=== PATIENT | female | born 1945 | race African-American/Black ===

== ENCOUNTER → 2016-03-11 | Outpatient (CLI) | payer OTHER ==
[~2016-03-11] MED LIST: ACETAMINOPHEN650 M5 PO; ADVANCED ANTAC355 ML PO; AMLODIPINE BESY10 MG PO; ASPIR 8181 MG PO; ASPIRIN EC81 M1 PO; BENAZEPRIL HCL20 MG PO; CARVEDILOL12.5 MG PO; CARVEDILOL6.25 MG PO; CELEBREX 200 M200 M1 PO; CELEXA10 MG PO; CLARITIN10 MG PO; COLACE100 MG PO; FERREX 150150 MG PO; FLAGYL500 MG PO; FLEXERIL PO; FUROSEMIDE 80 M80 M1 PO; GABAPENTIN 100100 MG PO; GLUCOPHAGE XR500 MG PO; HUMALOG100 UNIT/2; HYDROCODON-ACE1 EAC7 PO; IBUPROFEN 600600 M1 PO; JANUVIA 50 MG T50 MG PO; KEFLEX500 MG PO; LANOXIN 0.250.25 M1 PO; LASIX 40 MG TAB40 M2 PO; LIPITOR10 MG PO; MEDI-MECLIZINE25 MG PO; MOM PO; NAPROSYN500 MG PO; NEURONTIN 300300 M1 PO; POTASSIUM; POTASSIUM PO; POTASSIUM20 PO; POTASSIUM99 M1 PO; PROTONIX40 M1 PO; SANTYL OINTMENT30 G1 TOP; SENOKOT-S1 TA1 PO; TERBINAFINE15 GM TOP; TRAMADOL 50 MG50 MG PO; TRIAMTERENE-HC1 EAC1 PO; VITAMIN D3400 UNIT PO; ZANAFLEX4 MG PO; ZINC CHELATE50 MG PO
== END ==
LOC: HYPER 06:57
DX: I87.332 Chronic venous hypertension (idiopathic) with ulcer and inflammation of left lower extremity (principal); L97.821 Non-pressure chronic ulcer of other part of left lower leg limited to breakdown of skin; I87.321 Chronic venous hypertension (idiopathic) with inflammation of right lower extremity; R60.0 Localized edema; E66.01 Morbid (severe) obesity due to excess calories; Z79.84 Long term (current) use of oral hypoglycemic drugs; Z87.891 Personal history of nicotine dependence

== ENCOUNTER → 2016-05-21 | Outpatient (CLI) | payer OTHER | LOC: HYPER 07:04 | DX: I87.332 Chronic venous hypertension (idiopathic) with ulcer and inflammation of left lower extremity (principal); L97.321 Non-pressure chronic ulcer of left ankle limited to breakdown of skin; I87.321 Chronic venous hypertension (idiopathic) with inflammation of right lower extremity; L97.111 Non-pressure chronic ulcer of right thigh limited to breakdown of skin; E11.622 Type 2 diabetes mellitus with other skin ulcer; E66.01 Morbid (severe) obesity due to excess calories; E11.65 Type 2 diabetes mellitus with hyperglycemia; Z79.84 Long term (current) use of oral hypoglycemic drugs; Z87.891 Personal history of nicotine dependence; Z72.89 Other problems related to lifestyle ==

== ENCOUNTER → 2016-06-19 | Outpatient (CLI) | payer OTHER | LOC: HYPER 07:06 | DX: I87.332 Chronic venous hypertension (idiopathic) with ulcer and inflammation of left lower extremity (principal); L97.422 Non-pressure chronic ulcer of left heel and midfoot with fat layer exposed; R60.0 Localized edema; E66.01 Morbid (severe) obesity due to excess calories; E11.622 Type 2 diabetes mellitus with other skin ulcer; E11.65 Type 2 diabetes mellitus with hyperglycemia; Z79.84 Long term (current) use of oral hypoglycemic drugs; Z90.13 Acquired absence of bilateral breasts and nipples; Z87.891 Personal history of nicotine dependence; Z72.89 Other problems related to lifestyle ==

== ENCOUNTER → 2016-07-31 | Outpatient (CLI) | payer OTHER | LOC: HYPER 07:09 | DX: I87.332 Chronic venous hypertension (idiopathic) with ulcer and inflammation of left lower extremity (principal); L97.322 Non-pressure chronic ulcer of left ankle with fat layer exposed; R60.0 Localized edema; E66.01 Morbid (severe) obesity due to excess calories; E11.65 Type 2 diabetes mellitus with hyperglycemia; E11.622 Type 2 diabetes mellitus with other skin ulcer; Z79.84 Long term (current) use of oral hypoglycemic drugs; Z87.891 Personal history of nicotine dependence; Z72.89 Other problems related to lifestyle; Z68.43 Body mass index [BMI] 50.0-59.9, adult ==

== ENCOUNTER → 2016-09-25 | Outpatient (CLI) | payer OTHER | LOC: HYPER 08-28 15:18 | DX: I87.332 Chronic venous hypertension (idiopathic) with ulcer and inflammation of left lower extremity (principal); L97.322 Non-pressure chronic ulcer of left ankle with fat layer exposed; E66.01 Morbid (severe) obesity due to excess calories; E11.622 Type 2 diabetes mellitus with other skin ulcer; Z79.84 Long term (current) use of oral hypoglycemic drugs; Z68.43 Body mass index [BMI] 50.0-59.9, adult; Z87.891 Personal history of nicotine dependence; Z72.89 Other problems related to lifestyle ==

== ENCOUNTER 2016-10-14 15:04 | Inpatient (IN) | payer OTHER ==
[~2016-10-14] VITALS: Ht 4 cm; Wt 144.2 kg
--- NOTE | ~2016-10-14 | 2DMMODE ---
[facility] [address] [place] [address] 2 D/M-MODE ECHOCARDIOGRAM Name: RAMIRO BROOKS Room #: 219-P ADM IN M.R.#: [id number] Admission: 10/14/16 Attend Phys: Anthony Amaya Discharge: Date of : 41 Date of Service: 10/15/16 0903 Report #: [id number] THIS REPORT FOR: //name// APPROVED REPORT Study performed: 10/15/2016 06:04:09 EXAM: Comprehensive 2D, Doppler, and color-flow Echocardiogram Patient Location: Bedside Room #: 219 Status: routine BSA: 2.38 HR: 89 bpm BP: 142/60 mmHg Other Information Study Quality: Good Indications Chest pain. Hx: HTN, DM, morbid obesity. 2D Dimensions RVDd: 37.21 mm LVEF(%): 65.67 (>50%) IVSd: 12.90 (7-11mm) LVOT Diam: 21.21 (18-24mm) LVDd: 54.93 mm PWd: 13.21 (7-11mm) Ascending Ao: 35.41 (22-36mm) LVDs: 34.88 (25-40mm) Aortic Root: 34.94 mm Stokes's LVEF: 65.67 % Volumes Left Atrial Volume (Systole) Single Plane 4CH: 88.47 mL Single Plane 2CH: 81.78 mL LA ESV Index: 38.00 mL/m2 Aortic Valve AoV Peak Russ.: 2.06 m/s AO Peak Gr.: 16.93 mmHg LVOT Max P.84 mmHg AO Mean Gr.: 9.82 mmHg AO V2 Mean: 1.52 m/s LVOT Max V: 1.21 m/s AO V2 VTI: 39.87 cm VESTA Vmax: 2.07 cm2 Mitral Valve E/A Ratio: 0.6 [facility] [place] [address] 2 D/M-MODE ECHOCARDIOGRAM Name: RAMIRO BROOKS Room #: 219-P [facility] IN .R.#: [id number] Admission: 10/14/16 Attend Phys: Anthony Amaya Discharge: Date of : 41 Date of Service: 10/15/16 0903 Report #: [id number] MV Decel. Time: 163.06 ms MV E Max Russ.: 0.90 m/s MV A Russ.: 1.54 m/s MV PHT: 47.29 ms IVRT: 65.74 ms Pulmonary Valve PV Peak Russ.: 1.30 m/s PV Peak Gr.: 6.80 mmHg Pulmonary Vein P Vein S: 0.72 m/s P Vein A: 0.38 m/s P Vein D: 0.32 m/s P Vein A Dur.: 69.2 msec P Vein S/D Ratio: 2.25 Tricuspid Valve TR Peak Russ.: 3.35 m/s RAP Estimate: 5.00 mmHg TR Peak Gr.: 44.95 mmHg PA Pressure: 50.00 mmHg Left Ventricle The left ventricle is normal size. There is normal LV segmental wall motion. Mild concentric left ventricular hypertrophy. Left ventricular systolic function is normal. LVEF is 55-60%. Mild diastolic dysfunction is present (impaired relaxation pattern). Right Ventricle The right ventricle is normal size. The right ventricular systolic function is normal. Atria Left atrium is moderately dilated. Right atrium is mildly dilated. Aortic Valve Aortic valve is calcified, trileaflet No aortic regurgitation is present. There is no aortic valvular stenosis. Mitral Valve Mitral valve leaflets are thickened. Mild mitral annular calcification. No mitral regurgitation. Tricuspid Valve The tricuspid valve is normal in structure. There is mild to moderate tricuspid regurgitation. The right atrial pressure is estimated at 5 mmHg. There is moderate pulmonary hypertension with an estimated PAP [facility] [address] [place] [address] 2 D/M-MODE ECHOCARDIOGRAM Name: RAMIRO BROOKS Room #: 219-P [facility] IN ..#: [id number] Admission: 10/14/16 Attend Phys: Anthony Amaya Discharge: Date of : 41 Date of Service: 10/15/16 0903 Report #: [id number] of 50mmHg. Pulmonic Valve Pulmonic valve is not well visualized. Trace pulmonic regurgitation. Great Vessels The aortic root is normal in size. The ascending aorta is normal in size. IVC is normal in size and collapses >50% with inspiration. Pericardium There is no pericardial effusion. <Conclusion> Left ventricular systolic function is normal. There is normal LV segmental wall motion. LVEF is 55-60%. Mild diastolic dysfunction is present (impaired relaxation pattern). Aortic valve is calcified, trileaflet. Noo aortic valvular stenosis or insufficiency. Mitral valve leaflets are thickened. Mild mitral annular calcification. No mitral regurgitation. There is moderate pulmonary hypertension with an estimated pulmonary artery pressure of 50mmHg. There is no pericardial effusion. <ELECTRONICALLY SIGNED> By: Tariq Dickinson MD, FACC 10/15/16902 2 2 Tariq Dickinson MD, FACC /INF
--- NOTE | ~2016-10-14 | EKG ---
[place] [address] [address] [place] [address] ELECTROCARDIOGRAM REPORT Name: RAMIRO BROOKS Room #: 219-P ADM IN M.R.#: [id number] Admission: 10/14/16 Attend Phys: Anthony Herr Discharge: Date of : 41 Report #: [id number] THIS REPORT FOR: //name// [facility] Test Date: 2016-10-15 Test Time: 06:14:48 Pat Name: RAMIRO BROOKS Department: Room: 219 P Gender: F Bellman Captain: DAT : 1945 Requested By: Epifanio Lira Order Number: [id number] MD: Tariq Dickinson Measurements Intervals [place] Rate: 90 P: 93 NE: 207 QRS: -41 QRSD: 114 T: 103 QT: 376 QTc: 460 Interpretive Statements Sinus rhythm Abnormal R-wave progression, late transition LVH with IVCD, LAD and secondary repol abnrm Compared to ECG 03/29/2015 06:11:00 No significant change was found Electronically Signed On 10-15-2016 10:54:52 CDT by Tariq Dickinson [email or web address] <ELECTRONICALLY SIGNED> By: Tariq Dickinson MD, [facility] 10/15/16 1054 0614 0614 Tariq Dickinson MD, [facility] /EPI
--- NOTE | ~2016-10-14 | P ---
[facility] [place] [address] PROCEDURE REPORT Name: RAMIRO BROOKS Room #: 219-P [facility] IN M.R.#: [id number] Admission: 10/14/16 Attend Phys: Anthony Herr Discharge: Date of : 41 Report #: [id number] THIS REPORT FOR: //name// CC: EPIFANIO Jarrett DATE OF SERVICE: 10/15/2016 BRIEF HISTORY: The patient is a 71-year-old woman, who presented with GI bleeding. In March 2013, Dr. Mcarthur cauterized 6 AVMs in the stomach for GI bleeding. She developed black tarry stools yesterday. In home health center to the ER, she had a hemoglobin of 6.3. She also had chest pain and has had a rise in troponin to 15. Case was discussed with Dr. Epifanio Lira. He urges to proceed with emergent upper endoscopy to control bleeding as he cannot take her to the catheter lab with active bleeding. This was discussed with patient. PREOPERATIVE DIAGNOSIS: Upper gastrointestinal bleeding. 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 MEDICATIONS: Sedation with propofol per anesthesia. SPECIMEN: None. ESTIMATED BLOOD LOSS: None related to procedure but the patient had an active bleeding AVM. PROCEDURE: EGD with hemostasis. FINDINGS: Prior to propofol sedation, procedure of upper endoscopy discussed with patient. Her high risk in view of her elevated troponins was discussed with the patient. Limitations for cardiovascular management were discussed as well. She indicates she understands and desires to proceed. The patient is in supine position. Her head and chest were raised about 20-30 degrees. Subsequently, Etherpadi video endoscope was inserted in the cervical esophagus under direct vision without difficulty. ____ through its entire length revealed normal esophageal mucosa. No blood was seen in the esophagus. A hiatus hernia was not seen. The scope was advanced into the stomach, was examined on end view as well as retroflexed views. Examination of the stomach revealed that the entire stomach was coated with dark red to bright red blood. No well-formed clots were seen. All the mucosa was coated with a thin layer. A [facility] [address] [place] [address] PROCEDURE REPORT Name: RAMIRO BROOKS Room #: 219-P ADM IN M.R.#: [id number] Admission: 10/14/16 Attend Phys: Anthony Herr Discharge: Date of : 41 Report #: [id number] spurting vessel was not seen. An ulcer crater was not seen. Pylorus was normal. Duodenal bulb also was covered with blood and postbulbar duodenum was also covered with blood. We then irrigated the duodenum and no lesions, ulcers or bleeding lesions were seen. We then withdrew the scope back into the stomach and very meticulously started distally in the antrum, washing away much blood as possible and suctioning the lavaged fluid and blood away. After examining the entire stomach, we isolated the area of oozing on the lesser curvature of the stomach and the body. Irrigating this area transiently we could see vascular malformations with oozing of bright red blood. We then treated this area with a 7-Urdu BICAP probe with good hemostasis. We then went back and reexamined the entire stomach as well as the duodenum and no further bright red blood was seen or active oozing was seen. We went back and looked at the site once again. There was still some oozing recurred and then we treated this area once again with the BICAP probe and obtained a fairly deep footprint from the BICAP at that point. Good hemostasis was achieved. No further bleeding was seen. Scope withdrawn. The patient tolerated the procedure well. DISPOSITION: The patient with active upper GI bleeding with chest pain and elevated troponins potentially exacerbated by her GI bleed. Active bleeding site was identified and controlled. We will place her on proton pump inhibitor. Continue to monitor hemoglobin. She did have 6 AVMs on her last endoscopy. Only one bleeding was seen today. Inspection was limited due to the coating of blood. We will monitor her clinical course. At some point, consider a repeat endoscopy to evaluate for additional vascular ectasias although that will likely depend on her clinical course. <ELECTRONICALLY SIGNED> By: Desean Rodriguez MD 10/18/16 1523 1240 1356 Desean Rodriguez MD /nt
--- NOTE | ~2016-10-14 | EKG ---
[place] [address] [address] [place] [address] ELECTROCARDIOGRAM REPORT Name: RAMIRO BROOKS Room #: 219-P ADM IN M.R.#: [id number] Admission: 10/14/16 Attend Phys: Anthony Herr Discharge: Date of : 41 Report #: [id number] THIS REPORT FOR: //name// [facility] Test Date: 2016-10-16 Test Time: 06:25:12 Pat Name: RAMIRO BROOKS Department: Room: 219 P Gender: F Chief Talent Officer: Vanesa : 1945 Requested By: Daria Lr Order Number: [id number] MD: Tariq Dickinson Measurements Intervals [place] Rate: 83 P: 55 TX: 163 QRS: -40 QRSD: 114 T: 156 QT: 393 QTc: 462 Interpretive Statements Sinus rhythm Abnormal R-wave progression, late transition LVH with IVCD, LAD and secondary repol abnrm Compared to ECG 10/15/2016 06:14:48 No significant changes Electronically Signed On 10-16-2016 8:00:26 CDT by Tariq Dickinson [email or web address] <ELECTRONICALLY SIGNED> By: Tariq Dickinson MD, [facility] 10/16/16 08 4 4 Tariq Dickinson MD, [facility] /EPI
--- NOTE | ~2016-10-14 | CATHLAB ---
[facility] [address] [place] [address] INVASIVE PROCEDURE REPORT Name: RAMIRO BROOKS Room #: 219-P ADM IN M.R.#: [id number] Admission: 10/14/16 Attend Phys: Anthony Amaya Discharge: Date of : 41 Date of Service: 10/22/16 1301 Report #: [id number] THIS REPORT FOR: //name// APPROVED REPORT Patient Details Patient Status: In-Patient Room #: The patient is a 71 year-old female Event Personnel Pablo Arroyo Entry Level Lab Technician, Saúl Marie RN, Shayla Espinosa RN RN, Melany Wilson, Sherry Worthy RTR Scrub Procedures Performed Art Access - R femoral artery* Left Heart Cath w/or w/o Coronaries [id number] [facility] Hemostasis w/ Mynx Indication Non-STEMI , Dyspnea, Unstable angina Risk Factors Obesity, HypertensionRenal Failure, Diabetes Procedure Narrative The right femoral was infiltrated with 1% Lidocaine subcutaneous anesthesia. A PINNACLE 6FR Sheath #[id number] sheath was inserted into the RFA^. Coronary angiography was performed using coronary diagnostic catheters. The right coronary system was accessed and visualized with a 5fr JR 4 catheter. The left coronary system was accessed and visualized with a 6fr JL5 catheter. The left ventricle was accessed and visualized with a 5fr JR 4 catheter. Left ventricular/Aortic Valve gradient assessed via catheter pullback. Pre-demployment femoral angiogram was performed . The patient tolerated the procedure well and there were no complications associated with the procedure. There was no hematoma. Intraoperative Conscious Sedation Sedation start time: 11:01 Case end Time: 11:44 Fentanyl 75.0 mcg Versed 1.0 mg Fluoro Time: 6.00 minutes Dose: DAP 35183.40 cGycm2 2057 mGy Contrast Type and Amount: Visipaque 125 ml [facility] [place] [address] INVASIVE PROCEDURE REPORT Name: TODDRAMIRO Room #: 219-P [facility] IN M.R.#: [id number] Admission: 10/14/16 Attend Phys: Anthony Amaya Discharge: Date of : 41 Date of Service: 10/22/16 1301 Report #: [id number] Coronary Angiography The patient's coronary anatomy is co- dominant. Diagnostic Cath Left Main Large-caliber vessel, heavily calcified with mild diffuse disease. LAD Moderately calcified throughout its course. There is a severe stenosis in the proximal/mid segment, 80%. Diagonal 1 Moderate size caliber vessel, has severe diffuse disease in the proximal segment. Circumflex Mild disease proximally. OM1 Severe proximal stenosis, 80% Right Coronary Supplies a PDA vessel. Has mild diffuse disease in the proximal segment. R PDA Small-caliber vessel, no flow limiting lesions. Ramus Has a severe stenosis in the proximal segment, 70%. Left Ventriculography Left Ventriculography was not performed. An LVEDP was measured, and there was no gradient across the outflow tract. Hemodynamics The aortic pressure is 149/67 mmHg with a mean of 99 mmHg. The left ventricular pressure is 160/17 mmHg with a mean of mmHg. The left ventricular end diastolic pressure is 30 mmHg. Conclusion 1. Severe multivessel disease. 2. Recommend CV consultation. Recommendations Aggressive Medical Therapy <ELECTRONICALLY SIGNED> By: Pablo Arroyo MD 10/22/16 1301 1301 1301 Pablo Arroyo MD /INF
--- NOTE | ~2016-10-14 | EKG ---
[address] [employer] [address] ELECTROCARDIOGRAM REPORT Name: RAMIRO BROOKS Room #: 219-P ADM IN M.R.#: [id number] Admission: 10/14/16 Attend Phys: Anthony Herr Discharge: Date of : 41 Report #: [id number] THIS REPORT FOR: //name// [facility] Test Date: 2016-10-14 Test Time: 21:43:14 Pat Name: RAMIRO BROOKS Department: Room: 219 P Gender: F Manual Qa Tester: Wesly VALLEJO : 1945 Requested By: Anthony Herr Order Number: [id number] MD: Tariq Dickinson Measurements Intervals [place] Rate: 104 P: 59 VT: 168 QRS: -45 QRSD: 114 T: 107 QT: 346 QTc: 455 Interpretive Statements Sinus tachycardia LVH with IVCD, LAD and secondary repol abnrm Compared to ECG 03/29/2015 06:11:00 No significant change was found Electronically Signed On 10-15-2016 10:51:07 CDT by Tariq Dickinson [email or web address] <ELECTRONICALLY SIGNED> By: Tariq Dickinson MD, [facility] 10/15/16 1051 2143 42 Tariq Dickinson MD, [facility] /EPI
--- NOTE | ~2016-10-14 | S ---
[facility] [place] [address] [place] [address] SURGICAL PATH RPT PROCEDURE Name: TODDGERI Room #: 219-P ADM IN M.R.#: [id number] Admission: 10/14/16 Date of : 41 Discharge: Report #: [id number] Path Case #: [id number] PATHOLOGY REPORT COLLECTION DATE: 10/18/2016 RECEIVED DATE: 10/18/2016 SUBMITTING PHYS: Dr. Desean Rodriguez OTHER PHYS: Dr. Anthony Herr SPECIMEN(S) RECEIVED: MariselaBx gastritis * * * * * * * * * * * * FINAL DIAGNOSIS: Gastric mucosa, gastritis, endoscopic biopsy: - Mild reactive gastropathy. - Negative for intestinal metaplasia or atrophy. - Negative for Helicobacter pylori. COMMENT: Helicobacter pylori immunohistochemical stain performed on block A1-negative (IUV:mgr; 10/21/2016) PATHOLOGIST: Homa Wong M.D. REPORT ELECTRONICALLY SIGNED BY: Homa Wong M.D. DATE/TIME: 10/21/2016 18:57 * * * * * * * * * * * * GROSS PATHOLOGY: Received in formalin labeled "Geri BrownEDGAR gastritis," are six segments of reza soft tissue measuring 1.0 x 0.6 x 0.2 cm in aggregate dimensions and ranging from 0.1 to 0.3 cm in maximum dimension. The specimen is submitted entirely in cassette A1. (TSD; 10/18/2016) CLINICAL HISTORY: Pre-OP DX: Anemia, previous AUM Post-OP DX: Gastric AUM's and gastritis INITIAL CPT CODE(S): A; 47101, 00085 Professional services performed by [facility] at [facility] [address] [place] [address] [facility] [address] [place] [address] SURGICAL PATH RPT PROCEDURE Name: GERI BROWN Room #: 219-P ADM IN M.R.#: [id number] Admission: 10/14/16 Date of : 41 Discharge: Report #: [id number] Path Case #: [id number] Technical services performed by [facility] at [address] [place] [address], [facility] [address] [place] [address]. Rai Jarrett [facility] [address] [place] [address] PHONE: [phone] DIRECTOR: Emanuel Wilson M.D. * * * END OF REPORT * * *
--- NOTE | ~2016-10-14 | HC ---
[facility] [place] [address] CONSULTATION Name: RAMIRO BROOKS Room #: 219-P [facility] IN M.R.#: [id number] Admission: 10/14/16 Attend Phys: Anthony Herr Discharge: Date of : 41 Report #: [id number] THIS REPORT FOR: //name// CC: Anthony Jarrett MD REASON FOR CONSULTATION: The patient is a 71-year-old woman with gastrointestinal bleeding. HISTORY OF PRESENT ILLNESS: The patient developed several black stools yesterday. Her visiting home nurse came to see her and she reported the black stool and the visiting nurse recommended she go to the Emergency Room. She was seen and admitted through [facility]. Hemoglobin was 6.8. She did receive 2 units of blood. Her MCV is 91.4, white count of 9.4. It is noted that she has chronic anemia and she typically runs in the upper 8 to low 9 region. She has not had any upper abdominal pain, nausea or vomiting. History is noteworthy for previous GI bleeding, upper endoscopy by Dr. Delarosa in 04/2015. At which times, 6 gastric AVMs were seen and treated with a BICAP probe. In addition, when she presented, she developed some chest pain. EKG was obtained, which did not reveal any acute changes. Troponins have been obtained and she has had a rise in her troponin to 15. This was discussed with Dr. Lira who stated that as long as she was stable that he prefer we proceed with upper endoscopy because he is limited on intervention in particular the cardiac catheterization if she is actively bleeding. PAST MEDICAL HISTORY: Diabetes, high blood pressure, elevated cholesterol. PAST SURGICAL HISTORY: Bilateral mastectomy, hernia repair, tonsillectomy and rotator cuff surgery. ALLERGIES: IBUPROFEN. USUAL HOME MEDICINES: Hydrocodone, amlodipine, Lipitor, Coreg, vitamin D3, furosemide, gabapentin, Januvia, terbinafine, Zanaflex and zinc. FAMILY HISTORY: No family history of colon cancers. SOCIAL HISTORY: She is nonsmoker. She will drink an occasional shot of whisky. Lives with her spouse. REVIEW OF SYSTEMS: GENERAL: No change in weight, fever or chills. HEENT: No weakness, numbness, loss of consciousness, seizures or strokes. [address] [address] CONSULTATION Name: RAMIRO BROOKS Room #: 219-P [facility] IN M.R.#: [id number] Admission: 10/14/16 Attend Phys: Anthony Herr Discharge: Date of : 41 Report #: [id number] PULMONARY: No shortness of breath or cough. CARDIOVASCULAR: She had chest pain last evening, resolved with morphine. She denies any chest pain since that time. PHYSICAL EXAMINATION: GENERAL: Well-developed, well-nourished, morbidly obese woman in no acute distress. She appears to be quite comfortable. VITAL SIGNS: Blood pressure 142/60, pulse of 94. HEENT: Anicteric. Pupils equal and round. Oropharynx clear. NECK: Supple. CHEST: Clear. HEART: Regular rate and rhythm, S1, S2. ABDOMEN: Morbidly obese, normal bowel sounds, soft, nontender without hepatosplenomegaly or masses. ASSESSMENT: 1. Upper gastrointestinal bleeding, history of gastric arteriovenous malformations. 2. Chest pain with elevation of troponin. 3. Diabetes. 4. Chronic kidney disease with elevation in creatinine. COMMENT: Case was discussed with Dr. Lira and also Anesthesia. It was felt that the patient's best interest to proceed with GI intervention to control bleeding prior to any further cardiovascular workup or intervention. This was discussed with the patient and the fact that she is at a high risk due to a potential cardiac injury was discussed with the patient. She indicates she understands and desire that we proceed. PLAN: Upper endoscopy for evaluation of her upper gastrointestinal bleeding. <ELECTRONICALLY SIGNED> By: Desean Rodriguez MD 10/15/16 1547 1346 1420 Desean Rodriguez MD /nt
--- NOTE | ~2016-10-14 | P ---
[facility] [place] [address] PROCEDURE REPORT Name: RAMIRO BROOKS Room #: 219-P [facility] IN M.R.#: [id number] Admission: 10/14/16 Attend Phys: Anthony Herr Discharge: Date of : 41 Report #: [id number] THIS REPORT FOR: //name// CC: Epifanio Lira MD [facility] Anthony Herr [facility] Rai Jarrett MD BRIEF HISTORY: The patient is a 71-year-old woman known to me who had presented with an upper GI bleed. We scoped her earlier this week and found an active bleeding AVM which was cauterized. At that time, her stomach was coated with blood, which limited views with regards to inspection for additional lesions. She has done well, but has had a drop in hemoglobin and required another unit of blood. PREOPERATIVE DIAGNOSIS: Upper gastrointestinal bleed with gastric arteriovenous malformations. POSTOPERATIVE DIAGNOSES: 1. Gastric arteriovenous malformations x 2. 2. Diffuse nodular gastritis. MEDICATIONS: Deep sedation with propofol per anesthesia. SPECIMEN: Biopsies of gastritis. ESTIMATED BLOOD LOSS: 3 mL. PROCEDURE: EGD with biopsy and hemostasis. FINDINGS: Prior to propofol sedation, procedure of upper endoscopy and intervention was discussed with the patient as well as potential risks and its complications. She indicates she understands and desires to proceed. DESCRIPTION OF PROCEDURE: With the patient in left lateral decubitus position, the [employer] video endoscope was inserted in the cervical esophagus under direct vision without difficulty. Examination of this organ to its entire length revealed normal esophageal mucosa. The squamocolumnar junction was inspected and noted to be unremarkable. There is no evidence of esophagitis, ulcer or other lesions. No bleeding sources were seen in the esophagus. The scope was advanced into the stomach, which was examined on end view as well as retroflexed views. Examination of the stomach revealed it to be free of blood. Active bleeding was not seen today. No bleeding whatsoever was noted. Upon extensive examination of the stomach on multiple passes of scope on end view as well as retroflexed views, 2 punctate nonbleeding AVMs were seen, one within the body of the stomach and the other . Both were obliterated with BICAP probe. In [address] [address] PROCEDURE REPORT Name: RAMIRO BROOKS Room #: 219-P [facility] IN M.R.#: [id number] Admission: 10/14/16 Attend Phys: Anthony Herr Discharge: Date of : 41 Report #: [id number] addition, she had gastritis with some erythema in the antrum, but nodular changes throughout the body of the stomach. Multiple biopsies were obtained. The pylorus was normal. Duodenal bulb was normal. Postbulbar duodenal sweep down to the fourth portion was normal. No blood was seen. The duodenum, duodenal AVMs were not seen. At that point, the scope was slowly withdrawn and careful circumferential views confirmed the above findings. The patient tolerated the procedure well. DISPOSITION: The patient with bleeding from gastric AVM. Second look revealed 2 nonbleeding AVMs. If she continues to drop hemoglobin, an M2 capsule study may be indicated. In addition, a colonoscopy may be indicated if she has further bleeding as well. Continue PPI at this point in time. Continue to monitor hemoglobin and follow up on biopsies. <ELECTRONICALLY SIGNED> By: Desean Rodriguez MD 10/18/16 1523 1019 1110 Desean Rodriguez MD /nt
[2016-10-14 15:12] VITALS: BP 176/60
[2016-10-14 18:50] LABS: CALCIUM 9.1 mg/dL (8.5-10.1); POTASSIUM 5.1 mmol/L (3.5-5.1)
[2016-10-14 18:57] LABS: ALBUMIN 3.1 g/dL (3.4-5.0); TOTAL BILIRUBIN 0.2 mg/dL (<0.1-1.0); TOTAL PROTEIN 6.9 g/dL (6.4-8.2)
[2016-10-14 19:13] LABS: HEMOGLOBIN 6.8 gm/dL (12.0-15.0); RDW 17.3 % (10.5-14.5)
[2016-10-14 19:15] LABS: BASOPHILS 0.5 % (0.0-2.0); EOSINOPHILS 0.6 % (0.0-3.0); HEMATOCRIT 20.4 % (37.0-47.0); LYMPHOCYTES 21.6 % (24.0-44.0); MCH 30.3 pg (26.0-34.0); MCHC 33.3 g/dL (28.0-37.0); MCV 91.1 fL (80.0-100.0); MONOCYTES 11.2 % (1.0-8.0); PLATELET COUNT 179 thou/uL (150-400); POLYS 66.1 % (36.0-66.0); RBC 2.24 mil/uL (4.20-5.00); WBC 9.1 thou/uL (4.0-11.0)
[2016-10-14 19:22] LABS: MANUAL DIFF NO
[2016-10-14 20:50] VITALS: BP 126/52
[2016-10-14 21:56] VITALS: BP 157/73
[2016-10-14 22:53] VITALS: BP 168/93
[2016-10-14 23:37] VITALS: BP 152/71
[2016-10-15 04:02] VITALS: BP 142/60
[2016-10-15 04:04] LABS: HEMOGLOBIN 6.8 gm/dL (12.0-15.0); RDW 17.9 % (10.5-14.5); WBC 9.4 thou/uL (4.0-11.0)
[2016-10-15 04:07] LABS: HEMATOCRIT 21.1 % (37.0-47.0); MCH 29.4 pg (26.0-34.0); MCHC 32.2 g/dL (28.0-37.0); MCV 91.4 fL (80.0-100.0); RBC 2.31 mil/uL (4.20-5.00)
[2016-10-15 04:12] LABS: CALCIUM 8.3 mg/dL (8.5-10.1); CREATININE 2.5 mg/dL (0.6-1.0); POTASSIUM 4.6 mmol/L (3.5-5.1)
[2016-10-15 04:23] LABS: TROPONIN-I 4.62 ng/mL (<0.04-0.07)
[2016-10-15 05:10] VITALS: BP 147/65; BP 149/65; BP 159/76
[2016-10-15 10:17] LABS: APTT 24.4 Seconds (24.5-32.8); INR 1.1
[2016-10-15 12:07] LABS: HEMATOCRIT 22.7 % (37.0-47.0); HEMOGLOBIN 7.7 gm/dL (12.0-15.0); MCH 30.3 pg (26.0-34.0); MCHC 33.8 g/dL (28.0-37.0); MCV 89.4 fL (80.0-100.0); RBC 2.54 mil/uL (4.20-5.00); RDW 18.2 % (10.5-14.5); WBC 9.5 thou/uL (4.0-11.0)
[2016-10-15 16:10] VITALS: BP 149/74
[2016-10-15 16:11] LABS: HEMATOCRIT 25.2 % (37.0-47.0); HEMOGLOBIN 8.2 gm/dL (12.0-15.0)
[2016-10-15 19:19] VITALS: BP 119/56
[2016-10-15 23:31] VITALS: BP 140/68
[2016-10-16 03:19] LABS: ABSOLUTE NEUTROPHILS 6.8 thou/uL (1.4-8.2); BASOPHILS 0.7 % (0.0-2.0); HEMATOCRIT 23.8 % (37.0-47.0); HEMOGLOBIN 7.7 gm/dL (12.0-15.0); LYMPHOCYTES 20.4 % (24.0-44.0); MCH 29.5 pg (26.0-34.0); MCHC 32.4 g/dL (28.0-37.0); MONOCYTES 9.5 % (1.0-8.0); PLATELET COUNT 157 thou/uL (150-400); POLYS 67.4 % (36.0-66.0); RBC 2.62 mil/uL (4.20-5.00); RDW 18.1 % (10.5-14.5); WBC 10.1 thou/uL (4.0-11.0)
[2016-10-16 03:20] LABS: MANUAL DIFF NO
[2016-10-16 03:26] VITALS: BP 144/60
[2016-10-16 07:18] VITALS: BP 143/54
[2016-10-16 10:33] LABS: CALCIUM 8.8 mg/dL (8.5-10.1); CREATININE 2.1 mg/dL (0.6-1.0); POTASSIUM 4.8 mmol/L (3.5-5.1)
[2016-10-16 11:13] VITALS: BP 128/44
[2016-10-16 15:01] VITALS: BP 130/44
[2016-10-16 20:30] VITALS: BP 136/52
[2016-10-17] VITALS (7 sets, daily range): BP systolic 116–146; BP diastolic 47–75
[2016-10-17 03:34] LABS: ABSOLUTE NEUTROPHILS 6.9 thou/uL (1.4-8.2); BASOPHILS 0.5 % (0.0-2.0); HEMATOCRIT 21.2 % (37.0-47.0); HEMOGLOBIN 7.1 gm/dL (12.0-15.0); LYMPHOCYTES 16.4 % (24.0-44.0); MCH 30.2 pg (26.0-34.0); MCHC 33.2 g/dL (28.0-37.0); MONOCYTES 8.5 % (1.0-8.0); PLATELET COUNT 144 thou/uL (150-400); POLYS 72.6 % (36.0-66.0); RBC 2.33 mil/uL (4.20-5.00); RDW 17.5 % (10.5-14.5); WBC 9.5 thou/uL (4.0-11.0)
[2016-10-17 03:39] LABS: MANUAL DIFF NO
[2016-10-17 03:56] LABS: ALBUMIN 2.6 g/dL (3.4-5.0); CALCIUM 8.3 mg/dL (8.5-10.1); POTASSIUM 4.5 mmol/L (3.5-5.1)
[2016-10-17 03:58] LABS: TROPONIN-I 5.96 ng/mL (<0.04-0.07)
[2016-10-18 04:43] VITALS: BP 154/66
[2016-10-18 05:11] LABS: HEMOGLOBIN 7.8 gm/dL (12.0-15.0); MCH 31.1 pg (26.0-34.0); MCHC 33.9 g/dL (28.0-37.0); MCV 91.7 fL (80.0-100.0); RBC 2.51 mil/uL (4.20-5.00); WBC 8.3 thou/uL (4.0-11.0)
[2016-10-18 05:25] LABS: ALBUMIN 2.5 g/dL (3.4-5.0); CALCIUM 8.1 mg/dL (8.5-10.1); CREATININE 1.6 mg/dL (0.6-1.0); PHOSPHORUS 4.3 mg/dL (2.5-4.9); POTASSIUM 4.5 mmol/L (3.5-5.1)
[2016-10-18 08:00] VITALS: BP 167/69
[2016-10-18 12:00] VITALS: BP 153/6
[2016-10-18 15:55] VITALS: BP 185/70
[2016-10-18 19:45] VITALS: BP 157/56
[2016-10-19] VITALS (7 sets, daily range): BP systolic 136–161; BP diastolic 46–69
[2016-10-19 03:23] LABS: HEMATOCRIT 23.4 % (37.0-47.0); HEMOGLOBIN 7.5 gm/dL (12.0-15.0); MCH 29.7 pg (26.0-34.0); MCHC 32.1 g/dL (28.0-37.0); MCV 92.4 fL (80.0-100.0); RBC 2.54 mil/uL (4.20-5.00); RDW 17.7 % (10.5-14.5); WBC 7.9 thou/uL (4.0-11.0)
[2016-10-19 03:30] LABS: ALBUMIN 2.4 g/dL (3.4-5.0); CALCIUM 8.4 mg/dL (8.5-10.1); CREATININE 1.5 mg/dL (0.6-1.0); POTASSIUM 4.3 mmol/L (3.5-5.1)
[2016-10-20 03:46] LABS: HEMATOCRIT 26.4 % (37.0-47.0); HEMOGLOBIN 8.9 gm/dL (12.0-15.0); MCH 30.7 pg (26.0-34.0); MCHC 33.7 g/dL (28.0-37.0); MCV 91.2 fL (80.0-100.0); RBC 2.9 mil/uL (4.20-5.00); RDW 17.4 % (10.5-14.5); WBC 8.3 thou/uL (4.0-11.0)
[2016-10-20 04:01] LABS: ALBUMIN 2.6 g/dL (3.4-5.0); CALCIUM 8.4 mg/dL (8.5-10.1); CREATININE 1.6 mg/dL (0.6-1.0); PHOSPHORUS 4.2 mg/dL (2.5-4.9); POTASSIUM 4.4 mmol/L (3.5-5.1)
[2016-10-20 04:11] VITALS: BP 168/69
[2016-10-20 08:24] VITALS: BP 139/43
[2016-10-20 09:30] LABS: URINE BILIRUBIN NEGATIVE (Negative); URINE BLOOD 1+ (Negative); URINE COLOR YELLOW; URINE GLUCOSE-RANDOM* NEGATIVE (Negative); URINE KETONES NEGATIVE (Negative); URINE LEUKOCYTES-REFLEX 2+ (Negative); URINE PROTEIN (DIPSTICK) 2+ (Negative); URINE SPECIFIC GRAVITY 1.025 (1.003-1.035); URINE UROBILINOGEN 0.2 E.U./dl (0.2-1.0)
[2016-10-20 09:40] LABS: CASTS None Seen /LPF (None Seen); CRYSTALS None Seen /LPF (None Seen); SQUAMOUS 0-3 Few /LPF (0-3)
[2016-10-20 09:41] LABS: URINE RBC 0-2 Rare /HPF (0-2); URINE WBC-REFLEX >25 Many /HPF (0-5)
[2016-10-20 12:29] VITALS: BP 133/53
[2016-10-20 17:27] VITALS: BP 147/67
[2016-10-20 19:32] VITALS: BP 133/50
[2016-10-21 03:10] LABS: ABSOLUTE NEUTROPHILS 5.9 thou/uL (1.4-8.2); BASOPHILS 0.3 % (0.0-2.0); EOSINOPHILS 2.4 % (0.0-3.0); HEMATOCRIT 27.7 % (37.0-47.0); HEMOGLOBIN 9.1 gm/dL (12.0-15.0); LYMPHOCYTES 15.6 % (24.0-44.0); MCH 30.1 pg (26.0-34.0); MCHC 32.9 g/dL (28.0-37.0); MCV 91.7 fL (80.0-100.0); MONOCYTES 8.6 % (1.0-8.0); PLATELET COUNT 176 thou/uL (150-400); POLYS 73.1 % (36.0-66.0); RBC 3.03 mil/uL (4.20-5.00); RDW 17.7 % (10.5-14.5); WBC 8.1 thou/uL (4.0-11.0)
[2016-10-21 03:13] LABS: MANUAL DIFF NO
[2016-10-21 03:40] LABS: CALCIUM 8.5 mg/dL (8.5-10.1); CREATININE 1.7 mg/dL (0.6-1.0); MAGNESIUM 1.7 mg/dL (1.8-2.4); POTASSIUM 4.3 mmol/L (3.5-5.1)
[2016-10-21 04:00] VITALS: BP 151/71
[2016-10-21 07:35] VITALS: BP 157/66
[2016-10-21 12:12] VITALS: BP 144/68
[2016-10-21 16:08] VITALS: BP 136/66
[2016-10-21 20:52] VITALS: BP 156/59
[2016-10-22] VITALS (11 sets, daily range): BP systolic 126–154; BP diastolic 54–70
[2016-10-22 04:20] LABS: ABSOLUTE NEUTROPHILS 6.2 thou/uL (1.4-8.2); BASOPHILS 0.3 % (0.0-2.0); EOSINOPHILS 2.4 % (0.0-3.0); HEMATOCRIT 27.7 % (37.0-47.0); HEMOGLOBIN 9.1 gm/dL (12.0-15.0); LYMPHOCYTES 11.8 % (24.0-44.0); MCH 30.1 pg (26.0-34.0); MCHC 32.7 g/dL (28.0-37.0); MCV 91.9 fL (80.0-100.0); MONOCYTES 9.3 % (1.0-8.0); PLATELET COUNT 196 thou/uL (150-400); POLYS 76.2 % (36.0-66.0); RBC 3.01 mil/uL (4.20-5.00); RDW 17.5 % (10.5-14.5); WBC 8.1 thou/uL (4.0-11.0)
[2016-10-22 04:24] LABS: MANUAL DIFF NO
[2016-10-23 03:23] LABS: ABSOLUTE NEUTROPHILS 6.3 thou/uL (1.4-8.2); BASOPHILS 0.2 % (0.0-2.0); EOSINOPHILS 2.1 % (0.0-3.0); HEMATOCRIT 29.2 % (37.0-47.0); HEMOGLOBIN 9.7 gm/dL (12.0-15.0); LYMPHOCYTES 12.2 % (24.0-44.0); MCH 30.4 pg (26.0-34.0); MCHC 33.2 g/dL (28.0-37.0); MCV 91.5 fL (80.0-100.0); MONOCYTES 9.2 % (1.0-8.0); PLATELET COUNT 211 thou/uL (150-400); POLYS 76.3 % (36.0-66.0); RBC 3.19 mil/uL (4.20-5.00); RDW 17.5 % (10.5-14.5); WBC 8.2 thou/uL (4.0-11.0)
[2016-10-23 03:48] LABS: CALCIUM 8.8 mg/dL (8.5-10.1); CREATININE 1.6 mg/dL (0.6-1.0); MAGNESIUM 1.9 mg/dL (1.8-2.4); POTASSIUM 4.3 mmol/L (3.5-5.1)
[2016-10-23 03:52] LABS: MANUAL DIFF NO
[2016-10-23 05:19] VITALS: BP 152/57; BP 162/57
[2016-10-23 07:51] VITALS: BP 155/64
[2016-10-23 11:50] VITALS: BP 155/64
[2016-10-23 11:57] VITALS: BP 155/64
[2016-10-23] MEDS ORDERED: CIPRO250 M1 PO (13:11)
[2016-10-23] MEDS ORDERED: ASPIR 8181 MG PO (13:11)
[2016-10-23] MEDS ORDERED: PROTONIX40 M1 PO (13:11)
[2016-10-23 13:42] VITALS: BP 155/64
== END 2016-10-23 18:10 | disposition home health service (06) | DRG 377 ==
LOC: ER 15:04 → 2N 19:38 → EROBS 19:38 → 2N 21:19
PROVIDERS: Hospitalist; Internal Medicine; Internal Medicine Cardiovascular Disease; Nurse Practitioner Acute Care; Physician Assistant; Specialist
PROC: 30233N1 Transfusion of Nonautologous Red Blood Cells into Peripheral Vein, Percutaneous Approach (ICD-10-PCS; 2016-10-14)
PROC: 0DB68ZX Excision of Stomach, Via Natural or Artificial Opening Endoscopic, Diagnostic (ICD-10-PCS; principal; 2016-10-18)
PROC: 0W3P8ZZ Control Bleeding in Gastrointestinal Tract, Via Natural or Artificial Opening Endoscopic (ICD-10-PCS; 2016-10-18)
PROC: B2111ZZ Fluoroscopy of Multiple Coronary Arteries using Low Osmolar Contrast (ICD-10-PCS; 2016-10-22)
PROC: 4A023N7 Measurement of Cardiac Sampling and Pressure, Left Heart, Percutaneous Approach (ICD-10-PCS; 2016-10-22)
DX: K55.21 Angiodysplasia of colon with hemorrhage (principal); N17.0 Acute kidney failure with tubular necrosis; I21.4 Non-ST elevation (NSTEMI) myocardial infarction; D62 Acute posthemorrhagic anemia; N39.0 Urinary tract infection, site not specified; Z96.1 Presence of intraocular lens; E11.40 Type 2 diabetes mellitus with diabetic neuropathy, unspecified; I12.9 Hypertensive chronic kidney disease with stage 1 through stage 4 chronic kidney disease, or unspecified chronic kidney disease; N18.9 Chronic kidney disease, unspecified; E11.22 Type 2 diabetes mellitus with diabetic chronic kidney disease; K29.70 Gastritis, unspecified, without bleeding; E78.5 Hyperlipidemia, unspecified; E66.01 Morbid (severe) obesity due to excess calories; I25.10 Atherosclerotic heart disease of native coronary artery without angina pectoris; E83.42 Hypomagnesemia; K59.00 Constipation, unspecified; D50.9 Iron deficiency anemia, unspecified; Z98.42 Cataract extraction status, left eye; Z98.41 Cataract extraction status, right eye; Z90.13 Acquired absence of bilateral breasts and nipples; Z79.899 Other long term (current) drug therapy; Z88.6 Allergy status to analgesic agent; Z87.891 Personal history of nicotine dependence; Z90.49 Acquired absence of other specified parts of digestive tract
CPT/HCPCS: 10081; 62110; 62900; 70005

== ENCOUNTER 2017-02-11 18:52 | Inpatient (IN) | payer OTHER ==
[~2017-02-11] VITALS: Ht 162.6 cm; Wt 150.5 kg
--- NOTE | ~2017-02-11 | EKG ---
[address] [address] ELECTROCARDIOGRAM REPORT Name: RAMIRO BROOKS Room #: 170-5 ADM IN M.R.#: [id number] Admission: 02/11/17 Attend Phys: Anthony Herr Discharge: Date of : 41 Report #: [id number] THIS REPORT FOR: //name// [facility] ED Test Date: 2017-02-11 Test Time: 18:51:52 Pat Name: RAMIRO BROOKS Department: Room: 170 Gender: F Marketing Content Manager: ROSA : 1945 Requested By: Reagan Harris Order Number: [id number] MD: Jesse Lay Measurements Intervals [place] Rate: 54 P: 56 HI: 201 QRS: -41 QRSD: 119 T: 31 QT: 489 QTc: 464 Interpretive Statements Sinus rhythm Incomplete left bundle branch block Probable left ventricular hypertrophy Compared to ECG 10/16/2016 06:25:12 Left bundle-branch block now present Intraventricular conduction delay no longer present Early repolarization no longer present Electronically Signed On 02-11-2017 21:15:23 [employer] by Jesse Lay [email or web address] <ELECTRONICALLY SIGNED> By: Jesse Lay MD 02/11/175 50 50 Jesse Lay MD /EPI
--- NOTE | ~2017-02-11 | P ---
[facility] [place] [address] PROCEDURE REPORT Name: RAMIRO BROOKS Room #: 216-P [facility] IN .R.#: [id number] Admission: 02/11/17 Attend Phys: Ryan Weldon MD Discharge: 02/20/17 Date of : 41 Report #: [id number] THIS REPORT FOR: //name// CC: FAM sheila Anthony Herr DATE OF SERVICE: 02/12/2017 PROCEDURE: Right subclavian triple-lumen catheter insertion. INDICATION: Poor IV access, the patient is critically ill, need for central venous access emergently. PROCEDURE NOTATION: Right subclavian site chosen. Despite the patient's renal insufficiency, the patient has acute renal failure and does not appear to chronically need dialysis at this point and wanted to leave IJ access available for possible dialysis catheter if needed. Right subclavian site was cleansed with 2% chlorhexidine gluconate. A sterile field was created using full body eye sheet using maximal barrier method including head gown, mask and gloves and using sterile technique. The patient received 4% lidocaine local to the area, was infiltrated with lidocaine. Using the introducer needle and using an infraclavicular approach, the subclavian vein was accessed on the first attempt. J wire was easily passed, but no significant ectopy noted and using a Seldinger technique after a small dermatomy using the scalpel blade, dilator was advanced over the J wire and then a triple lumen catheter was subsequently introduced and sutured in place at 17 cm at the skin surface. A Biopatch was placed and this was sutured in place using 3-0 silk and it was dressed with a clear Op-Site. No noted complications were noted and less than 10 mL of blood loss noted. Chest x-ray is pending at the time of dictation. All lines flushed and aspirated easily. Nothing for arterial flow noted. <ELECTRONICALLY SIGNED> By: Joss Mantilla MD 02/20/17 2316 0241 0457 Joss Mantilla MD /nt
--- NOTE | ~2017-02-11 | P ---
[facility] [place] [address] PROCEDURE REPORT Name: RAMIRO BROOKS Room #: 216-[facility] IN M.R.#: [id number] Admission: 02/11/17 Attend Phys: Ryan Weldon MD Discharge: 02/20/17 Date of : 41 Report #: [id number] THIS REPORT FOR: //name// CC: Ryan Weldon [facility] unknown DATE OF SERVICE: 02/12/2017 PROCEDURE: Emergent intubation. INDICATION: Hypercapnic respiratory failure, altered mental status, failing noninvasive positive pressure ventilation. PROCEDURE NOTATION: After assessing patient, the patient was not ventilating on multiple attempts with the BiPAP and the BiPAP was only intermittently ventilating patient despite multiple adjustments. The patient subsequently sedated with 20 mg of etomidate. Grade 1 view with a Isauro 4 blade was obtained and the patient with an edentulous upper palate. A 7.5 endotracheal tube was easily inserted to 21 cm at the gums. Positive Easycap color change noted on the ventilator and bilateral breath sounds noted. The patient tolerated the procedure. No noted complications connected to ventilator and the endotracheal tube was secured in place. Chest x-ray pending at the time of this dictation. <ELECTRONICALLY SIGNED> By: Joss Mantilla MD 02/20/17 2316 0238 1112 Joss Mantilla MD /nt
--- NOTE | ~2017-02-11 | D ---
[facility] [place] [address] DISCHARGE SUMMARY Name: RAMIRO BROOKS Room #: 216-P [facility] IN .R.#: [id number] Admission: 02/11/17 Attend Phys: Ryan Weldon MD Discharge: 02/20/17 Date of : 41 Report #: [id number] THIS REPORT FOR: //name// CC: Ryan ALVARADO unknown DATE OF SERVICE: 02/20/2017 HISTORY OF PRESENT ILLNESS: The patient is a 71-year-old female with multiple medical problems, including chronic kidney disease, morbid obesity and coronary artery disease, who came to the hospital with altered mental status. The patient was found to be in acute renal failure, as well as acute hypoxic and hypercapnic respiratory failure. Please refer to the admission H and P for details. HOSPITALIZATION COURSE: The patient was hospitalized for metabolic encephalopathy due to [id number] renal failure, as well as hypoxemic and hypercapnic respiratory failure. Etiology for above problems was multifactorial, including she was treated with BiPAP. Labor Mediator was consulted. The patient was also started on diuretics, because she was suspected to have CHF with diastolic dysfunction. With adequate diuresis and adequate oxygenation, the patient's condition slowly improved. Currently, the patient is alert, awake, and she is at baseline. Given morbid obesity, and multiple medical problems, the patient was recommended to go to the half-way facility for the rehab, but she refused. The patient will be discharged home on home health. DISCHARGE DIAGNOSES: 1. Acute hypoxemic and hypercapnic respiratory failure, multifactorial. Currently, the patient has adequate oxygenation. The patient needs outpatient sleep study, and possible CPAP. 2. Acute renal failure on chronic kidney disease stage 3, creatinine now close to baseline at 2.2. 3. Pulmonary hypertension. 4. Congestive heart failure with diastolic dysfunction, normal ejection fraction. 5. Morbid obesity. 6. Coronary artery disease, status post cardiac catheterization in 10/2016, no chest pain during hospitalization. 7. Diabetes mellitus type 2. 8. Chronic left ankle wound, followed by wound care clinic. 9. Hypertension. [facility] [address] [place] [address] DISCHARGE SUMMARY Name: RAMIRO BROOKS Room #: 216-P [facility] IN M.R.#: [id number] Admission: 02/11/17 Attend Phys: Ryan Weldon MD Discharge: 02/20/17 Date of : 41 Report #: [id number] DISPOSITION: The patient is discharged home on home health. FOLLOWUP PLAN: 1. Follow up with the primary care physician in 1-2 weeks. 2. Continue to follow in wound care clinic. DISCHARGE MEDICATIONS: Please refer to the medication reconciliation list. I spent greater than 30 minutes to coordinate the patient's discharge from the hospital. <ELECTRONICALLY SIGNED> By: Emerita De La Fuente MD 02/20/17 1635 1032 1433 Emerita De La Fuente MD /nt
--- NOTE | ~2017-02-11 | HC ---
[facility] [place] [address] CONSULTATION Name: RAMIRO BROOKS Room #: 236-P [facility] IN .R.#: [id number] Admission: 02/11/17 Attend Phys: Ryan Weldon MD Discharge: Date of : 41 Report #: [id number] THIS REPORT FOR: //name// CC: Ryan ALVARADO unknown DATE OF SERVICE: 02/12/2017 REASON FOR CONSULTATION: Acute and chronic kidney disease. HISTORY OF PRESENT ILLNESS: This 71-year-old patient is admitted with hypoventilation, respiratory and metabolic acidosis and rising serum creatinine. She was at home in her usual state of ill health, became progressively confused with slurring of speech, nonspecific symptoms, was taken to the emergency room, found to have an elevated pCO2, combined metabolic respiratory acidosis and a creatinine, which ran from a baseline likely around 2.0 more or less up to 4.6 when she was admitted. She had potassium of 6, which was treated after discussion by telephone with the emergency room and 5.4 this morning. PAST MEDICAL HISTORY: Massive obesity, left leg wound, previous bilateral mastectomy, chronic kidney disease as mentioned, diabetes mellitus, hypertension, previous bleeding arteriovenous malformations, left rotator cuff repair, and umbilical hernia repair. ALLERGIES: Reportedly to IBUPROFEN. HOME MEDICATIONS: Include atorvastatin 10 mg daily, carvedilol 12.5 mg b.i.d., amlodipine 10 mg daily, aspirin 81 mg daily, Neurontin 300 mg b.i.d., zinc, Protonix 40 mg b.i.d., Januvia 50 mg daily, and vitamin D. SOCIAL HISTORY: Former smoker, lives at home, apparently gets around in a wheelchair, has a chair lift, says she can ambulate a little bit at home according to the emergency room notes. FAMILY HISTORY: Positive for lung cancer. REVIEW OF SYSTEMS: Cannot be taken due to the patient is intubated in ICU and sedated on propofol. Extensive history taken from the prior electronic medical records. PHYSICAL EXAMINATION: GENERAL: Sedated patient, intubated in ICU. SKIN: Otherwise, unremarkable. SKELETAL: Well developed, well nourished, and massively obese. HEENT: Extraocular movements cannot be tested, but pupils react. Endotracheal tube is in place. [address] [address] CONSULTATION Name: RAMIRO BROOKS Room #: 236-P [facility] IN .R.#: [id number] Admission: 02/11/17 Attend Phys: yRan Weldon MD Discharge: Date of : 41 Report #: [id number] NECK: Supple. CHEST: Shows air movement anterior, slightly coarse. HEART: Regular. ABDOMEN: Massively obese, soft, nontender. EXTREMITIES: Show a rather large wound on the left ankle towards the heel area. NEUROLOGIC: Again, she is sedated in ICU. LABORATORY DATA: Hemoglobin 9.2, white count 6.0, and platelets 174. Urinalysis performed, it showed 2+ proteinuria. Currently, sodium 135, potassium 5.4, chloride 105, bicarbonate 21, BUN 68, and creatinine 4.6. ASSESSMENT: 1. Acute kidney injury. She had rather severe worsening respiratory acidosis superimposed on underlying obesity hypoventilation syndrome and chronic obstructive pulmonary disease leading to hemodynamic compromise and acute kidney injury presumably, all of which should resolve with ventilation. She is getting some IV fluids with bicarbonate, but we will decrease that and try to initiate a diuresis as she is somewhat fluid overloaded. 2. Acute respiratory failure with obesity hypoventilation syndrome. 3. Diabetes mellitus with chronic kidney disease and proteinuria. I do not believe that she has been followed by a dice table person, but we will have to verify. 4. History of bilateral mastectomy. 5. Left leg wound. 6. History of hypertension. <ELECTRONICALLY SIGNED> By: Epifanio Orta MD 02/14/17 1044 0814 0915 Epifanio Orta MD /nt
--- NOTE | ~2017-02-11 | HC ---
[facility] [place] [address] CONSULTATION Name: RAMIRO BROOKS Room #: 236-P [facility] IN .R.#: [id number] Admission: 02/11/17 Attend Phys: Ryan Weldon MD Discharge: Date of : 41 Report #: [id number] THIS REPORT FOR: //name// CC: Ryan ALVARADO unknown DATE OF SERVICE: 02/12/2017 CHIEF COMPLAINT: Ankle ulceration. HISTORY OF PRESENT ILLNESS: This is a 71-year-old female patient who I have been asked to see with regarding an ulceration of her left lateral ankle. It has been present for some time. She has a history of ongoing venous insufficiency and ulceration and ulcerations do come and go. She has, however, been recently admitted with respiratory failure, is on a ventilator. She is not able to answer any questions. Family is at the bedside. PAST MEDICAL HISTORY: The patient's past medical history is for hypertension, iron deficiency anemia, diabetes mellitus, GI bleeding with AVM, rheumatic fever, chronic kidney disease, and coronary artery disease. ALLERGIES: IBUPROFEN. MEDICATIONS: Include atorvastatin, carvedilol, amlodipine, Neurontin, aspirin, zinc, Protonix, Januvia. SOCIAL HISTORY: The patient lives at home with her family. Previous history of smoking. REVIEW OF SYSTEMS: Unobtainable due to the patient's unresponsive state and being on a respirator. FAMILY HISTORY: Positive for lung cancer in her brother. PHYSICAL EXAMINATION: VITAL SIGNS: At this time include temperature 98.7, pulse 60, respiratory rate 22, blood pressure 126/91. GENERAL: This is a chronically ill-appearing patient appears to be in minimal distress. HEAD: Normocephalic. NECK: Supple. She is orotracheally intubated. LUNGS: Diminished. ABDOMEN: Obese, soft, nontender. EXTREMITIES: Examination of the lower extremities demonstrates 2+ edema. She has some hyperpigmentation in both lower extremities consistent with longstanding venous stasis dermatitis. She has a superficial ulceration [address] [address] CONSULTATION Name: RAMIRO BROOKS Room #: 236-[facility] IN ..#: [id number] Admission: 02/11/17 Attend Phys: Ryan Weldon MD Discharge: Date of : 41 Report #: [id number] involving the lateral aspect of her left ankle. There is moderate fibrin present. These are superficial. No deep structures were exposed. Distal pulses are diminished yet palpable. NEUROLOGIC: The patient is sedated. LABORATORY DATA: Includes sodium 135, potassium 5.4, chloride 105, CO2 of 21, BUN 68, creatinine 4.6, albumin is 2.6. White blood cell count 6000 with hemoglobin of 9.2, hematocrit of 28. CLINICAL IMPRESSION: 1. Venous type ulceration, left lateral ankle. 2. Respiratory failure, requiring mechanical ventilation. 3. Morbid obesity. RECOMMENDATIONS: At this point in time, we will recommend a foam based dressing. We will recommend Prevalon boots to the lower extremities for pressure prophylaxis purposes. Recommend turning and repositioning. She will need nutritional support for optimal wound healing. I appreciate being asked to see her in consultation. By: 1732 0224 Babatunde Newman MD /nt
--- NOTE | ~2017-02-11 | H ---
[facility] [place] [address] HISTORY AND PHYSICAL Name: RAMIRO BROOKS Room #: 236-P [facility] IN M.R.#: [id number] Admission: 02/11/17 Attend Phys: Ryan Weldon MD Discharge: Date of : 43 Report #: [id number] THIS REPORT FOR: //name// CC: Ryan ALVARADO unknown DATE OF SERVICE: 02/11/2017 ATTENDING PHYSICIAN: Dr. Herr. PRIMARY CARE PHYSICIAN: Dr. Rai Jarrett. CHIEF COMPLAINT: Altered mental status and trouble walking. HISTORY OF PRESENT ILLNESS: The patient is a 71-year-old morbidly obese female who states that she was not acting like herself earlier this morning. Her children thought she had slurred speech around 10 a.m. She did have some associated dizziness and weakness. She did have some trouble ambulating during that time. EMS was called and oxygen saturation was 77% on room air upon arrival. She does have a history of chronic kidney disease and last known creatinine was 1.6. She had a hospitalization here at [facility] in 10/2016 for GI bleed. At that time, she had an EGD, which showed bleeding from an AVM and she did have BICAP therapy. She had a repeat EGD, which did not show any active bleeding. She also is complaining of chest pain during that admission and had a negative V/Q scan. She ended up undergoing a heart catheterization, which showed multiple vessel disease. Cardiothoracic Surgery was consulted, but she was not felt to be a surgical candidate. She did refuse SNF at discharge. She says she has been living at home with her family and doing well up until recently. The patient is currently on BiPAP. She is able to answer questions appropriately. She says she was not feeling well at all throughout the last 24 hours and slept most of the day. She said she did not eat or drink much at all during the day. She denies any nausea or vomiting or diarrhea. She denies any fevers or chills. PAST MEDICAL HISTORY: Hypertension, iron deficiency anemia, noninsulin-dependent diabetes, left hand neuropathy, GI bleeding with AVMs, rheumatic fever, chronic kidney disease stage 3, and coronary artery disease. PAST SURGICAL HISTORY: Left rotator cuff repair, umbilical hernia repair, bilateral cataract repair, tonsillectomy, x 2, bilateral mastectomy, multiple EGDs. ALLERGIES: IBUPROFEN, unknown reaction. HOME MEDICATIONS: Atorvastatin 10 mg p.o. daily, carvedilol 12.5 mg b.i.d., amlodipine 10 mg daily, aspirin 81 mg daily, Neurontin 300 mg b.i.d., zinc [address] [address] HISTORY AND PHYSICAL Name: RAMIRO BROOKS Room #: 236-P [facility] IN ..#: [id number] Admission: 02/11/17 Attend Phys: Ryan Weldon MD Discharge: Date of : 43 Report #: [id number], Protonix 40 mg b.i.d., Januvia 50 mg daily and vitamin D daily. SOCIAL HISTORY: The patient lives at home with her family. She used to smoke about a pack of cigarettes per day for about 50 years. She had quit smoking in 2003. She uses alcohol occasionally, no history of drug use. She said she can ambulate at home, but she does use a chairlift. FAMILY HISTORY: Her brother had lung cancer. REVIEW OF SYSTEMS: The patient has ongoing chronic wound of the left lower extremity for which she has seen Wound Care. She says the wound recently reopened and she actually has an appointment to see Dr. Mace at the wound clinic today. She has not noted any active drainage. All other 12-point review of systems was reviewed with the patient, otherwise negative unless stated in the HPI. PHYSICAL EXAMINATION: GENERAL: The patient is an alert, but morbidly obese female in no acute distress. VITAL SIGNS: Temperature was not obtained. Heart rate 50, respirations 12, blood pressure 127/65, oxygen 100% per BiPAP. HEENT: PERRLA. Sclerae is nonicteric. Oral mucosa is pink and moist. She does have a few missing teeth. NECK: Supple, no JVD noted. CARDIAC: Heart tones are bradycardic, but no murmurs, rubs or gallops. They are distant. RESPIRATORY: Breath sounds are clear throughout, diminished in the bases. Breathing is nonlabored with BiPAP. ABDOMEN: Obese, soft, nontender, nondistended with positive bowel sounds. VASCULAR: She does have bilateral lower extremity lymphedema. Her pedal pulses are 1+ but feet are warm. There are some areas of scleroderma on her pannus. SKIN: She does have a golf ball-sized ulceration to her left lateral ankle. There is no surrounding erythema. No active drainage. The wound bed is pink. NEUROLOGIC: The patient is alert. She is answering questions appropriately. She was aware she is in the hospital and it is 2017. She will follow commands. No focal deficits noted. LABORATORIES AND DIAGNOSTICS: WBC is 6.0, hemoglobin 9.2 and platelets 174. Sodium 134, potassium 6.0, BUN 67, creatinine 4.8, glucose is 114. UA showed negative leukocyte esterase, no wbcs. Initial ABG showed a pH of 7.13, pCO2 59.7, PO2 113 and bicarbonate of 19.6 with a lactate of 0.8. Chest x-ray showed increased bibasilar density, suggesting atelectasis rather than pneumonitis. There is cardiomegaly without heart failure. CT of the head showed moderate cerebral atrophy, no acute changes. ASSESSMENT AND PLAN: [facility] [address] [address] HISTORY AND PHYSICAL Name: RAMIRO BROOKS Room #: 236-P [facility] IN [facility].#: [id number] Admission: 02/11/17 Attend Phys: Ryan Weldon MD Discharge: Date of : 43 Report #: [id number] 1. Acute renal rzdrzru-ug-dnwrkty kidney disease stage 3. Last known creatinine in October was 1.6. We will continue with gentle IV fluids and bicarbonate drip per Renal and repeat labs. 2. Acute hypoxic and hypercapnic respiratory failure. The patient likely has some underlying chronic obstructive pulmonary disease, although it is not clear if this has formally been diagnosed. She also likely has some component of hypoventilation due to morbid obesity. We will continue with BiPAP and repeat ABGs in the morning. She remains alert and oriented. Pulmonary is consulted. 3. Mixed metabolic and respiratory acidosis due to renal failure and respiratory failure. We will continue with BiPAP and repeat ABG in the morning and continue with bicarbonate drip. 4. Metabolic encephalopathy. This is improving as her creatinine improves. 5. Hyperkalemia. This was treated in the ER, repeat labs showed the potassium came down to 5.6. We will give a dose of Kayexalate and follow labs in the morning. She does not have any peaked T waves. 6. History of heart disease. She does have multivessel disease that is being medically managed as she was not a candidate for coronary artery bypass grafting. She is denying any chest pain. 7. Chronic anemia. She does have a history of iron deficiency as well as gastrointestinal bleeding. No active bleeding and hemoglobin is stable from previous. 8. Bradycardia. Hold carvedilol and continue to monitor on telemetry. This is likely due to hyperkalemia. 9. Diabetes type 2. Blood sugar is stable. Add sliding scale insulin and follow Accu-Cheks. 10. Left ankle wound. This is chronic, consult Wound Care. She does not have any active infection, so there is no need for antibiotics at this time. 11. Morbid obesity. 12. Deep venous thrombosis prophylaxis, place sequential compression devices. We will continue to follow the patient closely throughout the hospitalization and make changes based on clinical status. <ELECTRONICALLY SIGNED> By: LINA Jean 02/13/17 1012 [id number] LINA Jean /nt
--- NOTE | ~2017-02-11 | HC ---
[facility] [place] [address] CONSULTATION Name: RAMIRO BROOKS Room #: 216-P [facility] IN .R.#: [id number] Admission: 02/11/17 Attend Phys: Ryan Weldon MD Discharge: 02/20/17 Date of : 43 Report #: [id number] THIS REPORT FOR: //name// CC: Ryan ALVARADO unknown DATE OF SERVICE: 02/12/2017 REFERRING PROVIDER: LINA Quarles. REASON FOR CONSULTATION: Hypercapnic respiratory failure. CHIEF COMPLAINT: Altered mental status. HISTORY OF PRESENT ILLNESS: Our group was asked to evaluate this patient. I was called at 12:45 this morning reevaluate the patient as the patient came to the Emergency Department with severe mixed respiratory metabolic acidosis that was not substantially improving with noninvasive positive pressure ventilation and came and evaluated the patient. Subsequently, I have intubated the patient, placed a right subclavian triple lumen catheter due to poor IV access. The patient apparently presented to the Emergency Department earlier this evening, I guess by family, for altered mental status, was found to be bradycardic, as mentioned hypercapnic hypoxemic with only minimal basilar atelectasis noted on chest x-ray. She is noted to be hyperkalemic with significant acute renal failure, creatinine of about 4.9, it was 1.6 in 10/2016 and had a similar episode of acute renal failure in 10/2016. I found patient. The patient was on noninvasive positive pressure ventilation and had series of adjustments to her BiPAP overnight, but with no significant change. When I saw her, patient's actual respiratory rate was 10 despite a set rate of 22 on the BiPAP. The patient was not ventilating on multiple attempts by the BiPAP, subsequently was intubated due to poor ventilation without difficulty. The patient is sedate currently on the vent, unable to give any further history. ALLERGIES: No known drug allergies. PAST MEDICAL HISTORY: 1. Diabetes mellitus type 2. 2. Hypertension. 3. Hyperlipidemia. 4. Prior history of breast cancer. 5. Chronic renal insufficiency. 6. History of GI bleed, presumed secondary to ulcer. 7. Ongoing anemia. 8. History of breast cancer with resections and mastectomies. 9. Rheumatic fever. [address] [address] CONSULTATION Name: RAMIRO BROOKS Room #: 216-P [facility] IN .R.#: [id number] Admission: 02/11/17 Attend Phys: Ryan Weldon MD Discharge: 02/20/17 Date of : 43 Report #: [id number] SOCIAL HISTORY: The patient is an ex-smoker. No alcohol consumption. Currently, she is unable to give any further social history. FAMILY HISTORY: Unobtainable. REVIEW OF SYSTEMS: Otherwise, unobtainable. CURRENT INPATIENT MEDICATIONS: Include gabapentin 300 twice daily, aspirin 81 mg daily, terbinafine topical, amlodipine 10 mg daily, cholecalciferol 400 units daily, atorvastatin 10 mg daily, DuoNebs q.6 hours, Protonix 40 mg twice daily and sodium bicarbonate drip. PHYSICAL EXAMINATION: VITAL SIGNS: The patient has been afebrile. Pulse in the 50s and regular, respiratory rate of 12, blood pressure 115/49 prior to intubation. GENERAL: This is an obese, elderly woman, poorly responsive, arousable but immediately falls back to sleep. ENT: Reveals almost completely edentulous mouth, edentulous upper palate. Mallampati 3 airway. NECK: Thick, supple, no lymphadenopathy. LUNGS: Diminished, prolonged expiratory phase with diffuse wheezes noted. CARDIOVASCULAR: Heart was bradycardic, but regular. I cannot appreciate any murmurs. ABDOMEN: Obese, soft. Appeared nontender, no masses noted. EXTREMITIES: Revealed 1+ edema to 2+ edema, what appear to be chronic lymphedema. LABORATORY DATA: White blood cell count 6000, hemoglobin 9, hematocrit 28, platelet count 174. Sodium 136, potassium 5.6, chloride 104, bicarbonate 18, BUN 69, creatinine 4.9, glucose 68. BNP is 5131. Most recent arterial blood gas on BiPAP 18/4, FiO2 35%, rate of 22 revealed pH 7.18, pCO2 of 54, pO2 of 86, bicarbonate 20, lactate was 0.81. Urinalysis with no pyuria noted. IMPRESSION: 1. Severe respiratory acidosis, failing noninvasive positive pressure ventilation. 2. Mixed respiratory metabolic alkalosis, likely accounting for some of the bradycardia. 3. Acute renal failure. 4. Hyperkalemia. 5. Altered mental status, likely consequence of above. RECOMMENDATIONS: 1. Continue ICU care. 2. Fluids per Nephrology. 3. Consider checking cultures. Beginning antibiotics for possible early sepsis [facility] [address] [place] [address] CONSULTATION Name: RAMIRO BROOKS Room #: 216-P [facility] IN M.R.#: [id number] Admission: 02/11/17 Attend Phys: Ryan Weldon MD Discharge: 02/20/17 Date of : 43 Report #: [id number] to account for her decline in function. 4. Follow up chest x-ray after intubation. 5. Bronchodilators. 6. Consider adding systemic steroids for what appears to be airflow obstruction and wheezing. 7. Additional recommendations to follow. Total critical care time 60 minutes, not including any procedures. <ELECTRONICALLY SIGNED> By: Joss Mantilla MD 02/20/17 2316 0237 [id number] Joss Mantilla MD /nt
[~2017-02-11 18:52] MED LIST changes: +CIPRO250 M1 PO
[2017-02-11 18:53] VITALS: BP 116/52
[2017-02-11] MEDS ORDERED: NEURONTIN 300300 M1 PO (19:10)
[2017-02-11 19:17] LABS: ABSOLUTE NEUTROPHILS 4.8 thou/uL (1.4-8.2); BASOPHILS 0.6 % (0.0-2.0); EOSINOPHILS 0.4 % (0.0-3.0); HEMOGLOBIN 9.2 gm/dL (12.0-15.0); LYMPHOCYTES 11.2 % (24.0-44.0); MCH 31.6 pg (26.0-34.0); MCHC 32.7 g/dL (28.0-37.0); MCV 96.8 fL (80.0-100.0); MONOCYTES 7.7 % (1.0-8.0); PLATELET COUNT 174 thou/uL (150-400); POLYS 80.1 % (36.0-66.0)
[2017-02-11 19:21] LABS: MANUAL DIFF NO
[2017-02-11 19:33] LABS: ANION GAP 8 mmol/L (7-16); BUN 67 mg/dL (7-18); CALCIUM 8.2 mg/dL (8.5-10.1); CHLORIDE 103 mmol/L (98-107); CO2 23 mmol/L (21-32); CREATININE 4.8 mg/dL (0.6-1.0); GLUCOSE 114 mg/dL (74-106); SODIUM 134 mmol/L (136-145)
[2017-02-11 19:41] LABS: TROPONIN-I < 0.04 ng/mL (<0.06)
[2017-02-11 20:13] LABS: URINE BILIRUBIN NEGATIVE (Negative); URINE BLOOD TRACE (Negative); URINE GLUCOSE-RANDOM* NEGATIVE (Negative); URINE KETONES NEGATIVE (Negative); URINE NITRITE NEGATIVE (Negative); URINE PROTEIN (DIPSTICK) 2+ (Negative); URINE UROBILINOGEN 0.2 E.U./dl (0.2-1.0)
[2017-02-11 20:21] LABS: URINE COLOR YELLOW
[2017-02-11 20:38] LABS: CASTS None Seen /LPF (None Seen); CRYSTALS None Seen /LPF (None Seen); SQUAMOUS 0-3 Few /LPF (0-3); URINE RBC 0-2 Rare /HPF (0-2)
[2017-02-11 20:39] LABS: ABG SAMPLE TYPE ARTERIAL; BE(vivo) -9.5 mmol/L (-2 to +3); HCO3 19.6 mmol/L (22.0-26.0); O2(CT) 13.4 mL/dL (15.0-23.0); O2Hb 95.6 % (92.0-98.0); PCO2 59.7 mmHg (35.0-45.0); PO2 113.1 mmHg (80.0-100.0); STICK SITE R.BRACHIAL; sO2 96.6 % (92.0-98.0); tCO2 21.4 mmol/L (24.0-30.0)
[2017-02-11 20:39] LABS: BACTERIA 1-9 Few /HPF (None Seen); URINE WBC None Seen /HPF (0-5)
[2017-02-11 20:40] LABS: pH 7.134 (7.360-7.450)
[2017-02-11 21:58] LABS: ABG SAMPLE TYPE ARTERIAL; BE(vivo) -8.6 mmol/L (-2 to +3); LACTATE 1.06 mmol/L (0.5-2.0); O2(CT) 13.3 mL/dL (15.0-23.0); O2Hb 92.9 % (92.0-98.0); PCO2 57.4 mmHg (35.0-45.0); sO2 94.3 % (92.0-98.0); tCO2 21.8 mmol/L (24.0-30.0)
[2017-02-11 21:59] LABS: ABG COMMENT BIPAP 14/4 X 1 HR.; Pressure Support 10 cm H20; STICK SITE R.BRACHIAL; pH 7.161 (7.360-7.450)
[2017-02-11 22:59] VITALS: BP 115/49
[2017-02-11 23:45] VITALS: BP 125/60
[2017-02-12] VITALS (56 sets, daily range): BP systolic 61–169; BP diastolic 42–126
[2017-02-12 00:12] LABS: CALCIUM 7.7 mg/dL (8.5-10.1); CREATININE 4.9 mg/dL (0.6-1.0); POTASSIUM 5.6 mmol/L (3.5-5.1)
[2017-02-12 01:18] LABS: ABG SAMPLE TYPE ARTERIAL; BE(vivo) -8.3 mmol/L (-2 to +3); HCO3 19.9 mmol/L (22.0-26.0); LACTATE 0.81 mmol/L (0.5-2.0); O2(CT) 13.4 mL/dL (15.0-23.0); O2Hb 93.3 % (92.0-98.0); PO2 86.1 mmHg (80.0-100.0); pH 7.184 (7.360-7.450); tCO2 21.5 mmol/L (24.0-30.0)
[2017-02-12 01:19] LABS: Pressure Support 10 cm H20; STICK SITE L.RADIAL
[2017-02-12 03:32] LABS: ABG SAMPLE TYPE ARTERIAL; BE(vivo) -7.4 mmol/L (-2 to +3); HCO3 19.2 mmol/L (22.0-26.0); LACTATE 0.98 mmol/L (0.5-2.0); O2(CT) 13.1 mL/dL (15.0-23.0); O2Hb 91.4 % (92.0-98.0); PCO2 43.3 mmHg (35.0-45.0); sO2 92.3 % (92.0-98.0); tCO2 20.5 mmol/L (24.0-30.0)
[2017-02-12 03:33] LABS: STICK SITE L.RADIAL; TIDAL VOLUME 450 ml; pH 7.265 (7.360-7.450)
[2017-02-12 06:59] LABS: ANION GAP 9 mmol/L (7-16); BUN 68 mg/dL (7-18); CHLORIDE 105 mmol/L (98-107); CO2 21 mmol/L (21-32); CREATININE 4.6 mg/dL (0.6-1.0); GLUCOSE 87 mg/dL (74-106); POTASSIUM 5.4 mmol/L (3.5-5.1); SODIUM 135 mmol/L (136-145); TROPONIN-I < 0.04 ng/mL (<0.06)
[2017-02-13] VITALS (29 sets, daily range): BP systolic 88–177; BP diastolic 32–99
[2017-02-13 05:37] LABS: CALCIUM 8.7 mg/dL (8.5-10.1); PHOSPHORUS 6.3 mg/dL (2.5-4.9); POTASSIUM 5.7 mmol/L (3.5-5.1)
[2017-02-13 05:40] LABS: URINE PROTEIN-RANDOM* 85.9 mg/dL (<11.9)
[2017-02-13 09:14] LABS: HEMATOCRIT 29.7 % (37.0-47.0); HEMOGLOBIN 9.7 gm/dL (12.0-15.0); MCH 31.6 pg (26.0-34.0); MCHC 32.6 g/dL (28.0-37.0); MCV 96.9 fL (80.0-100.0); PLATELET COUNT 197 thou/uL (150-400); RBC 3.07 mil/uL (4.20-5.00); RDW 16.8 % (10.5-14.5)
[2017-02-13 09:15] LABS: MANUAL DIFF YES
[2017-02-13 09:49] LABS: ABSOLUTE NEUTROPHILS 6.4 thou/uL (1.4-8.2); NUCLEATED RBCS 1 /100WBC; PLATELET ESTIMATE NORMAL; TOTAL CELL COUNT 100
[2017-02-13 10:19] LABS: ABG SAMPLE TYPE ARTERIAL; BE(vivo) -7.7 mmol/L (-2 to +3); HCO3 20.3 mmol/L (22.0-26.0); LACTATE 0.84 mmol/L (0.5-2.0); O2(CT) 13.8 mL/dL (15.0-23.0); O2Hb 92.5 % (92.0-98.0); PCO2 53.1 mmHg (35.0-45.0); PO2 81.6 mmHg (80.0-100.0); sO2 93.4 % (92.0-98.0)
[2017-02-13 10:20] LABS: STICK SITE R.RADIAL; pH 7.201 (7.360-7.450)
[2017-02-13 13:35] LABS: ABG SAMPLE TYPE ARTERIAL; BE(vivo) -8.2 mmol/L (-2 to +3); HCO3 18.6 mmol/L (22.0-26.0); LACTATE 0.83 mmol/L (0.5-2.0); O2(CT) 14.8 mL/dL (15.0-23.0); O2Hb 97.4 % (92.0-98.0); PCO2 43.3 mmHg (35.0-45.0); PO2 130.9 mmHg (80.0-100.0); pH 7.251 (7.360-7.450); sO2 98.2 % (92.0-98.0); tCO2 19.9 mmol/L (24.0-30.0)
[2017-02-13 13:36] LABS: Pressure Support 8 cm H20; STICK SITE L.RADIAL
[2017-02-14] VITALS (22 sets, daily range): BP systolic 56–149; BP diastolic 22–71
[2017-02-14 03:31] LABS: ABSOLUTE NEUTROPHILS 5.8 thou/uL (1.4-8.2); BASOPHILS 0.7 % (0.0-2.0); HEMATOCRIT 29.7 % (37.0-47.0); HEMOGLOBIN 9.6 gm/dL (12.0-15.0); LYMPHOCYTES 6.7 % (24.0-44.0); MCH 31.4 pg (26.0-34.0); MCHC 32.2 g/dL (28.0-37.0); MCV 97.6 fL (80.0-100.0); MONOCYTES 3.4 % (1.0-8.0); PLATELET COUNT 182 thou/uL (150-400); POLYS 89.2 % (36.0-66.0); RBC 3.05 mil/uL (4.20-5.00); RDW 17.2 % (10.5-14.5); WBC 6.5 thou/uL (4.0-11.0)
[2017-02-14 03:43] LABS: MANUAL DIFF NO
[2017-02-14 03:55] LABS: ALBUMIN 2.9 g/dL (3.4-5.0); CALCIUM 8.5 mg/dL (8.5-10.1); CREATININE 3.5 mg/dL (0.6-1.0); PHOSPHORUS 6.6 mg/dL (2.5-4.9); POTASSIUM 5.6 mmol/L (3.5-5.1)
[2017-02-14 05:25] LABS: ABG SAMPLE TYPE ARTERIAL; BE(vivo) -5.4 mmol/L (-2 to +3); HCO3 23.6 mmol/L (22.0-26.0); O2(CT) 14.5 mL/dL (15.0-23.0); O2Hb 94.1 % (92.0-98.0); PCO2 64.9 mmHg (35.0-45.0); PO2 88.5 mmHg (80.0-100.0); sO2 94.2 % (92.0-98.0); tCO2 25.6 mmol/L (24.0-30.0)
[2017-02-14 05:28] LABS: STICK SITE L.RADIAL; pH 7.179 (7.360-7.450)
[2017-02-14 11:13] LABS: ABG SAMPLE TYPE ARTERIAL; BE(vivo) -4.2 mmol/L (-2 to +3); HCO3 22.1 mmol/L (22.0-26.0); LACTATE 1.08 mmol/L (0.5-2.0); O2(CT) 14.6 mL/dL (15.0-23.0); O2Hb 93.6 % (92.0-98.0); PCO2 45.9 mmHg (35.0-45.0); sO2 94.6 % (92.0-98.0); tCO2 23.5 mmol/L (24.0-30.0)
[2017-02-14 11:14] LABS: STICK SITE L.RADIAL; pH 7.301 (7.360-7.450)
[2017-02-15] VITALS (22 sets, daily range): BP systolic 70–157; BP diastolic 43–113
[2017-02-15 05:13] LABS: ABG SAMPLE TYPE ARTERIAL; BE(vivo) -0.6 mmol/L (-2 to +3); HCO3 25.6 mmol/L (22.0-26.0); LACTATE 1.65 mmol/L (0.5-2.0); O2(CT) 13.2 mL/dL (15.0-23.0); O2Hb 91.7 % (92.0-98.0); PCO2 49.2 mmHg (35.0-45.0); STICK SITE R.BRACHIAL; pH 7.334 (7.360-7.450); sO2 92.8 % (92.0-98.0); tCO2 27.1 mmol/L (24.0-30.0)
[2017-02-15 05:14] LABS: TIDAL VOLUME 500 ml
[2017-02-15 05:15] LABS: ABG COMMENT AVAPS-500
[2017-02-15 06:17] LABS: ABSOLUTE NEUTROPHILS 5.4 thou/uL (1.4-8.2); BASOPHILS 0.1 % (0.0-2.0); HEMATOCRIT 28.2 % (37.0-47.0); HEMOGLOBIN 9.2 gm/dL (12.0-15.0); LYMPHOCYTES 3.9 % (24.0-44.0); MCH 31.6 pg (26.0-34.0); MCHC 32.7 g/dL (28.0-37.0); MCV 96.5 fL (80.0-100.0); MONOCYTES 5.8 % (1.0-8.0); PLATELET COUNT 161 thou/uL (150-400); POLYS 90.2 % (36.0-66.0); RBC 2.92 mil/uL (4.20-5.00); RDW 17.4 % (10.5-14.5)
[2017-02-15 06:19] LABS: MANUAL DIFF NO
[2017-02-15 06:28] LABS: ALBUMIN 2.6 g/dL (3.4-5.0); CREATININE 3.3 mg/dL (0.6-1.0); PHOSPHORUS 5.1 mg/dL (2.5-4.9); POTASSIUM 5.4 mmol/L (3.5-5.1)
[2017-02-16 04:56] LABS: CREATININE 2.8 mg/dL (0.6-1.0)
[2017-02-16 05:20] LABS: ABG SAMPLE TYPE ARTERIAL; HCO3 27.2 mmol/L (22.0-26.0); LACTATE 1.38 mmol/L (0.5-2.0); O2(CT) 14.4 mL/dL (15.0-23.0); O2Hb 94.3 % (92.0-98.0); PCO2 50.9 mmHg (35.0-45.0); PO2 86.4 mmHg (80.0-100.0); STICK SITE R.BRACHIAL; pH 7.346 (7.360-7.450); tCO2 28.8 mmol/L (24.0-30.0)
[2017-02-16 05:21] LABS: Pressure Support 6 cm H20
[2017-02-16 17:00] VITALS: BP 123/91
[2017-02-16 20:49] VITALS: BP 178/62
[2017-02-17] VITALS (8 sets, daily range): BP systolic 115–179; BP diastolic 54–88
[2017-02-17 05:27] LABS: HEMATOCRIT 32.4 % (37.0-47.0); HEMOGLOBIN 10.4 gm/dL (12.0-15.0); MCH 31.3 pg (26.0-34.0); MCHC 32.3 g/dL (28.0-37.0); RBC 3.34 mil/uL (4.20-5.00); RDW 17.6 % (10.5-14.5); WBC 7.2 thou/uL (4.0-11.0)
[2017-02-17 05:46] LABS: ALBUMIN 2.5 g/dL (3.4-5.0); CALCIUM 8.3 mg/dL (8.5-10.1); CREATININE 2.4 mg/dL (0.6-1.0); PHOSPHORUS 4.1 mg/dL (2.5-4.9)
[2017-02-17 06:01] LABS: ABG COMMENT MIGHT BE MIXED; ABG SAMPLE TYPE ARTERIAL; BE(vivo) 3.6 mmol/L (-2 to +3); HCO3 28.7 mmol/L (22.0-26.0); O2(CT) 14.7 mL/dL (15.0-23.0); O2Hb 88.5 % (92.0-98.0); PCO2 45.8 mmHg (35.0-45.0); PO2 58.5 mmHg (80.0-100.0); STICK SITE R.RADIAL; pH 7.415 (7.360-7.450); sO2 90.6 % (92.0-98.0); tCO2 30.1 mmol/L (24.0-30.0)
[2017-02-18 04:28] VITALS: BP 174/64
[2017-02-18 04:49] LABS: HEMATOCRIT 33.6 % (37.0-47.0); MCH 31.6 pg (26.0-34.0); MCHC 32.9 g/dL (28.0-37.0); MCV 96.1 fL (80.0-100.0); PLATELET COUNT 151 thou/uL (150-400); RBC 3.49 mil/uL (4.20-5.00); RDW 17.1 % (10.5-14.5); WBC 6.7 thou/uL (4.0-11.0)
[2017-02-18 04:52] LABS: MANUAL DIFF YES
[2017-02-18 04:59] LABS: ALBUMIN 2.5 g/dL (3.4-5.0); CALCIUM 8.4 mg/dL (8.5-10.1); CREATININE 2.3 mg/dL (0.6-1.0); PHOSPHORUS 4.2 mg/dL (2.5-4.9)
[2017-02-18 06:04] LABS: ABSOLUTE NEUTROPHILS 6.1 thou/uL (1.4-8.2); LARGE PLATELETS OCCASIONAL; METAMYELOCYTES 1 %; TOTAL CELL COUNT 100
[2017-02-18 08:35] VITALS: BP 193/87
[2017-02-18 11:58] VITALS: BP 178/88
[2017-02-18 15:43] VITALS: BP 189/79
[2017-02-18 20:15] VITALS: BP 122/48; BP 170/63
[2017-02-19 03:37] LABS: ALBUMIN 2.6 g/dL (3.4-5.0); CALCIUM 8.1 mg/dL (8.5-10.1); CREATININE 2.2 mg/dL (0.6-1.0); PHOSPHORUS 4.1 mg/dL (2.5-4.9); POTASSIUM 4.4 mmol/L (3.5-5.1)
[2017-02-19 04:15] VITALS: BP 153/68
[2017-02-19 08:37] VITALS: BP 163/66
[2017-02-19 12:24] VITALS: BP 177/80
[2017-02-19 15:41] VITALS: BP 172/75
[2017-02-19 20:54] VITALS: BP 185/69
[2017-02-20 00:01] VITALS: BP 146/57
[2017-02-20 04:15] VITALS: BP 180/78
[2017-02-20 07:28] VITALS: BP 176/59
[2017-02-20 07:28] LABS: ABG SAMPLE TYPE ARTERIAL; BE(vivo) 8.3 mmol/L (-2 to +3); HCO3 33.2 mmol/L (22.0-26.0); LACTATE 1.96 mmol/L (0.5-2.0); O2(CT) 14.9 mL/dL (15.0-23.0); PCO2 47.1 mmHg (35.0-45.0); PO2 54.7 mmHg (80.0-100.0); STICK SITE R.BRACHIAL; pH 7.466 (7.360-7.450); sO2 89.9 % (92.0-98.0); tCO2 34.6 mmol/L (24.0-30.0)
[2017-02-20] MEDS ORDERED: DEMADEX20 MG PO (10:37)
[2017-02-20 11:06] VITALS: BP 162/62
[2017-02-20 11:09] VITALS: BP 162/62
[2017-02-20 11:34] VITALS: BP 162/62
== END 2017-02-20 14:10 | disposition home health service (06) | DRG 208 ==
LOC: ER 18:52 → ICU 20:30 → EROBS 20:30 → ICU 23:00 → 2N 02-17 10:59 → ENTRNSPT 02-20 13:54 → EDTRNSPT 02-20 13:55 → EDTRNSPTSTS 02-20 13:58 → 2N 02-20 14:10
PROVIDERS: Hospitalist; Internal Medicine Endocrinology, Diabetes & Metabolism; Internal Medicine Nephrology; Internal Medicine Pulmonary Disease; Nurse Practitioner; Nurse Practitioner Acute Care
DX: J96.21 Acute and chronic respiratory failure with hypoxia (principal); G93.41 Metabolic encephalopathy; K55.21 Angiodysplasia of colon with hemorrhage; E43 Unspecified severe protein-calorie malnutrition; N17.9 Acute kidney failure, unspecified; I13.0 Hypertensive heart and chronic kidney disease with heart failure and stage 1 through stage 4 chronic kidney disease, or unspecified chronic kidney disease; E66.2 Morbid (severe) obesity with alveolar hypoventilation; Z68.43 Body mass index [BMI] 50.0-59.9, adult; E87.2 Acidosis; E87.3 Alkalosis; L97.329 Non-pressure chronic ulcer of left ankle with unspecified severity; J98.11 Atelectasis; Z96.1 Presence of intraocular lens; E11.40 Type 2 diabetes mellitus with diabetic neuropathy, unspecified; E11.22 Type 2 diabetes mellitus with diabetic chronic kidney disease; E78.5 Hyperlipidemia, unspecified; I25.10 Atherosclerotic heart disease of native coronary artery without angina pectoris; E87.5 Hyperkalemia; J96.22 Acute and chronic respiratory failure with hypercapnia; N18.3 Chronic kidney disease, stage 3 (moderate); I27.20 Pulmonary hypertension, unspecified; D50.9 Iron deficiency anemia, unspecified; E87.70 Fluid overload, unspecified; I50.9 Heart failure, unspecified; I27.81 Cor pulmonale (chronic); Z90.13 Acquired absence of bilateral breasts and nipples; Z79.899 Other long term (current) drug therapy; Z98.42 Cataract extraction status, left eye; Z98.41 Cataract extraction status, right eye; Z88.8 Allergy status to other drugs, medicaments and biological substances; Z87.891 Personal history of nicotine dependence; Z80.1 Family history of malignant neoplasm of trachea, bronchus and lung; Z90.49 Acquired absence of other specified parts of digestive tract; Z85.3 Personal history of malignant neoplasm of breast
CPT/HCPCS: 10078; 10797

== ENCOUNTER → 2017-03-14 | Outpatient (CLI) | payer OTHER ==
[~2017-03-14] MED LIST changes: +DEMADEX20 MG PO
== END ==
LOC: RAD 14:13
DX: I51.7 Cardiomegaly (principal); J98.11 Atelectasis; M16.11 Unilateral primary osteoarthritis, right hip

== ENCOUNTER → 2017-03-17 | Outpatient (CLI) | payer OTHER ==
[2017-03-17 13:17] LABS: BE(vivo) 4.6 mmol/L (-2 to +3); HCO3 29.4 mmol/L (22.0-26.0); pH 7.433 (7.360-7.450); sO2 83.5 % (92.0-98.0)
[2017-03-17 13:19] LABS: PO2 46.5 mmHg (80.0-100.0)
== END ==
LOC: HYPER 03-13 06:39 → PUL 07:04 → HYPER 09:53
PROVIDERS: Internal Medicine Pulmonary Disease
DX: I87.332 Chronic venous hypertension (idiopathic) with ulcer and inflammation of left lower extremity (principal); L97.322 Non-pressure chronic ulcer of left ankle with fat layer exposed; E11.622 Type 2 diabetes mellitus with other skin ulcer; E66.01 Morbid (severe) obesity due to excess calories; I10 Essential (primary) hypertension; Z87.891 Personal history of nicotine dependence; Z72.89 Other problems related to lifestyle; Z68.43 Body mass index [BMI] 50.0-59.9, adult

== ENCOUNTER → 2017-03-31 | Outpatient (CLI) | payer OTHER | LOC: HYPER 06:46 | DX: E11.622 Type 2 diabetes mellitus with other skin ulcer (principal); I87.332 Chronic venous hypertension (idiopathic) with ulcer and inflammation of left lower extremity; L97.321 Non-pressure chronic ulcer of left ankle limited to breakdown of skin; R60.0 Localized edema; E66.01 Morbid (severe) obesity due to excess calories; Z68.43 Body mass index [BMI] 50.0-59.9, adult; Z87.891 Personal history of nicotine dependence; Z72.89 Other problems related to lifestyle ==

== ENCOUNTER → 2017-04-11 | Outpatient (CLI) | payer OTHER ==
--- NOTE | ~2017-04-11 | SLE ---
[facility] [place] [address] POLYSOMNOGRAPHY STUDY Name: RAMIRO BROOKS [id number] Admission: 04/11/17 Attend Phys: Joss Mantilla MD Discharge: Date of : 43 Report #: [id number] THIS REPORT FOR: //name// CC: Rai Mantilla DATE OF SERVICE: 04/11/2017 HISTORY: A 71-year-old, height 5 feet 4 inches, weight 285 pounds, difficulty sleeping through the night, positive history of snoring and daytime somnolence, history of CHF, kidney disease and diabetes. COMMENTS: BASELINE PORTION: Total sleep time 127 minutes, sleep efficiency 61%. 7.5 minutes of REM sleep noted. Central apnea 4, mixed apnea 0, obstructive apnea 63, hypopnea 78. Apnea-hypopnea index of 68.5 events per sleep hour. Non-REM AHI 69.8. REM AHI 48 events per sleep hour. All sleep was in the supine position. Periodic limb movement with arousal index of 0 events per sleep hour. Low oxygen saturation 53%, spending 47% of the time less than 90%. Titrated at 9, 11, 13, 15, 16, 17, 19, and 20 cm water pressure. At 20 cm water pressure, the patient was seen for 29 minutes of which 18 minutes was in REM sleep. Central apnea 1, hypopnea 2. Apnea-hypopnea index of 6.2 events per sleep hour. Low oxygen saturation 94%. PVCs noted. At 16 cm water pressure, the patient was seen for 46 minutes of which 41 minutes was in REM sleep, 3 obstructive apneas, 1 mixed apnea, 3 hypopneas, apnea-hypopnea index of 9.2 events per sleep hour, low oxygen saturation 81%. IMPRESSION: 1. Obstructive sleep, apnea/hypopnea, G47.33. 2. Premature ventricular contraction noted and arrhythmia. 3. Periodic limb movement with arousal index of 0 events per sleep hour. 4. Continuous positive airway pressure improves the patient's apnea-hypopnea index, snoring and desaturation. The patient was seen in supine REM sleep. SUGGESTIONS: 1. In addition to specific therapy, the patient will be cautioned regarding driving or operating dangerous machinery unless fully alert. 2. Weight loss and TSH is recommended. 3. Oral appliance or appropriate surgery may be considered with polysomnographic followup. 4. May consider a CPAP setting of 20 cm water pressure with a ResMed AirFit full face mask with heated humidity and C-Flex of 3. [address] [address] POLYSOMNOGRAPHY STUDY Name: RAMIRO BROOKS Room #: REG [facility].#: [id number] Admission: 04/11/17 Attend Phys: Joss Mantilla MD Discharge: Date of : 43 Report #: [id number] 5. Consider Holter monitor. 6. As the patient relates the night was worse if does not tolerate CPAP, may need a BiPAP titration night. I would suggest starting that night at an IPAP of 13, EPAP of 9. 7. If signs and symptoms not improved with therapy, further evaluation is recommended. Please do not hesitate to contact me if I may be of further assistance. <ELECTRONICALLY SIGNED> By: Marisela Batista MD 04/15/17 1836 1753 193 Marisela Batista MD /nt
== END ==
LOC: SLEEPLAB 09:23
DX: G47.33 Obstructive sleep apnea (adult) (pediatric) (principal)

== ENCOUNTER → 2017-04-30 | Outpatient (CLI) | payer OTHER | LOC: HYPER 04-22 06:51 | DX: E11.622 Type 2 diabetes mellitus with other skin ulcer (principal); L97.322 Non-pressure chronic ulcer of left ankle with fat layer exposed; L97.811 Non-pressure chronic ulcer of other part of right lower leg limited to breakdown of skin; I87.333 Chronic venous hypertension (idiopathic) with ulcer and inflammation of bilateral lower extremity; E11.65 Type 2 diabetes mellitus with hyperglycemia; E66.01 Morbid (severe) obesity due to excess calories; Z68.43 Body mass index [BMI] 50.0-59.9, adult; Z72.89 Other problems related to lifestyle; Z87.891 Personal history of nicotine dependence ==

== ENCOUNTER → 2017-05-02 | Outpatient (CLI) | payer OTHER | LOC: SLEEPLAB 10:49 | DX: G47.33 Obstructive sleep apnea (adult) (pediatric) (principal) ==

== ENCOUNTER → 2017-05-29 | Outpatient (CLI) | payer OTHER | LOC: HYPER 05-28 07:04 | DX: E11.622 Type 2 diabetes mellitus with other skin ulcer (principal); I87.332 Chronic venous hypertension (idiopathic) with ulcer and inflammation of left lower extremity; I87.321 Chronic venous hypertension (idiopathic) with inflammation of right lower extremity; L97.811 Non-pressure chronic ulcer of other part of right lower leg limited to breakdown of skin; L97.822 Non-pressure chronic ulcer of other part of left lower leg with fat layer exposed; R60.0 Localized edema; E66.01 Morbid (severe) obesity due to excess calories; Z68.43 Body mass index [BMI] 50.0-59.9, adult; Z87.891 Personal history of nicotine dependence ==

== ENCOUNTER → 2017-08-07 | Outpatient (CLI) | payer OTHER ==
--- NOTE | ~2017-08-07 | 2DMMODE ---
[facility] [address] [place] [address] 2 D/M-MODE ECHOCARDIOGRAM Name: RAMIRO BROOKS Room #: REG [facility]#: [id number] Admission: 08/07/17 Attend Phys: Pablo Arroyo MD Discharge: Date of : 41 Date of Service: 08/07/17 1404 Report #: [id number] THIS REPORT FOR: //name// APPROVED REPORT Study performed: 08/07/2017 13:13:51 EXAM: Comprehensive 2D, Doppler, and color-flow Echocardiogram Patient Location: Out-Patient Status: routine BSA: 2.23 HR: 66 bpm Rhythm: NSR Other Information Study Quality: Adequate Indications CAD 2D Dimensions RVDd: 32.49 mm LVEF(%): 55.82 (>50%) IVSd: 11.89 (7-11mm) LVOT Diam: 21.67 (18-24mm) LVDd: 50.26 mm PWd: 11.54 (7-11mm) LVDs: 35.57 (25-40mm) Aortic Root: 35.24 mm Stokes's LVEF: 55.82 % Volumes Left Atrial Volume (Systole) Single Plane 4CH: 63.10 mL Single Plane 2CH: 81.14 mL LA ESV Index: 35.00 mL/m2 Aortic Valve AoV Peak Russ.: 1.88 m/s AO Peak Gr.: 14.21 mmHg LVOT Max P.64 mmHg LVOT Max V: 0.95 m/s VESTA Vmax: 1.86 cm2 Mitral Valve E/A Ratio: 0.5 MV Decel. Time: 264.31 ms [facility] [place] [address] 2 D/M-MODE ECHOCARDIOGRAM Name: RAMIRO BROOKS Room #: REG CL [facility]#: [id number] Admission: 08/07/17 Attend Phys: Pablo Arroyo MD Discharge: Date of : 41 Date of Service: 08/07/17 1404 Report #: [id number] E Max Russ.: 0.68 m/s MV A Russ.: 1.28 m/s MV PHT: 76.65 ms IVRT: 79.58 ms Pulmonary Valve PV Peak Russ.: 1.17 m/s PV Peak Gr.: 5.43 mmHg Pulmonary Vein P Vein S: 0.56 m/s P Vein A: 0.31 m/s P Vein D: 0.28 m/s P Vein A Dur.: 124.6 msec P Vein S/D Ratio: 2.00 Tricuspid Valve TR Peak Russ.: 2.76 m/s RAP Estimate: 10.00 mmHg TR Peak Gr.: 30.47 mmHg PA Pressure: 40.00 mmHg Left Ventricle The left ventricle is normal size. There is normal LV segmental wall motion. Mild concentric left ventricular hypertrophy. Left ventricular systolic function is normal. LVEF is 55-60%. Mild diastolic dysfunction is present (impaired relaxation pattern). Right Ventricle The right ventricle is normal size. The right ventricular systolic function is normal. Atria Left atrium is mildly dilated. Right atrium is mildly dilated. Aortic Valve Aortic valve is calcified. No aortic regurgitation is present. There is no aortic valvular stenosis. Mitral Valve Mitral valve leaflets are mildly thickened. Mild mitral annular calcification. There is no mitral valve regurgitation noted. Tricuspid Valve The tricuspid valve is normal in structure. Mild to moderate tricuspid regurgitation. Estimated PAP is 40mmHg. [facility] [address] [place] [address] 2 D/M-MODE ECHOCARDIOGRAM Name: RAMIRO BROOKS Room #: REG [facility]#: [id number] Admission: 08/07/17 Attend Phys: Pablo Arroyo MD Discharge: Date of : 41 Date of Service: 08/07/17 1404 Report #: [id number] Pulmonic Valve The pulmonary valve is normal in structure. Trace pulmonic regurgitation. Great Vessels The aortic root is normal in size. IVC is normal in size and collapses <50% with inspiration. Pericardium There is no pericardial effusion. <Conclusion> The left ventricle is normal size. Mild concentric left ventricular hypertrophy. Left ventricular systolic function is normal. Mild diastolic dysfunction is present (impaired relaxation pattern). The right ventricle is normal size. Left atrium is mildly dilated. Right atrium is mildly dilated. Aortic valve is calcified. Mitral valve leaflets are mildly thickened. Mild mitral annular calcification. Mild to moderate tricuspid regurgitation. Estimated PAP is 40mmHg. <ELECTRONICALLY SIGNED> By: Pablo Arroyo MD 08/07/17 1404 1404 1404 Pablo Arroyo MD /INF
== END ==
LOC: CV 13:04
DX: I08.1 Rheumatic disorders of both mitral and tricuspid valves (principal); I25.10 Atherosclerotic heart disease of native coronary artery without angina pectoris

== ENCOUNTER → 2018-02-09 | Outpatient (CLI) | payer OTHER | LOC: HYPER 07:07 | DX: E11.622 Type 2 diabetes mellitus with other skin ulcer (principal); I87.332 Chronic venous hypertension (idiopathic) with ulcer and inflammation of left lower extremity; L97.321 Non-pressure chronic ulcer of left ankle limited to breakdown of skin; E11.65 Type 2 diabetes mellitus with hyperglycemia; E66.01 Morbid (severe) obesity due to excess calories; Z87.891 Personal history of nicotine dependence; Z68.43 Body mass index [BMI] 50.0-59.9, adult ==

== ENCOUNTER → 2018-03-05 | Outpatient (CLI) | payer OTHER | LOC: HYPER 05:29 | DX: E11.622 Type 2 diabetes mellitus with other skin ulcer (principal); I87.332 Chronic venous hypertension (idiopathic) with ulcer and inflammation of left lower extremity; L97.322 Non-pressure chronic ulcer of left ankle with fat layer exposed; I87.321 Chronic venous hypertension (idiopathic) with inflammation of right lower extremity; E11.65 Type 2 diabetes mellitus with hyperglycemia; E66.01 Morbid (severe) obesity due to excess calories; Z87.891 Personal history of nicotine dependence; Z68.43 Body mass index [BMI] 50.0-59.9, adult ==

== ENCOUNTER → 2018-03-27 | Outpatient (CLI) | payer OTHER ==
--- NOTE | 2018-03-30 07:57 | SLE ---
[facility] [place] [address] POLYSOMNOGRAPHY STUDY Name: RAMIRO BROOKS Room #: REG [facility].#: [id number] Admission: 03/27/18 Attend Phys: Anton Roca MD Discharge: Date of : 43 Report #: [id number] THIS REPORT FOR: //name// CC: Anton Malagon MD DATE OF SERVICE: 03/27/2018 ATTENDING PHYSICIAN: Dr. Juan Malagon. The patient is a 72-year-old who weighs 280 pounds with a BMI of 48.1. The patient has history of sleep apnea and has been on auto BiPAP with a maximum EPAP pressure of 16 and pressure support of 5. However, she has been clinically symptomatic with an Grady score of 9 on this auto BiPAP settings. A recent review of the download data between January and January of last year also shows that her AHI is very high and was almost 30 per hour and was predominantly obstructive apneas. As a result, she was referred for a BiPAP titration study. During the night study, the patient spent 424 minutes in bed and slept for 391 minutes with a sleep efficiency of 92%. Sleep latency was 7.5 minutes, which was short with a REM latency of 64.5 minutes. Overall sleep architecture showed increased stage 1 sleep, normal stage 2 sleep, absent N3 sleep and normal REM sleep. EKG monitoring revealed an average heart rate of 54 beats per minute with a maximum of 79 beats per minute. Occasional PVCs observed. No sustained arrhythmias observed. PLMS were not seen. The patient was started on BiPAP at a pressure of 8/[address] up to /14. At that pressure the patient slept for 92 minutes. The patient had supine sleep throughout as well as 17.6 minutes of REM sleep was observed. The patient's respiratory events were not completely eliminated. At that pressure, the patient's AHI was still 23.5 per hour. This was due to 12 obstructive apneas, 4 central apneas and 19 hypopneas. At lower pressures AHI was still high. Oxygen saturation remained 88% and above with one spot desaturation of 83%. Optimum BiPAP pressure was not achieved. IMPRESSION: 1. Sleep apnea diagnosed previously. 2. No clinically significant periodic limb movements of sleep. RECOMMENDATIONS: 1. Optimum BiPAP pressure was not achieved on this titration night. I would [facility] [address] [place] [address] POLYSOMNOGRAPHY STUDY Name: RAMIRO BROOKS Room #: REG [facility] Nayla#: [id number] Admission: 03/27/18 Attend Phys: Anton Roca MD Discharge: Date of : 43 Report #: [id number] recommend that the patient should be placed on an auto BiPAP with a maximum IPAP pressure of 26 and a minimum EPAP pressure of 16. Pressure support of 4 should be utilized. The patient should have a download information in 4-6 weeks to assess compliance with BiPAP and to document clinical improvement as well as review of the download data. 2. Weight loss is strongly advised. It would certainly help in improving the patient's high BiPAP pressure requirements. 3. Avoid HAND SPLITTER depressants. 4. Cautioned regarding driving until symptoms of sleep apnea have resolved with the use of BiPAP. <ELECTRONICALLY SIGNED> By: Anton Roca MD 03/30/18 0757 1818 [id number] Anton Roca MD /nt
== END ==
LOC: SLEEPLAB 03-11 15:39
DX: G47.30 Sleep apnea, unspecified (principal)

== ENCOUNTER → 2018-04-02 | Outpatient (CLI) | payer OTHER | LOC: HYPER 04-01 11:58 | DX: E11.622 Type 2 diabetes mellitus with other skin ulcer (principal); I87.332 Chronic venous hypertension (idiopathic) with ulcer and inflammation of left lower extremity; L97.822 Non-pressure chronic ulcer of other part of left lower leg with fat layer exposed; I87.321 Chronic venous hypertension (idiopathic) with inflammation of right lower extremity; R60.0 Localized edema; E11.65 Type 2 diabetes mellitus with hyperglycemia; E66.01 Morbid (severe) obesity due to excess calories; Z87.891 Personal history of nicotine dependence; Z68.43 Body mass index [BMI] 50.0-59.9, adult ==

== ENCOUNTER → 2018-04-30 | Outpatient (CLI) | payer OTHER | LOC: HYPER 06:53 | DX: E11.622 Type 2 diabetes mellitus with other skin ulcer (principal); I87.332 Chronic venous hypertension (idiopathic) with ulcer and inflammation of left lower extremity; L97.822 Non-pressure chronic ulcer of other part of left lower leg with fat layer exposed; I87.321 Chronic venous hypertension (idiopathic) with inflammation of right lower extremity; I89.0 Lymphedema, not elsewhere classified; E11.65 Type 2 diabetes mellitus with hyperglycemia; E66.01 Morbid (severe) obesity due to excess calories; Z87.891 Personal history of nicotine dependence; Z68.43 Body mass index [BMI] 50.0-59.9, adult ==

== ENCOUNTER → 2018-05-28 | Outpatient (CLI) | payer OTHER | LOC: HYPER 06:49 | DX: E11.622 Type 2 diabetes mellitus with other skin ulcer (principal); I87.332 Chronic venous hypertension (idiopathic) with ulcer and inflammation of left lower extremity; L97.322 Non-pressure chronic ulcer of left ankle with fat layer exposed; I87.321 Chronic venous hypertension (idiopathic) with inflammation of right lower extremity; I89.0 Lymphedema, not elsewhere classified; E11.65 Type 2 diabetes mellitus with hyperglycemia; E66.01 Morbid (severe) obesity due to excess calories; Z87.891 Personal history of nicotine dependence; Z68.43 Body mass index [BMI] 50.0-59.9, adult ==

== ENCOUNTER → 2018-06-04 | Outpatient (CLI) | payer OTHER | LOC: HYPER 07:04 | DX: I87.332 Chronic venous hypertension (idiopathic) with ulcer and inflammation of left lower extremity (principal); L97.322 Non-pressure chronic ulcer of left ankle with fat layer exposed; I87.321 Chronic venous hypertension (idiopathic) with inflammation of right lower extremity; I89.0 Lymphedema, not elsewhere classified; E66.01 Morbid (severe) obesity due to excess calories; Z68.43 Body mass index [BMI] 50.0-59.9, adult; Z87.891 Personal history of nicotine dependence ==

== ENCOUNTER → 2018-06-18 | Outpatient (CLI) | payer OTHER | LOC: HYPER 06:48 | DX: E11.622 Type 2 diabetes mellitus with other skin ulcer (principal); I87.332 Chronic venous hypertension (idiopathic) with ulcer and inflammation of left lower extremity; L97.322 Non-pressure chronic ulcer of left ankle with fat layer exposed; I87.321 Chronic venous hypertension (idiopathic) with inflammation of right lower extremity; I89.0 Lymphedema, not elsewhere classified; E11.65 Type 2 diabetes mellitus with hyperglycemia; E66.01 Morbid (severe) obesity due to excess calories; Z87.891 Personal history of nicotine dependence; Z68.43 Body mass index [BMI] 50.0-59.9, adult ==

== ENCOUNTER → 2018-06-25 | Outpatient (CLI) | payer OTHER | LOC: HYPER 07:04 | DX: I87.332 Chronic venous hypertension (idiopathic) with ulcer and inflammation of left lower extremity (principal); L97.822 Non-pressure chronic ulcer of other part of left lower leg with fat layer exposed; I89.0 Lymphedema, not elsewhere classified; I87.321 Chronic venous hypertension (idiopathic) with inflammation of right lower extremity; L97.811 Non-pressure chronic ulcer of other part of right lower leg limited to breakdown of skin; E66.01 Morbid (severe) obesity due to excess calories; R60.0 Localized edema; Z87.891 Personal history of nicotine dependence ==

== ENCOUNTER → 2018-07-09 | Outpatient (CLI) | payer OTHER | LOC: HYPER 06:44 | DX: E11.622 Type 2 diabetes mellitus with other skin ulcer (principal); L97.322 Non-pressure chronic ulcer of left ankle with fat layer exposed; I87.332 Chronic venous hypertension (idiopathic) with ulcer and inflammation of left lower extremity; I87.321 Chronic venous hypertension (idiopathic) with inflammation of right lower extremity; E66.01 Morbid (severe) obesity due to excess calories; I89.0 Lymphedema, not elsewhere classified; R60.0 Localized edema; Z87.891 Personal history of nicotine dependence ==

== ENCOUNTER → 2018-07-23 | Outpatient (CLI) | payer OTHER | LOC: HYPER 06:50 | DX: E11.622 Type 2 diabetes mellitus with other skin ulcer (principal); I87.332 Chronic venous hypertension (idiopathic) with ulcer and inflammation of left lower extremity; L97.822 Non-pressure chronic ulcer of other part of left lower leg with fat layer exposed; I87.321 Chronic venous hypertension (idiopathic) with inflammation of right lower extremity; I89.0 Lymphedema, not elsewhere classified; E11.65 Type 2 diabetes mellitus with hyperglycemia; E66.01 Morbid (severe) obesity due to excess calories; R60.0 Localized edema; Z87.891 Personal history of nicotine dependence; Z68.43 Body mass index [BMI] 50.0-59.9, adult ==

== ENCOUNTER → 2018-08-06 | Outpatient (CLI) | payer OTHER | LOC: HYPER 06:48 | DX: E11.622 Type 2 diabetes mellitus with other skin ulcer (principal); I87.332 Chronic venous hypertension (idiopathic) with ulcer and inflammation of left lower extremity; L97.822 Non-pressure chronic ulcer of other part of left lower leg with fat layer exposed; I87.321 Chronic venous hypertension (idiopathic) with inflammation of right lower extremity; I89.0 Lymphedema, not elsewhere classified; E66.01 Morbid (severe) obesity due to excess calories; R60.0 Localized edema; Z68.43 Body mass index [BMI] 50.0-59.9, adult; Z87.891 Personal history of nicotine dependence ==

== ENCOUNTER → 2018-08-20 | Outpatient (CLI) | payer OTHER | LOC: HYPER 06:42 | DX: E11.622 Type 2 diabetes mellitus with other skin ulcer (principal); I87.332 Chronic venous hypertension (idiopathic) with ulcer and inflammation of left lower extremity; L97.822 Non-pressure chronic ulcer of other part of left lower leg with fat layer exposed; I87.321 Chronic venous hypertension (idiopathic) with inflammation of right lower extremity; L97.811 Non-pressure chronic ulcer of other part of right lower leg limited to breakdown of skin; I89.0 Lymphedema, not elsewhere classified; E11.65 Type 2 diabetes mellitus with hyperglycemia; E66.01 Morbid (severe) obesity due to excess calories; R60.0 Localized edema; Z87.891 Personal history of nicotine dependence; Z68.43 Body mass index [BMI] 50.0-59.9, adult ==

== ENCOUNTER → 2018-09-02 | Outpatient (CLI) | payer OTHER | LOC: HYPER 06:28 | DX: E11.622 Type 2 diabetes mellitus with other skin ulcer (principal); I87.332 Chronic venous hypertension (idiopathic) with ulcer and inflammation of left lower extremity; L97.822 Non-pressure chronic ulcer of other part of left lower leg with fat layer exposed; I87.321 Chronic venous hypertension (idiopathic) with inflammation of right lower extremity; L97.811 Non-pressure chronic ulcer of other part of right lower leg limited to breakdown of skin; I89.0 Lymphedema, not elsewhere classified; E66.01 Morbid (severe) obesity due to excess calories; R60.0 Localized edema; Z87.891 Personal history of nicotine dependence; Z68.43 Body mass index [BMI] 50.0-59.9, adult ==

== ENCOUNTER → 2018-09-17 | Outpatient (CLI) | payer OTHER | LOC: HYPER 06:48 | DX: E11.622 Type 2 diabetes mellitus with other skin ulcer (principal); I87.332 Chronic venous hypertension (idiopathic) with ulcer and inflammation of left lower extremity; L97.822 Non-pressure chronic ulcer of other part of left lower leg with fat layer exposed; I87.321 Chronic venous hypertension (idiopathic) with inflammation of right lower extremity; I89.0 Lymphedema, not elsewhere classified; E66.01 Morbid (severe) obesity due to excess calories; R60.0 Localized edema; Z68.43 Body mass index [BMI] 50.0-59.9, adult; Z87.891 Personal history of nicotine dependence ==

== ENCOUNTER → 2018-10-01 | Outpatient (CLI) | payer OTHER | LOC: HYPER 06:52 | DX: E11.622 Type 2 diabetes mellitus with other skin ulcer (principal); I87.332 Chronic venous hypertension (idiopathic) with ulcer and inflammation of left lower extremity; L97.322 Non-pressure chronic ulcer of left ankle with fat layer exposed; I89.0 Lymphedema, not elsewhere classified; E66.01 Morbid (severe) obesity due to excess calories; R60.0 Localized edema; Z68.43 Body mass index [BMI] 50.0-59.9, adult; Z87.891 Personal history of nicotine dependence ==

== ENCOUNTER 2019-06-04 14:10 | Inpatient (IN) | payer OTHER ==
[~2019-06-04] VITALS: Ht 152.4 cm; Wt 131.9 kg
[2019-06-04 14:46] LABS: BE(vivo) 3.7 mmol/L (-2 to +3); HCO3 32.6 mmol/L (22.0-26.0); PCO2 75.6 mmHg (35.0-45.0); PO2 142.4 mmHg (80.0-100.0); pH 7.252 (7.360-7.450); sO2 98.3 % (92.0-98.0)
[2019-06-04 14:52] LABS: ABSOLUTE NEUTROPHILS 10.8 thou/uL (1.4-8.2); BASOPHILS 0.4 % (0.0-2.0); EOSINOPHILS 0.5 % (0.0-3.0); HEMATOCRIT 30.3 % (37.0-47.0); HEMOGLOBIN 9.9 gm/dL (12.0-15.0); LYMPHOCYTES 10.1 % (24.0-44.0); MCHC 32.6 g/dL (28.0-37.0); MCV 98.2 fL (80.0-100.0); MONOCYTES 5.6 % (1.0-8.0); PLATELET COUNT 235 thou/uL (150-400); POLYS 83.4 % (36.0-66.0); RBC 3.08 mil/uL (4.20-5.00); RDW 17.4 % (10.5-14.5); WBC 12.9 thou/uL (4.0-11.0)
[2019-06-04 14:58] LABS: ANION GAP 6 mmol/L (7-16); BUN 47 mg/dL (7-18); CALCIUM 8.7 mg/dL (8.5-10.1); CHLORIDE 99 mmol/L (98-107); CO2 35 mmol/L (21-32); CREATININE 3.5 mg/dL (0.6-1.0); GLUCOSE 193 mg/dL (74-106); POTASSIUM 3.9 mmol/L (3.5-5.1); SODIUM 140 mmol/L (136-145)
[2019-06-04 15:06] VITALS: BP 174/93
[2019-06-04 15:08] LABS: ALBUMIN 3.5 g/dL (3.4-5.0); SGOT 17 U/L (15-37); SGPT 20 U/L (30-65); TOTAL BILIRUBIN 0.5 mg/dL (<0.1-1.0); TOTAL PROTEIN 7.5 g/dL (6.4-8.2); TROPONIN-I <0.06 ng/mL (<0.06)
[2019-06-04 17:30] LABS: TSH 3.651 uIU/mL (0.358-3.740)
[2019-06-04 18:47] LABS: BE(vivo) 5.5 mmol/L (-2 to +3); HCO3 32.9 mmol/L (22.0-26.0); PCO2 64.2 mmHg (35.0-45.0); PO2 70.5 mmHg (80.0-100.0); sO2 92.5 % (92.0-98.0)
--- NOTE | 2019-06-04 18:47 | NUR ---
SCOTT Krueger and KAREN Ricardo notified of critical ph at 7.327
[2019-06-04 18:49] LABS: pH 7.327 (7.360-7.450)
[2019-06-04 19:59] VITALS: BP 140/70
[2019-06-04 21:27] VITALS: BP 128/68
[2019-06-04 21:33] VITALS: BP 148/60
--- NOTE | 2019-06-04 22:09 | NUR ---
REPORT FROM DIEGO JONES
[2019-06-04 23:29] VITALS: BP 134/53
[2019-06-05 03:56] VITALS: BP 153/70
[2019-06-05 04:33] LABS: BE(vivo) 4.7 mmol/L (-2 to +3); HCO3 31.1 mmol/L (22.0-26.0); PCO2 54.9 mmHg (35.0-45.0); PO2 93.6 mmHg (80.0-100.0); pH 7.371 (7.360-7.450); sO2 96.8 % (92.0-98.0)
[2019-06-05 06:15] LABS: CALCIUM 8.7 mg/dL (8.5-10.1); CREATININE 3.3 mg/dL (0.6-1.0); MAGNESIUM 1.7 mg/dL (1.8-2.4)
[2019-06-05 06:18] LABS: POTASSIUM 5.1 mmol/L (3.5-5.1)
[2019-06-05 07:38] LABS: HEMATOCRIT 30.5 % (37.0-47.0); HEMOGLOBIN 9.9 gm/dL (12.0-15.0); MCH 32.2 pg (26.0-34.0); MCHC 32.6 g/dL (28.0-37.0); MCV 98.7 fL (80.0-100.0); RBC 3.09 mil/uL (4.20-5.00); RDW 16.7 % (10.5-14.5); WBC 6.8 thou/uL (4.0-11.0)
[2019-06-05 08:29] VITALS: BP 165/90
[2019-06-05 12:00] VITALS: BP 115/51
[2019-06-05 17:07] VITALS: BP 137/61
--- NOTE | 2019-06-05 18:40 | NUR ---
ASSUMED PATIENT CARE AT 0700. OFF BIPAP AT 0830. TLERATED ON 5L/NC. GOOD APPATITE. GENERLAIED TRACE CASSIDY. DENIES CHEST PAIN. PROGRESSING TOWARDS POC GOALS.
[2019-06-05 20:15] VITALS: BP 117/59
[2019-06-05] MEDS ORDERED: TIZANIDINE HCL4 M1 PO ×2 (20:26)
--- NOTE | 2019-06-05 22:49 | NUR ---
TOOK OVER PATIENT CARE FROM KAREN NORWOOD, AT 1900. ASSESSED PT AT 2014, SANDOR FONSECA DISCUSSED WITH PT, SHE VERBALIZED UNDERSTANDING, SAID SHE DIDN'T HAVE ANY PAIN, REVIEWED HER INTAKE AND OUTPUT, PT UNDERSTOOD. MEDS GIVEN, CALL LIGHT IN LEFT HAND, PT DEMONSTRATED UNDERSTANDING OF USE. HAS PHONE ON BEDSIDE TABLE AND HAS CALLED HER AND OTHERS TO LET THEM KNOW HOW SHE IS DOING. WILL MONITOR.
[2019-06-06 04:15] VITALS: BP 121/65
--- NOTE | 2019-06-06 04:35 | NUR ---
CARE ASSUMED AT 0100. PT REST IN BED COMFORTABLE. AO X 4. POLANCO CATHETER IN PLACE. PT DENIES PAIN. ON O2 NC 5L, SATS > 95. DENIES CHEST PAIN, NAUSEA OR VOMITING. ALL OTHER ASSESSMENTS DOCUMENTED. WILL CONTINUE TO FOLLOW POC.
[2019-06-06 04:47] LABS: HEMATOCRIT 25.8 % (37.0-47.0); HEMOGLOBIN 8.5 gm/dL (12.0-15.0); MCH 32.7 pg (26.0-34.0); MCHC 32.9 g/dL (28.0-37.0); MCV 99.4 fL (80.0-100.0); RBC 2.59 mil/uL (4.20-5.00); RDW 16.9 % (10.5-14.5); WBC 9.2 thou/uL (4.0-11.0)
[2019-06-06 05:02] LABS: ALBUMIN 2.8 g/dL (3.4-5.0); CALCIUM 8.5 mg/dL (8.5-10.1); MAGNESIUM 1.9 mg/dL (1.8-2.4)
[2019-06-06 08:17] VITALS: BP 146/67
--- NOTE | 2019-06-06 19:17 | NUR ---
ASSUMED PATIENT CARE AT 0700. A/O X4. TITRATED 02 TO 3L. OUT OF BED TO CHAIR. PROGRESSING TOWARDS POC PRITI.
[2019-06-06 21:03] VITALS: BP 136/65
--- NOTE | 2019-06-07 03:59 | NUR ---
NO EVENTS OVERNIGHT. PT LAERT AND ORIENTED. VSS. DENIES PAIN/CHEST PAIN/NAUSEA AND VOMITING. PT WAS ON 3L O2 NC, BUT STARTED TO DESAT AROUND MIDNIGHT. O2 TITRATED TO 4L. SATS STABLE > 90. LFA IV WENT BAD. UNABLE TO START NEW IV. PT HAD SOLUMEDROL IV ORDERED BY DR. MARTINEZ. DR MARTINEZ NOTIFIED OF LACK IV ACCESS. SOLUMEDROL 40 IV BID CHANGED TO PREDNISONE PO 50 MG BID. IV TEAM TO TRY TO INSERT IV DURING THE DAY. COVID-19 RESULTS STILL PENDING. WILL CONTINUE TO FOLLOW POC.
[2019-06-07 04:45] VITALS: BP 129/72
[2019-06-07 06:16] LABS: HEMOGLOBIN 9.5 gm/dL (12.0-15.0); MCH 32.5 pg (26.0-34.0); MCHC 32.8 g/dL (28.0-37.0); MCV 99.3 fL (80.0-100.0); RBC 2.92 mil/uL (4.20-5.00); RDW 17.1 % (10.5-14.5); WBC 8.2 thou/uL (4.0-11.0)
[2019-06-07 06:38] LABS: ALBUMIN 2.8 g/dL (3.4-5.0); CALCIUM 8.6 mg/dL (8.5-10.1); CREATININE 3.7 mg/dL (0.6-1.0); POTASSIUM 4.6 mmol/L (3.5-5.1)
[2019-06-07 07:38] VITALS: BP 142/59
[2019-06-07 11:30] VITALS: BP 140/75
--- NOTE | 2019-06-07 12:00 | NUR ---
ASSUMED CARE OF PT AT 0700. PT ALERT AND ORIENTED IN NO ACUTE DSITRESS. WEANED TO 2L NC. VITALS STABLE. COVID19 RESULTS NEGATIVE - RELAYED TO FAMILY. TRANSFERRED TO CCU.
--- NOTE | 2019-06-07 12:33 | NUR ---
PT ARRIVED ON CCU, ASSESSED, VSS, AOX4, POLANCO INTACT, NO IV, WAITING FOR IV TEAM TO PLACE ONE, REVIEWED POC WITH PT, SHE VERBALIZED UNDERSTANDING, WAITING FOR ECHO, ON 3L NC 95%, DECREASED TO 2. PT HAS CALL LIGHT IN LAP AND PHONE ON BEDSIDE TABLE WITHIN REACH. WILL MONITOR
--- NOTE | 2019-06-07 13:14 | NUR ---
INITIAL ASSESSMENT: SW reviewed chart and spoke with nursing and attending physician. Pt was admitted from home due to CHF/COPD. Pt was in isolation for COVID-19. Results were negative. Pt was transferred to from 3W earlier today when results were available. SW spoke with pt via phone. Introduced role of SW. Pt is alert/orientated x 4. Pt reports she lives at home with her . Prior to admission, pt was independent with ADLs. Pt has a walker and wc at home. No steps to navigate at home. Pt reports she has used [facility] in the past, and would be agreeable with using them again if needed. Pt's PCP is Dr. Demetrius Jarrett at [facility]. Plan is for pt to discharge home when medically stable. Cardiology following. Discharge home is anticipated for tomorrow. SW is following to assist as needed with discharge planning.
[2019-06-07 16:30] VITALS: BP 133/69
--- NOTE | 2019-06-07 17:55 | NUR ---
PT REFUSED AN IV RESTART. RN ADVISED
[2019-06-07 19:55] VITALS: BP 152/70
[2019-06-08] VITALS (7 sets, daily range): BP systolic 136–149; BP diastolic 65–87
--- NOTE | 2019-06-08 04:57 | NUR ---
ASSUMED PT CARE AT 1900. PT IS ALERT AND ORIENTED WITH NO SIGN OF DISTRESS NOTED IN OPT. PT IS STABLE. DENIES ANY PAIN. FALL PRECAUTION IN PT. ASSESSMENT COMPLETED AND DOCUMENTED. SCHEDULED MEDS ADMINISTERED TO TO. TOLERATED PO INTAKE. CFOLEY CATH IN PLACE. CONTINUE TO MONITOR PATIENT
[2019-06-08 05:41] LABS: HEMATOCRIT 30.3 % (37.0-47.0); HEMOGLOBIN 9.6 gm/dL (12.0-15.0); MCH 32.2 pg (26.0-34.0); MCHC 31.6 g/dL (28.0-37.0); MCV 101.9 fL (80.0-100.0); RBC 2.97 mil/uL (4.20-5.00); RDW 17.4 % (10.5-14.5)
[2019-06-08 05:52] LABS: ALBUMIN 2.8 g/dL (3.4-5.0); CALCIUM 8.2 mg/dL (8.5-10.1); CREATININE 3.4 mg/dL (0.6-1.0); PHOSPHORUS 4.1 mg/dL (2.5-4.9); POTASSIUM 4.8 mmol/L (3.5-5.1)
--- NOTE | 2019-06-08 11:49 | 2DMMODE ---
[facility] [address] [place] [address] 2 D/M-MODE ECHOCARDIOGRAM Name: RAMIRO BROOKS Room #: 209-P ADM IN M.R.#: [id number] Admission: 06/04/19 Attend Phys: Dominic Olivares MD Discharge: Date of : 41 Report #: [id number] THIS REPORT FOR: cc: FAM - Family physician unknown FAM - Family physician unknown Pablo Arroyo MD ~ APPROVED REPORT Study performed: 06/08/2019 10:05:12 EXAM: Comprehensive 2D, Doppler, and color-flow Echocardiogram Patient Location: Bedside Room #: 209 Status: routine BSA: 2.18 HR: 77 bpm BP: 149/87 mmHg Rhythm: NSR Other Information Study Quality: Adequate Indications Congestive Heart Failure COPD Pulmonary Hypertension Dyspnea Hypertension/HDD 2D Dimensions RVDd: 42.17 mm IVSd: 10.24 (7-11mm) LVOT Diam: 21.99 (18-24mm) LVDd: 59.73 mm PWd: 9.76 (7-11mm) Ascending Ao: 32.97 (22-36mm) LVDs: 51.09 (25-40mm) Aortic Root: 31.69 mm IVC: 28.00 mm Volumes Left Atrial Volume (Systole) Single Plane 4CH: 105.51 mL Single Plane 2CH: 89.34 mL LA ESV Index: 50.00 mL/m2 Aortic Valve AoV Peak Russ.: 1.50 m/s [facility] [address] [place] [address] 2 D/M-MODE ECHOCARDIOGRAM Name: RAMIRO BROOKS Room #: 209-[facility] IN M.R.#: [id number] Admission: 06/04/19 Attend Phys: Dominic Olivares, Discharge: Date of : 41 Report #: [id number] AO Peak Gr.: 8.98 mmHg LVOT Max P.16 mmHg LVOT Max V: 1.02 m/s VESTA Vmax: 2.58 cm2 Mitral Valve E/A Ratio: 0.8 MV Decel. Time: 185.53 ms MV E Max Russ.: 1.20 m/s MV A Russ.: 1.58 m/s MV PHT: 53.80 ms IVRT: 138.41 ms Pulmonary Valve PV Peak Russ.: 1.11 m/s PV Peak Gr.: 4.96 mmHg Pulmonary Vein P Vein S: 0.37 m/s P Vein A: 0.18 m/s P Vein D: 0.21 m/s P Vein A Dur.: 87.7 msec P Vein S/D Ratio: 1.76 Tricuspid Valve TR Peak Russ.: 4.00 m/s TR Peak Gr.: 64.08 mmHg PA Pressure: 74.00 mmHg Left Ventricle Left ventricle is dilated. There is hypokinesis of the inferior and distal anteroapical izaguirre. There is normal left ventricular wall thickness. Left ventricular systolic function is moderately decreased. LVEF is 35-40%. Grade I - abnormal relaxation pattern. Right Ventricle Right ventricle is at the upper limits of normal. Right ventricular systolic function is grossly normal. Atria Left atrium is dilated. Right atrium is dilated. Aortic Valve The aortic valve is normal in structure. The Aortic valve is sclerotic. No aortic regurgitation is present. There is no aortic valvular stenosis. Mitral Valve The mitral valve is normal in structure. Mild mitral regurgitation. [facility] [address] [place] [address] 2 D/M-MODE ECHOCARDIOGRAM Name: RAMIRO BROOKS Room #: 209-P [facility] IN .R.#: [id number] Admission: 06/04/19 Attend Phys: Dominic Olivares, Discharge: Date of : 41 Report #: [id number] No evidence of mitral valve stenosis. Tricuspid Valve The tricuspid valve is normal in structure. There is moderate tricuspid regurgitation. Estimated PAP 74 mmHg. There is severe pulmonary hypertension. Pulmonic Valve The pulmonary valve is normal in structure. Trace pulmonic regurgitation. Great Vessels The aortic root is normal in size. The inferior vena cava is dilated with no inspiratory collapse. Pericardium There is no pericardial effusion. <Conclusion> Left ventricle is dilated. There is normal left ventricular wall thickness. Left ventricular systolic function is moderately decreased. LVEF is 35-40%. Grade I - abnormal relaxation pattern. Left atrium is dilated. Right atrium is dilated. The Aortic valve is sclerotic. Mild mitral regurgitation. There is moderate tricuspid regurgitation. Estimated PAP 74 mmHg. There is severe pulmonary hypertension. <ELECTRONICALLY SIGNED> By: Pablo Arroyo MD 06/08/19 1147 1147 1147 Pablo Arroyo MD /INF
--- NOTE | 2019-06-08 16:01 | NUR ---
GABBIE reviewed chart and spoke with attending physician. Pt had echo completed this morning Pt may d/c home later today. Recommendation made for pt to have HH services. GABBIE spoke with pt via phone to discuss discharge plan. Discussed home health providers. [facility] used [facility] in the past. Pt states she would prefer to use [facility]. Pt has home O2 in place at home through [facility]. GABBIE faxed HH referral to [facility] for review and notified HH liaison. [facility] is able to accept pt on service when discharged. Contact number for [facility] placed in pt's discharge summary. Pt's family is able to provide transportation home when medically stable. GABBIE is following to assist as needed with discharge planning.
--- NOTE | 2019-06-08 16:39 | NUR ---
ASSUMED CARE PT SHIFT CHANGE. ASSESSMENTS CHARTED. MEDS GIVEN PER MAR. PT ALERT AND ORIENTED. VSS. DENIES PAIN. O2 SATS WNL ON 2L O2. DENIES CP/SOB. POLANCO IN PLACE MONITORING I&O ACCURATELY. PT UP WITH PHYS THERAPY TOLEATING WELL. BLOOD SUGARS MANAGED PER SSI. PT CURRENTLY RESING IN BED DENYING OF NEEDS/CONCERNS. WILL CONTINUE TO MONITOR AND FOLLOW POC.
--- NOTE | 2019-06-09 04:38 | NUR ---
ASSUMED PT CARE AT 1900. PT IS ALERT AND ORIENTED. NO SIGN OF DISTRESS IN PT. PT IS LAYING IN BED RESTING. ASSESSMENT COMPLETED AND DOCUMENTED. VITAL SIGNS STABLE. POLANCO IN PLACE. SCHEDULED MEDS ADMINISTERED TO PT. CONTINUE TO MONITOR PT. DENIES ANY FURTHER NEEDS AT THIS TIME.
[2019-06-09 04:40] VITALS: BP 150/64
[2019-06-09 07:44] LABS: CALCIUM 8.7 mg/dL (8.5-10.1); POTASSIUM 4.6 mmol/L (3.5-5.1)
[2019-06-09 07:50] LABS: ALBUMIN 2.7 g/dL (3.4-5.0); PHOSPHORUS 3.9 mg/dL (2.5-4.9)
[2019-06-09 08:33] VITALS: BP 173/92
[2019-06-09 09:50] VITALS: BP 156/67
[2019-06-09 10:54] VITALS: BP 141/63
[2019-06-09] MEDS ORDERED: MUCINEX600 MG PO ×2 (12:11)
[2019-06-09] MEDS ORDERED: DEMADEX20 MG PO ×2 (12:11)
[2019-06-09] MEDS ORDERED: PREDNISONE 20 M20 MG PO ×2 (12:18)
--- NOTE | 2019-06-09 14:13 | NUR ---
ASSUMMED PT CARE AT APPROXIAMTELY 0700. PT A&O X4. ASSESSMENT CHARTED. FALL PRECAUTIONS IN PLACE. PT DENIES HAVING CHEST PAIN. PT DENIES HAVING ACUTE PAIN. PT DENIES HAVING SOB. PT DISCHARGING HOME C HOME HEALTH. DISCHARGE EDUCATION PROVIDED. PT STATED UNDERSTANDING AND DENIED HAVING FURTHER QUESTIONS. TELE DC. ASKED DR. BARNETT IF HE WOULD LIKE THE PT TO HAVE AN IV PLACED. PT HAS NOT HAD IV. DR. BARNETT STATED IV COULD STAY OUT SINCE PT WAS DISHCARGING. ORDER IMPLEMENTED. SHERRI VORA. PT HAD POST CATH REMOVAL VOID. PT RECEIVING HOSPITAL TRANSPORT OFF UNIT. PT AMBULATES C WALKER. PT COMFORTABLE. PT DENIES HAVING FURTHER CONCERNS.
--- NOTE | 2019-06-09 14:29 | NUR ---
Rec dc orders Faxed to [facility] care and sp with patient. [facility] rec orders.
--- NOTE | 2019-06-11 12:22 | EKG ---
[facility] [place] [address] ELECTROCARDIOGRAM REPORT Name: RAMIRO BROOKS Room #: 209-P [facility] IN M.R.#: [id number] Admission: 06/04/19 Attend Phys: Dominic Olivares MD Discharge: 06/09/19 Date of : 41 Report #: [id number] THIS REPORT FOR: cc: JENNY - Family physician unknown FAM - Family physician unknown Tariq Dickinson MD [facility] ~ THIS REPORT FOR: //name// [facility] ED Test Date: 2019-06-04 Test Time: 14:25:47 Pat Name: RAMIRO BROOKS Department: Room: [facility] Gender: F Spring Tier: vonnie : 1945 Requested By: Le Guillen Order Number: [id number] MD: Tariq Dickinson Measurements Intervals Perry Rate: 96 P: 60 SD: 156 QRS: -39 QRSD: 121 T: 123 QT: 387 QTc: 490 Interpretive Statements Sinus rhythm Left bundle branch block Compared to ECG 02/11/2017 18:51:52 No significant changes Electronically Signed On 06-07-2019 9:09:23 CDT by Tariq Dickinson [email or web address] <ELECTRONICALLY SIGNED> By: Tariq Dickinson MD, [facility] 06/07/19 0909 1425 1425 Tariq Dickinson MD, [facility] /EPI
[2019-06-11 17:07] LABS: ADENOVIRUS Negative (Negative); INFLUENZA A Negative (Negative); INFLUENZA B Negative (Negative); METAPNEUMOVIRUS Negative (Negative); PARAINFLUENZA 1 Negative (Negative); PARAINFLUENZA 2 Negative (Negative); PARAINFLUENZA 3 Negative (Negative); RHINOVIRUS Negative (Negative); RSV A Negative (Negative); RSV B Negative (Negative)
--- NOTE | 2019-06-16 07:10 | HC ---
[facility] [place] [address] CONSULTATION Name: RAMIRO BROOKS Room #: 209-P [facility] IN M.R.#: [id number] Admission: 06/04/19 Attend Phys: Dominic Olivares MD Discharge: 06/09/19 Date of : 41 Report #: [id number] THIS REPORT FOR: cc: JENNY - Family physician unknown JENNY - Family physician unknown Rosalinda Salazar MD ~ CC: JENNY unknown Dominic Olivares DATE OF SERVICE: 06/05/2019 REASON FOR CONSULTATION: Chronic kidney disease. REASON FOR THE PRESENTATION: Shortness of breath. HISTORY OF PRESENT ILLNESS: This is a 74-year-old with extensive past medical history including pulmonary hypertension, chronic kidney disease due to diabetes mellitus and hypertension. She sees me in the kidney clinic. She is maintained on home oxygen. She presented yesterday with progressive shortness of breath. She has chronic lower extremity edema, lymphedema, venous stasis changes. She has obstructive sleep apnea. From the kidney perspective, the patient's creatinine had been in the 2.5-3 range. She follows me in the clinic and she opted to continue with the medical management for her chronic kidney disease. She had been stable for the last few months with no requirement for any hospitalizations. She was admitted to further evaluate her shortness of breath. PAST MEDICAL HISTORY: 1. CKD. 2. Diabetes mellitus. 3. Hypertension. 4. Neuropathy. 5. Double mastectomy. 6. Anemia. 7. Gastrointestinal bleeding. 8. Obstructive sleep apnea. 9. Pulmonary hypertension. ALLERGIES: IBUPROFEN. MEDICATIONS: 1. Atorvastatin. 2. Carvedilol. 3. Amlodipine. 4. Aspirin. 5. Gabapentin. 6. Torsemide. [facility] [address] [place] [address] CONSULTATION Name: RAMIRO BROOKS Room #: 209-P [facility] IN ..#: [id number] Admission: 06/04/19 Attend Phys: Dominic Olivares MD Discharge: 06/09/19 Date of : 41 Report #: [id number] 7. Bretuvia. FAMILY HISTORY: Significant for hypertension. SOCIAL HISTORY: No drug or alcohol abuse. REVIEW OF SYSTEMS: GENERAL: No fever or chills. CARDIOVASCULAR: As per the history of present illness. PULMONARY: As per the history of present illness. GASTROINTESTINAL: No nausea or vomiting. GENITOURINARY: No frequency, no urgency. PHYSICAL EXAMINATION: GENERAL: Alert, oriented, in no apparent distress. VITAL SIGNS: Blood pressure is 153/70. HEAD AND NECK: No jugular venous distention. CHEST: Limited air entry bilaterally with basilar crackles. CARDIOVASCULAR: No rub. ABDOMEN: Soft, nontender. LOWER EXTREMITIES: Chronic venous stasis changes. LABORATORY DATA: Reviewed. Sodium is 137, potassium is 5.1, BUN is 48, and creatinine is 3.3. Blood gas from yesterday revealed a pH of 7.25 with a pCO2 of 75, which is down to a pCO2 of 54 today. ASSESSMENT, IMPRESSION AND PLAN: 1. Chronic kidney disease. 2. Pulmonary edema. 3. Obstructive sleep apnea. 4. Acute respiratory failure with hypercapnia. 5. Being ruled out for COVID-19 virus. 6. She seems to be stable from the renal side. This is her baseline creatinine. We will continue with the Lasix twice a day for now. We will switch to p.o. Demadex in the morning. 7. Currently is being ruled out for COVID by the primary team. 8. Routine management of her hypertension with resumption of her home blood pressure medication. 9. Routine management of her COPD as per the primary team. <ELECTRONICALLY SIGNED> By: Rosalinda Salazar MD 06/16/19 0710 9 0725 Rosalinda Salazar MD /nt
== END 2019-06-09 14:58 | disposition home health service (06) | DRG 291 ==
LOC: ER 14:10 → 3W 16:26 → 2N 16:26 → EROBS 16:26 → 3W 21:12 → 2N 06-07 11:28 → ENTRNSPT 06-09 14:11 → 2N 06-09 14:58
PROVIDERS: Hospitalist; Nurse Practitioner; Physician Assistant; ADMIT Internal Medicine
PROC: 5A09357 Assistance with Respiratory Ventilation, Less than 24 Consecutive Hours, Continuous Positive Airway Pressure (ICD-10-PCS; principal; 2019-06-04)
PROC: 5A09357 Assistance with Respiratory Ventilation, Less than 24 Consecutive Hours, Continuous Positive Airway Pressure (ICD-10-PCS; 2019-06-05)
DX: I13.0 Hypertensive heart and chronic kidney disease with heart failure and stage 1 through stage 4 chronic kidney disease, or unspecified chronic kidney disease (principal); J18.9 Pneumonia, unspecified organism; J96.21 Acute and chronic respiratory failure with hypoxia; I50.33 Acute on chronic diastolic (congestive) heart failure; J96.22 Acute and chronic respiratory failure with hypercapnia; N17.0 Acute kidney failure with tubular necrosis; J81.1 Chronic pulmonary edema; J44.0 Chronic obstructive pulmonary disease with (acute) lower respiratory infection; N18.4 Chronic kidney disease, stage 4 (severe); Z68.43 Body mass index [BMI] 50.0-59.9, adult; J44.1 Chronic obstructive pulmonary disease with (acute) exacerbation; E11.40 Type 2 diabetes mellitus with diabetic neuropathy, unspecified; D64.9 Anemia, unspecified; G47.33 Obstructive sleep apnea (adult) (pediatric); E66.01 Morbid (severe) obesity due to excess calories; I27.20 Pulmonary hypertension, unspecified; E11.22 Type 2 diabetes mellitus with diabetic chronic kidney disease; I48.91 Unspecified atrial fibrillation; G47.00 Insomnia, unspecified; E55.9 Vitamin D deficiency, unspecified; E78.5 Hyperlipidemia, unspecified; I25.10 Atherosclerotic heart disease of native coronary artery without angina pectoris; Z87.891 Personal history of nicotine dependence; Z79.82 Long term (current) use of aspirin; Z98.42 Cataract extraction status, left eye; Z98.41 Cataract extraction status, right eye; Z90.13 Acquired absence of bilateral breasts and nipples; Z88.6 Allergy status to analgesic agent; Z82.49 Family history of ischemic heart disease and other diseases of the circulatory system; Z85.3 Personal history of malignant neoplasm of breast; Z79.899 Other long term (current) drug therapy; Z83.3 Family history of diabetes mellitus; Z03.818 Encounter for observation for suspected exposure to other biological agents ruled out
CPT/HCPCS: 10081; 10779; 10879

== ENCOUNTER → 2019-06-16 | Outpatient (CLI) | payer OTHER ==
[~2019-06-16] MED LIST changes: +MUCINEX600 MG PO; +PREDNISONE 20 M20 MG PO; +TIZANIDINE HCL4 M1 PO
== END ==
LOC: SJCVC 14:33
DX: R94.31 Abnormal electrocardiogram [ECG] [EKG] (principal); I44.4 Left anterior fascicular block; I25.10 Atherosclerotic heart disease of native coronary artery without angina pectoris; E78.00 Pure hypercholesterolemia, unspecified; R60.9 Edema, unspecified; I11.0 Hypertensive heart disease with heart failure; I50.42 Chronic combined systolic (congestive) and diastolic (congestive) heart failure; Z79.01 Long term (current) use of anticoagulants

== ENCOUNTER → 2019-07-06 | Outpatient (CLI) | payer OTHER ==
[~2019-07-06] MED LIST changes: +HYDRALAZINE 2525 MG PO; +ISOSORBIDE MONO10 MG PO
[2019-07-06 12:15] VITALS: BP 119/53
[2019-07-06 13:20] VITALS: BP 107/46
--- NOTE | 2019-07-06 13:51 | NUR ---
IN FOR 1ST INJECTAFER DOSE. PATIENT STATED FEELING VERY TIRED AND UNABLE TO DO HER NORMAL ACTIVITIES DUE TO SHORTNESS OF BREATH. WEARS 02 2L/NC. O2 SAT 98%. IV STARTED IN RIGHT HAND AND INFUSED INJECTAFER OVER 30 MINUTES WITHOUT INCIDENT. OBSERVED FOR 30 MINUTES. POST BP GOOD. REMOVED IV AND DISMISSED IN STABLE CONDITION. TO RETURN NEXT FRIDAY FOR 2ND INFUSION.
== END ==
LOC: OPONC 11:29
DX: N18.4 Chronic kidney disease, stage 4 (severe) (principal); D63.1 Anemia in chronic kidney disease; R06.02 Shortness of breath; I25.10 Atherosclerotic heart disease of native coronary artery without angina pectoris
CPT/HCPCS: 95000

== ENCOUNTER 2019-07-13 14:20 | Inpatient (IN) | payer OTHER ==
[~2019-07-13] VITALS: Ht 162.6 cm; Wt 133.2 kg
--- NOTE | ~2019-07-13 | HC ---
[facility] [place] [address] CONSULTATION Name: RAMIRO BROOKS Room #: 448-P [facility] IN M.R.#: [id number] Admission: 07/13/19 Attend Phys: Ryan Weldon MD Discharge: 07/19/19 Date of : 43 Report #: [id number] THIS REPORT FOR: cc: JENNY - Family physician unknown JENNY - Family physician unknown Davion Choi MD ~ CC: Ryan ALVARADO unknown DATE OF SERVICE: 07/19/2019 HISTORY OF PRESENT ILLNESS: The patient is a 74-year-old -Martiniquais female admitted with increased shortness of breath, acute on chronic respiratory failure, acute on chronic renal failure, CHF, hypertension, severe pulmonary hypertension. She is placed on torsemide. Her creatinine is 4.8 and has been up to 5 and she does have significant renal insufficiency. She has not wanted any dialysis and Nephrology is involved in basically monitoring. We are seeing her in rehabilitation medicine consultation. PAST MEDICAL HISTORY: Includes pulmonary hypertension, diabetes mellitus, CHF, coronary artery disease, COPD, on chronic home O2, 2 liters, chronic kidney disease, morbid obesity, non-insulin dependent diabetes mellitus, obstructive sleep apnea, left hand neuropathy. MEDICATIONS: Please see the full medication listing. SOCIAL HISTORY: Lives in a house with her , ranch style, premorbid front-wheeled walker ambulator short distances, was on oxygen at home, BiPAP at night. REVIEW OF SYSTEMS: No current complaints of chest pain, shortness of breath or abdominal discomfort. ALLERGIES: MOTRIN. MEDICATIONS: Please see the full medication listing. PHYSICAL EXAMINATION: GENERAL: A 74-year-old -Martiniquais female, obese, no obvious distress. She is 5 feet 4 inches, weight 293 pounds. VITAL SIGNS: Vitals are stable. She is alert, appropriate -Martiniquais female. HEENT: Facies are symmetric. EXTREMITIES: She has functional range of motion of the upper extremity, strength is grade 4-/5. DTRs are trace to 1. Lower extremities, no focal calf swelling, functional range of motion, strength is grade 4- to 3+/5. She is mod [facility] [address] [place] [address] CONSULTATION Name: RAMIRO BROOKS Room #: 448-P [facility] IN ..#: [id number] Admission: 07/13/19 Attend Phys: Ryan Weldon MD Discharge: 07/19/19 Date of : 43 Report #: [id number] assist, sit to stand. She did ambulate 8 feet min assist with a front-wheeled walker. ASSESSMENT: A 74-year-old white female with the following problem list: 1. Medical complexity with generalized debilitation. 2. Acute on chronic hypoxemic and hypercarbic respiratory failure. 3. Acute on chronic systolic congestive heart failure for which she has been on torsemide. 4. Acute on chronic renal insufficiency, creatinine 4.8 today. 5. Severe pulmonary hypertension. 6. Obstructive sleep apnea. 7. Hypertension. 8. Diabetes mellitus. 9. Chronic obstructive pulmonary disease. 10. History of gastrointestinal bleed. 11. Anemia of chronic disease. PLAN: Insurance will be checked regarding a short acute in-hospital inpatient rehabilitation stay. She has the indwelling Rosado catheter with the diuretic that she is on. She is at a lower functional level currently than she was able to be at premorbidly. We will have physical therapy, continue to work with her in the meantime, but we will check with insurance regarding a short acute in-hospital inpatient rehabilitation stay where she can continue to improve on strengthening and endurance and ADL independence while having the multiple physician consultants continue to follow while she is on the acute rehab [place]. We will be glad to follow along with you. By: [id number] Davion Choi MD /ELIANA
[2019-07-13 14:50] VITALS: BP 159/74
--- NOTE | 2019-07-13 15:11 | NUR ---
ATTEMPTED IV X 2 WITH NO SUCCESS. CHARGE NURSE NOTIFIED AND IV TEAM PAGED PT STATES IV TEAM NORMALLY HAS TO OBTAIN IV.
[2019-07-13 15:51] LABS: ABSOLUTE NEUTROPHILS 5.3 thou/uL (1.4-8.2); BASOPHILS 0.5 % (0.0-2.0); EOSINOPHILS 0.9 % (0.0-3.0); HEMATOCRIT 28.4 % (37.0-47.0); HEMOGLOBIN 9.3 gm/dL (12.0-15.0); LYMPHOCYTES 10.4 % (24.0-44.0); MCH 32.4 pg (26.0-34.0); MCHC 32.9 g/dL (28.0-37.0); MCV 98.5 fL (80.0-100.0); MONOCYTES 8.7 % (1.0-8.0); PLATELET COUNT 179 thou/uL (150-400); POLYS 79.5 % (36.0-66.0); RBC 2.88 mil/uL (4.20-5.00); RDW 18.4 % (10.5-14.5); WBC 6.7 thou/uL (4.0-11.0)
[2019-07-13 16:00] LABS: ANION GAP 7 mmol/L (7-16); BUN 54 mg/dL (7-18); CALCIUM 8.8 mg/dL (8.5-10.1); CHLORIDE 100 mmol/L (98-107); CO2 35 mmol/L (21-32); CREATININE 4.8 mg/dL (0.6-1.0); GLUCOSE 144 mg/dL (74-106); POTASSIUM 4.4 mmol/L (3.5-5.1); SODIUM 142 mmol/L (136-145)
[2019-07-13 16:09] LABS: MAGNESIUM 1.8 mg/dL (1.8-2.4); TROPONIN-I <0.06 ng/mL (<0.06)
[2019-07-13 17:11] VITALS: BP 177/73
[2019-07-13 17:24] VITALS: BP 177/73
--- NOTE | 2019-07-13 18:32 | NUR ---
PATIENT ADMITTED TO ROOM AT THIS TIME. SHE IS ALER ORIENTED X4. SHE STATES SHE CANNOT BREATH. PREFERS TO SIT UP RIGHT IN BED TO IMPROVE BREATHING. WILL CONT WITH TIRSO LOZA.
[2019-07-13 19:21] LABS: BE(vivo) 6.7 mmol/L (-2 to +3); HCO3 35.7 mmol/L (22.0-26.0); PO2 68.9 mmHg (80.0-100.0); sO2 91.1 % (92.0-98.0)
[2019-07-13 19:24] LABS: PCO2 75.2 mmHg (35.0-45.0); pH 7.294 (7.360-7.450)
[2019-07-13 19:49] VITALS: BP 156/91
--- NOTE | 2019-07-13 20:06 | NUR ---
ASSESSED PT AT THE BEGINNING OF THE SHIFT, CURRENTLY ON 5L OF OXYGEN MANIFESTED BY SHALLOW PAROXYMAL BREATHING, RATE OF 22-24. LORAZEPAM GIVEN PER ORDER. PT IS ON CONTINOUS OXYGEN MONITORING. PT INSTRUCTED TO BREATHE THROUGH NOSE AND DEEPLY. ASSESSMENT PRESENTED CRACKLES AND COARSENESS AT THE LUNGS. DIFFICULT TO ASSESS LEVEL OF EDEMA. BP IS ELEVATED, NOC MED GIVEN. DAUGHTER CALLED, GAVE UPDATE AND SPOKE WITH PATIENT WELL. HOB ELEVATED, SCDs ON. VERY DIFFICULT/NEAR IMPOSSIBLE TO FULLY ASSESS PT'S POSTERIOR SKIN CONDITION DUE TO NEED FOR OXYGEN, AND EXERTION IMPACT ON PATIENT WITH THE HOB DOWN AND MOVING AROUND. MORE THOROUGH COMPREHENSIVE SKIN ASSESSMENT WILL HAVE TO FOLLOW AFTER PT IS STABILIZED PER NURSING JUDGMENT. PT IS NOW CLOSING EYES ATTEMPTING TO REST, PARXOYMAL BREATHING STILL VERY EVIDENT. CURRENT O2 LEVEL IS 94 ON 97HR W/ 5L OF HUMIDIFIED OXYGEN VIA NC. WILL CONTINUE TO MONITOR CLOSELY.
[2019-07-13 23:57] VITALS: BP 149/79
[2019-07-14 04:41] VITALS: BP 143/74
[2019-07-14 05:45] LABS: ALBUMIN 3.3 g/dL (3.4-5.0); CREATININE 4.9 mg/dL (0.6-1.0); POTASSIUM 5.2 mmol/L (3.5-5.1)
--- NOTE | 2019-07-14 08:06 | EKG ---
[facility] [place] [address] ELECTROCARDIOGRAM REPORT Name: RAMIRO BROOKS Room #: 353-P ADM IN M.R.#: [id number] Admission: 07/13/19 Attend Phys: Ryan Weldon MD Discharge: Date of : 41 Report #: [id number] THIS REPORT FOR: cc: JENNY - Family physician unknown FAM - Family physician unknown Jesse Lay MD ~ THIS REPORT FOR: //name// [facility] Test Date: 2019-07-13 Test Time: 14:44:56 Pat Name: RAMIRO BROOKS Department: Room: [facility] Gender: F System Administration Advisor: : 1945 Requested By: Radha Lanier Order Number: [id number] MD: Jesse Lay Measurements Intervals Shelby Rate: 91 P: 53 OR: 178 QRS: -33 QRSD: 117 T: 135 QT: 409 QTc: 504 Interpretive Statements Sinus rhythm Probable left atrial enlargement Left ventricular hypertrophy Anterior Q waves, possibly due to LVH Abnormal T, consider ischemia, lateral leads Prolonged QT interval Compared to ECG 06/04/2019 14:25:47 Electronically Signed On 07-14-2019 8:04:53 CDT by Jesse Lay [email or web address] <ELECTRONICALLY SIGNED> By: Jesse Lay MD 07/14/19 0804 1444 1444 Jesse Lay MD /EPI
[2019-07-14 09:14] VITALS: BP 109/52
--- NOTE | 2019-07-14 11:11 | NUR ---
PATIENT WAS UNABLE TO HAVE ABG PROFORMED. PATIENT COMPLAINED OF PAIN IN THE LEFT ARM. SPOKE WITH KAREN HARVEY WHO ORDERED ULTRA SOUND OF THE LEFT ARM.
--- NOTE | 2019-07-14 11:18 | NUR ---
COVID19 RESULTS NEGATIVE. NOTIFIED ID NURSE. OK TO COME OFF ISOLATION. AFEBRILE. REMAINS ON 5L NC. OCCASIONAL COUGH. INCREASED LASIX PER CARDIO. PULM CONSULTED. ANTICIPATING BIPAP USE.
--- NOTE | 2019-07-14 15:04 | NUR ---
INITIAL ASSESSMENT: GABBIE reviewed chart and spoke with nursing and attending physician. Pt was admitted from home due to pulmonary edema. Pt with hx of CHF. Pt admitted to Enhanced Isolation to r/o COVID-19. Pt's test is negative. Pt requiring bipap support at this time. GABBIE spoke with pt's dtr, Silvia, via phone. Introduced role of SW. Pt is normally alert/orientated x 4 and lives at home with her spouse. Pt's spouse is starting to show signs of early dementia. Prior to admission, pt uses a walker. No steps to enter the home, or inside the home. Pt has been doing outpatient iron infusion. Pt is currently on service with [facility]. Pt has been to [facility] in the past (2013 and 2017). Pt's PCP is DR. Demetrius Lopez at [facility]. Pt will need therapy evals when able to participate to assist with recommendations for discharge. GABBIE spoke with intake at [facility] to notify of pt's hospitalization. GABBIE is following to assist as needed with discharge planning.
--- NOTE | 2019-07-14 15:13 | NUR ---
Assess due to RD consult received. Pt admit with acute respiratory failure, pulmonary edema, acute on chronic kidney injury. Other hx obesity, htn, DM. Pt fluid overloaded with 8 lb gain from usual per chart review-renal managing fluid status. On heart healthy diet order. BMI 53=extreme class III obesity. Off isolation for COVID negative. Unable to speak with pt but will follow up in 1-2 days as needed if pt with questions regarding heart healthy diet order. Low nutrition risk
[2019-07-14 16:10] VITALS: BP 134/67
--- NOTE | 2019-07-14 18:21 | NUR ---
ASSUMED CARE OF PT AT 0700. PT AOX4 DROWSY IN AM. LOW URINE OUTPUT OVERNIGHT - CARDIOLOGY AWARE. INCREASED LASIX TO 80MG BID. PLACED ON BIPAP DUE TO HYPERCAPNEA. TOLERATING WELL. COMPLAINING OF PAIN TO LEFT UPPER EXT - PHYSICIAN NOTIFIED - US UNREMARKABLE. IV TEAM EVALUATED PERIPH IV IN LEFT ARM - OK TO USE. TYLENOL PROVIDED FOR PAIN. TURNED Q2H AND PRN. CALLS OUT APPROPRIATELY. GOOD APPETITE. PULM CONSULTED - REC BIPAP OVERNIGHT. VITALS STABLE. WILL CONT TO MONITOR.
[2019-07-14 19:29] VITALS: BP 95/45
--- NOTE | 2019-07-14 20:04 | NUR ---
STARTING OFF THE SHIFT THE INITIAL VS PRESENTED LOWER BP, CARVEDIOLO WAS GIVEN DURING THE FINAL HOURS OF THE AM SHIFT, WILL HOLD HYDRALAZINE. HR AROUND 70s. PT IS ASYMPOMATIC, ALERT AND ORIENTED X4, 97O2 ON 5L NO CHANGES FROM YESTERDAY WITH THE EXCEPTION OF BP. THREADY PULSES +1 ON ALL EXTREMETIES. LUNG SOUNDS ARE BETTER, MINIMAL WHEEZES PRESENT ON R SIDE. ONLY CONCERN THIS TIME IS THE BLOOD PRESSURE AND PT ONLY HAS ONE SITE TO ASSESS SINCE L ARM AND L LEG IS HAVING PX RELATED TO SENSITIVITY, MOVEMENT. EXCESSIVE ADIPOSE ISSUE IMPEDES THE ABILITY TO REASSESS BP. WILL REASSESS PRIOR TO NOC MED ADMINISTRATION. RT CURRENTLY IN ROOM RECEIVING BREATHING TX
[2019-07-14 21:05] VITALS: BP 106/51
[2019-07-15 04:13] VITALS: BP 118/70
[2019-07-15 06:24] LABS: HEMATOCRIT 23.2 % (37.0-47.0); HEMOGLOBIN 7.5 gm/dL (12.0-15.0); MCHC 32.2 g/dL (28.0-37.0); MCV 99.4 fL (80.0-100.0); RBC 2.34 mil/uL (4.20-5.00); RDW 18.3 % (10.5-14.5); WBC 6.1 thou/uL (4.0-11.0)
[2019-07-15 06:34] LABS: ALBUMIN 2.8 g/dL (3.4-5.0); CALCIUM 8.1 mg/dL (8.5-10.1); PHOSPHORUS 4.2 mg/dL (2.5-4.9); POTASSIUM 4.8 mmol/L (3.5-5.1)
[2019-07-15 07:11] VITALS: BP 102/48
[2019-07-15 11:00] LABS: % SATURATION 33 % (20-39); IRON 64 ug/dL (50-170); TIBC 193 ug/dL (250-450)
[2019-07-15 11:09] VITALS: BP 114/51
--- NOTE | 2019-07-15 13:44 | NUR ---
SW reviewed chart an dspoke with nursing and attending physician. Pt remains in Enhanced Isolation. Pt is off bipap and on O2 via NC. Pt may need to start dialysis per renal. GI consulted today due to anemia. SW is following to assist as needed with discharge planning.
--- NOTE | 2019-07-15 15:41 | NUR ---
PT IS A&OX4, PT IS OFF BIPAT AND PT IS ON O2 4-5L/MIN/NC TO KEEP O2SAT 95-97%, PT 'S VS ARE STABLE, PT IS TOLERATVE O2 4L/MIN/NC NOW, PT DOES NOT HASVE SOB AND PAIN AT THIS TIME, PT 'S COVID TEST IS NEGATIVE, SO PT IS GOING TO 2N SOON.
[2019-07-15 15:49] VITALS: BP 120/50
--- NOTE | 2019-07-15 19:32 | NUR ---
ASSUMED CARE 1630. A/OX4, FROM HOME, REPORTED 750ML FLUID INTAKE. 300CC IN POLANCO.NO BM NOTED AT THIS TIME. STOOL SOFTENER GIVEN PRIOR TO TRANSFRE. DENIES SOB, DENIES CHEST PAIN. PRIMARY NURSE SPOKE WITH DAUGHTER TO UPDATE PT PROGRESS. PERSONAL ITEMS AND CALL LIGHT IN REACH.
[2019-07-15 21:07] VITALS: BP 127/53
--- NOTE | 2019-07-16 04:40 | NUR ---
ASSUMED CARE OF PATIENT AT 1900. PATIENT SLOWLY PROGRESSING TOWARDS GOALS. PATIENT CONTINUES ON 2L OXYGEN VIA NC DURING DAY WHICH IS BASELINE FOR PT AT HOME. PATIENT PLACED ON BIPAP AT [facility]. PATIENT SLEPT WELL AND REMAINED IN BED THROUGHOUT [facility] WITH BED ALARM IN PLACE. ENCOURAGED REPOSITIONING AND FLOATING HEELS PATIENT STATES SHE HAS HAD A PRESSURE ULCER ON RIGHT ANKLE THAT HAS RECENTLY HEALED.
[2019-07-16 05:21] LABS: ALBUMIN 2.8 g/dL (3.4-5.0); CALCIUM 8.2 mg/dL (8.5-10.1); PHOSPHORUS 3.7 mg/dL (2.5-4.9); POTASSIUM 4.8 mmol/L (3.5-5.1)
[2019-07-16 08:55] VITALS: BP 113/52
--- NOTE | 2019-07-16 09:13 | NUR ---
ASSUMED CARE OF PT AT SHIFT CHANGE. SHE IS A&0X4, SLIGHTLY FORGETFUL. VERY EDEMATOUS. ENCOURAGED TO DO DEEP SLOW EFFECTIVE BREATHING, V3ACDPS BEING PERFORMED, DIURESING (LASIX WASN'T AVAILABLE FIRST THING THIS A.M. DID HOLD-ACK) HSERRI. GOOD APPETITE, SORE IN LEFT ARM, CHRONIC. NOTED EX TSUBC EDEMA ON RECENT DIAGNOSTIC FEW DAYS PRIOR. ENCOURAGED HER ALSO TO USE CALL LIGHT FOR ANY NEEDS. ASKING FOR BATH, INFORMED WE SHALL SOMETIME THIS A.M. WHEN ABLE. SEE SEPARATE INTEREVENTIONS FOR ASSESSMENTS
[2019-07-16 10:25] LABS: HEMATOCRIT 23.6 % (37.0-47.0); HEMOGLOBIN 7.6 gm/dL (12.0-15.0); MCHC 32.4 g/dL (28.0-37.0); MCV 98.8 fL (80.0-100.0); RBC 2.38 mil/uL (4.20-5.00); RDW 18.3 % (10.5-14.5); WBC 5.8 thou/uL (4.0-11.0)
--- NOTE | 2019-07-16 10:28 | NUR ---
Followup for diet education needs. Pt on heart healthy diet for acute resp failure and acute/chronic kidney disease. Pt reports good appetite, felt foods served were "too salty", although on Na restricted diet. voiced no questions regarding diet. Renal progress notes indicate no dialysis at this point, but has discussed with pt as potential need. Low nutrition risk
[2019-07-16 12:34] VITALS: BP 107/50
[2019-07-16 13:37] VITALS: BP 107/50
--- NOTE | 2019-07-16 13:41 | NUR ---
GABBIE reviewed chart and spoke with attending physician. Pt was transferred to from 3W yesterday. Pt is progressing towards goals for discharge. Possible weekend discharge. Awaiting GI input re: possible EGD. Dialysis is on hold at this time. GABBIE spoke with pt's dtrs, Tiki and Maureen, via phone to discuss discharge plan. Both arew aware and agreeable with plan. Pt will resume HH services through [facility]. Pt's family is able to prvide transportation home when discharged. GABBIE notified HH liaison of possible weekend discharge. Finalized discharge orders will need to be faxed to HH when available. Contact info for HH placed in pt's discharge summary. GABBIE is following to assist as needed. [employer] [facility]--
[2019-07-16 17:05] VITALS: BP 109/60
[2019-07-16 19:38] VITALS: BP 112/49
[2019-07-17 03:55] VITALS: BP 119/59
--- NOTE | 2019-07-17 05:37 | NUR ---
ASSUMED CARE OF PATIENT AT 1900. PATIENT C/O SKIN IRRITATION AND SORENESS IN SKIN FOLDS ON RIGHT SIDE OF ABDOMEN. CLEANSED, DRIED, AND PLACED INTERDRY IN RIGHT ABDOMINAL/GROIN FOLD. PATIENT PLACED ON BIPAP AT HS AND SLEPT WELL THROUGHOUT NIGHT. PATIENT IS PROGRESSING SLOWLY TOWARDS GOALS.
[2019-07-17 05:44] LABS: HEMATOCRIT 22.6 % (37.0-47.0); HEMOGLOBIN 7.5 gm/dL (12.0-15.0); MCHC 33.2 g/dL (28.0-37.0); MCV 99.3 fL (80.0-100.0); RBC 2.28 mil/uL (4.20-5.00); RDW 18.3 % (10.5-14.5); WBC 5.8 thou/uL (4.0-11.0)
[2019-07-17 06:00] LABS: ALBUMIN 2.9 g/dL (3.4-5.0); CALCIUM 8.4 mg/dL (8.5-10.1); CREATININE 5.1 mg/dL (0.6-1.0); PHOSPHORUS 3.7 mg/dL (2.5-4.9); POTASSIUM 4.9 mmol/L (3.5-5.1)
[2019-07-17 08:00] VITALS: BP 128/59
--- NOTE | 2019-07-17 09:25 | NUR ---
ASSUMED CARE OF PT AT SHIFT CHANGE, A&0X4 AND DRY HUMOR, VERY CLOSE ASSIST OF 2-3 PT'S TO MOVE TO BARIATRIC BSC. PAIN IN LUE AND BLE (PHYSICIANS AWARE) CALLED YESTERDAY TO VIEW PT'S VERY LARGE LIPOMA LOOKING GROWTH ON UPPER R THIGH. BREATHING BETTER. SHE'S WORRIED SHE HASN'T HAD ANYONE WALK HER. LET HER KNOW WE'D TRY MUCH LATER IN SHIFT ABLE. WHEN ASKED IF SHE AMB AT HOME SHE STATES ONLY SOMETIMES. HAS HH AND STATES SHE MAKES ALL HER OWN MEALS. SEE SEPARATE INTERVENTIONS FOR ASSESSMENTS. FOOD SET UP, ABLE TO FEED SELF.
[2019-07-17 12:00] VITALS: BP 105/55
[2019-07-17 17:30] VITALS: BP 101/47
[2019-07-17 19:55] VITALS: BP 119/52
--- NOTE | 2019-07-18 04:23 | NUR ---
ASSUMED CARE OF PATIENT AT 1900. PATIENT IS PROGRESSING TOWARDS GOALS. PATIENT SITTING UP IN CHAIR UNTIL APPROXIMATELY 2230. PATIENT REQUIRED 2 ASSIST TO GET UP FROM CHAIR BUT WAS ABLE TO AMBULATE WITH SBA TO TO BED. PATIENT REPORTED PAIN IN LEFT ANKLE DESCRIBING IT "JUMPING". PATIENT ALSO STATES THAT SHE TYPICALLY TAKES 8MG OF TIZANIDINE IN MORNING AND AT NOC AT HOME. PATIENT CURRENTLY HAS 4MG OF TIZANIDINE AVAILABLE PRN TID.
[2019-07-18 04:57] LABS: ALBUMIN 2.9 g/dL (3.4-5.0); CALCIUM 8.4 mg/dL (8.5-10.1); CREATININE 4.9 mg/dL (0.6-1.0); PHOSPHORUS 3.5 mg/dL (2.5-4.9); POTASSIUM 4.4 mmol/L (3.5-5.1)
[2019-07-18 05:47] VITALS: BP 113/51
[2019-07-18 08:00] VITALS: BP 130/60
--- NOTE | 2019-07-18 09:09 | NUR ---
PATIENT RESTING IN BED, TOOK AM MEDS AND WAS GIVEN IV LASIX AND LOVENOX. DR CAGE HERE TO SEE PATIENT AND EXPLAIN HER PLAN OF CARE. PT EATING BREAKFAST. CONT ON FLUID REST.
[2019-07-18 12:00] VITALS: BP 122/59
--- NOTE | 2019-07-18 14:44 | NUR ---
PATIENT RESTING IN BED GIVEN FLEXIRIL AND TYLENOL PER REQUEST. PT STATES DID NOT SLEEP WELL LAST NIGHT AND IS GOING TO TAKE NAP.
[2019-07-18 17:00] VITALS: BP 108/48
--- NOTE | 2019-07-18 19:07 | NUR ---
PATIENT TRANSFERRED AT THIS TIME. ALL BELONGINGS PACKED AND SENT WITH PATIENT. REPORT HAD BEEN GIVEN TO PATIENT'S
[2019-07-18 19:20] VITALS: BP 131/51
--- NOTE | 2019-07-19 03:10 | NUR ---
PT LYING IN BED. DENIES PAIN. RESTING COMFORTABLY. NO NEEDS VOICED. CALL LIGHT WITHIN REACH. FREQUENT ONSERVATION.
[2019-07-19 03:24] VITALS: BP 125/48
[2019-07-19 03:32] VITALS: BP 111/63
[2019-07-19 04:39] LABS: ALBUMIN 2.8 g/dL (3.4-5.0); CALCIUM 8.4 mg/dL (8.5-10.1); CREATININE 4.8 mg/dL (0.6-1.0); PHOSPHORUS 3.5 mg/dL (2.5-4.9); POTASSIUM 4.3 mmol/L (3.5-5.1)
[2019-07-19 04:47] LABS: HEMATOCRIT 22.2 % (37.0-47.0); HEMOGLOBIN 7.3 gm/dL (12.0-15.0); MCH 33.3 pg (26.0-34.0); MCHC 33.1 g/dL (28.0-37.0); MCV 100.8 fL (80.0-100.0); RBC 2.2 mil/uL (4.20-5.00); RDW 18.5 % (10.5-14.5); WBC 5.3 thou/uL (4.0-11.0)
--- NOTE | 2019-07-19 05:55 | HC ---
[facility] [place] [address] CONSULTATION Name: RAMIRO BROOKS Room #: 218-P ADM IN M.R.#: [id number] Admission: 07/13/19 Attend Phys: Ryan Weldon MD Discharge: Date of : 41 Report #: [id number] THIS REPORT FOR: cc: JENNY - Family physician unknown JENNY - Family physician unknown Rosalinda Salazar MD ~ CC: Ryan ALVARADO unknown REASON FOR THE CONSULTATION: Chronic kidney disease. REASON FOR THE PRESENTATION: Shortness of breath. HISTORY OF PRESENT ILLNESS: A 74-year-old with past medical history of chronic kidney disease, baseline creatinine anywhere from 2.5-3. She is also known to have significant pulmonary issues, morbid obesity, recent cardiac echo suggestive of cardiomyopathy with an ejection fraction of around 35%. She has severe pulmonary hypertension with a PA pressure of around 74. She sees me in the clinic. Her scale was broken and she was unable to get her weight and she presented reporting that she has been having significant lower extremity swelling, shortness of breath with weight gain of about 8 pounds. The patient was supposed to take torsemide at home. She was admitted for further evaluation and management after she was found to have pulmonary edema, mild hyperkalemia with a creatinine of around 4.9. Nephrology service was consulted to assist with her diuresis. PAST MEDICAL HISTORY: 1. Hypertension. 2. Diabetes mellitus. 3. Recurrent GI bleeding. 4. Status post mastectomy. 5. . 6. Tonsillectomy. MEDICATIONS: 1. Sitagliptin. 2. Carvedilol. 3. Hydralazine. 4. Torsemide. 5. Aspirin. ALLERGIES: NONSTEROIDAL ANTI-INFLAMMATORY MEDICATIONS. REVIEW OF SYSTEMS: GENERAL: Significant for weakness. CARDIOVASCULAR: Significant for dyspnea on exertion and shortness of breath. PULMONARY: Significant for cough and shortness of breath. [facility] [address] [place] [address] CONSULTATION Name: RAMIRO BROOKS Room #: 218-P [facility] IN [facility].#: [id number] Admission: 07/13/19 Attend Phys: Ryan Weldon MD Discharge: Date of : 41 Report #: [id number] GASTROINTESTINAL: No nausea or vomiting. GENITOURINARY: No frequency, no urgency. NEUROLOGICAL: No headache, no dizziness. PHYSICAL EXAMINATION: GENERAL: She is alert, oriented. Blood pressure is 143/74, temperature is 36.7. HEAD AND NECK: No jugular venous distention. CHEST: Decreased air entry bilaterally with minimal crackles. CARDIOVASCULAR: No rub detected. ABDOMEN: Soft, nontender. EXTREMITIES: Lower extremities, +1 edema. LABORATORY VALUES: Hemoglobin 9.3, pH of 7.2, pCO2 of 75, sodium 143, potassium 5.2, BUN of 57, creatinine of 4.5. Chest x-ray consistent with pulmonary edema. ASSESSMENT, IMPRESSION, PLAN: 1. Acute kidney injury. 2. Chronic kidney disease. 3. Severe pulmonary hypertension. 4. Cardiomyopathy. 5. Diabetes mellitus. 6. Hypertension. 7. Anemia. This is a very unfortunate situation in this patient with severe pulmonary hypertension and recurrent pulmonary edema. Unfortunately, those patients do not do well with diuresis and with dialysis. If we start them on diuretics, they will go into acute kidney injury, if we back the diuretics, they go into fluid overload. As for now, we will continue with gentle diuresis, 40 b.i.d. 8. Salt restrictions. 9. Resume her blood pressure medication. 10. Work on improving her pulmonary status. 11. No angiotensin receptor liz or angiotensin converting enzyme inhibitor at this point. 12. Blood pressure control. 13. We will continue to follow. <ELECTRONICALLY SIGNED> By: Rosalinda Slaazar MD 07/19/19 [id number] Rosalinda Salazar MD /nt
[2019-07-19 08:10] VITALS: BP 127/74
[2019-07-19 12:00] VITALS: BP 119/67
--- NOTE | 2019-07-19 15:01 | NUR ---
5N CONSULT RECEIVED FOR THIS Pt. PER REHAB PHYSICIAN CHERELLE MICHAEL TO SUBMIT FOR INSURANCE AUTHORIZATION FOR ACUTE REHAB ON THIS Pt. SPOKE WITH DELFINA AT [facility] REGARDING AUTHORIZATION. REF #[id number], AUTHORIZATION PENDING AT THIS TIME. AWAITING CALL BACK. WILL CONTINUE TO FOLLOW THIS Pt. THANK YOU FOR THIS REFERRAL.
[2019-07-19] MEDS ORDERED: VOLTAREN100 GM TOP (16:06)
[2019-07-19] MEDS ORDERED: PLAVIX 75 MG TA75 M1 PO (16:06)
[2019-07-19] MEDS ORDERED: IPRAT-ALBUT 0.5-3 ML INH (16:06)
[2019-07-19] MEDS ORDERED: DEMADEX20 MG PO (16:06)
[2019-07-19] MEDS ORDERED: PULMICORT0.5 MG/22 INH (16:06)
--- NOTE | 2019-07-19 16:15 | NUR ---
AUTHORIZATION RECEIVED FOR ACUTE REHAB THIS AFTERNOON. AUTH #[id number]. ADMISSION WINDOW IS 72 HOURS FROM THIS AFTERNOON. CLINICAL UPDATE DUE ON TO [employer] PHONE #[phone], FAX [phone]. [address] LEAL, Pt IS MEDICALLY STABLE FOR D/C TO 5N REHAB TODAY. Pt TO ADMIT TO ROOM 509. THANK YOU FOR THIS REFERRAL.
--- NOTE | 2019-07-19 16:16 | NUR ---
GABBIE reviewed chart and spoke with nursing and attending physician. Pt is progressing towards goals for discharge. Pt very weak and recommendation made for pt to go to post-acute care upon discharge. SW spoke with pt via phone. Pt states she will not consider SNF placement at this time. SW discussed possible 5N placement if pt qualifies and insurance provides authorization. Pt agreeable with 5N placement or home and resume HH through [facility] . GABBIE spoke with pt's dtr, Denise, via phone to provide update and discuss recommendation for post-acute care. SW provided clinical update and discussed possible 5N admission. Pt's dtr states they would be agreeable with pt staying at [facility], but they would need to think about SNF placement. GABBIE sent in-network SNF list to Denise via email for review. GABBIE updated [facility] liaison. Awaiting input from Eric at this time. Pt may transfer off 2N later today. GABBIE is following to assist as needed with discharge planning.
[2019-07-19 16:52] VITALS: BP 133/61
[2019-07-19 17:02] VITALS: BP 133/61
--- NOTE | 2019-07-19 18:25 | NUR ---
PT IS A&OX3, PT IS CONTINUING O2 2L/MIN/NC, PT'S VS AND O2SAT ARE STABLE, PT GETS UP TO CHAIR WITH ASSIST, PT WAS GOING TO M/S FLOOR ABOUT 1400PM.
== END 2019-07-19 19:08 | DRG 291 ==
LOC: ER 14:20 → 3W 16:40 → 2N 16:40 → EROBS 16:40 → 3W 17:24 → 2N 07-15 16:06 → 4S 07-19 14:13
PROVIDERS: Emergency Medicine Emergency Medical Services; Hospitalist; Nurse Practitioner; Specialist; ADMIT Hospitalist
PROC: 5A09357 Assistance with Respiratory Ventilation, Less than 24 Consecutive Hours, Continuous Positive Airway Pressure (ICD-10-PCS; principal; 2019-07-14)
PROC: 5A09357 Assistance with Respiratory Ventilation, Less than 24 Consecutive Hours, Continuous Positive Airway Pressure (ICD-10-PCS; 2019-07-15)
PROC: 5A09357 Assistance with Respiratory Ventilation, Less than 24 Consecutive Hours, Continuous Positive Airway Pressure (ICD-10-PCS; 2019-07-16)
PROC: 5A09357 Assistance with Respiratory Ventilation, Less than 24 Consecutive Hours, Continuous Positive Airway Pressure (ICD-10-PCS; 2019-07-17)
DX: I13.0 Hypertensive heart and chronic kidney disease with heart failure and stage 1 through stage 4 chronic kidney disease, or unspecified chronic kidney disease (principal); I50.43 Acute on chronic combined systolic (congestive) and diastolic (congestive) heart failure; J96.21 Acute and chronic respiratory failure with hypoxia; J96.22 Acute and chronic respiratory failure with hypercapnia; J18.9 Pneumonia, unspecified organism; N17.9 Acute kidney failure, unspecified; Z68.43 Body mass index [BMI] 50.0-59.9, adult; J44.0 Chronic obstructive pulmonary disease with (acute) lower respiratory infection; N18.4 Chronic kidney disease, stage 4 (severe); E11.40 Type 2 diabetes mellitus with diabetic neuropathy, unspecified; D53.9 Nutritional anemia, unspecified; E11.22 Type 2 diabetes mellitus with diabetic chronic kidney disease; E78.5 Hyperlipidemia, unspecified; I25.5 Ischemic cardiomyopathy; I25.10 Atherosclerotic heart disease of native coronary artery without angina pectoris; G47.33 Obstructive sleep apnea (adult) (pediatric); I48.91 Unspecified atrial fibrillation; E66.01 Morbid (severe) obesity due to excess calories; D63.8 Anemia in other chronic diseases classified elsewhere; Z20.828 Contact with and (suspected) exposure to other viral communicable diseases; Z90.89 Acquired absence of other organs; Z79.01 Long term (current) use of anticoagulants; Z95.820 Peripheral vascular angioplasty status with implants and grafts; Z99.81 Dependence on supplemental oxygen; Z90.13 Acquired absence of bilateral breasts and nipples; Z79.82 Long term (current) use of aspirin; Z79.899 Other long term (current) drug therapy; Z87.891 Personal history of nicotine dependence; Z88.8 Allergy status to other drugs, medicaments and biological substances; I27.23 Pulmonary hypertension due to lung diseases and hypoxia; I27.22 Pulmonary hypertension due to left heart disease
CPT/HCPCS: 10081; 10879

== ENCOUNTER → 2019-07-13 | Outpatient (CLI) | payer OTHER ==
[2019-07-13 12:07] VITALS: BP 139/54
[2019-07-13 13:15] VITALS: BP 152/64
--- NOTE | 2019-07-13 13:40 | NUR ---
IN FOR 2ND INJECTAFER INFUSION. STATED HAD NO SIDE EFFECTS FROM 1ST INFUSION 1 WEEK AGO AND FELT A LITTLE STRONGER FOR A FEW DAYS. MAIN COMPLAINT IS A 8 LB WEIGHT GAIN IN THE LAST WEEK. STATED TOOK SOME LASIX THIS MORNING WITH NO RESULTS. ENCOURAGED PATIENT TO CALL TO REPORT HER SHORTNESS OF BREATH AND WEIGHT GAIN. O2 SAT 92-96% ON 2L/NC. ANTERIOR LUNGS CLEAR. TOLERATED INFUSION WITHOUT INCIDENT. OBSERVED FOR 30 MINUTES. POST BLOOD PRESSURE GOOD. REMOVED IV AND DISMISSED IN FAIR CONDITION.
== END ==
LOC: OPONC 08:41
DX: N18.4 Chronic kidney disease, stage 4 (severe) (principal); D63.1 Anemia in chronic kidney disease
CPT/HCPCS: 95000

== ENCOUNTER 2019-07-19 16:50 | Inpatient (IN) | payer OTHER ==
[~2019-07-19] VITALS: Ht 162.6 cm; Wt 128.9 kg
--- NOTE | ~2019-07-19 | H ---
[facility] [place] [address] HISTORY AND PHYSICAL Name: RAMIRO BROOKS Room #: 509-P ADM IN M.R.#: [id number] Admission: 07/19/19 Attend Phys: Davion Choi MD Discharge: Date of : 41 Report #: [id number] THIS REPORT FOR: cc: [facility] - Family physician unknown JENNY - Family physician unknown Davion Choi MD ~ CC: Davion ALVARADO unknown DATE OF SERVICE: 07/19/2019 HISTORY AND PHYSICAL AND POST-ADMISSION PHYSICIAN EVALUATION HISTORY OF PRESENT ILLNESS: Please see the history and physical documentation as well as my prior consult note from yesterday. The patient has now been admitted for acute in-hospital inpatient rehabilitation. She had problems with an acute exacerbation of congestive heart failure with acute on chronic respiratory failure, was noted to have acute renal insufficiency. She is having a creatinine up to 5 and it is being monitored by Nephrology. She has been diuresed. She has been admitted for acute in-hospital inpatient rehabilitation. As far as her prior medical history, habits, and social history, please see the H and P documentation. MEDICATIONS: Please see the MAR. ALLERGIES: IBUPROFEN. REVIEW OF SYSTEMS: No complaints of chest pain, shortness of breath or abdominal discomfort. PHYSICAL EXAMINATION: GENERAL: In no distress. The patient was seen earlier, on nasal cannula 2 liters. CHEST: Sounded clear to auscultation. CARDIOVASCULAR: Regular rate and rhythm. ABDOMEN: Bowel sounds positive, nontender. EXTREMITIES: Upper and lower extremity strength, has some decreased range of motion, limited by discomfort, mild swelling. Strength is probably a grade 3+ to 4-/5. She has been max assist, trying to come to stand and has been dependent with basic dressing activities. ASSESSMENT: 1. Medical complex with generalized debilitation. 2. Acute on chronic hypoxic and hypercarbic respiratory failure. 3. Acute exacerbation of congestive heart failure. [facility] [address] [place] [address] HISTORY AND PHYSICAL Name: RAMIRO BROOKS Room #: 509-P [facility] IN [facility].#: [id number] Admission: 07/19/19 Attend Phys: Davion Choi MD Discharge: Date of : 41 Report #: [id number] 4. Acute on chronic kidney disease. 5. Severe pulmonary hypertension. 6. Obstructive sleep apnea. 7. Hypertension. 8. Diabetes mellitus type 2. 9. Chronic obstructive pulmonary disease. 10. Anemia of chronic disease. PLAN: The patient has been admitted for acute in-hospital inpatient rehabilitation. From a post-admission physician evaluation perspective, there are no relevant changes since the preadmission screening. Please see the above review of prior and current medical and functional conditions and comorbidities. Please see the patient's previous and current functional status. As far as risk of complication, she has multiple medical comorbidities as noted above. Initial plan of care involves the interdisciplinary acute inpatient rehabilitation program. Measurable functional goals would be for the patient to become modified independent with transfers, mobility, ADLs, so she can hopefully return back to her prior living situation. Prognosis is reasonably good with estimated length of stay probably at least 10 days and will need to see how she does. Potential barriers would include her multiple medical comorbidities and decreased functional status. By: [id number] Davion Choi MD /nt
--- NOTE | ~2019-07-19 | PLAN ---
[facility] [place] [address] [place] [address] REHAB UNIT PLAN OF CARE Name: RAMIRO BROOKS Room #: 509-P ADM IN M.R.#: [id number] Admission: 07/19/19 Attend Phys: Davion Choi MD Discharge: Date of : 41 Report #: [id number] THIS REPORT FOR: //name// CC: Davion Choi [facility] unknown DATE OF SERVICE: 07/21/2019 PROGRESS NOTE/OVERALL PLAN OF CARE SUBJECTIVE: The patient was seen back today in followup. She is in no distress. Temperature 98.2, pulse 74, respirations 18, blood pressure 115/50. Her Rosado catheter was removed. There was an external catheter utilized last night. Nursing is working with her on this. Transfers are mod assist. Gait was standby assist 120 feet, 4-wheeled walker. Trying to work on sit to stand transfers, especially. She has been mod assist up to standby assistance with bed mobility. In occupational therapy, lower body dressing is dependent. ASSESSMENT: 1. Medical complex with generalized debilitation. 2. Acute on chronic hypoxemic and hypercarbic respiratory failure. 3. Acute exacerbation of congestive heart failure. 4. Acute on chronic kidney disease. 5. Severe pulmonary hypertension. 6. Obstructive sleep apnea. 7. Hypertension. 8. Diabetes mellitus type 2. 9. Chronic obstructive pulmonary disease. 10. Anemia of chronic disease. PLAN: The overall plan of care is based on the preadmission screening, post-admission physician evaluation and information garnered from therapy assessments. 1. Estimated length of stay is probably 7-10 days and likely longer if warranted. 2. Medical prognosis is reasonably good. 3. Anticipated interventions includes the interdisciplinary acute inpatient rehabilitation program. 4. Anticipated functional outcomes would be for the patient to become modified independent with transfers, mobility, ADLs, so that she can return back to the home setting. 5. Discharge destination would be back to the home setting where she lives with her . [facility] [address] [place] [address] REHAB UNIT PLAN OF CARE Name: RAMIRO BROOKS Room #: 509-P [facility] IN [facility].#: [id number] Admission: 07/19/19 Attend Phys: Davion Choi MD Discharge: Date of : 41 Report #: [id number] 6. Expected therapy by discipline includes PT/OT 1-1/2 hours per day each five days a week throughout the duration of the acute inpatient rehabilitation stay. By: [id number] Davion Choi MD /nt
[~2019-07-19 16:50] MED LIST changes: +IPRAT-ALBUT 0.5-3 ML INH; +PLAVIX 75 MG TA75 M1 PO; +PULMICORT0.5 MG/22 INH; +VOLTAREN100 GM TOP
[2019-07-19 19:44] VITALS: BP 103/46
--- NOTE | 2019-07-20 03:08 | NUR ---
PATIENT ARRIVED ON UNIT AROUND 1855, PT A&O X 4, ABLE TO MAKE NEEDS KNOWN. NO ACUTE CHANGES OVERNIGHT. VSS, 02 ON 2L VIA NC, AKIL RESP TX WITH CPAP AT NIGHT. PT DENIED ANY PAIN OR DISCOMFORT, ON [facility] VOLTERAN GEL FOR SORENESS TO L ANKLE. PERIPHERAL PULSES NORMAL +2, LUNGS SOUNDS DIMINISHED BILATERAL, ABD OBESE, ROUND AND SOFT, ACTIVE SOUNDS. REG HR, REG RESP. WOUND TO L ANKLE FOUND ON ASSESSMENT, PICTURE TAKEN AND WOUND CARE CONSULTED. ADMISSION COMPLETED. PT DAILY WEIGHT AND ON 1.5L FLUID RESTRICTION. MEDS GIVEN PER ORDERS, TOLERATED WELL. PT HAS POLANCO DRAINING LIGHT YELLOW URINE. CONTINENT OF B&B, BM DURING DAY SHIFT. BG ACHS NO SS. PT ASLEEP, CALL LIGHT WITHIN REACH, WILL CONTINUE TO MONITOR PER POC.
[2019-07-20 06:17] LABS: HEMATOCRIT 23.2 % (37.0-47.0); HEMOGLOBIN 7.6 gm/dL (12.0-15.0); MCH 32.7 pg (26.0-34.0); MCHC 32.6 g/dL (28.0-37.0); MCV 100.3 fL (80.0-100.0); RBC 2.32 mil/uL (4.20-5.00); RDW 18.5 % (10.5-14.5); WBC 5.5 thou/uL (4.0-11.0)
[2019-07-20 06:31] LABS: ALBUMIN 2.8 g/dL (3.4-5.0); CALCIUM 8.4 mg/dL (8.5-10.1); CREATININE 4.4 mg/dL (0.6-1.0); PHOSPHORUS 3.5 mg/dL (2.5-4.9); POTASSIUM 4.3 mmol/L (3.5-5.1)
[2019-07-20 07:40] VITALS: BP 113/54
--- NOTE | 2019-07-20 09:16 | NUR ---
WOUND CONSULT; ASSESSMENT OF THIS PLEASANT,OBESE WOMAN REVEALS A LEFT LAT ANKLE WOUND. i DISCOVERED THAT THIS IS A PATIENT OF DR AGUILA ZAMORA. THE PATIENT REPORTS THE WOUND HAS BEEN HEALED BUT INJURY OCCURRD DUE TO EDEMA. THE WOUND BED IS PALE RED WITH NO CLEAR S/S OF INFECTION. THE PATIENT DENIES PAIN. RECOMMENDATION; 1-CONSULT DR AGUILA ZAMORA 2-PURACOL AG TO WOUND BED, COVER WITH A BORDER FOAM, CHANGE M/W/F PRN DISCUSSED WITH KAREN
--- NOTE | 2019-07-20 10:32 | NUR ---
chart review. cm visited with wesley via phone call. she a & o x 3, and able to make her needs know. intro to cm, and team meeting. she reported " live home with spouse, no stairs. have walker. been to rehab at [facility] in past and had [facility] in past. independent when feeling ok, if need to talk with family can talk with daughter don, ok thank you"/pt. will cont following as needed for dc needs. hh list choice and vendor form giving to bedside nurse to give to pt and put on pt chart.
--- NOTE | 2019-07-20 13:18 | NUR ---
Nutrition: pt admitted with respiratory failure, medical complexity, general debility to rehab unit. Wound risk indicated which is left ankle vascular wound. BMI 49.8, extreme class 3 obesity. Weights trending downward w/ diuresis. Renal follows for acute on CKD. No need for dialysis at present. Hx DM but BG controlled and currently only on Heart healthy diet with 1500 mL fluid restriction. Good appetite with 50-100% intake at meals. Pt voices no diet related questions at present. Protein needs reviewed. Low nutrition risk.
[2019-07-20 19:33] VITALS: BP 115/50
--- NOTE | 2019-07-20 20:56 | NUR ---
ASSUMED CARE OF PT AT 0700. PT IS A&OX4 AND VITAL SIGNS ARE STABLE. PT DENIES PAIN AND PARTICIPATED IN THERAPIES. DESCRIBES SOME "SORENESS" IN ANKLES AND KNEES VOLTAREN GEL APPLIED TO AREAS AND PT DESCRIBES RELIEF. DRESSING TO LEFT ANKLE APPLIED BY WOUND NURSE. 1.5L FLUID RESTRICTION IN PLACE. POLANCO CATHETER REMOVED AT 1700 PER ORDERS, NIGHT NURSE AWARE OF REMOVAL AND WILL MONITOR URINE OUTPUT. FALL PRECAUTIONS IN PLACE AND NURSING WILL CONTINUE TO MONITOR.
--- NOTE | 2019-07-21 02:06 | NUR ---
PT ALERT AND ORIENTED X 4. BIPAP ON DURING THE NIGHT. PT C/O PAIN IN HER LEFT ARM. TYLENOL GIVEN AT HS. ARM ELEVATED ON PILLOWS. PT INCONT OF URINE IN LARGE AMT. FEMALE EXTERNAL CATHETER PLACED AND IS DRAINING SMALL AMTS CLEAR YELLOW URINE. BED ALARM ON FOR SAFETY. PT APPEARS TO BE SLEEPING ON HOURLY ROUNDS.
[2019-07-21 07:09] LABS: ALBUMIN 2.9 g/dL (3.4-5.0); CALCIUM 8.5 mg/dL (8.5-10.1); CREATININE 4.3 mg/dL (0.6-1.0); POTASSIUM 4.3 mmol/L (3.5-5.1)
[2019-07-21 07:45] VITALS: BP 121/59
--- NOTE | 2019-07-21 18:15 | NUR ---
ASSUMED CARE OF PT AT 0700. PT IS A&OX4 AND VITAL SIGNS ARE STABLE. PT REPORTED PAIN TO LEFT KNEE, MANAGED WITH VOLTEREN GEL AND PO MEDICAITONS. PT HAVING ADEQUATE URINE OUTPUT FOLLOWING D/C OF POLANCO. 1.5 L FLUID RESTRICTION. WOUND TO LEFT ANKLE, PHOTO TAKEN AND DRESSING CHANGED. FALL PRECAUTIONS IN PLACE AND NURSING WILL CONTINUE TO MONITOR.
[2019-07-21 19:44] VITALS: BP 109/51
--- NOTE | 2019-07-22 00:28 | NUR ---
PT ALERT AND ORIENTED X 4. UP IN RECLINER ALL EVENING. TRANSFERRED TO BED AT HS WITH ASSIST X 1. PT C/O PAIN IN RIGHT HAND. TYLENOL GIVEN AT HS. PT STATED HER DAUGHTER THOUGHT SHE SOUNDED LOOPY OVER THE PHONE AND REQUESTED BLOOD SUGAR BE CHECKED. AT 2014 ACCUCHECK WAS 91. FEMALE EXTERNAL CATHETER APPLIED AT HS. DRAINING CLEAR YELLOW URINE. BED ALARM ON FOR SAFETY. PT APPEARS TO BE SLEEPING ON HOURLY ROUNDS.
[2019-07-22 06:10] LABS: CALCIUM 8.8 mg/dL (8.5-10.1); CREATININE 4.3 mg/dL (0.6-1.0); PHOSPHORUS 4.2 mg/dL (2.5-4.9); POTASSIUM 4.5 mmol/L (3.5-5.1)
[2019-07-22 07:23] VITALS: BP 112/46
--- NOTE | 2019-07-22 08:22 | NUR ---
ASSUMED CARE AT 0700. PATIENT IS ALERT AND ORIENTED X4. PATIENT DIMAS'S, TELECOMMUNICATOR SUPERVISOR are equal. LUNGS ARE DEMINISHED. ABD IS SOFT WITH BSX4. LEFT ARM HAS +1 EDEMA. PATIENT HAS SORE ON HER LEFT ANKLE COVERED BY OPTIFOAM. PATIENT IS UP WITH ASSIST OF 1 STAFF AND GAIT BELT TO BATHROOM. FALL AND SAFETY PROTOCOLS IN PLACE. NO C/O PAIN AT THIS TIME. WILL CONTINUE TO MONITER.
[2019-07-22 20:24] VITALS: BP 123/57
--- NOTE | 2019-07-23 03:51 | NUR ---
assumed care at approx 1900 evening 07/21. pt sitting up in recliner at change of shift alert and oriented x4. pt appropriate and cooperative. pt assisted into bed and took hs meds with water tolerating well. 02 at 2l per n/c. pt wore cpap until approx few minutes ago and dcd as pts 02 sats dropping and alarm keeping pt awake. put back on n/c at 02 and pts sats staying 92% and above. external catheter in place functioning well. bed alarm on and call light in reach. will continue to monitor.
--- NOTE | 2019-07-23 07:46 | HC ---
[facility] [place] [address] CONSULTATION Name: RAMIRO BROOKS Room #: 509-P ADM IN M.R.#: [id number] Admission: 07/19/19 Attend Phys: Davion Choi MD Discharge: Date of : 41 Report #: [id number] THIS REPORT FOR: cc: JENNY - Family physician unknown JENNY - Family physician unknown Arya Mace MD ~ CC: Davion Choi [facility] unknown DATE OF SERVICE: 07/20/2019 WOUND CARE CONSULTATION REQUESTING PHYSICIAN: Dr. Choi. CHIEF COMPLAINT: Left lateral ankle ulcer. 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 The patient states that her left ankle ulcer, which had been closed, reopened this past hospitalization when she felt that her legs have gotten significantly swollen and she developed a small blister, which then opened up. The patient states she noticed it when she was in the hospital and they had placed the SCD device on her left leg and it caused some irritation to the open wound. The patient states her right lower extremity ulcers have all healed and remained closed. The patient denies any other associated wounds at this time. The patient states she does have slight pain in the left lateral ankle ulcer, which is more of a burning type pain without radiation. The patient has currently been admitted to the rehab unit after she was acutely hospitalized for fluid overload. We have been asked to follow the wound while she is here. PAST MEDICAL HISTORY: Significant for congestive heart failure, chronic anemia, type 2 diabetes, hypertension, chronic venous insufficiency with edema. CURRENT MEDICATIONS: Multiple, I reviewed the patient's medication list. DRUG ALLERGIES: MOTRIN. SOCIAL HISTORY: The patient smoked remotely, does not smoke currently, drinks alcohol socially. Lives at home with her family. FAMILY HISTORY: Not pertinent to current medical condition. REVIEW OF SYSTEMS: CONSTITUTIONAL: The patient denies fevers or chills. [facility] [address] [place] [address] CONSULTATION Name: RAMIRO BROOKS Room #: 509-P [facility] IN M.R.#: [id number] Admission: 07/19/19 Attend Phys: Davion Choi MD Discharge: Date of : 41 Report #: [id number] NEUROLOGIC: The patient has numbness, tingling or weakness in arms or legs. EYES: No complaints. ENT: No complaints. CARDIAC: The patient has chronic lower extremity edema without chest pain or palpitation. RESPIRATORY: The patient denies shortness of breath, cough or wheezes. GASTROINTESTINAL: The patient denies nausea, vomiting, abdominal pain. GENITOURINARY: The patient denies urgency or frequency. MUSCULOSKELETAL: No complaints. SKIN: There is an open ulceration on the left lateral ankle. PHYSICAL EXAMINATION: VITAL SIGNS: Stable. The patient is afebrile. GENERAL: This is an alert and oriented x 3, pleasant black female who is in no obvious distress. HEENT: Normocephalic, atraumatic. Mucous membranes are moist. Pupils are round. Sclerae white. NECK: Shows no JVD. LUNGS: Slightly diminished breath sounds heard throughout, but no rhonchi. HEART: Regular. ABDOMEN: Soft, nontender and obese. EXTREMITIES: The patient moves all extremities without difficulty. The patient has 2+ edema bilateral lower extremities. Distal pulses are intact. Right lower extremity is without any associated open ulcerations. Left lower extremity shows an open ulcer on the left lateral ankle approximately 1 x 1 cm. It is 100% slough filled. Periwounds are mildly macerated. There is no tunneling or undermining. There are no exposed deeper structures. NEUROLOGIC: Cranial nerves 2-12 grossly intact. Motor and sensory grossly intact. LABORATORY DATA: White count 5.5, hemoglobin 7.6, albumin 2.8. IMPRESSION: 1. Recurrent ulceration, left lateral ankle secondary to #2. 2. Chronic venous insufficiency with edema. 3. Congestive heart failure with fluid overload. 4. Type 2 diabetes. 5. Protein-calorie malnutrition -- moderate albumin 2.8. PLAN: We will place a collagen over the area of the ulceration with foam, dressing change 3 times weekly. We will have the patient to elevate her legs as much as possible. We will use Tubigrip socks to control the edema. We will maximize the patient's oral protein supplementation [place] [address] CONSULTATION Name: RAMIRO BROOKS Room #: 509-P [facility] IN M.R.#: [id number] Admission: 07/19/19 Attend Phys: Davion Choi MD Discharge: Date of : 41 Report #: [id number] utilize physical and occupational therapy for strengthening. We will continue all other current medications and continue to follow the patient. <ELECTRONICALLY SIGNED> By: Arya Mace MD 07/23/19 0746 [id number] [id number] Arya Mace MD /nt
[2019-07-23 08:00] VITALS: BP 126/63
[2019-07-23 09:13] LABS: ALBUMIN 2.9 g/dL (3.4-5.0); CALCIUM 8.5 mg/dL (8.5-10.1); CREATININE 4.1 mg/dL (0.6-1.0); PHOSPHORUS 3.8 mg/dL (2.5-4.9); POTASSIUM 4.5 mmol/L (3.5-5.1)
--- NOTE | 2019-07-23 12:48 | NUR ---
ASSUMED CARE OF THE PT AT 0700. PT IS UP WITH ASSIST W/ WALKER/ WHEELCHAIR AND GAIT BELT. PT IS A&O X 4. ON 2.0 O2 AT NIGHT, BUT HAS BEEN WEARING O2 WHILE UP IN THE WHEELCHAIR. PT HAS 1500ML FLUID RESTRICTION, DAILY. L LAT ANKLE, CLEANED AND DRESSING CHANED BY WOUND CARE NURSE. PT WEARS CPAP AT NIGHT. APPLIED CREAM TO PTS KNEES FOR PAIN. LUNGS ARE CLEAR, SOME EDEMA IN L ARM, PULSES ARE STRONG. FALL PRECAUTIONS IN PLACE, BED IN THE LOWEST POSITION/ ALARM ON, CALL LIGHT IS WITHIN REACH. WILL CONTINUE TO MONITOR THE PT.
[2019-07-23 14:12] LABS: HEMATOCRIT 24.1 % (37.0-47.0); HEMOGLOBIN 7.7 gm/dL (12.0-15.0)
[2019-07-23 20:27] VITALS: BP 104/52
--- NOTE | 2019-07-24 01:39 | NUR ---
ASSUMED CARE AROUND 1900, PT A&O X 4 NO ACUTE DISTRESS NOTED. VSS, O2 ON 2L VIA NC, WEARS CPAP AT HS. PT DENIED ANY PAIN OR DISCOMFORT DURING SHIFT. MEDS GIVEN PER ORDERS. PT A DAILY WEIGHT WITH A 1.5L FLUID RESTRICTION. CONTINENT OF B&B EXTERNAL CATHETER WORN AT NIGHT IN PLACE, YELLOW URINE DRAINING. PT ASLEEP, CALL LIGHT WITHIN REACH, WILL CONTINUE TO MONITOR PER POC.
[2019-07-24 05:43] LABS: HEMATOCRIT 23.3 % (37.0-47.0); HEMOGLOBIN 7.5 gm/dL (12.0-15.0); MCH 32.9 pg (26.0-34.0); MCHC 32.4 g/dL (28.0-37.0); MCV 101.4 fL (80.0-100.0); RBC 2.3 mil/uL (4.20-5.00); RDW 19.4 % (10.5-14.5); WBC 5.1 thou/uL (4.0-11.0)
[2019-07-24 08:00] VITALS: BP 123/51
--- NOTE | 2019-07-24 10:21 | HC ---
[facility] [place] [address] CONSULTATION Name: RAMIRO BROOKS Room #: 516-1 ADM IN M.R.#: [id number] Admission: 07/19/19 Attend Phys: Davion Choi MD Discharge: Date of : 43 Report #: [id number] THIS REPORT FOR: cc: JENNY - Family physician unknown FAM - Family physician unknown Tito Gonzales PhD ~ CC: Davion ALVARADO unknown DATE OF SERVICE: 07/23/2019 BEHAVIORAL STATUS EXAMINATION ATTENDING PHYSICIAN: Davion Choi MD LACQUER COATER: Tito Gonzales, PhD CLINICAL PRESENTATION: The patient is a 74-year-old female admitted to the rehabilitation unit for comprehensive inpatient rehabilitation program. She was initially admitted to the hospital with an acute exacerbation of congestive heart failure with tawff-eg-mnfftqe respiratory failure. She was also diagnosed with acute renal insufficiency. Her assessment on the rehab unit is medical complexity with generalized debilitation, acute on chronic hypoxic and hypercarbic respiratory failure, acute exacerbation of congestive heart failure, acute on chronic kidney disease, severe pulmonary hypertension, obstructive sleep apnea, hypertension, diabetes mellitus type 2, COPD and anemia of chronic disease. A complete description of her medical condition and history can be found in her medical record. Neuropsychological consultation was requested to provide assistance in the assessment of cognitive and emotional status and to provide recommendations and services. Prior to this admission, she was living independently in her own home. The patient has 2 children. 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 The patient is a high school graduate. TECHNIQUES UTILIZED: Clinical interview, review of medical records, staff consultation and behavioral observation and mini mental status exam 2 standard version and clock drawing. EXAMINATION FINDINGS: The patient was alert and cooperative with the assessment. She accurately described the reason for her hospitalization. There is no evidence of aphasia. Her thoughts are logical and goal oriented. There is no evidence of thought disorder. She does not report auditory or visual [facility] [address] [place] [address] CONSULTATION Name: RAMIRO BROOKS Room #: 516-1 [facility] IN ..#: [id number] Admission: 07/19/19 Attend Phys: Davion Choi MD Discharge: Date of : 41 Report #: [id number] hallucinations. She describes her symptoms do include tiredness and fatigue as her primary concern. Sleep is described as poor. She does not report difficulty with appetite, energy level, memory or word finding. The patient denies difficulty with depression. Anxiety is somewhat elevated as associated with difficulty breathing. Her performance on the MMSE 2 brief version is within normal limits with a raw score of 15/16. She was alert and oriented. The patient was 2/3 for immediate recall of 3 items after a brief time delay and distraction. Performance on the MMSE 2 standard version is within normal limits with a raw score of 27/30. Slight degree of difficulty with concentration is noted with Serial Sevens at 3/5. Naming, repetition, comprehension, reading, writing and visual spatial constructions within normal limits. Clock drawing was within normal limits for structure and placement. Cognition can be affected from hypoxia associated with respiratory failure. However, her cognitive functioning appears satisfactory. Mild degree of anxiety is likely as an adjustment to her condition. DIAGNOSTIC IMPRESSION: Adjustment disorder with anxious mood. RECOMMENDATIONS: The patient may benefit from the use of relaxation techniques and strategies to assist in the management of anxiety. She has a supportive family which can be a very good resource as she returns home. Anxiety will likely diminish as her respiration and breathing strategies are better managed and she returns to a more familiar routine. Thank you very much for allowing me to provide the consultation on this patient. <ELECTRONICALLY SIGNED> By: Tito Gonzales, PhD 07/24/19 1021 0926 [id number] Tito Gonzales, PhD /nt
--- NOTE | 2019-07-24 10:57 | NUR ---
ASSUMED CARE AT 0700. PATIENT IS ALERT AND ORIENTED X4. PATIENT DIMAS'S, ORTHOTIST ARE EQUAL. PATIENT HAS +1 EDEMA IN HER L.E. LUNGS ARE CLEAR AND DEMINISHED. PATIENT HAS 02 AT 3L PER N/C. PATIENT IS UP IN THE CHAIR FOR BREAKFAST. ABD IS SOFT WITH BSX4. PATIENT IS INCONTINENT OF URINE AT TIMES. PATIENT IS UP WITH ASSIST OF 1 WITH GAIT BELT AND WALKER. FALL AND SAFETY PROTOCOLS IN PLACE. PATIENT IS ON 1.5 L FLUID RESTRICTION. PATIENT GIVEN TYLENOL PRN FOR PAIN. PATIENT CONTNUES TO PROGRESS TOWARDS D/C GOALS. WILL CONTINUE TO MONITER.
[2019-07-24 19:45] VITALS: BP 125/59
--- NOTE | 2019-07-24 23:40 | NUR ---
PT ALERT AND ORIENTED X 4. CPAP ON DURING THE NIGHT. EXTERNAL FEMALE CATHETER IN PLACE. PT DENIES PAIN OR DISCOMFORT. BED ALARM ON FOR SAFETY. PT APPEARS TO BE SLEEPING ON HOURLY ROUNDS.
--- NOTE | 2019-07-25 04:33 | NUR ---
LEFT ANKLE DRESSING SOILED WITH MOD AMT GREEN DRAINAGE. DRESSING CHANGED. PT C/O PAIN IN LEFT ANKLE. TYLENOL GIVEN ORDERED. PT STATED PAIN IMPROVED AFTER DRESSING CHANGE.
[2019-07-25 07:53] VITALS: BP 117/68
--- NOTE | 2019-07-25 13:19 | NUR ---
ASSUMED CARE AROUND 0700, PT A&O X 4, NO ACUTE DISTRESS DURING SHIFT. VSS, O2 ON 2L VIA NC, CPAP AT HS. PT DENIED ANY PAIN JUST SOME SORENESS TO L ANKLE. MEDS GIVEN PAR ORDERS, PT DAILY WEIGHT AND ON 1.5L FLUID RESTRICTION. DRESSING TO L ANKLE C/D/I. CONTINENT OF B&B, MODERATE SOFT BM THIS MORNING, USED BSC. SITTING IN RECLINER, CALL LIGHT WITHIN REACH, WILL CONTINUE TO MONITOR PER POC.
[2019-07-25 20:00] VITALS: BP 122/71
--- NOTE | 2019-07-25 23:26 | NUR ---
PT ALERT AND ORIENTED X 4. TRANSFERRED TO BED FROM W/C AT HS WITH ASSIST X 1. INCONT OF URINE IN LARGE AMTS. 02 ON AT 2L PER NC CONT. PT SOB WITH EXERTION. PT DENIES PAIN OR DISCOMFORT. BED ALARM ON FOR SAFETY. PT APPEARS TO BE SLEEPING ON HOURLY ROUNDS. CPAP PUT ON PT AT 2300 PER RT.
[2019-07-26 05:03] LABS: ALBUMIN 3.2 g/dL (3.4-5.0); CALCIUM 8.7 mg/dL (8.5-10.1); CREATININE 3.6 mg/dL (0.6-1.0); PHOSPHORUS 3.6 mg/dL (2.5-4.9); POTASSIUM 4.5 mmol/L (3.5-5.1)
[2019-07-26 07:20] VITALS: BP 129/74
[2019-07-26 10:00] LABS: PROTIME 10.4 Seconds (9.3-11.4)
[2019-07-26 10:03] LABS: HEMOGLOBIN 8.1 gm/dL (12.0-15.0); WBC 5.3 thou/uL (4.0-11.0)
[2019-07-26 10:04] LABS: HEMATOCRIT 24.9 % (37.0-47.0); MCH 33.1 pg (26.0-34.0); MCHC 32.4 g/dL (28.0-37.0); MCV 102.2 fL (80.0-100.0); RBC 2.44 mil/uL (4.20-5.00)
[2019-07-26 10:07] LABS: ALBUMIN 3.3 g/dL (3.4-5.0); SGOT 17 U/L (15-37); SGPT 15 U/L (30-65); TOTAL BILIRUBIN 0.5 mg/dL (<0.1-1.0); TOTAL PROTEIN 7.2 g/dL (6.4-8.2)
[2019-07-26 10:08] LABS: DIRECT BILIRUBIN < 0.1 mg/dL (<0.1-0.2)
[2019-07-26 12:09] LABS: ABSOLUTE NEUTROPHILS 3.4 thou/uL (1.4-8.2); ANISOCYTOSIS 2+
[2019-07-26 12:10] LABS: PLATELET COUNT 198 thou/uL (150-400)
--- NOTE | 2019-07-26 13:19 | NUR ---
ASSUMED CARES AT 0700. PT AWAKE, ALERT AND ORIENTED *4. AROUND 0800 PT STARTED C/O SOB AND STATED THAT THE CHEMICAL USED TO CLEAN HER SIDE TABLE HAD TRIGGERED THE SOB. 02 SATS 91/92 ON 2L VIA NC. DOOR OPENED AND FAN TURNED ON HIGH, O2 INCREASED TO 3L PER PT'S REQUEST. O2 SATS 94% ON 3L. PT TRANSFERED FROM BED TO [facility], HAD A LG BM THEN WAS TRANFERED BACK TO THE CHAIR. AT THIS TIME PT C/O INCREASED SOB AND NAUSEA AND WAS COUGHING SOME PINK COLORED SECRETIONS. LS COURSE AND WHEEZY, ORDER RECEIVED FOR ALBUTEROL INH AND WAS ADMINISTERED BY RT WITH NO EFFECT. IV STARTED ON RIGHT AC AND LASIX 60ML ADMINISTERED. SOLUMEDROL ADMINISTERED IM PRIOR TO THE IV START. PT WAS TRANFERED TO BED TO DO US DOPPLER BLE, HOB ELEVATED 45 DEGREES, OXYGEN 6L VIA REBREATHER MASK PT WAS NOW DESATING TO LOW 80'S. SATS 95%-97% ON 6L. HOSPITALIST AND DR LATHAM WERE AT THE TIME ARRANGING TO TRANSFER PT TO CCU AND REPORT HAD ALREADY BEEN CALLED TO RECEIVING RN IN CCU. AFTER THE DOPPLER (APPROXIMATELY 2MINS LATER) WAS DONE THIS RN WENT TO TRANSFER PT TO CCU BUT THE PT WAS NOT BREATHING. THE REBREATHER MASK WAS PUSHED TO THE SIDE, HER TOUNGUE WAS STICKING OUT OF HER MOUTH COMPLETELY SEALING HER MOUTH AND WAS BLUE. NO BREATH SOUNDS. NO PULSE. CODE WAS CALLED. SEE CODE NOTES. PT THEN TRANSFERED TO ICU. PT'S DAUGHTER MARY CALLED AND UPDATED AFTER THE CODE.
== END 2019-07-26 12:10 | disposition short-term general hospital (02) | DRG 947 ==
PROVIDERS: Hospitalist; Internal Medicine; Nurse Practitioner; ADMIT Physical Medicine & Rehabilitation
PROC: 5A09357 Assistance with Respiratory Ventilation, Less than 24 Consecutive Hours, Continuous Positive Airway Pressure (ICD-10-PCS; principal; 2019-07-21)
PROC: 5A09357 Assistance with Respiratory Ventilation, Less than 24 Consecutive Hours, Continuous Positive Airway Pressure (ICD-10-PCS; 2019-07-22)
PROC: 5A09357 Assistance with Respiratory Ventilation, Less than 24 Consecutive Hours, Continuous Positive Airway Pressure (ICD-10-PCS; 2019-07-23)
PROC: 5A09357 Assistance with Respiratory Ventilation, Less than 24 Consecutive Hours, Continuous Positive Airway Pressure (ICD-10-PCS; 2019-07-24)
PROC: 5A09357 Assistance with Respiratory Ventilation, Less than 24 Consecutive Hours, Continuous Positive Airway Pressure (ICD-10-PCS; 2019-07-25)
PROC: 5A12012 Performance of Cardiac Output, Single, Manual (ICD-10-PCS; 2019-07-26)
PROC: 5A09357 Assistance with Respiratory Ventilation, Less than 24 Consecutive Hours, Continuous Positive Airway Pressure (ICD-10-PCS; 2019-07-26)
PROC: 0BH18EZ Insertion of Endotracheal Airway into Trachea, Via Natural or Artificial Opening Endoscopic (ICD-10-PCS; 2019-07-26)
DX: R53.81 Other malaise (principal); J96.21 Acute and chronic respiratory failure with hypoxia; J96.22 Acute and chronic respiratory failure with hypercapnia; I50.43 Acute on chronic combined systolic (congestive) and diastolic (congestive) heart failure; E44.0 Moderate protein-calorie malnutrition; Z68.42 Body mass index [BMI] 45.0-49.9, adult; N17.9 Acute kidney failure, unspecified; I13.0 Hypertensive heart and chronic kidney disease with heart failure and stage 1 through stage 4 chronic kidney disease, or unspecified chronic kidney disease; K92.1 Melena; N18.4 Chronic kidney disease, stage 4 (severe); I87.2 Venous insufficiency (chronic) (peripheral); G47.33 Obstructive sleep apnea (adult) (pediatric); D63.8 Anemia in other chronic diseases classified elsewhere; J44.9 Chronic obstructive pulmonary disease, unspecified; E11.22 Type 2 diabetes mellitus with diabetic chronic kidney disease; I27.20 Pulmonary hypertension, unspecified; E66.01 Morbid (severe) obesity due to excess calories; M19.90 Unspecified osteoarthritis, unspecified site; I25.10 Atherosclerotic heart disease of native coronary artery without angina pectoris; I25.5 Ischemic cardiomyopathy; E11.51 Type 2 diabetes mellitus with diabetic peripheral angiopathy without gangrene; E78.5 Hyperlipidemia, unspecified; E11.40 Type 2 diabetes mellitus with diabetic neuropathy, unspecified; Z98.41 Cataract extraction status, right eye; Z98.42 Cataract extraction status, left eye; Z90.13 Acquired absence of bilateral breasts and nipples; Z95.820 Peripheral vascular angioplasty status with implants and grafts; Z99.81 Dependence on supplemental oxygen
CPT/HCPCS: 10112

== ENCOUNTER 2019-07-26 11:35 | Inpatient (IN) | payer OTHER ==
[~2019-07-26] VITALS: Ht 162.6 cm; Wt 122.5 kg
[2019-07-26] VITALS (29 sets, daily range): BP systolic 94–146; BP diastolic 25–122
[2019-07-26 12:52] LABS: BE(vivo) -2.9 mmol/L (-2 to +3); HCO3 25.3 mmol/L (22.0-26.0); PCO2 63.4 mmHg (35.0-45.0); PO2 135.3 mmHg (80.0-100.0); pH 7.219 (7.360-7.450); sO2 98.1 % (92.0-98.0)
[2019-07-26 13:00] LABS: ANION GAP 14 mmol/L (7-16); BUN 80 mg/dL (7-18); CALCIUM 9.1 mg/dL (8.5-10.1); CHLORIDE 100 mmol/L (98-107); CO2 24 mmol/L (21-32); GLUCOSE 227 mg/dL (74-106); POTASSIUM 5.3 mmol/L (3.5-5.1); SODIUM 138 mmol/L (136-145)
[2019-07-26 13:06] LABS: ALBUMIN 3.4 g/dL (3.4-5.0); DIRECT BILIRUBIN < 0.1 mg/dL (<0.1-0.2); MAGNESIUM 2.6 mg/dL (1.8-2.4); SGOT 95 U/L (15-37); SGPT 81 U/L (30-65); TOTAL BILIRUBIN 0.7 mg/dL (<0.1-1.0); TOTAL PROTEIN 7.7 g/dL (6.4-8.2)
--- NOTE | 2019-07-26 14:07 | NUR ---
VAT CONSULTED FOR A CL FOR THIS PT WHO IS A SP CODE FROM REHAB TODAY. LINE IS MEDICALLY NECESSARY PT IS INTUBATED--PER DR FERREIRA. RTTLIJ PLACED WITH TIP IN [facility]. RETRACTED 3CM AFTER CXR TO PLACE THE TIP AT THE CAJ. LINE RELEASED TO RN FOR USE. PLEASE SEE INSERTION NI FOR DETAILS
[2019-07-26 14:11] LABS: HEMATOCRIT 29.3 % (37.0-47.0); HEMOGLOBIN 9.2 gm/dL (12.0-15.0); MCHC 31.4 g/dL (28.0-37.0); PLATELET COUNT 268 thou/uL (150-400); RBC 2.79 mil/uL (4.20-5.00); RDW 20.1 % (10.5-14.5)
[2019-07-26 14:45] LABS: ABSOLUTE NEUTROPHILS 5.8 thou/uL (1.4-8.2); MYELOCYTES 2 %; NUCLEATED RBCS 1 /100WBC
[2019-07-26 14:48] LABS: ANISOCYTOSIS 2+; MACROCYTES 1+
[2019-07-26 17:01] LABS: BE(vivo) -1.3 mmol/L (-2 to +3); PCO2 36.2 mmHg (35.0-45.0); PO2 67.1 mmHg (80.0-100.0); sO2 93.8 % (92.0-98.0)
--- NOTE | 2019-07-26 19:34 | NUR ---
PT WAS ADMITTED TO ROOM 240 AROUND 1215 FROM REHAB POST CODE. PER HARDWARE DESIGN ENGINEER HOUSEKEEPING WAS IN PT ROOM CLEANING AND SOMETHING SET THE PTS ASTHMA OFF. PT HAD AN INCREASINGLY HARD TIME BREATHING TO THE POINT OF HYPOXIA AND THEN RESPIRATORY ARREST. A CODE BLUE WAS CALLED AND ONE DOSE OF EPI AND COMPRESSIONS WERE GIVEN BEFORE ROSC. PT CAME TO ICU INTUBATED, 7.0 ETT 24 AT THE LIP. RIGHT AC 22 G WITH PROPOFOL INFUSING AT 40 MCG/KG/MIN. PT RESTRAINED BUT TRYING TO PULL AT THINGS. PT WAS ABLE TO OPEN EYES ON COMMAND AND SQUEEZE HAND ON COMMAND. PT VENT SETTINGS WERE AC RATE 16, TV 500, PEEP 5 AND 100% FIO2 UPON ARRIVAL. PT WAS PLACED ON MONITOR, VSS. OG WAS PLACED WITHOUT DIFFICULTY AND VERIFIED BY KUB. 16 FR POLANCO WAS PLACED WITHOUT DIFFICULTY DRAINING SMALL AMOUNT OF CLEAR YELLOW URINE. CONSULTS WERE CALLED TO DR FERREIRA AND AARON ST. DR NAJERA REQUESTING CALL BACK WITH CXR AND POST CODE LAB RESULTS.CALL PLACED AFTER THOSE RESULTS RECEIVED AND ORDERS RECEIVED FROM DR NAJERA. [facility] LINE WAS PLACED BY IV TEAM WITH CXR CONFIRMATION. CALL PLACED TO DAUGHTER AND UPDATED ON MOTHER'S CONDITION. DR GEORGE AROUND TO SEE PT AND STATES SHE WILL ALSO CALL PT DAUGHTER TO GIVE UPDATE. PT HAS PINK FROTHY SPUTUM COMING FROM ETT WHEN SUCTIONED OR COUGHING. LE US DONE AND NEGATIVE FOR DVT SO SCDS APPLIED. LEFT ANKLE WOUND WAS PICTURED AND DRESSED WITH OPTIFOAM DRESSING. PT VSS THROUGHOUT DAY. RESPIRATORY RATE WAS INCREASED TO 20 AND FIO2 WAS DECREASED TO 70%.
[2019-07-27] VITALS (25 sets, daily range): BP systolic 102–143; BP diastolic 42–80
--- NOTE | 2019-07-27 04:16 | NUR ---
PT ON PROPOFOL GTT AT 50MCG. PT FOLLOWS COMMANDS AND IS ABLE TO SOMETIMES COMMUNICATE NEEDS WITH OR WITHOUT SEDATION. SHE IS ABLE TO NOD YES/NO TO QUESTIONS WELL. PT REFUSED SCD ON HER LEFT LEG DUE TO HER PRESENT WOUND. PT GOT A BATH THIS SHIFT. RESTED WELL. WILL CONTINUE TO CLOSELY MONITOR
[2019-07-27 05:26] LABS: BE(vivo) 2.7 mmol/L (-2 to +3); HCO3 28.4 mmol/L (22.0-26.0); PCO2 49.4 mmHg (35.0-45.0); PO2 88.9 mmHg (80.0-100.0); pH 7.377 (7.360-7.450); sO2 96.5 % (92.0-98.0)
[2019-07-27 06:23] LABS: HEMATOCRIT 24.6 % (37.0-47.0); HEMOGLOBIN 8.1 gm/dL (12.0-15.0); MCH 33.1 pg (26.0-34.0); MCV 100.4 fL (80.0-100.0); RBC 2.45 mil/uL (4.20-5.00); RDW 19.3 % (10.5-14.5); WBC 7.9 thou/uL (4.0-11.0)
[2019-07-27 06:38] LABS: CALCIUM 8.9 mg/dL (8.5-10.1); POTASSIUM 4.6 mmol/L (3.5-5.1)
--- NOTE | 2019-07-27 08:01 | EKG ---
[facility] [place] [address] ELECTROCARDIOGRAM REPORT Name: RAMIRO BROOKS Room #: 240-P ADM IN M.R.#: [id number] Admission: 07/26/19 Attend Phys: Annette Hogan MD Discharge: Date of : 41 Report #: [id number] THIS REPORT FOR: cc: JENNY - Family physician unknown FAM - Family physician unknown Tariq Dickinson MD [facility] THIS REPORT FOR: //name// [facility] Test Date: 2019-07-26 Test Time: 12:18:07 Pat Name: RAMIRO BROOKS Department: Room: 240 P Gender: F [employer] Wireless Manager: : 1945 Requested By: Annette Hogan Order Number: [id number] MD: Tariq Dickinson Measurements Intervals [place] Rate: 101 P: 21 [place]: 98 QRS: 75 QRSD: 181 T: 256 QT: 432 QTc: 561 Interpretive Statements Sinus tachycardia Left bundle branch block Compared to ECG 07/13/2019 14:44:56 Left bundle branch block is now present Electronically Signed On 07-27-2019 7:59:25 CDT by Tariq Dickinson [email or web address] <ELECTRONICALLY SIGNED> By: Tariq Dickinson MD, FACC 07/27/19 0759 1218 1218 Tariq Dickinson MD, [facility] /EPI
--- NOTE | 2019-07-27 16:23 | NUR ---
INITIAL ASSESSMENT: Received consult. GABBIE reviewed chart and spoke with nursing and attending physician. Pt was admitted to ICU from [facility] s/p code blue yesterday Pt is currently intubated. Pt with hx of CHF. Pt has had negative COVID-19 test. GABBIE spoke with pt's dtr, Silvia, via phone. Introduced role of SW. Pt is normally alert/orientated x 4 and lives at home with her spouse. Pt's spouse is starting to show signs of early dementia. Prior to admission, pt uses a walker. No steps to enter the home, or inside the home. Pt has been doing outpatient iron infusion. Pt was recently on service with [facility] . Pt has been to [facility] in the past (2013 and 2017). Pt's PCP is Dr. Demetrius Lopez at [facility]. Pt will need therapy evals when able to participate to assist with recommendations for discharge. Pt's dtr requests to speak with certified pharmacist assistant regarding need for dialysis in the future. SW provided certified pharmacist assistant with pt's dtr's contact info. GABBIE is following to assist as needed with discharge planning.
--- NOTE | 2019-07-27 19:39 | NUR ---
1300-ASSUMED CARE OF PT p PT TRANSFERRED TO 242.BELONGINGS PLACED IN CLOSET.--VW 1800-SATS 100% CONSISTENTLY THRUOUT THE p NOON.PT AROUSES FAIRLY EASILY & RESTING COMF ON VENT.SLOWLY PROGRESSING TOWARD EXTUBATION GOALS.--VW 1900-CARE TURNED OVER TO ONCOMING RN.--VW
[2019-07-28] VITALS (24 sets, daily range): BP systolic 103–133; BP diastolic 45–68
[2019-07-28 05:23] LABS: BE(vivo) 0 mmol/L (-2 to +3); HCO3 24.4 mmol/L (22.0-26.0); PCO2 38.5 mmHg (35.0-45.0); PO2 101.3 mmHg (80.0-100.0); sO2 97.7 % (92.0-98.0)
--- NOTE | 2019-07-28 06:00 | NUR ---
Received report from offgoing RN and assumed patient care. Patient is on the ventilator and has Propofol infusing. Patient follows all commands and nods appropriately when asked yes/no questions. Patient noted to have blood from the in-line suctioning this am during bath and O2 sats dropped to the 70s but quickly returned to WNL after suctioning. No other acute events occurred during this shift.
[2019-07-28 06:05] LABS: CALCIUM 8.3 mg/dL (8.5-10.1); PHOSPHORUS 4.2 mg/dL (2.5-4.9); POTASSIUM 4.1 mmol/L (3.5-5.1)
[2019-07-28 07:28] LABS: HEMOGLOBIN 7.5 gm/dL (12.0-15.0); MCH 32.6 pg (26.0-34.0); MCHC 32.4 g/dL (28.0-37.0); MCV 100.5 fL (80.0-100.0); RBC 2.29 mil/uL (4.20-5.00); RDW 19.1 % (10.5-14.5); WBC 6.6 thou/uL (4.0-11.0)
--- NOTE | 2019-07-28 09:22 | NUR ---
ASSUMED CARE FROM PREVIOUS NURSE. O2 WEANED TO 40%. VACATION SEDATION FROM PROPOFOL FROM 0800 TO 0830. PATIENT ABLE TO FOLLOW COMMANDS, NOD HEAD TO SIMPLE YES AND NO QUESTIONS. CALM, MONITOR SHOWING NSR WITH PVC'S. BP STABLE AND RESP RATE IN THE LOWER 20'S. 70 ML OF TUBE FEEDING RESIDUAL NOTED. LASIX INCREASED PER ORDER
--- NOTE | 2019-07-28 10:30 | NUR ---
CALL PLACED TO DAUGHTER RINA TO UPDATE HER, MESSAGE LEFT TO CALL BACK.
--- NOTE | 2019-07-28 13:46 | NUR ---
PEEP DECREASED TO 5 CM AND PROPOFOL HELD FOR CPAP TRIAL AT 1210. PLACED ON CPAP WITH 5 CM PEEP AND 5CM OF PRESSURE SUPPORT. HEART RATE UP TO THE 120'S TO 150'S ST WITH BBB, C/O CHEST DISCOMFORT. PLACE BACK ON VENT AND PROPOFOL RESTARTED. MORPHINE GIVEN FOR DISCOMFORT AND EKG DONE, RT AWARE. PATIENT RESTING QUIETLY AT PRESENT. MONITOR REMAINS ST IN THE 100'S WITH BBB.
--- NOTE | 2019-07-28 16:58 | NUR ---
GABBIE reviewed chart and spoke with attending physician. Pt remains intubated. CPAP trials earlier today. Pt is on Lasix gtt. GABBIE discussed case with rehab office coordinator, who states they will follow pt for possible admission to when medically stable. Therapy evals to be ordered when pt is able to participate. GABBIE is following to assist as needed with discharge planning.
--- NOTE | 2019-07-28 17:15 | NUR ---
SPOKE WITH DAUGHTER, RINA AND UPDATED HER TO HER PROGRESSION AND POC. PATIENT NOW SPEAKING TO HER MOTHER VIA PHONE. PATIENT SLOWLY PROGRESSING TOWARDS OUTCOME GOAL OF WEANING OFF VENT AND TOLERATING TUBE FEEDING.
[2019-07-29] VITALS (40 sets, daily range): BP systolic 98–124; BP diastolic 45–66
[2019-07-29 05:52] LABS: HEMATOCRIT 21.2 % (37.0-47.0); HEMOGLOBIN 7.1 gm/dL (12.0-15.0); MCH 33.1 pg (26.0-34.0); MCHC 33.4 g/dL (28.0-37.0); MCV 99.2 fL (80.0-100.0); RBC 2.13 mil/uL (4.20-5.00); RDW 19.2 % (10.5-14.5); WBC 7.2 thou/uL (4.0-11.0)
[2019-07-29 05:58] LABS: ALBUMIN 2.7 g/dL (3.4-5.0); CALCIUM 8.1 mg/dL (8.5-10.1); PHOSPHORUS 4.3 mg/dL (2.5-4.9); POTASSIUM 3.5 mmol/L (3.5-5.1)
--- NOTE | 2019-07-29 07:41 | NUR ---
PT FOLLOWING COMMANDS. TOLERATING TUBE FEED. URINE OUTPUT ADEQUATE AROUND 1500 WITH LASIX DRIP AT 15ML/HR. PLAN FOR CPAP TODAY. CONTINUE TO MONITOR. CHART CHECK.
--- NOTE | 2019-07-29 08:49 | EKG ---
[facility] [place] [address] ELECTROCARDIOGRAM REPORT Name: RAMIRO BROOKS Room #: 242-P ADM IN M.R.#: [id number] Admission: 07/26/19 Attend Phys: Annette Hogan MD Discharge: Date of : 41 Report #: [id number] THIS REPORT FOR: cc: FAM - Family physician unknown FAM - Family physician unknown Tariq Dickinson MD [facility] ~ THIS REPORT FOR: //name// [facility] Test Date: 2019-07-28 Test Time: 13:38:25 Pat Name: RAMIRO BROOKS Department: Room: 242 Gender: F Program Director/Air Personality: Tiffanie MURILLO : 1945 Requested By: Ryan Weldon Order Number: [id number] MD: Tariq Dickinson Measurements Intervals [place] Rate: 112 P: 10 [place]: 101 QRS: 0 QRSD: 165 T: 226 QT: 416 QTc: 568 Interpretive Statements Sinus tachycardia Left bundle branch block Compared to ECG 07/26/2019 12:18:07 No significant changes Electronically Signed On 07-29-2019 8:47:31 CDT by Tariq Dickinson [email or web address] <ELECTRONICALLY SIGNED> By: Tariq Dickinson MD, FACC 07/29/19 0847 1338 1338 Tariq Dickinson MD, [facility] /EPI
--- NOTE | 2019-07-29 14:40 | NUR ---
SW reviewed chart and spoke with attending physician. Pt remains on lasix gtt and intubated. Pt to have blood transfusion today and continue vent weaning trials. GABBIE discussed case with [facility] rehab manager who will continue to follow pt for possible admission to inpt acute rehab when medically stable and able to participate with therapy. GABBIE is following to assist as needed with discharge planning.
--- NOTE | 2019-07-29 15:45 | NUR ---
PT OFF UNIT TO IR FOR LP.
--- NOTE | 2019-07-29 16:50 | NUR ---
PT RETURN FROM IR AND WILL LAY FLAT FOR SEVERAL HOURS.
[2019-07-29 18:06] LABS: HEMOGLOBIN 8.1 gm/dL (12.0-15.0)
--- NOTE | 2019-07-29 18:14 | NUR ---
PT REMIANS ON VENT AND HAD 1 UNIT PRBCS. ON LASIX GTT WITH ACCURATE I/OS. WILL CONTINUE TO ASSESS.
[2019-07-30] VITALS (41 sets, daily range): BP systolic 100–123; BP diastolic 43–61
--- NOTE | 2019-07-30 04:19 | NUR ---
PT ON PROPOFOL GTT AT 30MCG. AND LASIX GTT AT 15ML/HR. SHE FOLLOWS COMMANDS; WILL WIGGLE TOES, SQUEEZE FINGERS AND NOD YES/NO TO QUESTIONS WITH OR WITHOUT SEDATION VACATION. PT HAD A 5 BEAT RUN OF VTACH AT 0036 THIS SHIFT; WAS ASYMPTOMATIC AT THE TIME OF THE CARDIAC EVENT. AROUND 3AM, PT'S MAP WAS 57 WIHT NO INTERVENTIONS MAP CAME UP TO 63 AT 4AM. PT IS CURRENTLY STABLE. BATH THIS SHIFT, U/0 AVERAGE OF 100ML/HR. WILL CONTINUE TO CLOSELY MONITOR.
[2019-07-30 05:46] LABS: HEMATOCRIT 23.9 % (37.0-47.0); HEMOGLOBIN 7.9 gm/dL (12.0-15.0); MCH 32.5 pg (26.0-34.0); MCHC 33.2 g/dL (28.0-37.0); MCV 97.9 fL (80.0-100.0); RBC 2.44 mil/uL (4.20-5.00); WBC 7.1 thou/uL (4.0-11.0)
[2019-07-30 06:06] LABS: ALBUMIN 2.6 g/dL (3.4-5.0); CALCIUM 8.2 mg/dL (8.5-10.1); CREATININE 3.8 mg/dL (0.6-1.0); PHOSPHORUS 5.4 mg/dL (2.5-4.9); POTASSIUM 3.5 mmol/L (3.5-5.1)
--- NOTE | 2019-07-30 16:47 | NUR ---
SW reviewed chart and spoke with attending physician. Pt remains intubated. CPAP trials continue. Pt is on lasix gtt. Attending physician to discuss code status and possible palliative care with pt's family. SW left voice message for pt's dtr, Tiki. [facility] continues to follow pt for possible inpt acute rehab placement if needed. No weekend discharge planned. GABBIE is following to assist as needed with discharge planning.
--- NOTE | 2019-07-30 19:13 | NUR ---
REMAINS INTUBATED AND SEDATED. OPENS EYES AND FOLLOWS SIMPLE COMMANDS. TMAX 99.1. ZOSYN STARTED. LASIX DRIP CONTINUES WITH GOOD URINE OUTPUT.
[2019-07-31] VITALS (33 sets, daily range): BP systolic 95–122; BP diastolic 37–61
[2019-07-31 03:10] LABS: HEMATOCRIT 25.4 % (37.0-47.0); HEMOGLOBIN 8.4 gm/dL (12.0-15.0); MCH 32.5 pg (26.0-34.0); MCHC 33.1 g/dL (28.0-37.0); MCV 98.3 fL (80.0-100.0); RBC 2.59 mil/uL (4.20-5.00); RDW 18.6 % (10.5-14.5); WBC 6.9 thou/uL (4.0-11.0)
[2019-07-31 03:20] LABS: ALBUMIN 2.6 g/dL (3.4-5.0); CALCIUM 8.2 mg/dL (8.5-10.1); PHOSPHORUS 5.9 mg/dL (2.5-4.9); POTASSIUM 3.3 mmol/L (3.5-5.1)
[2019-07-31 05:37] LABS: BE(vivo) 7.1 mmol/L (-2 to +3); HCO3 30.1 mmol/L (22.0-26.0); PCO2 35.9 mmHg (35.0-45.0); PO2 73.4 mmHg (80.0-100.0); pH 7.541 (7.360-7.450); sO2 96.3 % (92.0-98.0)
--- NOTE | 2019-07-31 06:32 | NUR ---
PATIENT ON LIGHT SEDATION, ABLE TO FOLLOW COMMANDS, NODS HEAD TO YES/NO QUESTIONS. SINUS RHYTHM ON CASSEROLE PREPARER. ON VENTILATOR 40% FIO2, O2 SAT REMAINS ABOVE 90%. LASIX GTT INFUSING, ADEQUATE URINE OUTPUT. THERE IS WEIGHT LOSS REPORTED FROM PREVIOUS DAY. PATIENT TOLERATING TUBE FEEDING AT GOAL RATE. DRESSING TO LEFT OUTER LEG CHANGED THIS MORNING. NO SIGN OF ACUTE DISTRESS NOTED AT THIS TIME. PATIENT PROGRESSING TOWARDS GOALS. WILL CONTINUE TO MONITOR.
--- NOTE | 2019-07-31 12:46 | NUR ---
PROPOFOL ADJUSTED TO 30 WHERE PATIENT IS ABLE TO MAKE EYE CONTACT AND RESPOND TO SIMPLE COMMANDS. SHE IS SLEEPING AT THIS TIME. SHE IS PLEASANT WITH CARE. CONT TO DEPEND OF VENT SHE DID PASS CPAP TRIAL. SHE CONT ON OG TUBE FEEDING AND MINIMAL RESIDUAL NOTED.. WILL CONT WITH PLAN OF CARE.
[2019-08-01] VITALS (34 sets, daily range): BP systolic 100–133; BP diastolic 40–64
--- NOTE | 2019-08-01 05:18 | NUR ---
Received report from offgoing RN and assumed patient care. Patient is still on the ventilator with Propofol infusing for sedation. Patient follows all commands and is noted to be SR with BBB on the monitor. Patient has Nepro infusing at the goal rate of 35 mL/hr. VS remained stable and no acute events occurred during this shift.
[2019-08-01 05:53] LABS: HEMATOCRIT 25.5 % (37.0-47.0); HEMOGLOBIN 8.5 gm/dL (12.0-15.0); MCH 33.1 pg (26.0-34.0); MCHC 33.3 g/dL (28.0-37.0); MCV 99.5 fL (80.0-100.0); RBC 2.56 mil/uL (4.20-5.00); RDW 18.6 % (10.5-14.5); WBC 6.4 thou/uL (4.0-11.0)
[2019-08-01 06:33] LABS: ALBUMIN 2.6 g/dL (3.4-5.0); CALCIUM 8.6 mg/dL (8.5-10.1); CREATININE 3.9 mg/dL (0.6-1.0); MAGNESIUM 2.6 mg/dL (1.8-2.4); PHOSPHORUS 7.4 mg/dL (2.5-4.9); POTASSIUM 3.3 mmol/L (3.5-5.1)
--- NOTE | 2019-08-01 19:01 | NUR ---
pt failed cpap this am, not leaning towards goals. Neuro intact.
[2019-08-02] VITALS (23 sets, daily range): BP systolic 98–127; BP diastolic 32–59
[2019-08-02 04:58] LABS: BE(vivo) 6.8 mmol/L (-2 to +3); HCO3 31.2 mmol/L (22.0-26.0); PCO2 43.9 mmHg (35.0-45.0); PO2 94.9 mmHg (80.0-100.0); pH 7.469 (7.360-7.450); sO2 97.6 % (92.0-98.0)
[2019-08-02 06:27] LABS: CALCIUM 8.7 mg/dL (8.5-10.1); CREATININE 3.7 mg/dL (0.6-1.0); POTASSIUM 3.4 mmol/L (3.5-5.1)
--- NOTE | 2019-08-02 07:55 | NUR ---
SEE [facility] FOR ASSESSMENT. PT PROGRESSING TOWARD GOALS. PT AWAKENS WITH LIGHT SEDATION OF PROPOFOL. VSS. AFEBRILE. DIURESISING WELL WITH LASIX GTT. MINIMAL ETT SECRETIONS. CONT PLAN OF CARE
--- NOTE | 2019-08-02 10:34 | NUR ---
SPOKE WITH PT DAUGHTERS THIS MORNING, UPDATE GIVEN. SPOKE WITH DR MARTINEZ AND ASKED THAT HE CALL PT DAUGHTERS.
--- NOTE | 2019-08-02 10:35 | NUR ---
PT HAD LARGE BOWEL MOVEMENT THIS MORNING, PT CLEANED UP, GOWN, LINENS AND TELE PATCHES CHANGED.
--- NOTE | 2019-08-02 16:25 | NUR ---
GABBIE reviewed chart and spoke with nursing and attending physician. Pt remains intubated and in ICU. Pt is on lasix gtt and has failed CPAP trials. Attending physician contacted family to discuss plan of care. Family to discuss. Awaiting input from family at this time. GABBIE is following to assist as needed with discharge planning.
--- NOTE | 2019-08-02 16:50 | NUR ---
5N CONSULT RECEIVED FOR THIS Pt. Pt WAS TRANSFERRED FROM ACUTE REHAB TO ICU ON 07/26/19 AFTER WORSENING RESPIRATORY DISTRESS RESULTING IN INTUBATION. Pt REMAINS INTUBATED THIS DATE AND HAS FAILED CPAP TRIALS. PHYSICIAN TO DISCUSS WITH FAMILY REGARDING GOALS FOR POC. WILL CONTINUE TO FOLLOW THIS Pt WITH REGARDS TO NEEDS FOR ACUTE REHAB, IF IT BECOMES APPROPRIATE. THANK YOU FOR THIS CONSULT.
[2019-08-03] VITALS (26 sets, daily range): BP systolic 11–119; BP diastolic 38–59
[2019-08-03 05:01] LABS: HEMATOCRIT 27.3 % (37.0-47.0); HEMOGLOBIN 8.9 gm/dL (12.0-15.0); MCH 32.2 pg (26.0-34.0); MCHC 32.6 g/dL (28.0-37.0); MCV 99.1 fL (80.0-100.0); RBC 2.75 mil/uL (4.20-5.00); RDW 18.1 % (10.5-14.5); WBC 6.2 thou/uL (4.0-11.0)
[2019-08-03 05:08] LABS: ALBUMIN 2.6 g/dL (3.4-5.0); CALCIUM 8.9 mg/dL (8.5-10.1); CREATININE 3.6 mg/dL (0.6-1.0); PHOSPHORUS 7.1 mg/dL (2.5-4.9)
[2019-08-03 05:09] LABS: POTASSIUM 2.8 mmol/L (3.5-5.1)
--- NOTE | 2019-08-03 11:08 | NUR ---
Nutrition: REC increase Tube feeding rate to 40 mL/hr to better meet needs with decline in propofol demand.
--- NOTE | 2019-08-03 20:25 | NUR ---
0800-ASSUMED CARE OF PT.--VW 4790-DISCUSSED SEV TIMES TODAY HEMOPTYSIS W .CLOTS LESS BUT STILL SOME KASSY BLEEDING THRU ETT. NOT PROGRESSING TOWARDS EXTUBATION GOALS.--VW
[2019-08-04] VITALS (25 sets, daily range): BP systolic 96–118; BP diastolic 34–54
[2019-08-04 05:37] LABS: HEMATOCRIT 27.6 % (37.0-47.0); MCH 32.1 pg (26.0-34.0); MCHC 32.6 g/dL (28.0-37.0); MCV 98.4 fL (80.0-100.0); RBC 2.81 mil/uL (4.20-5.00); RDW 18.1 % (10.5-14.5); WBC 5.9 thou/uL (4.0-11.0)
[2019-08-04 05:50] LABS: ALBUMIN 2.6 g/dL (3.4-5.0); CREATININE 3.4 mg/dL (0.6-1.0); PHOSPHORUS 6.7 mg/dL (2.5-4.9); POTASSIUM 3.3 mmol/L (3.5-5.1)
--- NOTE | 2019-08-04 08:15 | NUR ---
PT AWAKENS EASILY ON PROPOFOL. NO KASSY HEMOPYTOSIS WITH ETT. SCANT OLD BLOOD. LASIX GTT CONT AT 15MG/HR. DIURISISED 850. JIM TF. FECAL TUBE IN PLACE, SM AMT OF BROWN LIQU STOOL. VS WNL. PT NOT PROGRESSING TOWARD EXTUBATION PRITI
--- NOTE | 2019-08-04 09:17 | NUR ---
ATTEMPTED TO DO A RESIDUAL CHECK ON PT TF. OG CLOTTED, ATTEMPTS TO UNCLOG UNSUCCESSFUL. WILL BE ATTEMPTING TO DO A CPAP TRIAL LATER THIS MORNING, IF PT FAILS WILL REINSERT A NEW OG, IF PT PASSES WILL REMOVE OG WHEN EXTUBATING. UNABLE TO GIVE PO MEDS AT THIS TIME. WILL REASSESS. PT WAS SWITCHED FROM PROPOFOL TO PRECEDEX THIS MORNING, TOLERATING WELL.
--- NOTE | 2019-08-04 13:06 | NUR ---
GOT PT OG TO WORK, WITHDREW A LOT OF CLUMPS OF TUBE FEED FROM IN OGT. TF RESTARTED.
--- NOTE | 2019-08-04 14:29 | NUR ---
PATIENT WAS ON 5N/ACUTE REHAB WHEN ACUTE MEDICAL NEEDS REQUIRED DISCHARGE FROM REHAB TO ACUTE HOSPITAL ON 07/26/19. CONSULT FOR REHAB PLACED ON 07/27/19. AT THIS TIME, REHAB IS FOLLOWING PATIENT. ONCE PATIENT IS OFF VENT AND IF THEY ARE TOLERATING/PARTICIPATING IN REHAB, FURTHER ASSESSMENT CAN BE MADE TO SEE IF PATIENT MIGHT BE APPROPRIATE TO READMIT TO 5N/ACUTE REHAB. THANK YOU FOR THIS REFERRAL.
--- NOTE | 2019-08-04 16:07 | NUR ---
SW reviewed chart and spoke with nursing and attending physician. Pt remains in ICU and intubated. Pt is on lasix gtt. Pt failed cpap trial earlier today. Pt is able to follow simple commands. 5N is following for possible readmission to inpt acute rehab when medically stable. SW is following to assist as needed with discharge planning.
--- NOTE | 2019-08-04 19:07 | NUR ---
PT PLACED ON CPAP TRIAL THIS MORNING, PT WAS ONLY PULLING VOLUMES OF 75 TO 100. VSS. RT PLACED BACK ON A/C MODE.
[2019-08-05] VITALS (42 sets, daily range): BP systolic 81–150; BP diastolic 28–76
--- NOTE | 2019-08-05 00:32 | NUR ---
RESIDUAL CHECKED FROM OG TUBE IS 400, TUBE FEEDING HELD, WILL REASSESS.
[2019-08-05 04:46] LABS: BE(vivo) 4.1 mmol/L (-2 to +3); HCO3 28.5 mmol/L (22.0-26.0); PCO2 42.4 mmHg (35.0-45.0); PO2 71.5 mmHg (80.0-100.0); pH 7.446 (7.360-7.450)
--- NOTE | 2019-08-05 05:27 | NUR ---
PATIENT NOT TOLERATING TUBE FEEDING. RESIDUAL CHECK AT 0000 WAS 400 ML, RESIDUAL CHECK AT 0400 WAS 200 ML, RECTAL TUBE IN PLACE 700 ML OUTPUT. SPOKE WITH NURSE PRACTITIONER, WILL REASSESS.
[2019-08-05 06:02] LABS: ABSOLUTE NEUTROPHILS 5.2 thou/uL (1.4-8.2); BASOPHILS 0.2 % (0.0-2.0); EOSINOPHILS 4.1 % (0.0-3.0); HEMATOCRIT 28.3 % (37.0-47.0); HEMOGLOBIN 9.3 gm/dL (12.0-15.0); LYMPHOCYTES 9.3 % (24.0-44.0); MCH 32.3 pg (26.0-34.0); MCHC 32.8 g/dL (28.0-37.0); MCV 98.3 fL (80.0-100.0); MONOCYTES 7.9 % (1.0-8.0); PLATELET COUNT 290 thou/uL (150-400); POLYS 78.5 % (36.0-66.0); RBC 2.88 mil/uL (4.20-5.00); RDW 17.7 % (10.5-14.5); WBC 6.6 thou/uL (4.0-11.0)
[2019-08-05 06:28] LABS: ALBUMIN 2.8 g/dL (3.4-5.0); CALCIUM 8.8 mg/dL (8.5-10.1); CREATININE 3.6 mg/dL (0.6-1.0); POTASSIUM 3.4 mmol/L (3.5-5.1); TOTAL BILIRUBIN 0.4 mg/dL (0.2-1.0); TOTAL PROTEIN 6.7 g/dL (6.4-8.2)
--- NOTE | 2019-08-05 06:28 | NUR ---
PATIENT ON LIGHT SEDATION, ALERT AND FOLLOWS COMMANDS. UPPER AND LOWER EXTREMITIES WEAK, ABLE TO ETCHER APPRENTICE PHOTOENGRAVING HAND. PATIENT RESPONDS TO YES/NO QUESTIONS BY NODDING HEAD, NO COMPLAINTS OF PAIN. ON VENTILATOR 40% FIO2, O2 SAT REMAINED ABOVE 98%, AM ABG COMPLETED. TUBE FEEDING HELD SINCE 0000, RESIDUAL CHECK AT THE END OF SHIFT IS 150 ML. RECTAL TUBE IN PLACE 700 ML THROUGHT THE NIGHT OUTPUT. PLAN DISCUSSED WITH PATIENT, PATIENT PROGRESSING TOWARDS GOALS. NO SIGN OF ACUTE DISTRESS NOTED AT THIS TIME. WILL CONTINUE TO MONITOR.
[2019-08-05 09:05] LABS: BE(vivo) 5.3 mmol/L (-2 to +3); HCO3 31.4 mmol/L (22.0-26.0); PCO2 53.5 mmHg (35.0-45.0); PO2 85.7 mmHg (80.0-100.0); pH 7.386 (7.360-7.450); sO2 96.2 % (92.0-98.0)
--- NOTE | 2019-08-05 09:41 | NUR ---
Assumed care at 0700. PT is drowsy but opens eyes to voice and follows commands. PT currently on precedex gtt 0.4 mc/kg. Dr. Flood on unit this AM and began CPAP trial at 0800. PT tolerated CPAP trial well, ABG WNL, and provider ordered for extubation. PT was extubated at 0920 with RN and RT at bedside. She tolerated well. PT is currently on 15L of O2 via mask and is 97% oxygen saturation. Restraints were dc'd at 0920. High fall precautions in place. Call light is within reach. RN will continue to monitor.
--- NOTE | 2019-08-05 12:24 | NUR ---
PT appeared to be having respiratory distress beginning at approximately 1130. RN suctioned moderate amount of bloody sputum out of her mouth. It appeared to have small clots. PT's heart rate appeared to go into sinus tachycardia as high as 140s with possible bigeminy. A stat EKG was obtained. See chart for results. PT's lung sounds were coarse and diminished. Breathing appeared labored, shallow, and tachypneic. RN called RT and PT was placed on bipap at 1200 on EPAP 8 and FIO2 of 100%. RN administered 0.5mg of ativan at 1200 to help ease PT's condition. Dr. Flood was called directly at 1220 and updated of PT's change in status. Provider ordered a stat ABG, her EPAP to be raised to 10, and stated PT may have to be re-intubated. RN verbalized understanding. RN spoke with RT and notified them of the stat EKG order. High fall precautions in place. RN will continue to monitor.
[2019-08-05 13:07] LABS: BE(vivo) -1.5 mmol/L (-2 to +3); HCO3 30.9 mmol/L (22.0-26.0); PO2 83.4 mmHg (80.0-100.0); sO2 90.8 % (92.0-98.0)
[2019-08-05 13:08] LABS: PCO2 104.3 mmHg (35.0-45.0); pH 7.089 (7.360-7.450)
[2019-08-05 14:19] LABS: BE(vivo) -4.7 mmol/L (-2 to +3); HCO3 27.7 mmol/L (22.0-26.0); PCO2 100.5 mmHg (35.0-45.0); PO2 75.4 mmHg (80.0-100.0); pH 7.058 (7.360-7.450); sO2 87.1 % (92.0-98.0)
--- NOTE | 2019-08-05 14:48 | NUR ---
1444- PATIENT INTUBATED BY DR. MARTINEZ PATIENT HAD MULTIPLE RUNS OF VTACH PRIOR. NURSE CALLED DR. MARTINEZ FOR THIS EVENT. [address] MARTINEZ BY RT. CURRENT: HR 106- WITH LESS ECTOPY NOTED BP: 92/40 (58) RR 23 O2 SAT 95% ON 100%VENTILATOR ABG TO BE DRAWN IN [address] MARTINEZ.
[2019-08-05 15:28] LABS: BE(vivo) -2.9 mmol/L (-2 to +3); HCO3 26.3 mmol/L (22.0-26.0); PO2 82.7 mmHg (80.0-100.0); sO2 93.2 % (92.0-98.0)
[2019-08-05 15:29] LABS: PCO2 69.6 mmHg (35.0-45.0); pH 7.195 (7.360-7.450)
--- NOTE | 2019-08-05 15:47 | NUR ---
GABBIE reviewed chart and spoke with attending physician. Pt was extubated earlier today. Pt had to be reintubated this afternoon. Therapy evals on hold at this time. GABBIE is following to assist as needed with discharge planning.
--- NOTE | 2019-08-05 16:09 | NUR ---
RN arrived from lunch to unit at 1438. Dr. Flood, RT, and 2 RNs in room with PT. It appeared that Dr. Flood had intubated PT at approximately 1430. Prior to intubation PT had a 26 second run of vtach followed by a 4 second pause then PT appeared to be in sinus tach. RN spoke with Dr. Arroyo and updated him of PT's condition at 1521. RN also spoke with Dr. Moon to provide an update at 1526. No new orders received. RN spoke with PT's daughters, Haylee, via phone who requested an update. RN told the daughters that the PT was extubated for several hours but was unable to tolerate the BIPAP and ABG's worsened. RN notified the daughters that the PT was re-intubated and stated she would ask Dr. Flood to call them per their request. RN spoke with Caleb CALDERON who called back for Dr. Flood's page and updated him of PT's critical ABG and passed along that the PT's family would like to speak with Dr. Flood. He verbalized understanding. PT is currently resting, propofol gtt running at 20mcs/kg. VSS. Respiratory status appears improved. High fall risk precautions in place. RN will continue to monitor.
--- NOTE | 2019-08-05 16:10 | EKG ---
[facility] [place] [address] ELECTROCARDIOGRAM REPORT Name: RAMIRO BROOKS Room #: 242-P ADM IN M.R.#: [id number] Admission: 07/26/19 Attend Phys: Annette Hogan MD Discharge: Date of : 41 Report #: [id number] THIS REPORT FOR: cc: JENNY - Family physician unknown FAM - Family physician unknown Jesse Lay MD ~ THIS REPORT FOR: //name// [facility] Test Date: 2019-08-05 Test Time: 12:14:02 Pat Name: RAMIRO BROOKS Department: Room: 242 P Gender: F Lace Stripper: Wesly VALLEJO : 1945 Requested By: Drew Moon Order Number: [id number] MD: Jesse Lay Measurements Intervals [place] Rate: 122 P: -60 [place]: 117 QRS: -54 QRSD: 134 T: 123 QT: 348 QTc: 496 Interpretive Statements Sinus tachycardia Left bundle branch block Baseline wander in lead(s) II,aVF Electronically Signed On 08-05-2019 16:08:46 CDT by Jesse Lay [email or web address] <ELECTRONICALLY SIGNED> By: Jesse Lay MD 08/05/19 1608 1214 1214 Jesse Lay MD /EPI
--- NOTE | 2019-08-05 18:05 | NUR ---
PT did not progress towards plan of care. PT is on the ventillator AC 22/Peep 8/TV 450/FIO2 70%. Family updated by RN and Dr. Flood. Lasix gtt running at 20 mg/hr. Propofol running at 20 mcs/kg/min. VSS. RN will continue to monitor.
--- NOTE | 2019-08-05 20:05 | NUR ---
SPOKE WITH DR. CAGE, DR. CAGE STATES HE SPOKE WITH DAUGHTER (RINA) ABOUT STARTING PATIENT ON DIALYSIS, TEMPORARY DIALYSIS CATHETER ORDERED TO BE PLACED IN THE MORNING BY IR AND PLAN FOR DIALYSIS EARLY TOMORROW.
--- NOTE | 2019-08-05 20:17 | NUR ---
SPOKE WITH RINA MARTIN (DAUGHTER) TO OBTAIN CONSENT FOR TEMPORARY DIALYSIS CATHETER PLACEMENT. TWO NURSE VERIFICATION COMPLETED.
[2019-08-06] VITALS (45 sets, daily range): BP systolic 91–137; BP diastolic 39–64
[2019-08-06 05:05] LABS: ALBUMIN 2.6 g/dL (3.4-5.0); CALCIUM 8.9 mg/dL (8.5-10.1); CREATININE 4.3 mg/dL (0.6-1.0); PHOSPHORUS 7.2 mg/dL (2.5-4.9); POTASSIUM 3.3 mmol/L (3.5-5.1)
--- NOTE | 2019-08-06 05:56 | NUR ---
SPOKE WITH DR CAGE, HE WOULD LIKE TO BE NOTIFIED ONCE TEMPORARY DIALYSIS CATHETER IS PLACED.
[2019-08-06 07:19] LABS: HEMATOCRIT 28.9 % (37.0-47.0); HEMOGLOBIN 9.5 gm/dL (12.0-15.0); MCH 32.4 pg (26.0-34.0); MCV 98.2 fL (80.0-100.0); RBC 2.95 mil/uL (4.20-5.00); RDW 17.7 % (10.5-14.5)
--- NOTE | 2019-08-06 07:55 | NUR ---
PATIENT ON LIGHT SEDATION, ALERT AND FOLLOWS COMMANDS. SINUS RHYTHM WITH BBB ON MONITOR, NO SIGNIFICANT CARDIAC EVENTS THROUGHOUT THE NIGHT. ON VENTILATOR FIO2 WEANED FROM 70% TO 50%, O2 SAT REMAINED ABOVE 90%. POLANCO PATENT WITH ADEQUATE OUTPUT, AWAITING DIALYSIS CATHETER PLACEMENT. PLAN DISCUSSED WITH DAUGHTERS, BOTH VERBALIZED UNDERSTANDING. NO SIGN OF ACUTE DISTRESS NOTED AT THIS TIME, WILL CONTINUE TO MONITOR.
--- NOTE | 2019-08-06 09:11 | NUR ---
chart review, noted get going to ir for temp dialysis cath and having hemodialysis. no anticpated dc over the weekend.
--- NOTE | 2019-08-06 10:49 | NUR ---
1045- patient left to go to IR for dialysis catheter placement.
--- NOTE | 2019-08-06 12:05 | NUR ---
1205- Patient arrived back from IR. Dialysis line in place with dressing covering insertion site.
--- NOTE | 2019-08-06 18:42 | NUR ---
Patient on dialysis from [id number]. She tolerated well as blood pressure maintained with systolic reading above 100mmhg, heart rate 60's-90's. She was calm and rested. Oxygenation 100%. Patient maintaining progression of care as started dialysis today, no weaning trials, however, no ectopy noted, no vtach today.
--- NOTE | 2019-08-06 19:38 | NUR ---
PATIENT'S DAUGHTER (MARY) BROUGHT IN A TABLET AND JOINT MACHINE OPERATOR IN A BLUE BAG IN ORDER TO COMMUNICATE WITH PATIENT.
--- NOTE | 2019-08-06 20:43 | NUR ---
PATIENT FACETIMED WITH FAMILY FOR APPROXIMATELY 5 MINUTES.
--- NOTE | 2019-08-06 23:45 | NUR ---
PATIENT HAD IRREGULAR HEART RHYTHM. 12 LEAD EKG COMPLETED RESULTING IN A-FLUTTER. DR. NICK NOTIFIED. NO NEW ORDERS NOTED.
[2019-08-07] VITALS (66 sets, daily range): BP systolic 91–138; BP diastolic 39–98
--- NOTE | 2019-08-07 04:32 | NUR ---
PATIENT ON LIGHT SEDATION, FOLLOWS COMMANDS AND MOVES ALL EXTREMITIES WITH SEDATION VACATION. PATIENT HAS IRREGULAR HEART RHYTHM SWITCHING FROM SINUS RHYTHM AND A-FLUTTER. ON VENTILATOR 40% FIO2, O2 SAT REMAINS ABOVE 95%. PATIENT COMPLETED DIALYSIS AT 1900 PLAN FOR ANOTHER ROUND THIS MORNING PER ORDERS. RECTAL TUBE IN PLACE. POLANCO PATENT. PHOTO TAKEN OF WOUND ON COCCYX AREA AND PLACED IN CHART. PLAN DISCUSSED WITH FAMILY. NO SIGN OF ACUTE DISTRESS NOTED AT THIS TIME. WILL CONTINUE TO MONITOR.
[2019-08-07 05:37] LABS: HEMATOCRIT 27.8 % (37.0-47.0); HEMOGLOBIN 9.2 gm/dL (12.0-15.0); MCH 32.7 pg (26.0-34.0); MCV 99.1 fL (80.0-100.0); RBC 2.81 mil/uL (4.20-5.00); RDW 18.3 % (10.5-14.5); WBC 8.8 thou/uL (4.0-11.0)
[2019-08-07 06:21] LABS: POTASSIUM 3.8 mmol/L (3.5-5.1)
--- NOTE | 2019-08-07 09:41 | NUR ---
ASSUMED CAREA AT 0700, ASSESSMENT AND VITAL SIGNS COMPLETED PER ICU PROTOCOL. DR. BUCKLEY ROUNDED, PLAN OF CARE DISCUSSED. DR. BUCKLEY WANTS TUBE FEEDS REINITIATED, RN WILL DO SO, MONITOR RESIDUAL AMOUNT.
[2019-08-08] VITALS (71 sets, daily range): BP systolic 90–147; BP diastolic 46–78
[2019-08-08 04:55] LABS: HEMATOCRIT 28.3 % (37.0-47.0); HEMOGLOBIN 9.4 gm/dL (12.0-15.0); MCH 32.7 pg (26.0-34.0); MCHC 33.1 g/dL (28.0-37.0); MCV 98.9 fL (80.0-100.0); RBC 2.86 mil/uL (4.20-5.00); RDW 17.7 % (10.5-14.5); WBC 8.7 thou/uL (4.0-11.0)
[2019-08-08 05:19] LABS: ALBUMIN 2.7 g/dL (3.4-5.0); CREATININE 2.9 mg/dL (0.6-1.0)
[2019-08-08 05:49] LABS: HEPATITIS B SURFACE AG Negative (Negative)
--- NOTE | 2019-08-08 17:26 | NUR ---
RECEIVED PT'S CARE AROUND 0730; PT. ON BED; INTUBATED; VS WNL DURING SHIFT CHANGED; PT. UNDER LIGHT SEDATION; WOKE UP AFTER CALLING NAME; DURING AM ASSESSMENT PT. ABLE TO FOLLOW COMMANDS; NO C/O PAIN; ANSWER YES & NO QUESTIONS; PER DR. SHARP D/C IV FUROSEMIDE; PARTIAL AM MEDICATION; HOLD BM MEDICATION DUE TO DIALYSIS; OGT RESIDUAL DURING THE MORNING 95 ML; PHYSICIAN NOTIFIED DURING ROUNDING; CONTINUE FEEDING; PT. ON DIALYSIS FOR ABOUT FOUR HOURS; PER REPORT 2 1/5 LITERS PULLED; PT. TOLERATED WELL; MONITORING; DURING DR. MARTINEZ ROUNDINGS POC CLARIFIED; PER PHYSICIAN PT. MIGHT GO TO CARDIAC CATH ON 08/09/2019; NO CONCENT ORDERS ON PLACE; FAMILY CALLED; PER DAUGHTER [employer] HAS NOT CONTACTED FAMILY ON REGARDLESS OF CARDIAC CATH; FAMILY UPDATE ABOUT PT'S HEALTH STATUS; QUESTIONS ANSWER; PER DR. MARTINEZ, HE CONTACTED FAMILY & ANSWERED QUESTIONS; DR. JUAN AGUILAR WILL COMMUNICATE WITH [employer] TO CLARIFY POC; FAMILY REQUESTED TO COMMUNICATE WITH PT. THROUGH TABLE AROUND 1800; NURSE MOLINA; ON THE MONITOR; MAP ABOVE 65; MONITORING; ASSESSMENT CHARGED; FOLLOWING POC; WILL PASS ON REPORT;
[2019-08-09] VITALS (72 sets, daily range): BP systolic 44–145; BP diastolic 16–95
[2019-08-09 05:20] LABS: HEMATOCRIT 31.7 % (37.0-47.0); HEMOGLOBIN 10.4 gm/dL (12.0-15.0); MCH 32.6 pg (26.0-34.0); MCHC 32.9 g/dL (28.0-37.0); MCV 99.2 fL (80.0-100.0); RBC 3.2 mil/uL (4.20-5.00); RDW 17.7 % (10.5-14.5); WBC 9.9 thou/uL (4.0-11.0)
[2019-08-09 05:28] LABS: CALCIUM 9.6 mg/dL (8.5-10.1); CREATININE 2.8 mg/dL (0.6-1.0); POTASSIUM 3.2 mmol/L (3.5-5.1)
--- NOTE | 2019-08-09 08:32 | EKG ---
[facility] [place] [address] ELECTROCARDIOGRAM REPORT Name: RAMIRO BROOKS Room #: 242-P ADM IN M.R.#: [id number] Admission: 07/26/19 Attend Phys: Annette Hogan MD Discharge: Date of : 41 Report #: [id number] THIS REPORT FOR: cc: JENNY - Family physician unknown FAM - Family physician unknown Tariq Dickinson MD [facility] ~ THIS REPORT FOR: //name// [facility] Test Date: 2019-08-06 Test Time: 23:38:03 Pat Name: RAMIRO BROOKS Department: Room: 242 P Gender: F Board Saw Runner: UNK : 1945 Requested By: Pablo Arroyo Order Number: [id number] MD: Tariq Dickinson Measurements Intervals [place] Rate: 87 P: [place]: QRS: -43 QRSD: 120 T: 137 QT: 416 QTc: 501 Interpretive Statements Atrial flutter with variable AV block Left anterior hemiblock LVH with IVCD, LAD and secondary repol abnrm Prolonged QT interval Baseline wander in lead(s) V3 No previous ECGs available for comparison Electronically Signed On 08-09-2019 8:30:39 CDT by Tariq Dickinson [email or web address] <ELECTRONICALLY SIGNED> By: Tariq Dickinson MD, [facility] 08/09/19 0830 2338 2338 Tariq Dickinson MD, [facility] /EPI
--- NOTE | 2019-08-09 10:44 | NUR ---
SEDATION VACATION IN PROGRESS. AFIB 130-145, PROPOFOL RESTARTED. CALL PLACED TO DR. GARCÍA, NOTIFIED OF STAT EKG RESULTS. AMIODARONE BOLUS, GTT ORDERED.
--- NOTE | 2019-08-09 11:05 | NUR ---
DR. GARCÍA PRESENT, OBSERVED CARDIAC RHYTHM AND STAT EKG.
--- NOTE | 2019-08-09 11:20 | NUR ---
NS BOLUS INFUSING, AMIODARONE BOLUS INFUSING. CALL PLACED TO DR. SHARP.
--- NOTE | 2019-08-09 12:00 | NUR ---
DR. SHARP RETURNED CALL, UPDATED ON AFIB WITH RVR/ AFLUTTER, PT'S STATUS, K-3.2. STOP NS BOLUS, DIALYSIS ORDERS GIVEN TO SLEEPING CAR CONDUCTOR. SEE ORDERS.
--- NOTE | 2019-08-09 16:12 | NUR ---
SW reviewed chart and spoke with attending physician. Pt having dialysis today. Pt remains in ICU and intubated. Pt may have cardiac cath. Awaiting input from family. Will need therapy evals when pt is able to participate. SW is following to assist as needed with discharge planning.
--- NOTE | 2019-08-09 16:55 | NUR ---
RINA, PT'S DAUGHTER INQUIRED REGARDING PT STATUS, UPDATED. AFIB RVR/AFLUTTER, REQUIRED FLUIDS, AMIODARONE AND LEVOPHED FOR HER SBP LOW THE 50'S. INFORMING/REINFORCING HOW A POTENTIAL CARDIAC CATH WOULD NEGATIVELY AFFECT HER KIDNEYS AND CONTINUED DIALYSIS. ALSO, HOW HER POOR HEART FUNCTION AFFECTS HER LUNGS, NEGATIVELY IMPACTING BREATHING TRIALS. IF UNABLE TO TOLERATE BREATHING TRIALS AND/OR GET OFF THE VENT, SHE WOULD BE UNABLE TO RETURN HOME. A TRACH/PEG, THEN RESIDING IN A FACILITY WOULD BE NECESSARY FOR HER CARE. RINA STATED, "I KNOW MY MOTHER DOESN'T WANT TO LIVE LIKE A VEGETABLE". SHE CONTINUED, "THIS IS SO DIFFICULT". CONTINUE CURRENT PLAN OF CARE AT THIS TIME. CALL PLACED TO DR. CAGE LITTLE REMINDER TO CALL DAUGHTER, PER HER REQUEST. CALLED CARDIOLOGY OFFICE TO REQUEST DR. GARCÍA SPEAK WITH DAUGHTER, (PER HER REQUEST) UNABLE TO REACH HIM AT THIS TIME.
[2019-08-10] VITALS (39 sets, daily range): BP systolic 92–149; BP diastolic 45–81
[2019-08-10 05:15] LABS: CALCIUM 9.3 mg/dL (8.5-10.1); CREATININE 2.4 mg/dL (0.6-1.0); POTASSIUM 3.5 mmol/L (3.5-5.1)
--- NOTE | 2019-08-10 06:28 | NUR ---
ASSUMED CARE OF PATIENT AT 1900. VSS, AFEBRILE. RESPONDS WELL TO SEDATION VACATION. NO S/S OF DISTRESS THROUGH THE NIGHT. RETURNED TO SINUS RHYTHM SHORTLY BEFORE MIDNIGHT. PROGRESSING SLOWLY TOWARDS POC GOALS.
--- NOTE | 2019-08-10 08:40 | EKG ---
[facility] [place] [address] ELECTROCARDIOGRAM REPORT Name: RAMIRO BROOKS Room #: 242-P ADM IN M.R.#: [id number] Admission: 07/26/19 Attend Phys: Annette Hogan MD Discharge: Date of : 41 Report #: [id number] THIS REPORT FOR: cc: JENNY - Family physician unknown FAM - Family physician unknown Tariq Dickinson MD [facility] ~ THIS REPORT FOR: //name// 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
--- NOTE | 2019-08-10 12:55 | 2DMMODE ---
[facility] [place] [address] 2 D/M-MODE ECHOCARDIOGRAM Name: RAMIRO BROOKS Room #: 242-P ADM IN M.R.#: [id number] Admission: 07/26/19 Attend Phys: Annette Hogan MD Discharge: Date of : 41 Report #: [id number] THIS REPORT FOR: cc: FAM - Family physician unknown FAM - Family physician unknown Pablo Arroyo MD ~ APPROVED REPORT Study performed: 08/10/2019 11:55:34 EXAM: Comprehensive 2D, Doppler, and color-flow Echocardiogram Patient Location: ICU Room #: 242 Status: routine BSA: 2.18 HR: 77 bpm BP: 123/59 mmHg Rhythm: NSR Other Information Study Quality: Adequate Technically limited study due to patient flat on back on vent, morbid obesity. Indications Congestive Heart Failure Status post cardiopulmonary arrest. LV function. Hx: CAD, CHF, COPD, HTN, HLP, DM. 2D Dimensions RVDd: 36.85 mm IVSd: 11.11 (7-11mm) LVOT Diam: 20.32 (18-24mm) LVDd: 53.65 mm PWd: 11.25 (7-11mm) Ascending Ao: 36.69 (22-36mm) LVDs: 43.73 (25-40mm) Aortic Root: 35.39 mm Volumes Left Atrial Volume (Systole) Single Plane 4CH: 48.24 mL Single Plane 2CH: 103.55 mL LA ESV Index: 35.00 mL/m2 Aortic Valve AoV Peak Russ.: 1.32 m/s [facility] [address] [place] [address] 2 D/M-MODE ECHOCARDIOGRAM Name: TODDRAMIRO Room #: 242-P [facility] IN M.R.#: [id number] Admission: 07/26/19 Attend Phys: Annette Hogan, Discharge: Date of : 41 Report #: [id number] AO Peak Gr.: 7.02 mmHg LVOT Max P.11 mmHg LVOT Max V: 0.73 m/s VESTA Vmax: 1.78 cm2 Mitral Valve E/A Ratio: 0.8 MV Decel. Time: 275.89 ms MV E Max Russ.: 0.59 m/s MV A Russ.: 0.72 m/s MV PHT: 80.01 ms IVRT: 79.58 ms Pulmonary Valve PV Peak Russ.: 1.13 m/s PV Peak Gr.: 5.13 mmHg Pulmonary Vein P Vein S: 0.31 m/s P Vein D: 0.23 m/s P Vein S/D Ratio: 1.35 Tricuspid Valve TR Peak Russ.: 2.73 m/s RAP Estimate: 5.00 mmHg TR Peak Gr.: 30.00 mmHg PA Pressure: 35.00 mmHg Left Ventricle The left ventricle is normal size. There is normal left ventricular wall thickness. Left ventricular systolic function is moderate to severely decreased. LVEF is 30%. Mild diastolic dysfunction is present (impaired relaxation pattern). Right Ventricle The right ventricle is normal size. The right ventricular systolic function is normal. Atria Left atrium is dilated. Right atrium is dilated. Aortic Valve Aortic valve leaflets are thickened and calcified. No aortic regurgitation is present. There is no aortic valvular stenosis. Mitral Valve Mitral valve leaflets are mildly calcified. Moderate mitral annular calcification. Mild mitral regurgitation. No evidence of mitral valve [facility] [address] [place] [address] 2 D/M-MODE ECHOCARDIOGRAM Name: RAMIRO BROOKS Room #: 242-P [facility] IN .R.#: [id number] Admission: 07/26/19 Attend Phys: Annette Hogan, Discharge: Date of : 41 Report #: [id number] stenosis. Tricuspid Valve The tricuspid valve is normal in structure. Mild to moderate tricuspid regurgitation. Estimated PAP is 35mmHg. Pulmonic Valve The pulmonary valve is normal in structure. Trace pulmonic regurgitation. Great Vessels The aortic root is normal in size. The ascending aorta is normal in size. IVC is normal in size and collapses >50% with inspiration. Pericardium There is no pericardial effusion. <Conclusion> The left ventricle is normal size. There is normal left ventricular wall thickness. Left ventricular systolic function is moderate to severely decreased. LVEF is 30%. The right ventricle is normal size. Left atrium is dilated. Aortic valve leaflets are thickened and calcified. Mild mitral regurgitation. Mild to moderate tricuspid regurgitation. Estimated PAP is 35mmHg. <ELECTRONICALLY SIGNED> By: Pablo Arroyo MD 08/10/19 1253 1253 1253 Pablo Arroyo MD /INF
[2019-08-10 14:24] LABS: PROTIME 10.3 Seconds (9.3-11.4)
--- NOTE | 2019-08-10 15:15 | NUR ---
TITRATED LEVOPHED OFF, AMIODARONE IV CHANGED TO PO. SEDATION VACATION ABOUT 90 MINUTES, FOLLOWS COMMANDS WITH EXTREMITIES, NO DISTRESS, WELL TOLERATED. NOTIFIED DR. GARCÍA THAT RINA, DAUGHTER REQUESTED A PHONE CALL. DR. FERREIRA PRESENT, UPDATED. ECHO COMPLETED. REPORT GIVEN TO KAREN LOBO.
--- NOTE | 2019-08-10 18:39 | NUR ---
PATIENT ON CONT TO REST THIS TIME UNDER SEDATION. SHE IS PLEASANT WITH CARES. DOES NOT SEEM TO BE IN PAIN. CONT ON VENT. POLANCO DRAINING VERY LITTLE URINE. WILL CONT WITH PLAN OF CARE.
[2019-08-11] VITALS (48 sets, daily range): BP systolic 83–146; BP diastolic 35–75
--- NOTE | 2019-08-11 04:51 | NUR ---
ASSUMED CARE OF PATIENT AT 1900. VSS, SEDATION TITRATED PER MAY. NO S/S OF DISTRESS. BP REMAINS STABLE. NPO AFTER MIDNIGHT. PLANS FOR DIALYSIS CATH AND POSSIBLE CARDIAC CATH TODAY.
[2019-08-11 05:15] LABS: HEMATOCRIT 27.4 % (37.0-47.0); HEMOGLOBIN 9.1 gm/dL (12.0-15.0); MCH 32.6 pg (26.0-34.0); MCHC 33.3 g/dL (28.0-37.0); MCV 98.1 fL (80.0-100.0); RBC 2.8 mil/uL (4.20-5.00); RDW 17.2 % (10.5-14.5); WBC 10.2 thou/uL (4.0-11.0)
[2019-08-11 05:54] LABS: CALCIUM 9.3 mg/dL (8.5-10.1); POTASSIUM 3.5 mmol/L (3.5-5.1)
[2019-08-11 06:05] LABS: CREATININE 4.1 mg/dL (0.6-1.0)
--- NOTE | 2019-08-11 07:48 | EKG ---
[facility] [place] [address] ELECTROCARDIOGRAM REPORT Name: RAMIRO BROOKS Room #: 242-P ADM IN M.R.#: [id number] Admission: 07/26/19 Attend Phys: Annette Hogan MD Discharge: Date of : 41 Report #: [id number] THIS REPORT FOR: cc: JENNY - Family physician unknown FAM - Family physician unknown Tariq Dickinson MD [facility] ~ THIS REPORT FOR: //name// [facility] Test Date: 2019-08-10 Test Time: 10:16:31 Pat Name: RAMIRO BROOKS Department: Room: 242 P Gender: F Imaging Scheduler: [facility] : 1945 Requested By: Pablo Arroyo Order Number: [id number] MD: Tariq Dickinson Measurements Intervals [place] Rate: 83 P: 4 CT: 163 QRS: -46 QRSD: 121 T: 146 QT: 427 QTc: 502 Interpretive Statements Sinus rhythm LVH with IVCD, LAD and secondary repol abnrm Prolonged QT interval Compared to ECG 08/09/2019 10:45:54 Sinus rhythm has replaced atrial fibrillation Electronically Signed On 08-11-2019 7:47:11 CDT by Tariq Dickinson [email or web address] <ELECTRONICALLY SIGNED> By: Tariq Dickinson MD, [facility] 08/11/19 0747 1016 [id number] Tariq Dickinson MD, [facility] /EPI
--- NOTE | 2019-08-11 15:38 | CATHLAB ---
[facility] [place] [address] INVASIVE PROCEDURE REPORT Name: RAMIRO BROOKS Room #: 242-P ADM IN M.R.#: [id number] Admission: 07/26/19 Attend Phys: Annette Hogan MD Discharge: Date of : 41 Report #: [id number] THIS REPORT FOR: cc: FAM - Family physician unknown FAM - Family physician unknown Pablo Arroyo MD ~ APPROVED REPORT Study performed: 08/11/2019 12:06:02 Patient Details Patient Status: In-Patient Room #: The patient is a 74 year-old female Event Personnel Pablo Arroyo Clinical Assoc, Vikki Masters RN, Glenn Cao RN RN, Melany Wilson Monitor, Chiquis Qureshi RTR, RADHA Scrub, Sarah Lawson Wild Oyster Harvester Procedures Performed Art Access - R femoral artery* Left Heart Cath w/or w/o Coronaries [id number] [facility] w/wo Plasty Single LAD [id number] Hemostasis w/ Mynx Indication CHF Current Status: Yes , Dyspnea, Cardiomyopathy, The patient presented and respiratory failure requiring intubation for prolonged period of time. She failed extubation. Etiology is attributed to CHF from cardiomyopathy and renal failure. Risk Factors Obesity, Peripheral Vascular Disease, Hypercholesterolemia, Coronary Artery DiseaseHypertensionRenal Failure, Diabetes Previous Procedures/Diagnoses Previous CHF Procedure Narrative The patient was brought urgently to the Cardiac Catheterization Laboratory and was prepped and draped in a sterile manner. The Right Groin^ was infiltrated with 1% Lidocaine subcutaneous anesthesia. A PINNACLE 6FR Sheath #[id number] sheath was inserted into the RFA^. Coronary angiography was performed using coronary diagnostic catheters. The right coronary system was accessed and visualized with [facility] [address] [place] [address] INVASIVE PROCEDURE REPORT Name: RAMIRO BROOKS Room #: 242-P [facility] IN [facility]#: [id number] Admission: 07/26/19 Attend Phys: Annette Hogan, Discharge: Date of : 41 Report #: [id number] a JR 4 catheter. The left coronary system was accessed and visualized with a VISTA 6FR XB 4 #[id number] catheter. The left ventricle was accessed and visualized with a Pigtail catheter. Left ventricular/Aortic Valve gradient assessed via catheter pullback. Pre-demployment femoral angiogram was performed . Closure device was deployed with a 6 Fr Mynx. The patient tolerated the procedure well and there were no complications associated with the procedure. There was no hematoma. Intraoperative Conscious Sedation Sedation start time: 13:36 Case end Time: 14:33 Fluoro Time: 17.80 minutes Dose: DAP 03827.00 cGycm2 4423 mGy Contrast Type and Amount: Visipaque 185 ml Coronary Angiography The patient's coronary anatomy is co- dominant. Diagnostic Cath Left Main The left main artery is a large-caliber vessel with mild diffuse disease. LAD The LAD is a moderate to large caliber vessel, tortuous and calcified throughout. Within the proximal to mid segment, there are severe stenoses, 95%. The remaining segment of the LAD is patent with no flow-limiting lesions. The LAD wraps around the apex and terminates in the mid inferior wall. Diagonal 1 There is severe diffuse disease in the proximal and mid segment of the first diagonal artery. Circumflex The left circumflex artery is a codominant vessel. There is a severe occlusion in the midsegment, 70%. OM1 There is severe diffuse disease in the proximal and mid segment of OM1. OM2 This is a small caliber vessel, with no flow-limiting lesions. Right Coronary The RCA is a moderate-sized caliber vessel, tortuous and calcified throughout. There is mild diffuse disease in the proximal and mid segments. R PDA This is a small caliber vessel, with a moderate stenosis at the ostium. Left Ventriculography Left Ventriculography was not performed. Ejection Fraction was 25-30% based off patient's Echocardiogram. An LVEDP was measured and there is no gradient across the outflow tract. [facility] [address] [place] [address] INVASIVE PROCEDURE REPORT Name: TODDRAMIRO Room #: 242-P [facility] IN M.R.#: [id number] Admission: 07/26/19 Attend Phys: Annette Hogan, Discharge: Date of : 41 Report #: [id number] IVUS Findings Euphora RX 3.0 x 12 #[id number] Hemodynamics The aortic pressure is 110/54 mmHg with a mean of 74 mmHg. The left ventricular pressure is 115/21 mmHg with a mean of mmHg. The left ventricular end diastolic pressure is 36 mmHg. PCI Technique Lesion Percutaneous coronary intervention was performed on the proximal left anterior descending artery segment. The lesion stenosis prior to intervention was 95% with FRIDA 3 flow. A VISTA 6FR XB 4 #[id number] Guide Catheter was used to engage the ostium. A Luge Wire .014 x 182CM #[id number] Interventional Guidewire was used to cross the lesion. BALLOON DILATION A Balloon catheter Euphora RX 2.5 x 12 #[id number] was inserted and inflated up to 16.00atm for 22seconds. Additional Inflation: 16.00atm for 15seconds. STENT DEPLOYMENT A drug-eluting stent RESOLUTE JOSIAS RX 3.0 X 26 #[id number] was inserted and inflated up to 18.00atm for 18seconds. POST STENT DEPLOYMENT BALLOON DILATION A Balloon catheter Euphora NC RX 3.5 x 15 #[id number] was inserted and inflated up to 16.00atm for 16seconds. Additional Inflation: 18.00atm for 24seconds. Final angiography reveals 5 % stenosis with FRIDA 3 flow. BALLOON DILATION A Balloon catheter Euphora RX 3.0 x 12 #[id number] was inserted and inflated up to 16.00atm for 34seconds. Conclusion 1. Successful insertion of a drug-eluting stent into the proximal/mid segment of the LAD. 2. Severe diffuse disease involving the first diagonal artery and OM1. Recommend medical therapy. [facility] [address] [place] [address] INVASIVE PROCEDURE REPORT Name: RAMIRO BROOKS Room #: 242-P [facility] IN M.R.#: [id number] Admission: 07/26/19 Attend Phys: Annette Hogan, Discharge: Date of : 41 Report #: [id number] 3. Moderately severe ischemic cardiomyopathy. 4. Recommend dual antiplatelet therapy and risk factor management. <ELECTRONICALLY SIGNED> By: Pablo Arroyo MD 08/11/19 1536 1536 1536 Pablo Arroyo MD /INF
--- NOTE | 2019-08-11 16:12 | NUR ---
SW reviewed chart and spoke with attending physician. Pt remains intubated. Pt to have dialysis catheter and cardiac cath today. Surgery consulted for trach/peg placement. GABBIE spoke with pt's dtr, Tiki, via phone to discuss eventual discharge plan: LTAC placement pending trach/peg placement. Options of LTAC facilities discussed. Pt's family to review 3 LTACs. Family would prefer to go to an LTAC where [facility] can see pts. SW reached out to the LTACs. [facility] does go to [facility]. They do not go to [facility]. Awaiting response from [place]. Pt's dtr verbalized understanding of need for LTAC placement upon discharge. Will need insurance authorization. GABBIE is following to assist as needed with discharge planning.
--- NOTE | 2019-08-11 16:17 | EKG ---
[facility] [place] [address] ELECTROCARDIOGRAM REPORT Name: RAMIRO BROOKS Room #: 242-P ADM IN M.R.#: [id number] Admission: 07/26/19 Attend Phys: Annette Hogan MD Discharge: Date of : 41 Report #: [id number] THIS REPORT FOR: cc: JENNY - Family physician unknown FAM - Family physician unknown Tariq Dickinson MD [facility] ~ THIS REPORT FOR: //name// [facility] Test Date: 2019-08-11 Test Time: 15:29:11 Pat Name: RAMIRO BROOKS Department: Room: 242 P Gender: F Velocity Shooter: Wesly VALLEJO : 1945 Requested By: Pablo Arroyo Order Number: [id number] MD: Tariq Dickinson Measurements Intervals [place] Rate: 92 P: 56 [place]: 176 QRS: -47 QRSD: 124 T: 124 QT: 413 QTc: 511 Interpretive Statements Sinus rhythm LVH with QRS widening and repolarization abnormality QT prolongation Compared to ECG 08/10/2019 10:16:31 No significant change was found Electronically Signed On 08-11-2019 16:16:11 CDT by Tariq Dickinson [email or web address] <ELECTRONICALLY SIGNED> By: Tariq Dickinson MD, [facility] 08/11/19 1616 1529 1529 Tariq Dickinson MD, [facility] /EPI
--- NOTE | 2019-08-11 20:00 | NUR ---
AT 1315, TO EMERY GRINDER IN ICU BED ON PACKAGING ENGINEER AND VENT WITH EMERY GRINDER STAFF AND RT. AT 1508, RETURNED FROM EMERY GRINDER. REPORT RECEIVED FROM EMERY GRINDER RN. R GROIN DRESSING CLEAN/DRY/INTACT, NO BLEEDING, BRUISING, HEMATOMA OR RETROPERTIONEAL DISCOMFORT. DENIES CHEST DISCOMFORT. PEDAL PULSES 1+. DURING SHIFT REPORT, RINA AND MARY, DAUGHTERS INQUIRED REGARDING PT STATUS. UPDATED IN DETAIL INCLUDING RESULTS OF CARDIAC CATH. RINA STATED, "WHEN WE TALKED WITH DR. GARCÍA THE HEART PROCEDURE WAS FOR FRIDAY. YOU MEAN SHE ALREADY HAD THE PROCEDURE??" APOLOGIZED FOR ANY MISUNDERSTANDING ABOUT THE DATE FOR THE PROCEDURE. DISCUSSED LAD STENT PLACEMENT, PLAN FOR TUNNELED DIALYSIS CATHETER PLACEMENT ON FRIDAY THAT WAS DEFERRED DUE TO ANGIOMAX ADMINISTRATION. CONTINUED WITH CONSULT TO DR. OTTO FOR TRACH/PEG, DATE NOT SPECIFIED AT THIS TIME. ANSWERED SEVERAL QUESTIONS TO THE SATISFACTION OF BOTH DAUGHTERS. WITH ASSISTANCE OF ONCOMING NURSE BEE JONES, THE DAUGHTERS FACE TIMED WITH THEIR MOTHER. RN REQUESTED PT'S FAVORITE MUSIC. WES HAD GOSPE[employer] FAVORITES LOADED ON IPAD, MUSIC NOW PLAYING.
[2019-08-11 20:55] LABS: HEMOGLOBIN 9.5 gm/dL (12.0-15.0)
[2019-08-12] VITALS (79 sets, daily range): BP systolic 81–142; BP diastolic 30–65
--- NOTE | 2019-08-12 03:54 | NUR ---
ASSUMED CARE OF PATIENT AT 1900. OG RESIDUALS CHECKED AT 1999. 100 ML DARK BLACK GASTRIC CONTENT OUT. Marisela MILLS NOTIFIED, ORDERS RECIEVED. OG TO LIS, GI CONSULT, CARDIOLGY UPDATED DUE TO PO AMIOADRRONE. ORDERS RECIEVED FROM CARDIOLOGY TO START IV AMIODARONE. GI CONSULT CALLED, ORDERS FOR LABS IN AM. PATIENTS FAMILY CALLED ON IPAD. ABLE TO FACETIME WITH PATIENT. THEY TALKED TO HER FOR ABOUT 5 MINUTES, PATIENT OPENING EYES AND GESTURING TO FAMILY. RESTING THROUGH THE NIGHT. PLANS FOR DIALYSIS CATH IN AM. WORKING TOWARDS POC GOALS
[2019-08-12 05:33] LABS: HEMATOCRIT 26.8 % (37.0-47.0); HEMOGLOBIN 8.9 gm/dL (12.0-15.0); MCH 32.5 pg (26.0-34.0); MCHC 33.2 g/dL (28.0-37.0); MCV 97.7 fL (80.0-100.0); RBC 2.74 mil/uL (4.20-5.00); RDW 17.7 % (10.5-14.5); WBC 9.8 thou/uL (4.0-11.0)
[2019-08-12 06:30] LABS: ALBUMIN 2.6 g/dL (3.4-5.0); CALCIUM 8.8 mg/dL (8.5-10.1); POTASSIUM 3.3 mmol/L (3.5-5.1); TOTAL BILIRUBIN 0.6 mg/dL (0.2-1.0)
[2019-08-12 06:31] LABS: CREATININE 2.6 mg/dL (0.6-1.0)
--- NOTE | 2019-08-12 08:33 | EKG ---
[facility] [place] [address] ELECTROCARDIOGRAM REPORT Name: RAMIRO BROOKS Room #: 242-P ADM IN M.R.#: [id number] Admission: 07/26/19 Attend Phys: Annette Hogan MD Discharge: Date of : 41 Report #: [id number] THIS REPORT FOR: cc: JENNY - Family physician unknown FAM - Family physician unknown Jesse Lay MD ~ THIS REPORT FOR: //name// [facility] Test Date: 2019-08-12 Test Time: 08:14:08 Pat Name: RAMIRO BROOKS Department: Room: 242 P Gender: F Review Analyst: CHRISS : 1945 Requested By: Pablo Arroyo Order Number: [id number] : Jesse Lay Measurements Intervals [place] Rate: 68 P: -5 [place]: 179 QRS: -45 QRSD: 113 T: 110 QT: 453 QTc: 482 Interpretive Statements Sinus rhythm Probable left atrial enlargement Left anterior fascicular block Abnormal R-wave progression, late transition Left ventricular hypertrophy Nonspecific T abnrm, anterolateral leads Compared to ECG 08/11/2019 15:29:11 Left anterior fascicular block now present Early repolarization no longer present Electronically Signed On 08-12-2019 8:32:32 CDT by Jesse Lay [email or web address] <ELECTRONICALLY SIGNED> By: Jesse Lay MD 08/12/19831 3 3 Jesse Lay MD /EPI
[2019-08-12 09:48] LABS: PROTIME 10.7 Seconds (9.3-11.4)
--- NOTE | 2019-08-12 09:59 | NUR ---
Nutrition: When able to resume tube feeds, REC Nepro goal rate to increase to 45 mL/hr based on current propofol demands.
--- NOTE | 2019-08-12 10:01 | NUR ---
RN assumed care at 0700. PT appeared to be resting in bed. Sedation vacation performed and PT raised her eyebrows at RN and weakly squeezed both hands. No eye opening noted at this time. Propofol was restarted at 10 mcs/kg/min. Carolyn CEILING CLEANER with cardiology at bedside. RN discussed positive occult and dark drainage from OGT and levophed was initiated at approximately 0600. Carolyn BRADFORD stated to hold the coreg this AM and she would contact Dr. Arroyo in regards to asa and plavix. Dr. Arroyo on unit told RN to give asa and plavix, monitor PT closely for bleeding, check serial H&Hs, and d/c amiodarone gtt. Okay to resume PO amiodarone. IR contacted RN and stated they would plan to place a tunneled HD catheter at 1300 this afternoon. RN verbalized understanding. High fall risk precautions in place. RN will continue to monitor.
--- NOTE | 2019-08-12 10:58 | NUR ---
RN spoke with Milana BRADFORD at bedside. Informed her that the PT's occult did come back positive. The provider was misinformed this morning. She verbalized understanding and stated that they were previously aware. Dr. Coombs rounded on PT at bedside. RN updated him of PT condition. RN also informed provider that the amiodarone gtt was shut off however PT's heart rate fluctuates between 40s-80s. PT went as low as 43 but heart rate came back up to 80s with minor stimulation. RN shut off propofol gtt to also help improve PT's rate. Dr. Coombs verbalized understanding and instructed RN to notify cardiology. RN messaged Carolyn VEGETABLE WORKER with Dr. Arroyo and informed her of heart rate changes and that the PT had what appeared to be a 5 beat run of vtach at approximately 0840. RN is awaiting resonse. Will continue to monitor.
[2019-08-12 12:18] LABS: HEMATOCRIT 27.4 % (37.0-47.0); HEMOGLOBIN 9.2 gm/dL (12.0-15.0)
--- NOTE | 2019-08-12 14:35 | NUR ---
GABBIE reviewed chart and spoke with attending physician. Pt had cardiac cath yesterday and will have dialysis catheter today. Surgery following for trach/peg placement when pt is stable. GABBIE spoke with pt's dtr, Tiki, via phone to provide update. Pt's dtr spoke with pan pusher earlier today. Pt's dtr states they would like to have video conference call with pt to discuss trach/peg placement. Pt's family is hopeful that she will improve after the cardiac cath and with dialysis that she might not need a trach/peg. Family requests to visit with pt and physician together to have discussion. SW notified attending physician of this request. Discussed LTAC placement following trach/peg placement. Options discussed yesterday. [facility] only goes to [facility]. Pt's dtr requests referral to [facility]. GABBIE faxed face sheet to [facility] and notified liaison. GABBIE is following to assist as needed with discharge planning.
--- NOTE | 2019-08-12 15:53 | NUR ---
PT left for IR with staff at approximately 1330 for a tunneled catheter placement. Bedside report was provided to IR RN. PT was brought back to unit at 1540. VSS. See reassessment for further details. A tunneled catheter is noted on the left upper chest. PT shakes her head no when asked if she is in pain. Levophed gtt is running at 3 mcgs/kg/min. High fall precautions in place. RN will continue to monitor.
[2019-08-12 19:23] LABS: HEMATOCRIT 26.8 % (37.0-47.0)
[2019-08-13] VITALS (83 sets, daily range): BP systolic 89–138; BP diastolic 33–73
[2019-08-13 00:51] LABS: HEMATOCRIT 27.2 % (37.0-47.0)
--- NOTE | 2019-08-13 05:31 | NUR ---
skin under her chin on her chest is pink and macerated. needs to be kept clean and dry. i cleaned the area and applied barrier cream and a pillow case to protect area of skin. tunnelled cath site has some oozing of blood overnight,i reinforced the dressing. denies pain when asked, she will open her eyes spontaneously and nod her head to questions. continues on a levophed gtt, increased only by one mcq/min over night. keeping MAP around 60.
[2019-08-13 06:27] LABS: HEMATOCRIT 26.9 % (37.0-47.0); MCH 32.4 pg (26.0-34.0); MCHC 33.3 g/dL (28.0-37.0); MCV 97.1 fL (80.0-100.0); RBC 2.77 mil/uL (4.20-5.00); RDW 17.4 % (10.5-14.5)
[2019-08-13 06:30] LABS: CALCIUM 9.2 mg/dL (8.5-10.1); POTASSIUM 3.3 mmol/L (3.5-5.1)
[2019-08-13 06:37] LABS: CREATININE 4.4 mg/dL (0.6-1.0)
[2019-08-13 13:48] LABS: HEMATOCRIT 27.2 % (37.0-47.0); HEMOGLOBIN 9.3 gm/dL (12.0-15.0)
--- NOTE | 2019-08-13 14:43 | NUR ---
SW reviewed chart and spoke with attending physician. Pt remains intubated. Pt had dialysis catheter placed yesterday. Attending physician rounded and face timed with pt and pt's two dtrs. Discussed plan of care and possible trach/peg placement. Surgery is following for possible trach/peg. SW spoke with pt's dtr, Tiki. Tiki states they will discuss with pt's this evening. No weekend discharge planned. SW is following to assist as needed with discharge planning.
--- NOTE | 2019-08-13 17:06 | NUR ---
ASSUMED CARE AT 0700, ASSESSMENT AND VITAL SIGNS COMPLETED PER ICU PROTOCOL. DIALYSIS REMOVE 0.7L THIS MORNING, PT REMAINS ON LEVOPHED. DR. SHARP PAGED AND NOTIFIED THAT PT'S MAP IS LOW D/T DIASTOLIC PRESSURE, THEREFORE CANNOT COME OFF LEVOPHED. DR. SHARP INSTRUCTED TO LEAVE PT ON LEVOPHED OVERNIGHT, AND HE WILL REASSESS TOMORROW.
[2019-08-14] VITALS (62 sets, daily range): BP systolic 84–130; BP diastolic 24–58
[2019-08-14 04:42] LABS: HEMATOCRIT 27.2 % (37.0-47.0); HEMOGLOBIN 9.1 gm/dL (12.0-15.0)
[2019-08-14 04:56] LABS: CALCIUM 9.5 mg/dL (8.5-10.1); POTASSIUM 3.7 mmol/L (3.5-5.1)
[2019-08-14 04:57] LABS: CREATININE 3.1 mg/dL (0.6-1.0)
--- NOTE | 2019-08-14 07:18 | NUR ---
PER RN SHIFT REPORT PT HAD DIALYSIS YESTERDAY REMOVING ONLY 3/4 OF A LITER OF FLUID. SLIGHT AMOUNT OF RED DRAINAGE TO LEFT CHEST TDC. DRESSING REINFORCED. ONLY 16ML OF UOP NOTED OVERNIGHT. TOLERATING TUBE FEEDING, NO RESIDUAL NOTED. PT WAS ABLE TO REMOVE THE OGT. THIS WAS REPLACED AND TUBE FEEDING WAS RESUMED.
--- NOTE | 2019-08-14 07:37 | NUR ---
Assumed care at 0700, vital signs and assessment completed per ICU protocol. RN will continue to monitor.
[2019-08-14 10:26] LABS: BE(vivo) -1.9 mmol/L (-2 to +3); HCO3 23.9 mmol/L (22.0-26.0); PCO2 44.5 mmHg (35.0-45.0); PO2 135.4 mmHg (80.0-100.0); pH 7.348 (7.360-7.450); sO2 98.6 % (92.0-98.0)
[2019-08-14 12:21] LABS: HEMATOCRIT 26.4 % (37.0-47.0); HEMOGLOBIN 8.9 gm/dL (12.0-15.0)
[2019-08-15] VITALS (86 sets, daily range): BP systolic 74–162; BP diastolic 29–74
[2019-08-15 01:36] LABS: CALCIUM 9.4 mg/dL (8.5-10.1); POTASSIUM 3.4 mmol/L (3.5-5.1)
[2019-08-15 01:44] LABS: CREATININE 4.5 mg/dL (0.6-1.0)
--- NOTE | 2019-08-15 04:15 | NUR ---
ASSUMED PT CARE AT THE CHANGE OF SHIFT, PT IS AWAKE, ALERT AND OTIENTED, SR ON OLU MONITOR, BP SOFT, BS 67, D10 GIVEN, BS STABALIZED, PT WENT INTO AFIB RVR AT AROUND 2345, MANAGER VALUATION AND CARDIOLOGY NOTIFIED, ORDERS RECEIVED, PT WAS STARTED ON AMIO GTT, BP DROPPED AROUND O130, STARTED ON LEVOPHED, BP IS STABLE AT THIS TIME, WILL CONTINUE TO MONITOR, RESTING WITH NO DISTRESS NOTED
[2019-08-15 04:54] LABS: CALCIUM 9.3 mg/dL (8.5-10.1); CREATININE 4.7 mg/dL (0.6-1.0); POTASSIUM 3.4 mmol/L (3.5-5.1)
--- NOTE | 2019-08-15 08:22 | NUR ---
ASSESSMENTS AND INTERVENTIONS DOCCUMENTED. AMIO TITRATED DOWN TO 0.[address] GARCÍA AT BEDSIDE AT 0815. ORDERS TO CONTINUE AMIO GTT, PER HOSPITAL POLICY. PATIENT REMAINS IN A FLUTTER AT THIS TIME. PATIENT RESTING, BUT STILL AROUSABLE.
[2019-08-15 16:45] LABS: HEMATOCRIT 25.5 % (37.0-47.0); HEMOGLOBIN 8.8 gm/dL (12.0-15.0)
[2019-08-16] VITALS (18 sets, daily range): BP systolic 93–147; BP diastolic 31–123
--- NOTE | 2019-08-16 05:20 | NUR ---
ALERT.FORGETFUL.DENIES PAIN AND SOB.REPOSITIONED Q2 HOURS AND NEEDED.ON AMIODARONE GTT AND LEVOPHED GTT TITRATED.POLANCO TO DD WITH VERY LITTLE OUTPUT.PATIENT IS OLIGURIC.MONITOR SHOWS AFIB.POC CONTINUED.
[2019-08-16 05:36] LABS: ALBUMIN 2.6 g/dL (3.4-5.0); CALCIUM 9.5 mg/dL (8.5-10.1); PHOSPHORUS 5.6 mg/dL (2.5-4.9); POTASSIUM 3.5 mmol/L (3.5-5.1)
[2019-08-16 05:37] LABS: CREATININE 5.9 mg/dL (0.6-1.0)
--- NOTE | 2019-08-16 07:58 | NUR ---
DURING ASSESSMENT, PATIENT STATING " IM READY TO , NOBODY KNOWS WHAT I HAVE BEEN THROUGH." PATIENT ASKING RN TO CALL HER DAUGHTER. RN CALLING DTR AT 0752 TO DISCUSS WHAT PATIENT IS SAYING AND DISCUSSING POC. DTR EXPRESSING UNDERSTANDING AND WANTING TO MOVE FORWARD WITH WHAT IS BEST FOR HER MOTHER. RN TO ASK DOCTORS TO CALL FAMILY.
--- NOTE | 2019-08-16 11:54 | NUR ---
discussed during los, per md dr pickering consult. md to discuss with pt and family on goals of care. pt said tired and doesnt want dialysis. will cont following as needed for dc needs.
[2019-08-17] VITALS (27 sets, daily range): BP systolic 70–170; BP diastolic 25–97
--- NOTE | 2019-08-17 00:40 | NUR ---
ASSUMED CARE OF PATENT AT 0000.
--- NOTE | 2019-08-17 06:42 | NUR ---
PATIENT ALERT AND ORIENTED X4, FORGETFUL AT TIMES. PAIN CONTROLLED WITH MEDICATION. A-FLUTTER/A-FIB ON DEFENSIVE FIRE CONTROL SYSTEMS OPERATOR, AMIODARONE INFUSING FOR RHYTHM CONTROL. PATIENT ON 2L NASAL CANNULA, O2 SAT REMAINS ABOVE 90%. POLANCO PRESENT, BLOOD SUGAR GLOSELY MONITORED. NO SIGN OF ACUTE DISTRESS NOTED AT THIS TIME. WILL CONTINUE TO MONITOR.
--- NOTE | 2019-08-17 10:31 | NUR ---
NURSE HAD A VIDEO CALL WITH PATIENT AND HER DAUGHTER. NURSE UPDATED HER ON PLAN OF CARE. PATIENT REQUESTED CAKE THAT THEY HAD HAD FOR HER. NURSE ASKED DR. FERREIRA IF IT WERE OK FOR FAMILY TO BRING IN CAKE FOR HER AND HE EXPRESSED THAT IS FINE. NURSE TO CALL DAUGHTER BACK TO LET HER KNOW.
--- NOTE | 2019-08-17 13:09 | NUR ---
Dr. Arroyo rounded after nurse paged him. Nurse asked for clarification of the amiodarone. He expressed give oral now, then shut off gtt.
--- NOTE | 2019-08-17 14:10 | NUR ---
SW reviewed chart and spoke with attending physician. Pt is extubated. Pt may want to stop dialysis. Palliative care physician consulted to discuss plan of care and treatment goals with pt and family. SW is following to assist as needed with discharge planning.
--- NOTE | 2019-08-17 15:55 | NUR ---
1500- PT and OT worked with patient.
--- NOTE | 2019-08-17 16:30 | NUR ---
1630- FACE MASK PLACED PATIENT DID NOT WANT BIPAP, YET SHE DESATURATES INTO, LOWEST, OF 55% WHEN IN DEEP SLEEP. WHEN NURSE WAKES PATIENT UP, HER O2 SATURATION ELEVATES INTO THE HIGH 90'S. SLEEP APNEA LIKE SYMPTOMS NOTEABLE ON MONITOR. SINCE FACE MASK PLACED BY RT IMPLEMENTED, PATIENT NO LONGER DESATURATING. WHEN PATIENT AWAKE, NURSE TO PUT BACK ON 2L PER NASAL CANNULA.
--- NOTE | 2019-08-17 16:52 | NUR ---
Patient progressing towards plan of care as evidenced by her ability to work with PT and OT today, increased appetite, increased spirits, and willingness to cough and deep breathe. She was able to see her daughter via face time earlier today. Spouse to bring up a slice of cake tomorrow when he visits, per ok by Dr. Coombs for that. Family aware. Rosado to be discontinued. Nurse to continue to monitor patient status.
[2019-08-18] VITALS (32 sets, daily range): BP systolic 84–139; BP diastolic 21–120
[2019-08-18 05:02] LABS: HEMATOCRIT 26.1 % (37.0-47.0); HEMOGLOBIN 8.6 gm/dL (12.0-15.0); MCH 32.2 pg (26.0-34.0); MCV 97.6 fL (80.0-100.0); RBC 2.67 mil/uL (4.20-5.00); RDW 17.3 % (10.5-14.5); WBC 6.6 thou/uL (4.0-11.0)
[2019-08-18 05:24] LABS: CREATININE 5.2 mg/dL (0.6-1.0); MAGNESIUM 1.8 mg/dL (1.8-2.4); POTASSIUM 3.6 mmol/L (3.5-5.1)
--- NOTE | 2019-08-18 05:37 | NUR ---
HELPED PT FACETIME WITH DAUGHTER AT 2029. PT REQUESTED SCD'S AND YELLOW SOCKS OFF FOR THE EVENING. CATH FLOW FINISHED FROM PREVIOUS SHIFT. ALL CAPS REPLACED, AND THEY ALL DRAW AND FLUSH, ALLOWING FOR LABS TO BE DRAWN OFF THEM THIS AM. PT WAS ON 2L NC UNTIL WHEN SHE WANTED TO GO TO BED. MOVED TO MASK TO HELP WITH SLEEP APNEA DUE TO REFUSAL OF BIPAP. PT HAD ONE BM OVERNIGHT AND MINIMAL URINE.
--- NOTE | 2019-08-18 13:00 | NUR ---
PT ASSESSMENTS DOCUMENTED. DIALYSIS THIS AM, 0.7 L OFF, TREATMENT FROM [id number]. VSS STABLE THROUGHT DIALYSIS. DECREASED APPETITE TODAY. 1 BM TODAY. PT AND FAMILY UPDATED AND EDUCATED ON STATUS AND POC. AND BEDSIDE. WOUNDS ON COCCYX ARE HEALED. PT PROGRESSING TOWARDS POC. SPOKE WITH CM TO DISCUSS PT CARE. WILL CONTINUE TO MONITOR.
--- NOTE | 2019-08-18 13:19 | NUR ---
GABBIE reviewed chart and spoke with nursing and attending physician. Pt is progressing towards goals for discharge. Per attending, pt has decided to continue with dialysis. Palliative care consult to be cancelled. PT/OT started working with pt yesterday. Pt had dialysis earlier today. Pt's at bedside today. SW spoke with pt's dtr, Tiki, via phone to provide update and discuss discharge plan: post-acute placement. Pt's dtr states their preference is for pt to go to [facility]. SW explained need for insurance authorization and pt's ability to tolerate level of therapy required for inpt acute rehab. Pt's dtr verbalized understanding and states they would not want pt going to a SNF due to the current COVID-19 pandemic. And pt did not have a good experience at [facility]. GABBIE explained that [facility] is the only [facility] that has onsite [facility] dialysis clinic. Pt's dtr states they will have pt discharge home with and outpatient dialysis if [facility] is not an option. Pt was on service with [facility] prior to admission. Pt will need outpatient dialysis arranged with D[facility] clinic. GABBIE discussed with [facility] clinical rehab specialist, who states they will see how pt does with therapy. GABBIE is following to assist as needed with discharge planning.
[2019-08-19] VITALS (18 sets, daily range): BP systolic 97–136; BP diastolic 32–74
[2019-08-19 05:29] LABS: HEMATOCRIT 27.6 % (37.0-47.0); HEMOGLOBIN 9.2 gm/dL (12.0-15.0); MCH 32.3 pg (26.0-34.0); MCHC 33.1 g/dL (28.0-37.0); MCV 97.4 fL (80.0-100.0); RBC 2.84 mil/uL (4.20-5.00); RDW 17.4 % (10.5-14.5); WBC 5.8 thou/uL (4.0-11.0)
[2019-08-19 05:53] LABS: MAGNESIUM 1.8 mg/dL (1.8-2.4)
[2019-08-19 08:21] LABS: CREATININE 3.6 mg/dL (0.6-1.0)
--- NOTE | 2019-08-19 09:44 | NUR ---
PATIENT CAN BE ACCEPTED TO ACUTE REHAB WHEN MEDICALLY STABLE IF AUTHORIZATION CAN BE OBTAINED FROM INSURANCE COMPANY. CALL MADE TO DAUGHTERS ALANNAHSEB AND RINA. PATIENT'S CURRENT FUNCTIONAL LEVEL AND POSSIBLE NEED FOR 24/7 ASSIST AT DISCHARGE FROM REHAB DISCUSSED. THE [facility] STATE THAT PLAN IS TO TAKE PATIENT HOME AND PROVIDE CARE FOR PATIENT. THEIR WISH IS FOR PATIENT TO READMIT TO [facility] REHAB FOR IMPROVING FUNCTIONAL LEVEL PRIOR TO COMINING HOME AND FOR FAMILY TRAINING. FAMILY DOES NOT WANT PATIENT TO GO TO SKILLED FACILITY. BORE MILL OPERATOR FOR PLASTIC INFORMED FOR DISCUSSION.
--- NOTE | 2019-08-19 13:25 | NUR ---
SW reviewed chart and spoke with attending physician. Pt is progressing towards goals for discharge. Pt has orders to tx out of ICU. SW discussed case with [facility] rehabilitation team lead. [facility] will submit for insurance authorization. [facility] rehabilitation team lead spoke with pt's dtrs this morning to discuss need for 24 hour care after discharge from [facility], or should insurance not approve [facility], pt would d/c home. Pt's family is not wanting pt to go to a SNF. GABBIE spoke with pt's dtrs, Gerber, via phone to further discuss discharge. Lengthy discussion with pt's dtrs regarding services provided by and private duty. Pt's dtrs are both hopeful pt can go to [facility]. But if not, they will work with getting pt home with HH and additional care if needed. Pt was on service with [facility] prior to admission. Pt will need outpatient dialysis arranged with D[facility]. GABBIE is following to assist as needed with discharge planning.
--- NOTE | 2019-08-19 14:51 | NUR ---
1451- NURSE NOTIFIED RINA, PATIENTS DAUGHTER OF TRANSFER TO ROOM 214. QUESTIONS WERE ANSWERED. CCU PHONE NUMBER WAS PROVIDED TO HER. PATIENT TRANSFERED TO CCU WITH LAPTOP, DRY COLOR TESTER, CLOTHES, RED SUITCASE, SHOES, AND OTHER 4 BAGS OF BELONGINGS. ANOTHER RN TRANSPORTED PATIENT TO NEW ROOM.
--- NOTE | 2019-08-19 20:24 | NUR ---
ASSUMMED PT CARE AT APPROXIMATELY 1500. PT A&O X3. ASSESSMENT CHARTED. FALL PRECAUTIONS IN PLACE. PT DENIES HAVING CHEST PAIN. PT DENIES HAVING SOB. PT DENIES HAVING ACUTE PAIN. INFORMED DR. GARCÍA OF ELEVATED HR. DR. GARCÍA STATED UNDERSTANDING AND HAD NO NEW ORDERS. VITAL SIGNS STABLE. PT COMFORTABLE. IN BED. PT DENIES HAVING FURTHER CONCERNS.
[2019-08-20 04:39] VITALS: BP 113/63
--- NOTE | 2019-08-20 05:11 | NUR ---
ASSUMED CARE OF PATIENT AT 1900. PATIENT MAINTAINED OXYGEN SATURATIONS IN UPPER 90s TO 100% ON 2L VIA NASAL CANNULA. PATIENT CONTINUES TO REFUSE BIPAP AND SCDs APPLIED DURING NOC. PATIENT ABLE TO ASSIST WITH TURNS. PATIENT DID REFUSE BEING TURNED TWICE. EDUCATED PATIENT ABOUT THE IMPORTANCE OF CHANING POSITIONS.
[2019-08-20 06:00] LABS: HEMATOCRIT 27.2 % (37.0-47.0); MCH 32.5 pg (26.0-34.0); MCHC 33.2 g/dL (28.0-37.0); MCV 97.7 fL (80.0-100.0); RBC 2.78 mil/uL (4.20-5.00); RDW 17.8 % (10.5-14.5); WBC 5.7 thou/uL (4.0-11.0)
[2019-08-20 06:09] LABS: CALCIUM 9.1 mg/dL (8.5-10.1); CREATININE 4.9 mg/dL (0.6-1.0); MAGNESIUM 1.7 mg/dL (1.8-2.4)
[2019-08-20 07:33] VITALS: BP 118/50
[2019-08-20 12:17] VITALS: BP 109/65
--- NOTE | 2019-08-20 12:44 | NUR ---
PT CARE ASSUMED AT 0700, PT ALERT AND ORIENTED X4, DENIES CHEST PAIN, DENIES AND VOMITING. PT IS ON ROOM AIR, NO SIGNS OF DISTRESS NOTED. ASSESSMENT COMPLETED. CALL LIGHT AND TABLE WITHIN REACH. PT IS REPOSITIONED EVERY 2 HOURS. BED AT LOWEST LEVEL WITH ALARM ON.
[2019-08-20 14:05] VITALS: BP 136/47
--- NOTE | 2019-08-20 14:32 | NUR ---
1345 REPORT GIVEN TO KAREN CARBAJAL ON 4S. ALL PT BELONGINGS PACKED AND SENT DOWN WITH PT TO ROOM 445
--- NOTE | 2019-08-20 14:33 | NUR ---
[facility] acute rehab can accept the pt for readmission pending insurance approval. They have submitted for insurance auth today. Will initiate referral to [facility] for new dialysis client per Ara in intake [phone] and have the dc assistant media planner fax her clinical.
--- NOTE | 2019-08-20 14:50 | NUR ---
CALLED [facility] TO REQUEST AUTHORIZATION FOR ACUTE REHAB. SPOKE WITH YAMIL AT [facility]. RECEIVED PRE CERT #[id number]. AWAITING RESPONSE FROM [facility] REGARDING AUTHORIZATION.
[2019-08-20 20:12] VITALS: BP 110/58
[2019-08-21 00:15] VITALS: BP 132/56
[2019-08-21 03:53] VITALS: BP 140/55
--- NOTE | 2019-08-21 04:20 | NUR ---
ASSESSED AT START OF SHIFT. PT RESTING IN BED. DENIES N/V. HYDROCODONE GIVEN FOR PAIN. DRY COUGH NOTED CALLED COP BREAKER AND ORDERS RECEIVED FOR MUCINEX. FALL PREC IN PLACE. PT HAD A BM THIS SHIFT. WILL CONT WITH POC TILL EOS.
[2019-08-21 05:43] LABS: HEMATOCRIT 26.7 % (37.0-47.0); MCH 32.9 pg (26.0-34.0); MCHC 33.6 g/dL (28.0-37.0); MCV 97.7 fL (80.0-100.0); RBC 2.73 mil/uL (4.20-5.00); RDW 17.3 % (10.5-14.5); WBC 5.6 thou/uL (4.0-11.0)
[2019-08-21 06:13] LABS: MAGNESIUM 1.8 mg/dL (1.8-2.4); POTASSIUM 4.1 mmol/L (3.5-5.1)
[2019-08-21 06:14] LABS: CREATININE 3.4 mg/dL (0.6-1.0)
--- NOTE | 2019-08-21 17:47 | NUR ---
PT ASSESSED AT START OF SHIFT. FEELING SOME BETTER. ASKING QUESTIONS RE REHAB. FEEDING SELF AND EATING WELL. CENTRAL LINE PULLED BY IV TEAM. BREATHING EVEN AND NONLABORED. NO C/O PAIN. NO BM THIS SHIFT.
[2019-08-21 21:05] VITALS: BP 122/80
--- NOTE | 2019-08-21 22:19 | NUR ---
1900 ASSUMED CARE OF PT AFTER REPORT, INFORMED BY DAY NURSE PT HAS NO IV AND MED TEAM NOT INFORMED. SCD'S PLACED ON PT 1999 BASELINE ASSESSMENT COMPLETED, EDUCATION TO PT ABOUT POSSIBLE NEED FOR IV FOR EMERGENCY MEDICATIONS, AND SAFETY, BUT PT IS REFUSING AT THIS TIME TO HAVE IV PLACED, 2099 PAIN MED GIVEN PER MAY, PT POSITION ADJUSTED, PT EDUCATION ABOUT DIALYSIS COMPLETED AND WILL TAKE PT PRINTED EDUCATION, WILL CONTINUE TO MONITOR. KARTHIK REY NOTIFIED OF REFUSAL OF IV PLACEMENT
[2019-08-22 05:00] VITALS: BP 89/43
[2019-08-22 08:10] VITALS: BP 94/55
--- NOTE | 2019-08-22 08:47 | NUR ---
ASSUMED CARE OF PT AT 0130. NO NEEDS VOICED. CALL LIGHT WITHIN REACH. FREQUENT OBSERVATION.
--- NOTE | 2019-08-22 11:00 | EKG ---
[facility] [place] [address] ELECTROCARDIOGRAM REPORT Name: RAMIRO BROOKS Room #: 445- ADM IN M.R.#: [id number] Admission: 07/26/19 Attend Phys: Annette Hogan MD Discharge: Date of : 41 Report #: [id number] THIS REPORT FOR: cc: JENNY - Family physician unknown FAM - Family physician unknown Jesse Lay MD ~ THIS REPORT FOR: //name// [facility] Test Date: 2019-08-21 Test Time: 12:11:25 Pat Name: RAMIRO BROOKS Department: Room: [facility] Gender: F Material Handling Equipment Stevedore: Tiffanie OLVERA : 1945 Requested By: Smitha Craven Order Number: [id number] MD: Jesse Lay Measurements Intervals Spencer Rate: 84 P: MT: QRS: -51 QRSD: 113 T: 194 QT: 405 QTc: 479 Interpretive Statements Atrial flutter/fibrillation Compared to ECG 08/12/2019 08:14:08 Intraventricular conduction delay now present Electronically Signed On 08-22-2019 10:59:38 CDT by Jesse Lay [email or web address] <ELECTRONICALLY SIGNED> By: Jesse Lay MD 08/22/19 1059 10 10 Jesse Lay MD /EPI
[2019-08-22 16:25] VITALS: BP 110/45
--- NOTE | 2019-08-22 20:03 | NUR ---
ASSUMED CARE OF PATIENT AT 0715, PATIENT ALERT AND ORIENTED. BEDREST AT THIS TIME. PATIENT DENIES PAIN THIS SHIFT. PATIENT HAS DIALYSIS CATHETER LEFT CHEST AREA. DIALYSIS MWF. PATIENT HAD 2 LOOSE STOOLS. AT BEDSIDE THIS AFTERNOON. NO IV ACCESS THIS SHIFT. WILL CONTINUE TO MONITOR.
[2019-08-22 20:38] VITALS: BP 114/52
--- NOTE | 2019-08-23 06:22 | NUR ---
PT LYING IN BED. DENIES PAIN. RESTING COMFORTABLY. NO NEEDS VOICED. CALL LIGHT WITHIN REACH. FREQUENT OBSERVATION.
[2019-08-23 08:20] VITALS: BP 128/42
--- NOTE | 2019-08-23 12:21 | NUR ---
CALLED [facility] THIS MORNING TO CHECK ON STATUS OF REQUEST FOR AUTHORIZATION FOR ACUTE REHAB. SPOKE WITH DERIC. AUTHORIZATION WAS PENDING OF THIS MORNING. DERIC PROVIDED FAX #[phone] TO SEND CLINICAL INFORMATION, ATTN GERMÁN PEPE. CLINICAL INFORMATION WAS FAXED THIS MORNING. CALL REFERENCE #[id number]. AWAITING RESPONSE FROM [facility].
--- NOTE | 2019-08-23 13:05 | NUR ---
GABBIE reviewed chart and spoke with nursing and attending physician. Pt was transferred to from CCU on 08/19. Awaiting insurance authorization for pt to go to . GABBIE discussed with rehabilitation tech earlier today. Pt is medically stable to discharge to . GABBIE left voice message for [facility] intake to follow up on info sent over, in case insurance does not authorize . GABBIE is following to assist as needed with discharge planning.
--- NOTE | 2019-08-23 13:24 | NUR ---
Assumed care of pt at 0700. Pt a&ox4. Received dialysis this am. 1200mL out. Q2h turn. Prefo boots in place. Room air. Denies pain. Set-up for meals. Awaiting ins auth. Fall precautions in place. Will continue to monitor.
[2019-08-23] MEDS ORDERED: IPRAT-ALBUT 0.5-3 ML INH (15:12)
[2019-08-23] MEDS ORDERED: ELIQUIS2.5 MG PO (15:12)
[2019-08-23] MEDS ORDERED: PACERONE 200 M200 M1 PO (15:13)
[2019-08-23] MEDS ORDERED: COREG6.25 MG PO (15:13)
[2019-08-23] MEDS ORDERED: DIGOXIN125 MCG PO (15:13)
--- NOTE | 2019-08-23 15:17 | NUR ---
RECEIVED CALL FROM MARI AT [facility]. Pt WAS APPROVED FOR 7 DAYS IN ACUTE REHAB WITH UPDATE DUE ON 08/30/19 TO DEMARCO MAGANA AT FAX #[phone], PHONE #[phone]. PER DR. BUCKLEY, Pt READY FOR D/C TODAY. Pt CAN ADMIT TO [facility] ACUTE REHAB TODAY. SW UPDATED WELL.
[2019-08-23 16:31] VITALS: BP 114/49
--- NOTE | 2019-08-24 07:50 | EKG ---
[facility] [place] [address] ELECTROCARDIOGRAM REPORT Name: RAMIRO BROOKS Room #: [facility] IN M.R.#: [id number] Admission: 07/26/19 Attend Phys: Annette Hogan MD Discharge: 08/23/19 Date of : 41 Report #: [id number] THIS REPORT FOR: cc: FAM - Family physician unknown FAM - Family physician unknown Tariq Dickinson MD [facility] THIS REPORT FOR: //name// [facility] Test Date: 2019-08-23 Test Time: 09:44:38 Pat Name: RAMIRO BROOKS Department: Room: [facility] Gender: F Bindery Worker: Jonny BORJA : 1945 Requested By: Carolyn Norris Order Number: [id number] MD: Tariq Dickinson Measurements Intervals [place] Rate: 80 P: [place]: QRS: -44 QRSD: 115 T: 145 QT: 420 QTc: 485 Interpretive Statements Atrial flutter with predominant 3:1 AV block LVH with IVCD, LAD and secondary repol abnrm Inferior infarct, old Compared to ECG 08/21/2019 12:11:25 No significant change was found Electronically Signed On 08-24-2019 7:49:59 CDT by Tariq Dickinson [email or web address] <ELECTRONICALLY SIGNED> By: Tariq Dickinson MD, [facility] 08/24/19 0749 Tariq Dickinson MD, [facility] /EPI
== END 2019-08-23 16:45 | DRG 246 ==
LOC: 2N 11:35 → ICU 12:38 → 2N 08-19 14:58 → 4S 08-20 14:07
PROVIDERS: Hospitalist; Internal Medicine; Internal Medicine Cardiovascular Disease; Internal Medicine Gastroenterology; Internal Medicine Nephrology; Internal Medicine Pulmonary Disease; Nurse Practitioner Family; Pediatrics; ADMIT Internal Medicine; ATTEND Internal Medicine
PROC: 0BH17EZ Insertion of Endotracheal Airway into Trachea, Via Natural or Artificial Opening (ICD-10-PCS; 2019-07-26)
PROC: 02H633Z Insertion of Infusion Device into Right Atrium, Percutaneous Approach (ICD-10-PCS; 2019-07-26)
PROC: 5A1955Z Respiratory Ventilation, Greater than 96 Consecutive Hours (ICD-10-PCS; 2019-07-26)
PROC: 30233N1 Transfusion of Nonautologous Red Blood Cells into Peripheral Vein, Percutaneous Approach (ICD-10-PCS; principal; 2019-07-29)
PROC: 5A1955Z Respiratory Ventilation, Greater than 96 Consecutive Hours (ICD-10-PCS; 2019-08-05)
PROC: 5A09357 Assistance with Respiratory Ventilation, Less than 24 Consecutive Hours, Continuous Positive Airway Pressure (ICD-10-PCS; 2019-08-05)
PROC: 0BH18EZ Insertion of Endotracheal Airway into Trachea, Via Natural or Artificial Opening Endoscopic (ICD-10-PCS; 2019-08-05)
PROC: 5A1D70Z Performance of Urinary Filtration, Intermittent, Less than 6 Hours Per Day (ICD-10-PCS; 2019-08-06)
PROC: B5181ZA Fluoroscopy of Superior Vena Cava using Low Osmolar Contrast, Guidance (ICD-10-PCS; 2019-08-06)
PROC: 02HV33Z Insertion of Infusion Device into Superior Vena Cava, Percutaneous Approach (ICD-10-PCS; 2019-08-06)
PROC: 5A1D70Z Performance of Urinary Filtration, Intermittent, Less than 6 Hours Per Day (ICD-10-PCS; 2019-08-07)
PROC: 5A1D70Z Performance of Urinary Filtration, Intermittent, Less than 6 Hours Per Day (ICD-10-PCS; 2019-08-08)
PROC: 02HV33Z Insertion of Infusion Device into Superior Vena Cava, Percutaneous Approach (ICD-10-PCS; 2019-08-08)
PROC: B211YZZ Fluoroscopy of Multiple Coronary Arteries using Other Contrast (ICD-10-PCS; 2019-08-11)
PROC: 027034Z Dilation of Coronary Artery, One Artery with Drug-eluting Intraluminal Device, Percutaneous Approach (ICD-10-PCS; 2019-08-11)
PROC: 4A023N7 Measurement of Cardiac Sampling and Pressure, Left Heart, Percutaneous Approach (ICD-10-PCS; 2019-08-11)
PROC: 02HV33Z Insertion of Infusion Device into Superior Vena Cava, Percutaneous Approach (ICD-10-PCS; 2019-08-12)
PROC: B5181ZA Fluoroscopy of Superior Vena Cava using Low Osmolar Contrast, Guidance (ICD-10-PCS; 2019-08-12)
PROC: 0JH63XZ Insertion of Tunneled Vascular Access Device into Chest Subcutaneous Tissue and Fascia, Percutaneous Approach (ICD-10-PCS; 2019-08-12)
PROC: 5A1D70Z Performance of Urinary Filtration, Intermittent, Less than 6 Hours Per Day (ICD-10-PCS; 2019-08-23)
DX: I25.10 Atherosclerotic heart disease of native coronary artery without angina pectoris (principal); I46.8 Cardiac arrest due to other underlying condition; J96.21 Acute and chronic respiratory failure with hypoxia; N18.6 End stage renal disease; L89.153 Pressure ulcer of sacral region, stage 3; I50.43 Acute on chronic combined systolic (congestive) and diastolic (congestive) heart failure; J96.22 Acute and chronic respiratory failure with hypercapnia; N17.9 Acute kidney failure, unspecified; L97.329 Non-pressure chronic ulcer of left ankle with unspecified severity; K92.0 Hematemesis; I13.2 Hypertensive heart and chronic kidney disease with heart failure and with stage 5 chronic kidney disease, or end stage renal disease; E44.0 Moderate protein-calorie malnutrition; L98.499 Non-pressure chronic ulcer of skin of other sites with unspecified severity; E66.01 Morbid (severe) obesity due to excess calories; I27.20 Pulmonary hypertension, unspecified; G47.33 Obstructive sleep apnea (adult) (pediatric); I48.91 Unspecified atrial fibrillation; E78.5 Hyperlipidemia, unspecified; J44.9 Chronic obstructive pulmonary disease, unspecified; E11.51 Type 2 diabetes mellitus with diabetic peripheral angiopathy without gangrene; E11.22 Type 2 diabetes mellitus with diabetic chronic kidney disease; I25.5 Ischemic cardiomyopathy; I87.2 Venous insufficiency (chronic) (peripheral); D63.8 Anemia in other chronic diseases classified elsewhere; K59.09 Other constipation; E11.622 Type 2 diabetes mellitus with other skin ulcer; E87.70 Fluid overload, unspecified; Z95.9 Presence of cardiac and vascular implant and graft, unspecified; Z95.5 Presence of coronary angioplasty implant and graft; Z99.2 Dependence on renal dialysis
CPT/HCPCS: 10078; 10081; 10102; 10204; 32100

== ENCOUNTER 2019-08-23 16:24 | Inpatient (IN) | payer OTHER ==
[~2019-08-23] VITALS: Ht 162.6 cm; Wt 124.1 kg
[~2019-08-23 16:24] MED LIST changes: +COREG6.25 MG PO; +DIGOXIN125 MCG PO; +ELIQUIS2.5 MG PO; +PACERONE 200 M200 M1 PO
[2019-08-23 17:45] VITALS: BP 105/47
[2019-08-23 18:27] VITALS: BP 105/47
--- NOTE | 2019-08-23 19:52 | NUR ---
ASSUMED CARE OF PT AT 1700, WHEN PT BROUGHT TO UNIT BY NURSING STAFF. REPORT RECEIVED FROM PILAR PRIOR TO PT TRANSFER. PT BROUGHT TO UNIT IN BED. SIGN ON DOOR TO REMIND STAFF TO NOT USE SPRAYS IN ROOM, DISCUSSED WITH CURRENT STAFF. ADMISSION HX AND ASSESSMENT COMPLETED, ADMISSION EDUCATION PROVIDED, VITAL SIGNS AND WEIGHT (BED) COMPLETED, MEDICATIONS FAXED, UNABLE TO CALL CONSULTS AT THIS TIME AND DUE TO PT BEING ON PHONE WITH FAMILY, PT DID NOT SIGN CONSENTS, NIGHT NURSE AWARE. WOUND TO LEFT ANKLE REPORTED BY PILAR PRIOR TO ADMISSION, WOUND TO SACRUM NOTED DURING ADMISSION ASSESSMENT, PHOTOS OBTAINED. CENTRAL LINE FOR DIALYSIS NOTED TO LEFT CHEST. FALL PRECAUTIONS IN PLACE AND NURSING WILL CONTINUE TO MONITOR.
[2019-08-23 20:30] VITALS: BP 126/58
--- NOTE | 2019-08-24 01:39 | NUR ---
assumed care at approx 1930 evening 08/22. pt lying in bed with head of bed elevated at change of shift. pt stated she was hungry and wanted her dinner heated up. pt had her own meal of ribs brought from home. pt max assist with turning and repositioning in bed. pt given hs meds with water tolerating well. pt c/o pain to left tessio and pt given po Tylenol. pt appears to be sleeping soundly with hourly rounding. bed alarm on and call light in reach. will continue to monitor.
[2019-08-24 06:05] LABS: HEMATOCRIT 28.8 % (37.0-47.0); HEMOGLOBIN 9.7 gm/dL (12.0-15.0); MCH 32.7 pg (26.0-34.0); MCHC 33.6 g/dL (28.0-37.0); MCV 97.3 fL (80.0-100.0); RBC 2.96 mil/uL (4.20-5.00); RDW 17.8 % (10.5-14.5); WBC 6.2 thou/uL (4.0-11.0)
[2019-08-24 06:21] LABS: CALCIUM 9.1 mg/dL (8.5-10.1); CREATININE 3.6 mg/dL (0.6-1.0); POTASSIUM 4.1 mmol/L (3.5-5.1)
[2019-08-24 08:18] VITALS: BP 105/55
--- NOTE | 2019-08-24 09:52 | NUR ---
GABBIE received call from Heidi at [facility] intake. Heidi requested referral for outpatient dialysis to their E- for review. GABBIE requested digital sales planner to fax referral. GABBIE updated acute rehab CM.
--- NOTE | 2019-08-24 12:12 | NUR ---
chart review. cm consulted. pt been on acute rehab prior to going back to acute hospital. cm visited with pt, intro to dcp, and team meeting. " live with spouse in a house, no stairs. was independent prior to hospital. snf in past at [facility] with gabriella. ok to talk with don, i think that is who others talk with then she tells john."/coco. will cont following as needed for dc needs.
--- NOTE | 2019-08-24 12:54 | NUR ---
SPOKE WITH DELFINA IN INTAKE AT [facility] THEY CAN ACCEPT FOR DIALYSIS AND THEY WILL NEED TO KNOW DC DATE FROM [facility] TO SET UP CHAIR TIME AT CLINIC. DP TO FOLLOW.
--- NOTE | 2019-08-24 19:19 | NUR ---
ASSUMED PT CARE AT 0700. PT ALERT AND ORIENTEDX4. HAS FLAT AFFECT THIS AM. PHYSICAL THERAPIST CAME TO WORK WITH PT THIS AM. PT C/O HEADACHE 7 AND BILATERAL KNEE PAIN 7/10, PRN TYLENOL GIVEN. NOTIFIED ISAIAS BRADFORD AND OBTAINED ORDER FOR VOLTAREN GEL, SHE SAID IT HELPED. OT CAME TO WORK WITH PT AND GAVE HER A SPONGE BATH. WOUND NURSE CAME TO PUT OPTIFOAM ON LEFT SIDE OF HER HEEL. PT COULDN'T STAND DUE TO KNEE PAIN. ASSISTED PT WITH BEDPAN, PT HAD MODERATED SOFT BM. PT HAS LEFT TESSIO DRESSING INTACT. DR. JACOBS ORDERED FOR DIALYSIS TODAY. PT LEFT UNIT AT 1600 FOR DIALYSIS. PRN TYLENOL GIVEN FOR HEADACHE AND VOLTAREN GEL APPLIED BEFORE PT LEFT THE UNIT. PT CONTINUE TO BE ON Q2HR TURN WHILE IN BED. PT TURNED WITH MIN ASSIST TO THE LEFT BUT MAX ASSIST ON THE RIGHT SIDE. OFFERED SUPPORTIVE AND EMOTION CARE. PT LOOKS SAD AT TIME, PRAYED WITH PT AND SHE FEELS BETTER AFTER THAT. FALL PRECAUTION IN PLACE. GAVE REPORT TO NIGHT NURSE TO MARIELA TO MONITOR.
--- NOTE | 2019-08-24 22:13 | NUR ---
pt finished with dialysis, transported pt back to room 516 from [facility] via bed. pt now settled back in her room. pt alert and oriented x4, appropriate and cooperative stating she is hungry. dinner tray set up for pt and hs med given as ordered. pt now eating. call light in reach. will continue to monitor.
--- NOTE | 2019-08-25 00:40 | NUR ---
assumed care at approx 1900. pt out of room until approx 2200 downstairs getting dialysis treatment. pt wheeled back to room approx 2200. pt ate meal before falling asleep. pt denied complaints. pt took hs med with water tolerating well. pt appears to be sleeping soundly with hourly rounding checks. bed alarm on and call light in reach. will continue to monitor.
[2019-08-25 07:57] VITALS: BP 146/52
--- NOTE | 2019-08-25 11:40 | NUR ---
ASSUMED PT CARE AT 0700. PT ALERT AND ORIENTEDX4. PT REPORTS SLEPT WELL LAST NIGHT. PT HAD BREATHING TX THIS AM. MORNING MEDS GIVEN PRIOR PHYSICAL THERAPY SECTION. HAS KNEE PAIN RATES PAIN 5/10, PRN TYLENOL GIVEN AND VOLTAREN GEL APPLIED. PT HAS LEFT TESSIO DRESSING INTACT. PT CONTINUE TO BE ON Q2HR TURN WHILE IN BED. PT TURNED WITH MIN ASSIST TO THE LEFT BUT MAX ASSIST ON THE RIGHT SIDE. OFFERED SUPPORTIVE AND EMOTION CARE. REASSESSMENT PER CHART. ASSISTED TO BE ON BEDPAN. HAD 200CC DARK AIMEE COLOR URINE. PT REQUESTS FOR STOOL SOFTERNER. PT DOESN'T HAVE ORDER FOR LAXATIVE. NOTIFIED SHEILA. WILL GIVE MIRALAX ORDRED. FEET DRY APPLIED LOTION. LEFT ANKLE DRESSING CHANGED. PRAFO BOOT IN PLACE WHEN IN BED. FALL PRECAUTION IN PLACE. PT USES CALL LIGHT APPROPRIATELY. HER GOALS CONTINUE TO WORK WITH THERAPY AND WORKING ON GETTING UP AND WALKING.
[2019-08-25 20:46] VITALS: BP 103/36
--- NOTE | 2019-08-26 11:30 | NUR ---
ASSUMED CARE AT 0700. PATIENT IS ALERT AND ORIENTED. PATIENT DIMAS'S, CAMPAIGN DIRECTOR ARE EQUAL. LUNGS ARE DEMINISHED. ABD IS SOFT WITH BSX4. PATIENT IS ON HEMODIALYSIS AND VOIDS VERY LITTLE URINE. PATIENT HAS A LEFT UPPER CHEST TESSIO FOR DIALYSIS. PATIENT SAT ON SIDE OF BED TODAY. PATIENT HAS LEFT ANKLE WOUND BEING CHANGED ON MWF. PATIENT REFUSES TO TURN. FALL AND SAFETY PROTOCOLS IN PLACE. C/O PAIN IN HER KNEES BILATERALLY. VOLTARIN GEL APPLIED. CONTINUES TO PROGRESS VERY SLOWLY TOWARDS D/C GOALS. WILL CONTINUE TO MONITER.
--- NOTE | 2019-08-26 15:42 | NUR ---
robles spoke with nithin at [facility] to verify where dr Smith office is at, he has office at [facility]. they will give chair time when have dc date.
[2019-08-26 21:35] VITALS: BP 106/82
--- NOTE | 2019-08-27 03:54 | NUR ---
BACK FROM DIALYSIS ABOUT 2129. ATE 50% DINNER, VOIDED ALMOST 100 CC PER BEDPAN. APPRECIATES TYLENOL, SMALL PILLOW FOR NECK, AND INITIALIZATION OF LOW AIRLOSS PUMP. DECLINED CPAP AND SCDs, APPRECIATED O2 2L (SATTING 94%) AND PRAFO BOOTS.
[2019-08-27 07:19] VITALS: BP 110/52
--- NOTE | 2019-08-27 12:19 | NUR ---
ASSUMED CARE AT 0700. PATIENT IS ALERT AND ORIENTED X4. PATIENT DIMAS'S, TESTING SHAKING SHIPPING ARE EQUAL. LUNGS ARE CLEAR AND DEMINISHED. ABD IS SOFT WITH BSX4. PATIENT IS A DIALYSIS PATIENT AND GETS DIALYSIS ON //FRI. PATIENT HAS LEFT TESSIO ACCESS FOR DIALYSIS, LEFT CHEST AREA. UP ON THE SIDE OF BED FOR BREAKFAST WITH ST. C/O SINUS DRAINAGE. DIRECTOR STATISTICAL PROGRAMMING NOTIFIED. CLARITIN GIVEN PER NEW "O". FALL AND SAFETY PROTOCOLS IN PLACE. DENIES PAIN AT THIS TIME. CONTINUES TO PROGRESS TOWARDS D/C GOALS. WILL CONTINUE TO MONITER.
[2019-08-27 20:05] VITALS: BP 123/52
--- NOTE | 2019-08-28 03:48 | NUR ---
DIALYSIS PATIENT WITH NO VOID YET THIS SHIFT. APPRECIATES LOW AIR LOSS MATTRESS ESPECIALLY SINCE SHE SLEEPS EXCLUSIVELY ON HER BACK. DELINES SCDs BECAUSE SHE STATES HER LEFT ANKLE WOUND IS FROM THE PRESSURE CAUSED BY SCD. HEELS OFF-LOADED WITH BATH BLANKETS. TOLERATING BIPAP SINCE 2200 LAST EVENING STARTED IMMEDIATELY AFTER TAKING HS MEDS. APPRECIATES VOLTAREN TO KNEES.
[2019-08-28 06:16] LABS: HEMATOCRIT 30.5 % (37.0-47.0); MCH 32.5 pg (26.0-34.0); MCHC 32.9 g/dL (28.0-37.0); MCV 98.7 fL (80.0-100.0); PLATELET COUNT 305 thou/uL (150-400); RBC 3.09 mil/uL (4.20-5.00); RDW 17.4 % (10.5-14.5); WBC 5.2 thou/uL (4.0-11.0)
[2019-08-28 06:45] LABS: ALBUMIN 2.9 g/dL (3.4-5.0); CALCIUM 9.2 mg/dL (8.5-10.1); CREATININE 3.2 mg/dL (0.6-1.0); MAGNESIUM 1.9 mg/dL (1.8-2.4); PHOSPHORUS 3.6 mg/dL (2.5-4.9); POTASSIUM 3.9 mmol/L (3.5-5.1)
[2019-08-28 08:30] VITALS: BP 110/46
[2019-08-28 10:05] LABS: ABSOLUTE NEUTROPHILS 2.1 thou/uL (1.4-8.2)
[2019-08-28 10:06] LABS: MACROCYTES 2+; MICROCYTES 1+
--- NOTE | 2019-08-28 14:00 | NUR ---
ASSUMED CARE AT 0700. PATIENT IS ALERT AND ORIENTED. REPORTS SLEPT GOOD PT HAD CPAP LAST NIGHT. REASESSMENT PER CHART.PATIENT LUNGS ARE DIMINISHED. PT HAD CHEST XRAY SHOWS INFILTRATION. ST IS WORKING WITH PT AND DOWNGRADE HER DIET TO MECHANICAL GROUND, ON NECTAR THICKNER. PT TAKE MED ONE AT THE TIME WITH NECTAR THICKENER NOW, SHE DOESN'T LIKE IT BUT TOLERATES WITH IT.REASSESSMENT PER CHART. ABD IS SOFT WITH BSX4.LAST BM WAS 2 DAYS AGO. ON COLACE BID. PRN MIRALAX GIVEN. OT CAME TO GAVE PT'S SPONGE BATH THIS AM. PT HAS SOME CUT ON RIGHT THIGHT. DR. OJEDA AWARES AND SUGGESTED TO PUT BARRIER CREAM. PT REFUSES TO BE TURN WHILE IN BED. ON LOW AIR LOSS MATTRESS. PT WORKS WITH OT, PT AND TURN WHEN SHE USES BEDPAN. PT CONT BLADDER. PATIENT IS ON HEMODIALYSIS AND VOIDS VERY LITTLE URINE. PATIENT HAS A LEFT UPPER CHEST TESSIO FOR DIALYSIS. PATIENT HAS LEFT ANKLE WOUND BEING CHANGED ON MWF BY DR. OJEDA THIS AM. FALL AND SAFETY PROTOCOLS IN PLACE. C/O PAIN IN HER KNEES BILATERALLY. TYLENOL GIVEN SCHEDULE. VOLTARIN GEL APPLIED. CONTINUES TO PROGRESS VERY SLOWLY TOWARDS D/C GOALS. WILL CONTINUE TO MONITOR. PT IS OFF THE UNIT AND IN DIALYSIS AT THIS MOMENT.
[2019-08-28 19:55] VITALS: BP 115/53
--- NOTE | 2019-08-29 04:34 | NUR ---
PT LYING IN BED. TYLENOL PROVIDING PAIN RELIEF. RESTING COMFORTABLY. NO NEEDS VOICED. CALL LIGHT WITHIN REACH. FREQUENT OBSERVATION.
[2019-08-29 08:00] VITALS: BP 131/50
--- NOTE | 2019-08-29 18:52 | NUR ---
ASSUMED CARE OF PT AT 0700. PT IS A&OX4 AND VITAL SIGNS ARE STABLE. PT REPORTS PAIN TO BILATERAL KNEES, MANAGED WITH VOLTAREN GEL AND TYLENOL. LEFT CHEST DIALYSIS LINE IN PLACE. DAUGHTER ON UNIT THIS AFTERNOON. PT ANXIOUS ABOUT POSSIBLE TRIGGERS FOR HER BREATHING PROBLEMS. PT REASSURED THAT HOUSEKEEPING IS AWARE THAT NO CLEANING SPRAYS OR WIPES ARE TO BE USED IN ROOM. PT REFUSED TO TURN OR REPOSITION. PT REFUSED TO GET OUT OF BED WITH NURSING OR THERAPIES. FALL PRECAUTIONS IN PLACE AND NURSING WILL CONTINUE TO MONITOR.
[2019-08-29 19:46] VITALS: BP 134/63
--- NOTE | 2019-08-30 02:53 | NUR ---
PT ASSESSMENT COMPLETED AND VSS. MEDS GIVEN ORDERED AND WELL TOLERATED. PT HAD A LARGE FORMED BROWN BM AT HS ON BEDPAN. MAILE CARE PROVIDED. ZGUARD USED. ASST WITH REPOSITION FOR COMFORT. CPAP ON WITH CONT 02 SAT MONITOR. SAT MONITOR ALARMING AT TIMES DURING THE NIGHT. SAT WOULD IMMEDIATELY JUMP BACK UP TO 98 - 99 PERCENT. RT STATED THAT PT MAY BENEFIT FROM ANOTHER SLEEP STUDY. SLEEPING WELL AT THIS TIME. WILL CONTINUE TO MONITOR FREQUENTLY.
[2019-08-30 05:48] LABS: HEMATOCRIT 29.1 % (37.0-47.0); HEMOGLOBIN 9.3 gm/dL (12.0-15.0); MCH 31.5 pg (26.0-34.0); MCHC 32.1 g/dL (28.0-37.0); MCV 98.1 fL (80.0-100.0); RBC 2.96 mil/uL (4.20-5.00); RDW 17.8 % (10.5-14.5); WBC 5.6 thou/uL (4.0-11.0)
[2019-08-30 06:58] LABS: CALCIUM 9.2 mg/dL (8.5-10.1); CREATININE 3.1 mg/dL (0.6-1.0); POTASSIUM 3.9 mmol/L (3.5-5.1)
--- NOTE | 2019-08-30 07:32 | NUR ---
EARLY THIS MORNING PT SAT WOULD DROP INTO THE 60S AND 70S THEN POP RIGHT BACK UP TO THE HIGH 90S. SEEMED TO BE RELATED TO HER SLEEP APNEA. CONTACTED SANCHEZ FULLER AND INFORMED HER. PER ORDERS RT ATTEMPTED TO GET ABGS BUT WAS UNABLE TO GET ONE. INFORMED SANCHEZ FULLER. LAB DRAW COMPLETED. XRAY ORDERED. PULMONARY CONSULTED. PT SAT WNL THIS MORNING. PT STATES THAT SHE FEELS FINE. GAVE REPORT TO ONCOMING KAREN SAENZ.
[2019-08-30 08:30] VITALS: BP 164/75
--- NOTE | 2019-08-30 17:18 | NUR ---
ASSUMED CARE OF PT AT 0700. PT IS A&OX4 AND VITAL SIGNS ARE STABLE. PT REPORS SOME BILATERAL KNEE PAIN, MANGED WITH ORDERED MEDICATIONS, PT PARTICIPATED IN SCHEDULED THERAPIES. PT UP IN W/C AND REPORTS DISCOMFORT UNDER LEFT THIGH WHEN UP IN W/C, BARRIER CREAM APPLIED AND BOARDER DRESSING FOR CUSHION. DRESSING TO LEFT ANKLE CHANGED PER ORDERS. FALL PRECAUTIONS IN PLACE AND NURSING WILL CONTINUE TO MONITOR.
[2019-08-30 20:00] VITALS: BP 156/70
--- NOTE | 2019-08-31 02:24 | NUR ---
assumed care at approx 1900 evening 08/29. pt lying in bed with head of bed elevated resting off and on. pt denied complaints. pt fitted with cpap for 1/2 the night and requested to have 02 per cannula after approx 199. pt now with 02 at 2l per n/c. appears to be sleeping soundly with hourly rounding. bed alarm on and call light in reach will continue to monitor.
[2019-08-31 08:00] VITALS: BP 149/76
--- NOTE | 2019-08-31 08:12 | NUR ---
ASSUMED CARE AT 0700. PATIENT IS ALERT AND ORIENTED X4. PATIENT SIEBEL SOLUTION ARCHITECT ARE EQUAL. LUNGS ARE DEMINISHED . ABD IS SOFT WITH BSX4. PATIENT HAS A LEFT CHEST TESSIO FOR DIALYSIS. PATIENT HAS DIALYSIS TODAY. PATIENT HAD 02 ON THIS A.M. 02 WAS AT 2L PER N/C. PATIENT IS ON AIR LOSS MATTRESS. PATIENT REFUSES TO TURN UP WITH LACHELLE LIFT TO W/C PER P.T. FALL AND SAFETY PROTOCOLS IN PLACE. DENIES PAIN AT THIS TIME. WILL CONTNUE TO MONITER.
--- NOTE | 2019-08-31 13:11 | NUR ---
team meeting, recommendation: dc 09/17/2019 with 24hr assistance care, home health, and dme ([facility], hospital bed, manual wheel chair). start outpt dialysis at [facility]. need to check daughter to insure family going to be ok with all dme in home and assistance pt will require.
[2019-08-31 20:06] VITALS: BP 135/59
--- NOTE | 2019-09-01 05:05 | NUR ---
Assumed pt care at 1900. A/OX4, VSS. C/o pain to don knees only with movement,medicated with scheduled Tylenol and effective. Pt had dialysis yestarday,has a left chest tesio. Continent of B&B,had a medium BM @HS via bedpan. Pt doesn't like to be repositioned, on a KIM mattress,PRAFO boots applied at HS declined SCD's. Resting quietly w/o ditress BIPAP/Continuous POX in place,will continue to monitor pt.
[2019-09-01 08:00] VITALS: BP 125/52
--- NOTE | 2019-09-01 11:40 | NUR ---
ASSUMED CARE AT 0700. PATIENT IS ALERT AND ORIENTED X4. PATIENT DIMAS'S, CHARTERED FINANCIAL ANALYST ARE EQUAL. LUNGS ARE CLEAR. ABD IS SOFT WITH BSX4. PATIENT HAS LEFT CHEST TESSIO FOR DIALYSIS. PLAN DIALYSIS IN A.M. FALL AND SAFETY PROTOCOLS IN PLACE. DENIES PAIN AT THIS TIME. PATIENT HAS DRY SKIN TO LOWER EXTREMITIES. WILL CONTINUE TO MONITER.
[2019-09-01 19:16] VITALS: BP 147/68
--- NOTE | 2019-09-02 03:40 | NUR ---
TOLERATING CPAP WITH 2L OXYGEN OVERNIGHT. DECLINES TURNING TO SIDE, LOW AIR LOSS MATTRESS. PLAN FOR DIALYSIS AFTER THERAPY TODAY. PLEASANT, STATES KNEES ARE LESS PAINFUL TONIGHT AND IS HOPING THAT SHE WILL BE ABLE TO WALK ON THEM SOON
[2019-09-02 08:00] VITALS: BP 157/62
--- NOTE | 2019-09-02 21:23 | NUR ---
ASSUMED CARE OF PT AT 0700. PT IS A&OX4 AND VITAL SIGNS ARE STABLE. PT REPORTS PAIN TO BILATERAL KNEES, MANAGED WITH PO MEDICAITONS. ORDERS FOR DIALYSIS THIS SHIFT. PER DIALYSIS NURSE 1L OF FLUID REMOVED. PT PARTICIPATED IN SCHEDULED THERAPIES. BLOOD PRESSURE ELEVATED IN EVENING, EVENING MEDICATIONS GIVEN PER ORDERS. FALL PRECAUTIONS IN PLACE AND NURSING WILL CONTINUE TO MONITOR.
--- NOTE | 2019-09-03 05:48 | NUR ---
TAKING MOST PILLS ONE AT A TIME NOW. APPRECIATES TYLENOL MOR THAN THE VOLTAREN AND RELATES TO ME THAT SHE IS MAKING ENOUGH PROGRESS THAT SHE WAS ABLE TO TAKE HERSELF TO THE PT POD WITH A WHEELCHAIR. TOLERAATING ANOTHER 8 HOURS OF CPAP OVERNIGHT TONIGHT. PLEASANT
[2019-09-03 08:10] VITALS: BP 144/67
[2019-09-03 08:41] VITALS: BP 144/67
--- NOTE | 2019-09-03 09:57 | NUR ---
ASSUMED CARE OF PT AT 0700. ALERT AND ORIENTED X4, ABLE TO VOICE HER NEEDS. REPORTS SLEPT WELL LAST NIGHT. WORKING WITH OT AT THE EDGE OF THE BED AND DID HER SPONGE BATH WITH SUPERVISION. PT REPORTS PAIN TO BILATERAL KNEES WITH MOVEMENT. MANAGED WITH PO MEDICAITONS AND VOLTARENE GEL. HAD DIALYSIS YESTERDAY. LEFT TESSION DRESSING INTACT. PT PARTICIPATED IN SCHEDULED THERAPIES. VSS ON RA. REASSESSMENT PER CHART. PT REMEMBERS TO CALL FOR HER MEDS PASS APPROPRIATLY. REPORTS HAD KNEE INJECTION 2 DAYS AGO AND SHE SAID IT HELPS.FALL PRECAUTIONS IN PLACE AND NURSING WILL CONTINUE TO MONITOR.
--- NOTE | 2019-09-03 11:38 | H ---
[facility] [place] [address] HISTORY AND PHYSICAL Name: RAMIRO BROOKS Room #: 516-1 ADM IN M.R.#: [id number] Admission: 08/23/19 Attend Phys: Davion Choi MD Discharge: Date of : 41 Report #: [id number] THIS REPORT FOR: cc: JENNY - Family physician unknown JENNY - Family physician unknown Davion Choi MD ~ CC: Davion ALVARADO unknown DATE OF SERVICE: 08/23/2019 HISTORY AND PHYSICAL/POST ADMISSION PHYSICIAN EVALUATION HISTORY OF PRESENT ILLNESS: The patient is a 74-year-old female previously known to me, known to us, who has been readmitted for acute inpatient rehabilitation. The patient had originally been admitted to [facility] on 07/13/2019 with shortness of breath and CHF with clinical improvement. She was transitioned inpatient rehabilitation where she was progressing well. COVID-19 was ruled out. While on rehabilitation, she was noted to be exposed to cleaning solution, which caused her to start wheezing and became dyspneic. She was given breathing treatment and IV steroids. Chest x-ray at that time revealed pulmonary edema and she was given 40 mg IV Lasix and she was transferred to telemetry and she then suddenly slumped over in the chair and no pulse are palpable or seen on monitor. Code blue was initiated. She was found to be in PEA, was intubated and transferred to the ICU. Chest x-ray revealed interstitial infiltrates. She had worsening of her renal failure, necessitating dialysis. She has been followed by wound care for a left lateral ankle ulcer. The patient was able to be extubated after a prolonged hospital stay. She was treated for atrial fibrillation with rapid ventricular response with episodes of V-tach and was placed on amiodarone as per Cardiology. She did undergo a left heart catheterization with PCI to the LAD. She is noted to have severe pulmonary hypertension and obstructive sleep apnea with morbid obesity. She originally was extubated on 08/05/2019, end up needing to be reintubated and then was able to be extubated again on 08/14/2019. Pulmonary medicine has been closely involved. She has now been documented as having end-stage renal disease, on dialysis with Nephrology following. She is noted to have pulmonary debilitation and she certainly may have a critical illness myopathy. She has now been readmitted for acute in-hospital inpatient rehabilitation. PAST MEDICAL HISTORY: Includes hypertension, noninsulin dependent diabetes mellitus, left hand neuropathy, GI bleed with 6 AVMs on 04/22/2015, rheumatic fever, chronic kidney disease, left rotator cuff repair, right rotator cuff tear, x 2, double mastectomy. HABITS: Cigarette smoking 1 pack per day for 40 years, quit greater than a year ago. Alcohol on occasion. [address] [address] HISTORY AND PHYSICAL Name: RAMIRO BROOKS Room #: 516-1 ADM IN M.R.#: [id number] Admission: 08/23/19 Attend Phys: Davion Choi MD Discharge: Date of : 41 Report #: [id number] SOCIAL HISTORY: Premorbidly, she has been living at home with her . No stairs. Used front-wheeled walker, independent with all ADLs and shares IADLs. No stairs. She has BiPAP at bedtime, used nasal cannula O2 as needed. REVIEW OF SYSTEMS: No current complaints of chest pain, shortness of breath or abdominal discomfort. PHYSICAL EXAMINATION: GENERAL: She was in no distress. VITAL SIGNS: Temperature 98, pulse 74, respirations 20, blood pressure 105/55. NEUROLOGIC: The patient is alert, follows basic commands without difficulty. HEENT: Facies are symmetric. CHEST: Some diffuse decreased breath sounds. CARDIOVASCULAR: Sounded regular rate and rhythm. ABDOMEN: Obese, bowel sounds positive, nontender. GENITOURINARY AND RECTAL: Deferred. Some fatigue noted from prior dialysis. Otherwise, pleasant, obese -Martiniquais female. NEUROLOGICAL: Functional range of motion of the upper extremity strength is probably a grade 3+ to 4-/5. Lower extremities functional range of motion with strength grade 3+/5. DTRs are trace to 1. Bed mobility is mod assist; supine to sit max assist; sit to supine max assist x 2 rolling to the left. She has not been ambulatory to this point. ASSESSMENT: 1. Pulmonary rehabilitation. 2. 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 3. Chronic hypoxic and hypercapnic respiratory failure, extubated on 08/05/2019, reintubated with history of chronic obstructive pulmonary disease, severe pulmonary hypertension and obstructive sleep apnea with morbid obesity, status post extubation on 08/14/2019. 4. Recent cardiac arrest, pulseless electrical activity with coronary artery disease with multivessel disease, status post left heart catheterization with PCI to LAD. 5. Acute on chronic systolic heart failure. 6. Atrial fibrillation with episodes of the ventricular tachycardia and rapid ventricular response. 7. End-stage renal disease, on hemodialysis. 8. Left lateral ankle wound with wound care involved. 9. She has chronic lower extremity edema and venous insufficiency. 10. Peripheral arterial disease with history of bilateral stents to SFA. 11. Diabetes mellitus type 2. 12. Prior history of gastrointestinal bleed. PLAN: The patient has been admitted for acute in-hospital inpatient rehabilitation. From a postadmission physician evaluation perspective, there [address] [address] HISTORY AND PHYSICAL Name: RAMIRO BROOKS Room #: 516-1 ADM IN .R.#: [id number] Admission: 08/23/19 Attend Phys: Davion Choi MD Discharge: Date of : 43 Report #: [id number] are no relevant changes since the preadmission screening. Please see the above review of prior and current medical and functional conditions and comorbidities. Please see the patient's previous and current functional status. As far as risk of complication, she has multiple medical comorbidities as noted above. Initial plan of care involves the interdisciplinary acute inpatient rehabilitation program. Measurable functional goals would be for the patient to improve as far as basic transfers, mobility, ADLs and we will also have speech involved regarding swallowing. She needs to improve as far as basic transfers and mobility issues. Hopefully, at a walker level we can get her back to the home setting. Prognosis is reasonably good. Estimated length of stay probably fairly long as she is at quite a low level. I would anticipate at least 3 weeks. Potential barriers would include her multiple medical comorbidities and decreased functional status. <ELECTRONICALLY SIGNED> By: Davion Choi MD 09/03/19 1138 [id number] Davion Choi MD /nt
--- NOTE | 2019-09-03 11:38 | PLAN ---
[facility] [place] [address] REHAB UNIT PLAN OF CARE Name: RAMIRO BROOKS Room #: 516-1 ADM IN M.R.#: [id number] Admission: 08/23/19 Attend Phys: Davion Choi MD Discharge: Date of : 41 Report #: [id number] THIS REPORT FOR: //name// CC: Davion Choi [facility] unknown DATE OF SERVICE: 08/25/2019 PROGRESS NOTE AND OVERALL PLAN OF CARE SUBJECTIVE: The patient is seen back today in followup. She is in no distress. Last recorded temperature 36.7, pulse 68, respirations 18, and blood pressure 146/52. She is alert, appropriate. I saw her sitting on the edge of the bed while working in physical therapy. She demonstrated reasonably good balance. She was able to participate as far as upper and lower body manual volitional muscle testing. There is at least a grade 3+/5. She continues max assist for basic bed mobility. We are trying to work on improving her strength and achieving the ability to come to stand. Physical therapy is elevated the bed for standing attempts with multiple attempts made with front-wheeled walker without being successful. Max assist of 2 for scooting. In speech therapy, she is on a regular diet with thin liquids. She does have swallowing precautions as noted. In occupational therapy, she is dependent for upper body dressing and lower body dressing. ASSESSMENT: 1. Pulmonary debilitation. 2. 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 3. Chronic hypoxic hypercapnic respiratory failure with prolonged mechanical ventilation. 4. Recent cardiac arrest with PEA with coronary artery disease, status post PCI to LAD. 5. Acute on chronic systolic heart failure. 6. Atrial fibrillation with episodes of ventricular tachycardia. 7. End-stage renal disease, on hemodialysis. 8. Left ankle lateral wound with wound care involved. 9. She has chronic lower extremity edema and venous insufficiency. 10. Peripheral arterial disease with history of bilateral stents to the SFA. 11. Diabetes mellitus type 2. 12. Prior history of gastrointestinal bleed. PLAN: The overall plan of care is based on the preadmission screen, post-admission physician evaluation and information garnered from therapy assessments. 1. Estimated length of stay is at least 3 weeks. 2. Medical prognosis is reasonably good. 3. Anticipated interventions includes the interdisciplinary acute inpatient [address] [address] REHAB UNIT PLAN OF CARE Name: RAMIRO BROOKS Room #: 516-1 ADM IN [facility].#: [id number] Admission: 08/23/19 Attend Phys: Davion Choi MD Discharge: Date of : 43 Report #: [id number] rehabilitation program. 4. Anticipated functional outcomes would be for the patient to become modified independent or at least to improve as far as basic transfers, mobility issues at a walker level as well as improvement with swallowing. 5. Discharge destination would be back to the home setting where she lives with her . 6. Expected therapy by discipline includes PT, OT and speech 1 hour per day each five days a week throughout the duration of the acute rehab stay, although we may be able to decrease some of the speech in favor of more PT and OT depending upon how she does. <ELECTRONICALLY SIGNED> By: Davion Choi MD 09/03/19 1138 1030 1945 Davion Choi MD /nt
[2019-09-03 20:00] VITALS: BP 156/81
--- NOTE | 2019-09-04 03:21 | NUR ---
assumed care at approx 1900 evening 09/02. pt lying in bed with head of bed elevated visiting with daughter at bedside and playing [employer] on ipad. pt pleasant and cooperative. pt stated she felt she was making good progress with her therapy. pt wearing cpap tonight tolerating well. pt appears to be sleeping soundly with hourly rounding checks. bed alarm on and call light in reach. will continue to monitor.
[2019-09-04 08:29] VITALS: BP 173/74
--- NOTE | 2019-09-04 16:05 | NUR ---
ASSUMED CARE AROUND 0700 PT A&O X 4 NO ACUTE DISTRESS DURING SHIFT. VSS O2 ON RA CPAP AT HS. PT PAIN CONTROLLED WITH AKIL TYLENOL AND VOLTERAN GEL. DIALYSIS T/TH/SAT TESSIO TO L CHEST. 2L REMOVED TODAY DURING DIALYSIS. PT CALLED FOR AM MEDS APPROPRIATELY, PARTICIPATED IN AKIL THERAPIES. CONTINENT OF B&B. RESTING IN BED, CALL LIGHT WITHIN REACH, WILL CONTINUE TO MONITOR PER POC.
[2019-09-04 20:21] VITALS: BP 139/56
--- NOTE | 2019-09-05 04:08 | NUR ---
PT LYING IN BED. X STRENGTH TYLENOL PROVIDEING PAIN RELIEF. RESTING COMFORTABLY. NO NEEDS VOICED. CALL LIGHT WITHIN REACH. FREQUENT OBSERVATION.
[2019-09-05 07:06] LABS: HEPATITIS B SURFACE AG Negative (Negative)
[2019-09-05 08:35] VITALS: BP 165/80
--- NOTE | 2019-09-05 10:10 | HC ---
[facility] [place] [address] CONSULTATION Name: RAMIRO BROOKS Room #: 516-1 ADM IN M.R.#: [id number] Admission: 08/23/19 Attend Phys: Davion Choi MD Discharge: Date of : 43 Report #: [id number] THIS REPORT FOR: cc: JENNY - Family physician unknown FAM - Family physician unknown Tito Gonzales PhD ~ CC: Davion ALVARADO unknown DATE OF SERVICE: 08/26/2019 NEUROBEHAVIORAL STATUS EXAMINATION ATTENDING PHYSICIAN: Davion Choi MD PASSENGER SERVICE MANAGER: Tito Gonzales, PhD CLINICAL PRESENTATION: The patient is a 74-year-old female admitted to the rehabilitation unit at [facility] for a comprehensive inpatient rehabilitation program. She presented to the hospital initially on 07/13/2019 with shortness of breath and congestive heart failure. The patient was assessed for COVID-19, which was ruled out. While on the rehabilitation unit, she was noted to have been exposed to a cleaning solution, which caused her to start wheezing and becoming dyspneic. Her assessment on admission to the rehab unit is pulmonary rehabilitation, probable critical illness myopathy, chronic hypoxic and hypercapnic respiratory failure, extubated on 08/05/2019, re-intubated with a history of COPD, severe pulmonary hypertension and obstructive sleep apnea with morbid obesity, status post extubation on 08/14/2019, recent cardiac arrest with pulseless electrical activity with coronary artery disease and multilevel disease, status post left heart catheterization with PCI to LAD, acute on chronic systolic heart failure, atrial fibrillation with episodes of ventricular tachycardia and rapid ventricular response, end-stage renal disease, on hemodialysis, left lateral ankle wound with wound care involved, chronic lower extremity edema with venous insufficiency, peripheral artery disease with history of bilateral stents to SFA, diabetes mellitus type 2 and a prior history of gastrointestinal bleed. A complete description of her medical condition and history can be found in her medical record. Neuropsychological consultation was requested to provide assistance in the assessment of cognitive and emotional status and to provide recommendations and services. Prior to this admission, the patient was living with the assistance of her in their home. She is with 2 children. She has a very supportive family with having raised numerous nieces and nephews. The patient [facility] [address] [place] [address] CONSULTATION Name: RAMIRO BROOKS Room #: 516-1 [facility] IN M.R.#: [id number] Admission: 08/23/19 Attend Phys: Davion Choi MD Discharge: Date of : 41 Report #: [id number] is a high school graduate. She has not driven for approximately 7 years. TECHNIQUES UTILIZED: Clinical interview, review of medical records, staff consultation and behavioral observation, family interview - daughter, clock drawing and verbal fluency assessment. EXAMINATION FINDINGS: The patient was alert and cooperative with the assessment. She accurately described events surrounding her admission. There is no evidence of aphasia. Her thoughts are logical and goal oriented. There is no evidence of thought disorder. She does not report auditory or visual hallucinations. Reported increase in anxiety and variability in memory. Her energy level is described as reduced with fatigue. She does not report difficulty with sleep, appetite or word finding. Performance on the MMSE 2 brief version is within normal limits with a raw score of 15/16. She was 3/3 for initial registration, 5/5 for orientation to time and place. She was 2/3 for immediate recall of 3 items after a brief time delay and distraction. Performance on the MMSE 2 standard version is within normal limits with a raw score of 29/30. She was 5/5 for serial 7's. She could read and follow single command, write a sentence and copy a simple geometric design. The patient was able to draw a clock and set the hands at a designated time. Category fluency resulting a T score of 42, which is at the 21st percentile and in the low average range. Single letter verbal fluency was in the average range with a T score of 59 and percentile rank of 54. The patient is presenting with some mild variability in cognition. She is alert and oriented. Mild degree of anxiety is suggested. DIAGNOSTIC IMPRESSION: Mild anxiety Mild neurocognitive disorder, unspecified, without behavior disorder. RECOMMENDATIONS: The patient is showing a very good level of recovery given the severe nature of her medical condition. Mild variability in cognition is likely and increased environmental support upon discharge will be of benefit to maintain independence and safety. Verbal praise and reassurance regarding her rehabilitation program along with breathing strategies to assist in the management of anxiety will also be of benefit. She is described as having had a delirium during aspects of her [address] [address] CONSULTATION Name: RAMIRO BROOKS Room #: 516-1 ADM IN M.R.#: [id number] Admission: 08/23/19 Attend Phys: Davion Choi MD Discharge: Date of : 41 Report #: [id number] initial treatment and that appears to have resolved. Thank you very much for allowing me to provide the consultation on this patient. <ELECTRONICALLY SIGNED> By: Tito Gonzales, PhD 09/05/19 1010 [id number] Tito Gonzales, PhD /nt
--- NOTE | 2019-09-05 15:52 | NUR ---
ASSUMED CARE AROUND 0700 PT A&O X 4, NO ACUTE DISTRESS NOTED. VSS, O2 ON RA, CPAP AT HS. PT ON AKIL TYLENOL/VOLTERAN GEL FOR KNEE PAIN. TESSIO TO L CHEST IN PLACE DIALYSIS T/TH/FRI. CONTINENT OF B&B LITTLE URINE TODAY LARGE BM THIS AM. RESTING IN BED, CALL LIGHT WITHIN REACH, WILL CONTINUE TO MONITOR PER POC.
[2019-09-05 20:49] VITALS: BP 144/66
[2019-09-06 03:06] LABS: HEP B SURFACE Ab(ANTI-HBS Reactive (()); HEPATITIS B SURFACE AG Negative (Negative)
--- NOTE | 2019-09-06 05:12 | NUR ---
PT LYING IN BED. X STRENGTH TYLENOL PROVIDING PAIN RELIEF. RESTING COMFORTABLY. NO NEEDS VOICED. CALL LIGHT WITHIN REACH. FREQUENT OBSERVATION.
[2019-09-06 06:46] LABS: ALBUMIN 2.6 g/dL (3.4-5.0); CALCIUM 8.4 mg/dL (8.5-10.1); CREATININE 2.5 mg/dL (0.6-1.0); MAGNESIUM 1.7 mg/dL (1.8-2.4); PHOSPHORUS 3.7 mg/dL (2.5-4.9); POTASSIUM 4.1 mmol/L (3.5-5.1); TOTAL BILIRUBIN 0.4 mg/dL (0.2-1.0); TOTAL PROTEIN 6.3 g/dL (6.4-8.2)
[2019-09-06 08:41] LABS: HEMATOCRIT 27.8 % (37.0-47.0)
[2019-09-06 09:00] VITALS: BP 151/72
--- NOTE | 2019-09-06 18:14 | NUR ---
ASSUMED CARE OF PT AT 0700. PT IS A&OX4 AND VITAL SIGNS ARE STABLE. PT REPORTS PAIN TO BILATERAL KNEES, PT DENIES NEED FOR INCREASED PAIN MEDICATIONS AT THIS TIME, BUT DOES REPORT PRIOR TO THERAPIES IN AM WOULD LIKE TO BE PREMEDICATED, NURSE WILL NOTIFY ONCOMING NURSE ABOUT REQUEST. LEFT TESIO CATHETER IN PLACE. LEFT ANKLE DRESSING C/D/I. FALL PRECAUTINS IN PLACE AND NURSING WILL CONTINUE TO MONITOR.
[2019-09-06 19:24] VITALS: BP 146/47
--- NOTE | 2019-09-06 22:00 | NUR ---
BRIEF REMOVED DUE TO INCONTINENCE, BUTTOCKS CLEANED AND COVERED WITH MOISTURE BARRIER. PATIENT READY FOR OVERNIGHT CPAP. INTERESTED IN OXY IR WITH FOOD IN THE MORNING PREMEDICATION BEFORE THERAPY.
[2019-09-07 08:10] VITALS: BP 149/70
--- NOTE | 2019-09-07 12:52 | NUR ---
team meeting, recommendation: cont with dc on 17 24hr supervision and assist if needed. [facility] ( pt, ot, nursing, sw ). landlord to work on small ramp over 1 step to enter home. family to assist with bills and pills. family to look for electric bed or rent hospital bed if needed. [facility].
--- NOTE | 2019-09-07 17:57 | NUR ---
ASSUMED CARE OF PT AT 0700. PT IS A&OX4 AND VITAL SIGNS ARE STABLE. PT REPORTS PAIN TO KNEES BUT STATES THAT SHE DOES NOT WANT TO TRY ORDERED OXY AT THIS TIME, BUT MAY WANT TO TRY TOMORROW DUE TO INCREASED PAIN IN THERAPIES TODAY. EDUCATED PT ON PAIN MANAGEMENT. DIALYSIS THIS SHIFT. PER DIALYSIS NURSE HOLD EVENING MEDS UNTIL DIALYSIS COMPLETED. PT NOTIFIED ABOUT FAMILY REQUEST TO SCHEDULE TRAINING TIME FOR DISCHARGE. FALL PRECAUTIONS IN PLACE AND NURSING WILL CONTINUE TO MONITOR.
[2019-09-07 20:25] VITALS: BP 120/50
--- NOTE | 2019-09-08 03:12 | NUR ---
assumed care at approx 1900 evening 09/06. pt arrived back to floor after dialysis approx 193. pt alert and oriented x4, pleasant and cooperative. pt ate dinner shortly after arriving back to floor. pt voided small amt per bedpan before hs. pt wearing cpap at present and appears to be sleeping soundly with hourly rounding checks. bed alarm on and call light in reach. will continue to monitor.
[2019-09-08 08:06] VITALS: BP 150/75
--- NOTE | 2019-09-08 14:38 | NUR ---
faxed update flow sheets to [facility], still waiting on chair [facility] faxed referral to [facility].
--- NOTE | 2019-09-08 17:38 | NUR ---
ASSUMED CARES AT 0700. PT AWAKE ALERT AND ORIENTED*4. C/O NAUSEA ZOFRAN ADMINISTERED NEEDED. C/O HEADACHE AND KRISTEN KNEE PAIN ACETAMINOPHEN AND VOLTAREN GEL ADMINISTERED SCHEDULED. TESIO CATH LEFT CHEST REMAIN INTACT. LS CLEAR BUT DIMINISHED, SATS STABLE. SOB NOTED WITH EXERCION. DID NOT TOLERATE THERAPY WELL. UP WITH 1MOD-MAX ASSIST GB AND WALKER/W/C. Q1H VISUAL CHECKS. CALL LIGHT WITHIN REACH. FALL PRECAUTIONS IN PLACE
[2019-09-08 19:53] VITALS: BP 139/57
--- NOTE | 2019-09-09 02:00 | NUR ---
assumed care at approx 1900 evening 09/07. pt sitting up in bed at change of shift alert and oriented x4, appropriate and cooperative. pt stated she did not have a good day with therapy as she was somewhat nauseated early in am. pt took hs meds with water tolerating well. pt assisted with cpap at hs and appears to be sleeping soundly with hourly rounding checks. bed alarm on and call light in reach. will continue to monitor.
[2019-09-09 08:56] VITALS: BP 134/57
--- NOTE | 2019-09-09 17:58 | NUR ---
PT CARE ASSUMED AT 0700. A&Ox4. CHF PROTOCOL. FALL PROTOCOL. PAIN REGIMENT CHANGED BY ONE HOUR TO ACCOMODATE HER PT SCHEDULE BETTER. PT VITALS STABLE. DIALYSIS MELODYETY, SAT. WEEKLY VITAMINE SHOT GIVEN. TESSO NON ACCESSED ON L. UPPER CHEST. AT DIALYSIS SINCE 1500. WILL CONTINUE TO MONITOR.
[2019-09-09 20:20] VITALS: BP 138/61
--- NOTE | 2019-09-10 03:47 | NUR ---
INCONTINENT OF URINE, BRIEF REMOVED, BUTTOCKS RINSED AND COVERED WITH MOISTURE BARRIER. CPAP WITH 02 2L BLEED IN ON AT MIDNIGHT
[2019-09-10 06:17] VITALS: BP 153/73
--- NOTE | 2019-09-10 12:42 | NUR ---
ASSUMED CARE AROUND 0700 PT A&O X 4 NO ACUTE DISTRESS NOTED. VSS O2 ON RA CPAP AT HS PT C/O KNEE PAIN ON AKIL TYLENOL AND VOLTERAN GEL. DIALYSIS T//SAT TESSIO TO L CHEST. DAILY WEIGHT. CONTINENT OF B&B MAKES LITTLE URINE. BM 09/08/19. PT SITTING IN CHAIR, CALL LIGHT WITHIN REACH, WILL CONTINUE TO MONITOR PER POC.
[2019-09-10 19:46] VITALS: BP 161/77
--- NOTE | 2019-09-11 01:58 | NUR ---
ASSESSMENT COMPLETED. PT ALERT AND ORIENTED. OBSERVED RESTING QUIETLY ON HER TABLET AT THE START OF SHIFT. PT HAS PAIN TO KNEES GETTING TIMED TYLENOL WELL VOLTAREN CREAM.SHE USED A BED NO EARLIER AND GOT A LARGE BM. FOAM DRSG TO LEFT ANKLE.USING CPAP AT [facility]. PLAN FOR DIALYSIS TOMORROW..
--- NOTE | 2019-09-11 07:58 | NUR ---
ASSUMED CARE AT 0700. PATIENT IS ALERT AND ORIENTED X4. PATIENT DIMAS'S, ASSISTANT MANAGER AIRSIDE OPERATIONS ARE EQUAL. LUNGS ARE CLEAR, ABD IS SOFT WITH BSXR4. PATIENT IS ON DIALYSIS AND HAS A LEFT TESSIO FOR DIALYSIS. PLAN FOR DIALYSIS LATER TODAY. PATIENT UP IN BED FOR MEALS. PATIENT HAS LEFT ANKLE WOUND COVERED BY BORDER FOAM. FALL AND SAFETY PROTOCOLS IN PLACE. C/O PAIN IN HER KNEES BILATERALLY. PATIENT MEDICATED WITH SCED PAIN MED. CONTINUES TO PROGRESS TOWARDS D/C GOALS. WILL CONTINUE TO MONITER.
[2019-09-11 08:00] VITALS: BP 120/51
[2019-09-11 20:00] VITALS: BP 130/62
--- NOTE | 2019-09-12 00:51 | NUR ---
assumed care at approx 1900 evening 09/10. pt sitting up in bed at change of shift using tablet in bed. pt alert and oriented x4, pleasant and cooperative. pt incontinent of urine assisted with brief change at hs. pt took hs meds with water tolerating well. pt assisted with cpap and continuous pulse oximeter in place with sats 97% and greater. pt appears to be sleeping soundly with hourly rounding. bed alarm on and call light in reach. will continue to monitor.
--- NOTE | 2019-09-12 08:04 | NUR ---
ASSUMED CARE AT 0700. PATIENT IS ALERT AND ORIENTED X4. PATIENT DIMAS'S, COMMUNICATION SKILLS INSTRUCTOR ARE EQUAL. LUNGS ARE BINU. ABD IS SOFT WITH BSX4. PATIENT HAS LEFT TESSIO FOR HEMODIALYSIS. PATIENT DOESN'T VOID MUCH. PATIENT HAS TRACE EDEMA IN HER LOWER EXTREMITIES. OPTIFORM BORDER TO HER LEFT ANKLE. DRESSING CHANGED. UP IN BED FOR BREAKFAST. FALL AND SAFETY PROTOCOLS IN PLACE. C/O PAIN IN HER KNEES. MEDICATED WITH SCED PAIN MED. CONTINUES TO PROGRESS TOWARDS D/C GOALS. WILL CONTINUE TO MONITER.
[2019-09-12 10:30] VITALS: BP 126/65
[2019-09-12 19:55] VITALS: BP 131/40
--- NOTE | 2019-09-13 01:17 | NUR ---
Assumed care of patient this pm shift. Patient in good spirits watching tv in her room. Patient has pain in her knees with activity. Patient is alert and oriented x4. Patient takes medications whole with thin fluids. Patient eliminates on the bedpan with assistance. Patients urine was yellow in color. Patients assessment shows clear breath sounds, active bowel sounds, and s1 s2 heard with auscultation. No signs of acute distress. Patient wears cpap at night with 2 liters of oxygen piped into the cpap machine. We will continue to [facility] per hospital policy.
[2019-09-13 08:30] VITALS: BP 144/64
--- NOTE | 2019-09-13 11:20 | NUR ---
cm notified by bedside nurse and 5n bar supervisor that pt has question about dialysis. robles spoke with her via phone call " dr ackerman told me today that my dialysis days will be fri, and sat but my daughter said you told her fri, fri, friday"/coco. robles passed on that [facility] stated 1st treat will be 09/20/19. hep b labs were faxed on 09/10/19 and covid test to be tested today. will cont following as needed for dc needs.
--- NOTE | 2019-09-13 13:40 | NUR ---
FAXED HEPATITIS PANEL RESULTS TO [facility] RECEIVED CONFIRMATION AND LEFT MSG WITH SHARITA IN INTAKE AT [facility]. DP TO FOLLOW.
--- NOTE | 2019-09-13 17:23 | NUR ---
ASSUMED CARE AROUND 0700 PT A&O X 4 NO ACUTE DISTRESS. VSS, O2 ON RA, CPAP AT HS. KNEE PAIN CONTROLLED WITH AKIL TYLENOL AND VOLTERAN GEL. DIALYSIS T/TH/SAT, TESSIO TO L CHEST IN PLACE. CONTINENT OF B&B, ANURIC, NO BM TODAY. PT SITTING IN RECLINER, CALL LIGHT WITHIN REACH, WILL CONTINUE TO MONITOR PER POC.
[2019-09-13 20:15] VITALS: BP 152/79
[2019-09-14 01:15] VITALS: BP 125/37
[2019-09-14 01:28] LABS: HCO3 24.2 mmol/L (22.0-26.0); PCO2 60.1 mmHg (35.0-45.0); PO2 148.9 mmHg (80.0-100.0); sO2 98.5 % (92.0-98.0)
[2019-09-14 01:30] LABS: pH 7.222 (7.360-7.450)
--- NOTE | 2019-09-14 01:55 | NUR ---
PT C/O DIFFICULTY BREATHING. PT TACYCARDIA 111-119. 02 SAT 93-97% ON CPAP. RESP PAGED, VALUE STREAM MANAGER PAGED. BLOOD GAS DRAWN AND CXR ORDERED. DR FERREIRA NOTIFIED AND ORDER TO TRANSFER TO [facility]. ACCOUNTING MANAGER NOTIFIED. HOUSE SUPR HERE WITH RT AT INITIAL C/O DIFFICULTY BREATHING. IV ATTEMPT X 2 BY THIS RN AND OTHER RN, BOTH UNSUCCESSFUL ATTEMPTS. PTS FAMILY TO BE NOTIFIED. CALL LIGHT IN REACH. SIGNAL HELPER IN ROOM AT PRESENT WITH PT PACKING UP PTS BELONGINGS.
--- NOTE | 2019-09-14 02:05 | NUR ---
CRITICAL BLOOD GAS RESULT CALLED TO DR FERREIRA -PH 7.222, PCO2 60.1-ORDER TO TRANSFER TO [address] JONNY BRADFORD NOTIFIED. AWAITING DISCHARGE ORDER TO ADMIT TO [facility].
--- NOTE | 2019-09-14 03:10 | NUR ---
NOTIFIED DAUGHTER MARY REGARDING TRANSFER TO ROOM 456 ON [address]. REPORT CALLED TO LINDA JONES ON [address]. UPON ARRIVAL TO ROOM RESP ALREADY THERE GETTING READY TO SET PT UP ON BIPAP MACHINE. PT ALERT AND ORIENTED AND AWARE OF HER NEED TO TRANSFER AND BE CLOSELY MONITORED ON TELE UNIT. PTS HEARTRATE DECREASED TO 107 AND PT STATED SHE FELT SOMEWHAT BETTER AND NOT SHORT OF BREATH. LINDA RN IN ROOM WITH PT AT TRANSFER.
[2019-09-14] MEDS ORDERED: PULMICORT0.5 MG/22 INH ×2 (15:08)
[2019-09-14] MEDS ORDERED: ZYRTEC10 MG PO ×2 (15:08)
[2019-09-14] MEDS ORDERED: TYLENOL325 MG PO ×2 (15:08)
[2019-09-17] MEDS ORDERED: OXYGEN MISCELL ×3 (08:08→09:46)
[2019-09-17] MEDS ORDERED: MIRALAX17 GM PO (09:46)
[2019-09-17] MEDS ORDERED: LIPITOR10 MG PO (09:46)
[2019-09-17] MEDS ORDERED: TYLENOL EXTRA500 MG PO (09:46)
[2019-09-17] MEDS ORDERED: VOLTAREN GEL 1100 G2 TOP (09:46)
[2019-09-17] MEDS ORDERED: COZAAR 25 MG TA25 M2 PO (09:46)
[2019-09-17] MEDS ORDERED: ELIQUIS2.5 MG PO (09:46)
[2019-09-17] MEDS ORDERED: PULMICORT0.5 MG/22 INH (09:46)
[2019-09-17] MEDS ORDERED: PROTONIX40 M1 PO (09:46)
[2019-09-17] MEDS ORDERED: PACERONE 200 M200 M1 PO (09:46)
[2019-09-17] MEDS ORDERED: PLAVIX 75 MG TA75 M1 PO (09:46)
[2019-09-17] MEDS ORDERED: COLACE100 MG PO (09:46)
[2019-09-17] MEDS ORDERED: COREG6.25 MG PO (09:46)
[2019-09-17] MEDS ORDERED: IPRAT-ALBUT 0.5-3 ML INH (09:46)
[2019-09-17] MEDS ORDERED: VENTOLIN HFA 1818 GM INH (12:59)
== END 2019-09-14 02:25 | disposition home health service (06) | DRG 947 ==
PROVIDERS: Hospitalist; Nurse Practitioner; Nurse Practitioner Family; ADMIT Physical Medicine & Rehabilitation; ATTEND Physical Medicine & Rehabilitation
PROC: 5A1D70Z Performance of Urinary Filtration, Intermittent, Less than 6 Hours Per Day (ICD-10-PCS; principal; 2019-08-25)
PROC: 5A1D70Z Performance of Urinary Filtration, Intermittent, Less than 6 Hours Per Day (ICD-10-PCS; 2019-08-26)
PROC: 5A1D70Z Performance of Urinary Filtration, Intermittent, Less than 6 Hours Per Day (ICD-10-PCS; 2019-08-27)
PROC: 5A1D70Z Performance of Urinary Filtration, Intermittent, Less than 6 Hours Per Day (ICD-10-PCS; 2019-08-28)
PROC: 5A09357 Assistance with Respiratory Ventilation, Less than 24 Consecutive Hours, Continuous Positive Airway Pressure (ICD-10-PCS; 2019-08-28)
PROC: 5A09357 Assistance with Respiratory Ventilation, Less than 24 Consecutive Hours, Continuous Positive Airway Pressure (ICD-10-PCS; 2019-08-29)
PROC: 5A1D70Z Performance of Urinary Filtration, Intermittent, Less than 6 Hours Per Day (ICD-10-PCS; 2019-08-30)
PROC: 5A09357 Assistance with Respiratory Ventilation, Less than 24 Consecutive Hours, Continuous Positive Airway Pressure (ICD-10-PCS; 2019-08-30)
PROC: 5A09457 Assistance with Respiratory Ventilation, 24-96 Consecutive Hours, Continuous Positive Airway Pressure (ICD-10-PCS; 2019-08-31)
PROC: 5A1D70Z Performance of Urinary Filtration, Intermittent, Less than 6 Hours Per Day (ICD-10-PCS; 2019-08-31)
PROC: 5A09357 Assistance with Respiratory Ventilation, Less than 24 Consecutive Hours, Continuous Positive Airway Pressure (ICD-10-PCS; 2019-08-31)
PROC: 3E0U3GC Introduction of Other Therapeutic Substance into Joints, Percutaneous Approach (ICD-10-PCS; 2019-09-01)
PROC: 5A1D70Z Performance of Urinary Filtration, Intermittent, Less than 6 Hours Per Day (ICD-10-PCS; 2019-09-01)
PROC: 5A1D70Z Performance of Urinary Filtration, Intermittent, Less than 6 Hours Per Day (ICD-10-PCS; 2019-09-02)
PROC: 5A09357 Assistance with Respiratory Ventilation, Less than 24 Consecutive Hours, Continuous Positive Airway Pressure (ICD-10-PCS; 2019-09-02)
PROC: 5A1D70Z Performance of Urinary Filtration, Intermittent, Less than 6 Hours Per Day (ICD-10-PCS; 2019-09-03)
PROC: 5A1D70Z Performance of Urinary Filtration, Intermittent, Less than 6 Hours Per Day (ICD-10-PCS; 2019-09-04)
PROC: 5A1D70Z Performance of Urinary Filtration, Intermittent, Less than 6 Hours Per Day (ICD-10-PCS; 2019-09-06)
PROC: 5A09357 Assistance with Respiratory Ventilation, Less than 24 Consecutive Hours, Continuous Positive Airway Pressure (ICD-10-PCS; 2019-09-06)
PROC: 5A09357 Assistance with Respiratory Ventilation, Less than 24 Consecutive Hours, Continuous Positive Airway Pressure (ICD-10-PCS; 2019-09-07)
PROC: 5A1D70Z Performance of Urinary Filtration, Intermittent, Less than 6 Hours Per Day (ICD-10-PCS; 2019-09-07)
PROC: 5A09357 Assistance with Respiratory Ventilation, Less than 24 Consecutive Hours, Continuous Positive Airway Pressure (ICD-10-PCS; 2019-09-08)
PROC: 5A1D70Z Performance of Urinary Filtration, Intermittent, Less than 6 Hours Per Day (ICD-10-PCS; 2019-09-08)
PROC: 5A09357 Assistance with Respiratory Ventilation, Less than 24 Consecutive Hours, Continuous Positive Airway Pressure (ICD-10-PCS; 2019-09-09)
PROC: 5A1D70Z Performance of Urinary Filtration, Intermittent, Less than 6 Hours Per Day (ICD-10-PCS; 2019-09-09)
PROC: 5A1D70Z Performance of Urinary Filtration, Intermittent, Less than 6 Hours Per Day (ICD-10-PCS; 2019-09-10)
PROC: 5A09357 Assistance with Respiratory Ventilation, Less than 24 Consecutive Hours, Continuous Positive Airway Pressure (ICD-10-PCS; 2019-09-10)
PROC: 5A09357 Assistance with Respiratory Ventilation, Less than 24 Consecutive Hours, Continuous Positive Airway Pressure (ICD-10-PCS; 2019-09-11)
PROC: 5A1D70Z Performance of Urinary Filtration, Intermittent, Less than 6 Hours Per Day (ICD-10-PCS; 2019-09-11)
PROC: 5A09357 Assistance with Respiratory Ventilation, Less than 24 Consecutive Hours, Continuous Positive Airway Pressure (ICD-10-PCS; 2019-09-12)
PROC: 5A09357 Assistance with Respiratory Ventilation, Less than 24 Consecutive Hours, Continuous Positive Airway Pressure (ICD-10-PCS; 2019-09-13)
DX: R53.81 Other malaise (principal); I50.43 Acute on chronic combined systolic (congestive) and diastolic (congestive) heart failure; L89.153 Pressure ulcer of sacral region, stage 3; N18.6 End stage renal disease; J96.21 Acute and chronic respiratory failure with hypoxia; J96.22 Acute and chronic respiratory failure with hypercapnia; I13.2 Hypertensive heart and chronic kidney disease with heart failure and with stage 5 chronic kidney disease, or end stage renal disease; Z68.42 Body mass index [BMI] 45.0-49.9, adult; I42.9 Cardiomyopathy, unspecified; G72.81 Critical illness myopathy; E44.0 Moderate protein-calorie malnutrition; N17.9 Acute kidney failure, unspecified; J44.1 Chronic obstructive pulmonary disease with (acute) exacerbation; L97.329 Non-pressure chronic ulcer of left ankle with unspecified severity; I47.2 Ventricular tachycardia; I48.91 Unspecified atrial fibrillation; I87.2 Venous insufficiency (chronic) (peripheral); E11.51 Type 2 diabetes mellitus with diabetic peripheral angiopathy without gangrene; Z99.2 Dependence on renal dialysis; E11.22 Type 2 diabetes mellitus with diabetic chronic kidney disease; E11.40 Type 2 diabetes mellitus with diabetic neuropathy, unspecified; M17.0 Bilateral primary osteoarthritis of knee; D64.9 Anemia, unspecified; Z87.891 Personal history of nicotine dependence; E78.5 Hyperlipidemia, unspecified; I27.20 Pulmonary hypertension, unspecified; I25.10 Atherosclerotic heart disease of native coronary artery without angina pectoris; G47.33 Obstructive sleep apnea (adult) (pediatric); E66.01 Morbid (severe) obesity due to excess calories; Z99.81 Dependence on supplemental oxygen; Z98.42 Cataract extraction status, left eye; Z98.41 Cataract extraction status, right eye; Z96.1 Presence of intraocular lens; Z95.5 Presence of coronary angioplasty implant and graft; Z95.820 Peripheral vascular angioplasty status with implants and grafts; Z86.74 Personal history of sudden cardiac arrest; Z88.6 Allergy status to analgesic agent; Z20.828 Contact with and (suspected) exposure to other viral communicable diseases
CPT/HCPCS: 10112; 32100

== ENCOUNTER 2019-09-14 02:31 | Inpatient (IN) | payer OTHER ==
[~2019-09-14] VITALS: Ht 162.6 cm; Wt 124.0 kg
[2019-09-14 03:35] VITALS: BP 126/64
--- NOTE | 2019-09-14 07:41 | NUR ---
NEW ADMIT AT 0300 FOR SHORTNESS OF AIR. PATIENT ON BI PAP THIS SHIFT NO SHORTNESS OF AIR OR DISTRRESS NOTED THIS SHIFT. PATIENT TURNED Q [address]. PATIENT IN BED ASLEEP AT THIS TIME BREATHING REGULAR AND UNLABOURED.
--- NOTE | 2019-09-14 08:07 | EKG ---
[facility] [place] [address] ELECTROCARDIOGRAM REPORT Name: RAMIRO BROOKS Room #: 456-P ADM IN M.R.#: [id number] Admission: 09/14/19 Attend Phys: Dominic Olivares MD Discharge: Date of : 41 Report #: [id number] THIS REPORT FOR: cc: FAM - Family physician unknown FAM - Family physician unknown Tariq Dickinson MD [facility] THIS REPORT FOR: //name// [facility] Test Date: 2019-09-14 Test Time: 07:47:32 Pat Name: RAMIRO BROOKS Department: Room: 456 Gender: F Assistant Account Manager: WILDA : 1945 Requested By: Lynette Paulson Order Number: [id number] MD: Tariq Dickinson Measurements Intervals [place] Rate: 72 P: 17 DC: 184 QRS: -38 QRSD: 115 T: 124 QT: 463 QTc: 507 Interpretive Statements Sinus rhythm Poor R wave progression Nonspecific intraventricular conduction delay Inferior infarct, old Prolonged QT interval Compared to ECG 08/23/2019 09:44:38 Sinus rhythm has replaced atrial flutter Electronically Signed On 09-14-2019 8:06:54 CDT by Tariq Dickinson [email or web address] <ELECTRONICALLY SIGNED> By: Tariq Dickinson MD, [facility] 09/14/19 0806 Tariq Dickinson MD, [facility] /EPI
[2019-09-14 08:18] VITALS: BP 150/80
--- NOTE | 2019-09-14 09:05 | NUR ---
fax negative covid test and updated labs to armando barnhart, so we can get her chair time.
[2019-09-14 09:19] LABS: HEMATOCRIT 28.7 % (37.0-47.0); HEMOGLOBIN 9.5 gm/dL (12.0-15.0); MCH 32.7 pg (26.0-34.0); MCHC 33.1 g/dL (28.0-37.0); MCV 98.8 fL (80.0-100.0); RBC 2.91 mil/uL (4.20-5.00); RDW 18.7 % (10.5-14.5); WBC 7.7 thou/uL (4.0-11.0)
[2019-09-14 09:38] LABS: ALBUMIN 3.2 g/dL (3.4-5.0); CALCIUM 9.1 mg/dL (8.5-10.1); CREATININE 2.5 mg/dL (0.6-1.0); POTASSIUM 4.8 mmol/L (3.5-5.1); TOTAL BILIRUBIN 0.3 mg/dL (0.2-1.0); TOTAL PROTEIN 7.2 g/dL (6.4-8.2)
--- NOTE | 2019-09-14 11:19 | 2DMMODE ---
[address] [address] 2 D/M-MODE ECHOCARDIOGRAM Name: RAMIRO BROOKS Room #: 456-P ADM IN M.R.#: [id number] Admission: 09/14/19 Attend Phys: Dominic Olivares MD Discharge: Date of : 43 Report #: [id number] THIS REPORT FOR: cc: FAM - Family physician unknown FAM - Family physician unknown Pablo Arroyo MD ~ APPROVED REPORT Study performed: 09/14/2019 08:45:11 EXAM: Comprehensive 2D, Doppler, and color-flow Echocardiogram Patient Location: Bedside Room #: [facility] Status: routine BSA: 2.23 HR: 84 bpm BP: 126/64 mmHg Rhythm: NSR Other Information Study Quality: Good Indications Congestive Heart Failure COPD Pulmonary Hypertension Diabetes Dyspnea CAD Cardiomyopathy Morbid obesity 2D Dimensions IVC: 29.00 mm Tricuspid Valve TR Peak Russ.: 3.61 m/s TR Peak Gr.: 52.06 mmHg PA Pressure: 67.00 mmHg Left Ventricle The left ventricle is normal size. There is hypokinesis in the inferior and septal izaguirre. Borderline concentric left ventricular hypertrophy. Left ventricular systolic function is moderate to [address] [address] 2 D/M-MODE ECHOCARDIOGRAM Name: RAMIRO BROOKS Room #: 456-P ADM IN M.R.#: [id number] Admission: 09/14/19 Attend Phys: Dominic Olivares, Discharge: Date of : 43 Report #: [id number] severely decreased. Cannot rule out left ventricular apical thrombus. No IV access for Optison. LVEF is 35%. Right Ventricle The right ventricle is normal size. The right ventricular systolic function is normal. Atria Left atrium is dilated. Right atrium is dilated. Aortic Valve The aortic valve is normal in structure. Mitral Valve The mitral valve is normal in structure. Mild mitral regurgitation. No evidence of mitral valve stenosis. Tricuspid Valve The tricuspid valve is normal in structure. There is moderate tricuspid regurgitation. Esatimated PAP 60 mmHg. There is moderate-severe pulmonary hypertension. Pulmonic Valve The pulmonary valve is normal in structure. Great Vessels The aortic root is normal in size. The inferior vena cava is dilated with no inspiratory collapse. Pericardium There is no pericardial effusion. <Conclusion> The left ventricle is normal size. Borderline concentric left ventricular hypertrophy. Left ventricular systolic function is moderate to severely decreased. Cannot rule out left ventricular apical thrombus. No IV access for Optison. The right ventricle is normal size. Left atrium is dilated. The aortic valve is normal in structure. [facility] [address] [place] [address] 2 D/M-MODE ECHOCARDIOGRAM Name: RAMIRO BROOKS Room #: 456-P [facility] IN M.R.#: [id number] Admission: 09/14/19 Attend Phys: Dominic Olivares, Discharge: Date of : 41 Report #: [id number] Mild mitral regurgitation. There is moderate tricuspid regurgitation. Esatimated PAP 60 mmHg. <ELECTRONICALLY SIGNED> By: Pablo Arroyo MD 09/14/19 1118 17 17 Pablo Arroyo MD /INF
[2019-09-14] MEDS ORDERED: TYLENOL325 MG PO ×2 (15:08)
[2019-09-14] MEDS ORDERED: PULMICORT0.5 MG/22 INH ×2 (15:08)
[2019-09-14] MEDS ORDERED: ZYRTEC10 MG PO ×2 (15:08)
--- NOTE | 2019-09-14 15:15 | NUR ---
PT DISCHARGED TO 4W THIS DAY DUE TO ACUTE RESP FAILURE FROM [facility]. PT HAD BEEN ON 5N AND WAS WORKING TOWARD DC HOME WITH FAMILY, DME AND [facility] ANTICPATED FOR FRIDAY. PT WAS BEING ESTABLISHED WITH OP HEMODIALYSIS AT [facility] AWAITING CHAIR TIME. CARE TEAM INDICATED PT IS MEDICALLY STABLE TO DC BACK TO 5N THIS DAY. 5N IS ABLE TO ACCEPT. CM NOTIFIED PT'S DTR MARY. PT TO DC BACK TO [facility] ACUTE INPATIENT REHAB THIS DAY. NO OTHER CM INTERVENTION INDICATED. CASE CLOSED.
--- NOTE | 2019-09-14 17:17 | NUR ---
ASSUMED CARE AT 0700. VSSA/2L 02. BIPAP AT [facility]. ON TELE MONITOR. H/O AFIB, CHF. TOLERATING DIET. NO PIV. DIALYSIS TODAY. NO COMPLAINTS TODAY. FEELING BETTER. PT IS DC TO 5[facility] REHAB. WAITING TO HEAR FROM RN ON THE FLOOR TO GIVE REPORT. FALL PRECAUTIONS IN PLACE. BED ALARM AND CALL LIGHT IN REACH. EDUCATION PROVIDED. WILL CONTINUE TO MONITOR
[2019-09-14 17:48] VITALS: BP 130/82
[2019-09-17] MEDS ORDERED: OXYGEN MISCELL ×3 (08:08→09:46)
[2019-09-17] MEDS ORDERED: ELIQUIS2.5 MG PO (09:46)
[2019-09-17] MEDS ORDERED: LIPITOR10 MG PO (09:46)
[2019-09-17] MEDS ORDERED: COZAAR 25 MG TA25 M2 PO (09:46)
[2019-09-17] MEDS ORDERED: PROTONIX40 M1 PO (09:46)
[2019-09-17] MEDS ORDERED: PULMICORT0.5 MG/22 INH (09:46)
[2019-09-17] MEDS ORDERED: PLAVIX 75 MG TA75 M1 PO (09:46)
[2019-09-17] MEDS ORDERED: PACERONE 200 M200 M1 PO (09:46)
[2019-09-17] MEDS ORDERED: TYLENOL EXTRA500 MG PO (09:46)
[2019-09-17] MEDS ORDERED: VOLTAREN GEL 1100 G2 TOP (09:46)
[2019-09-17] MEDS ORDERED: MIRALAX17 GM PO (09:46)
[2019-09-17] MEDS ORDERED: IPRAT-ALBUT 0.5-3 ML INH (09:46)
[2019-09-17] MEDS ORDERED: COLACE100 MG PO (09:46)
[2019-09-17] MEDS ORDERED: COREG6.25 MG PO (09:46)
[2019-09-17] MEDS ORDERED: VENTOLIN HFA 1818 GM INH (12:59)
== END 2019-09-14 18:43 | disposition home health service (06) | DRG 291 ==
LOC: 4W 02:31
PROVIDERS: Nurse Practitioner Adult Health; ADMIT Internal Medicine; ATTEND Internal Medicine
PROC: 5A1D70Z Performance of Urinary Filtration, Intermittent, Less than 6 Hours Per Day (ICD-10-PCS; principal; 2019-09-14)
PROC: 5A09357 Assistance with Respiratory Ventilation, Less than 24 Consecutive Hours, Continuous Positive Airway Pressure (ICD-10-PCS; principal; 2019-09-14)
DX: I13.2 Hypertensive heart and chronic kidney disease with heart failure and with stage 5 chronic kidney disease, or end stage renal disease (principal); I50.23 Acute on chronic systolic (congestive) heart failure; L89.153 Pressure ulcer of sacral region, stage 3; N18.6 End stage renal disease; J96.21 Acute and chronic respiratory failure with hypoxia; J96.22 Acute and chronic respiratory failure with hypercapnia; E44.0 Moderate protein-calorie malnutrition; G72.81 Critical illness myopathy; Z68.42 Body mass index [BMI] 45.0-49.9, adult; I47.2 Ventricular tachycardia; N17.9 Acute kidney failure, unspecified; I48.91 Unspecified atrial fibrillation; L89.509 Pressure ulcer of unspecified ankle, unspecified stage; I27.20 Pulmonary hypertension, unspecified; E11.22 Type 2 diabetes mellitus with diabetic chronic kidney disease; E78.5 Hyperlipidemia, unspecified; I25.10 Atherosclerotic heart disease of native coronary artery without angina pectoris; J44.9 Chronic obstructive pulmonary disease, unspecified; G47.33 Obstructive sleep apnea (adult) (pediatric); E66.01 Morbid (severe) obesity due to excess calories; S91.002A Unspecified open wound, left ankle, initial encounter; X58.XXXA Exposure to other specified factors, initial encounter; I87.2 Venous insufficiency (chronic) (peripheral); D63.8 Anemia in other chronic diseases classified elsewhere; E11.51 Type 2 diabetes mellitus with diabetic peripheral angiopathy without gangrene; I50.9 Heart failure, unspecified; I25.5 Ischemic cardiomyopathy; G47.00 Insomnia, unspecified; D64.9 Anemia, unspecified; K59.00 Constipation, unspecified; Z99.81 Dependence on supplemental oxygen; Z79.01 Long term (current) use of anticoagulants; Y93.89 Activity, other specified; Y92.89 Other specified places as the place of occurrence of the external cause; Y99.8 Other external cause status; Z95.820 Peripheral vascular angioplasty status with implants and grafts; Z79.899 Other long term (current) drug therapy
CPT/HCPCS: 10045; 32100

== ENCOUNTER → 2019-10-06 | Outpatient (CLI) | payer OTHER ==
[~2019-10-06] MED LIST changes: +COZAAR 25 MG TA25 M2 PO; +MIRALAX17 GM PO; +OXYGEN MISCELL; +TYLENOL EXTRA500 MG PO; +TYLENOL325 MG PO; +VENTOLIN HFA 1818 GM INH; +VOLTAREN GEL 1100 G2 TOP; +ZYRTEC10 MG PO
== END ==
LOC: SJCVC 11:27
PROVIDERS: ATTEND Internal Medicine Cardiovascular Disease
DX: I25.10 Atherosclerotic heart disease of native coronary artery without angina pectoris (principal); R94.31 Abnormal electrocardiogram [ECG] [EKG]; I11.0 Hypertensive heart disease with heart failure; I50.42 Chronic combined systolic (congestive) and diastolic (congestive) heart failure; I25.2 Old myocardial infarction; Z79.899 Other long term (current) drug therapy; Z87.891 Personal history of nicotine dependence

== ENCOUNTER 2020-01-22 16:03 | Inpatient (IN) | payer OTHER ==
[~2020-01-22] VITALS: Ht 152.4 cm; Wt 117.9 kg
--- NOTE | ~2020-01-22 | HC ---
[facility] [place] [address] CONSULTATION Name: RAMIRO BROOKS Room #: 453-P [facility] IN M.R.#: [id number] Admission: 01/22/20 Attend Phys: Anthony Herr Discharge: Date of : 43 Report #: [id number] THIS REPORT FOR: cc: Rai Jarrett MD, Keninde A. MD Al-Jonathon,Rosalinda Ocampo MD ~ REASON FOR CONSULTATION: End-stage renal disease. REASON FOR PRESENTATION: Melena. HISTORY OF PRESENT ILLNESS: This is a very well-known patient to me. She is a 74-year-old who is maintained on hemodialysis every Friday, and Friday. She had noticed dark stool for the last couple of weeks. She is maintained on Eliquis. She continued to have those issues with some improvement of the stool of her color; however, she was found to have a hemoglobin value of 6.2 and was sent to the Emergency Room for further evaluation. She had an EGD done back in 2017 that revealed gastric AV malformations. She was admitted to further evaluate her issues. GI has been following her. I was consulted to manage her end-stage renal disease. PAST MEDICAL HISTORY: 1. End-stage renal disease. 2. Diabetes mellitus. 3. Hypertension. 4. Shoulder surgery. 5. Umbilical hernia surgery. 6. Bilateral cataracts. 7. . 8. Double mastectomy. 9. Obstructive sleep apnea with pulmonary hypertension. MEDICATIONS: 1. Losartan. 2. Eliquis. 3. Amiodarone. 4. Atorvastatin. ALLERGIES: IBUPROFEN AND NONSTEROIDALS. SOCIAL HISTORY: No drug, alcohol abuse. REVIEW OF SYSTEMS: GENERAL: No fever or chills. CARDIOVASCULAR: No chest pain or palpitation. PULMONARY: No cough or hemoptysis. [facility] [address] [place] [address] CONSULTATION Name: TODDRAMIRO Room #: 453-P [facility] IN [facility].#: [id number] Admission: 01/22/20 Attend Phys: Anthony Herr Discharge: Date of : 41 Report #: [id number] GASTROINTESTINAL: No nausea or vomiting, but significant melena. GENITOURINARY: No frequency, no urgency. NEUROLOGICAL: Occasional weakness. PHYSICAL EXAMINATION: GENERAL: Pulse rate is 100, blood pressure is 129/43, temperature is 36.6, respiratory rate is 14. HEAD AND NECK: No jugular venous distention. CHEST: No crackles. CARDIOVASCULAR: Regular with no rub detected. ABDOMEN: Soft, nontender. EXTREMITIES: Lower extremities, no edema. LABORATORY DATA: Hemoglobin was 7.2 and went down to 6.5 as of this morning, sodium is 137, potassium is 4.2, chloride is 102, carbon dioxide is 31, BUN is 31, creatinine is 4.8. ASSESSMENT AND PLAN: 1. End-stage renal disease. 2. Melena. 3. We will continue with the usual hemodialysis every Friday, and Friday with no heparin. 4. GI evaluation ongoing for her anemia. 5. Transfusion p.r.n. 6. We will continue to follow during her hospital stay. By: 2 Rosalinda Salazar MD /nt
[2020-01-22 16:04] VITALS: BP 129/43
--- NOTE | 2020-01-22 16:50 | NUR ---
IV TEAM NOTIFIED FOR IV PLACEMENT. ER NURSE UNSUCCESSFUL WITH US
[2020-01-22 17:15] LABS: RDW 18.4 % (10.5-14.5)
[2020-01-22 17:16] LABS: MCH 32.8 pg (26.0-34.0); MCHC 32.9 g/dL (28.0-37.0); MCV 99.7 fL (80.0-100.0); RBC 1.9 mil/uL (4.20-5.00); WBC 7.1 thou/uL (4.0-11.0)
[2020-01-22 17:20] LABS: HEMATOCRIT 18.9 % (37.0-47.0)
[2020-01-22 17:21] LABS: HEMOGLOBIN 6.2 gm/dL (12.0-15.0)
[2020-01-22 17:23] LABS: CALCIUM 8.6 mg/dL (8.5-10.1); CREATININE 2.7 mg/dL (0.6-1.0); POTASSIUM 3.5 mmol/L (3.5-5.1)
[2020-01-22 17:29] LABS: TOTAL BILIRUBIN 0.2 mg/dL (0.2-1.0); TOTAL PROTEIN 6.7 g/dL (6.4-8.2)
[2020-01-22 17:30] LABS: APTT 25.5 Seconds (24.5-32.8); PROTIME 10.4 Seconds (9.3-11.4)
[2020-01-22 18:27] VITALS: BP 121/49
[2020-01-22 19:04] VITALS: BP 122/39
[2020-01-22 19:58] VITALS: BP 124/49
[2020-01-23 03:05] VITALS: BP 114/41; BP 118/43
--- NOTE | 2020-01-23 03:43 | NUR ---
admit pt admitted to room 453 via ed came to room on cart transferred to bed without difficulty. pt a/o x4 able to give medical history and contact information admission assessment completed. pt mostly anuric but had 2o to 30 cc's of urine this shift. ate a boxed lunch without difficulty, vss oriented to room call light system and poc. 1 unit prbc's infusing as ordered 15 minute check completed without any s/s of reaction. pt is concerned because her sister is visitng from out of town and she wants to go home so she can enjoy her [employer] company. I explained to her that when the physician rounds she can talk to them regarding doing work up as an outpatient if she is stable enough.
[2020-01-23 07:28] VITALS: BP 125/45
[2020-01-23 14:10] LABS: HEMATOCRIT 21.7 % (37.0-47.0); HEMOGLOBIN 7.2 gm/dL (12.0-15.0); MCH 32.3 pg (26.0-34.0); MCHC 33.3 g/dL (28.0-37.0); MCV 97.2 fL (80.0-100.0); RBC 2.23 mil/uL (4.20-5.00); RDW 19.4 % (10.5-14.5); WBC 6.7 thou/uL (4.0-11.0)
[2020-01-23 14:23] LABS: ALBUMIN 2.7 g/dL (3.4-5.0); CALCIUM 8.5 mg/dL (8.5-10.1); PHOSPHORUS 2.3 mg/dL (2.5-4.9); POTASSIUM 4.2 mmol/L (3.5-5.1)
[2020-01-23 14:28] LABS: CREATININE 4.8 mg/dL (0.6-1.0)
[2020-01-23 15:32] VITALS: BP 131/59
--- NOTE | 2020-01-23 21:04 | NUR ---
PT A&OX4, VSS, NO PAIN. MEDS GIVEN PER MAY. PT HAS LEFT CHEST TESSIO. LEFT UPPER ARM FISTULA. IV PATENT. NO SIGNS OF DISTRESS. WILL CONTINUE TO MONITOR.
[2020-01-23 21:05] VITALS: BP 133/36
[2020-01-24 05:42] LABS: HEMOGLOBIN 6.5 gm/dL (12.0-15.0); MCH 32.6 pg (26.0-34.0); MCHC 33.3 g/dL (28.0-37.0); PLATELET COUNT 194 thou/uL (150-400); RDW 20.1 % (10.5-14.5); WBC 6.8 thou/uL (4.0-11.0)
[2020-01-24 05:48] LABS: HEMATOCRIT 19.6 % (37.0-47.0)
--- NOTE | 2020-01-24 06:00 | NUR ---
Assumed pt care at 1900. A/OX4,pleasant. VSS. Denied pain on assessment. Pt is up with AX1/RW. Pt has oliguria, dilaysis tesio on left chest as well as a new fistula on LUE positive for bruit/thrill. Resting quietly w/o any distress with O2 @2L/NC at NOC instead of BIPAP. Call light/personal items within reach. Pts HGB this morning 6.5, Katie CIVIL ENGINEERING DIRECTOR notified new orders for 1 Unit PRBC given;pt updated on results too and appreciative.
--- NOTE | 2020-01-24 07:11 | EKG ---
[facility] [place] [address] ELECTROCARDIOGRAM REPORT Name: RAMIRO BROOKS Room #: 453-P ADM IN M.R.#: [id number] Admission: 01/22/20 Attend Phys: Anthony Herr Discharge: Date of : 41 Report #: [id number] THIS REPORT FOR: cc: Rai Jarrett MD, Keninde A. MD Santiago, Patrick MD [facility] ~ THIS REPORT FOR: //name// [facility] [place] ED Test Date: 2020-01-22 Test Time: 17:30:19 Pat Name: RAMIRO BROOKS Department: Room: [facility] Gender: F Rn Telephonic: STACY : 1945 Requested By: Harsha Davis Order Number: [id number] MD: Joss Canchola Measurements Intervals [place] Rate: 80 P: [place]: QRS: -40 QRSD: 128 T: 134 QT: 438 QTc: 506 Interpretive Statements NSR LVH with IVCD, LAD and secondary repol abnrm Prolonged QT interval Compared to ECG 09/14/2019 07:47:32 Left ventricular hypertrophy now present Early repolarization now present Sinus rhythm no longer present Poor R-wave progression no longer present Electronically Signed On 01-24-2020 7:11:11 DIRECTOR OF MATERIALS MANAGEMENT by Joss Canchola [email or web address] <ELECTRONICALLY SIGNED> By: Joss Canchola MD, FACC 01/24/20 0711 29 29 Joss Canchola MD, [facility] /EPI
--- NOTE | 2020-01-24 08:01 | NUR ---
PROVIDER INFORMED ABOUT PATIENT TO HAVE DIALYSIS TODAY; PROVIDER STATED OK TO GIVE BLOOD TRANSFUSION W THE DIALYSIS
[2020-01-24 09:52] VITALS: BP 111/42
[2020-01-24 11:34] LABS: ABSOLUTE NEUTROPHILS 3.5 thou/uL (1.4-8.2); ANISOCYTOSIS 2+; HYPOCHROMASIA 1+
--- NOTE | 2020-01-24 12:05 | NUR ---
PT ADMITTED RELATED TO ANEMIA. CM REVEIWED CHART AND SPOKE WITH CARE TEAM. CM CALLED AND SPOKE WITH PT OVER THE PHONE THIS DAY. PT APPEARED TO BE A&O X4. CM ROLE INTRODUCED. PT INDICATED THAT SHE LIVES IN A HOUSE WITH HER SPOUSE WITH NO STEPS TO ENTER AND NO STEPS INSIDE. PT INDICATED THAT SHE HAD BEEN USING A FWW TO ASSIST WITH MOBILITY OUTSIDE SALESMAN. SHE INDCATED SHE HAS A 4WW WELL. PT HAS A CPAP AND HOME O2 THAT SHE HAD USED NOC AT 2L OUTSIDE SALESMAN THROUGH [facility]. PT GOES TO [facility] , , S 11:30-3:30 CHAIR/RUN TIME. PT INDICATED THAT HER NIECE TAKES HER TO DIALYSIS AND HER DTRS PICK HER UP. PT HAD USED [facility] IN THE PAST. PT IS HAVING DIALYSIS TODAY AND WILL BE GETTING BLOOD. CM TO FOLLOW INDICATED WITH DC PLANNING.
--- NOTE | 2020-01-24 14:12 | NUR ---
Nutrition: Pt admitted with anemia, GIB. Consult received. PMH: HTN, NIDDM, ESRD on hemodialysis, gastric AVMs. Hgb 6.5, recieving blood transfusion today. GI/renal following. Pt has a good appetite and is eating most of meals. Obtained food preferences. Pt voiced understanding of renal diet. BG controlled. No need for additional diet restrictions at this time. Stable weights although BMI 50, extreme class 3 obesity. Low nutrition risk.
[2020-01-24 14:13] VITALS: BP 120/35; BP 126/43
[2020-01-24 14:18] VITALS: BP 108/36
[2020-01-24 15:00] VITALS: BP 121/46
--- NOTE | 2020-01-24 18:11 | NUR ---
ASSUMED CARE OF PATIENT AT AT SHIFT CHANGE. ASSESSMENT CHARTED. MEDICATIONS ADMINISTERED PER EMAR. PATIENT IS A&OX4 AND MAKES NEEDS KNOWN. PATIENT DENIES PAIN. PATIENT INFORMED THIS NURSE THAT DIALYSIS DAYS ARE FRIDAY, FRIDAY, FRIDAY; BLOOD TRANSFUSION STARTED STAT W ASSIST FROM KAREN LEVI. BLOOD PRESSURE BASLINE LOW D/T DIALYSIS PATIENT. VITALS STABLE START OF TRANSFUSION. PATIENT DENIED ANY DISCOMFORT. TOLERATED MEALS WELL. REPOSITIONED OFTEN. RECIEVED BED BATH TODAY. INFORMED ABOUT EGD TOMORROW AND BEING NPO AFTER MIDNIGHT. PATIENT AWARE AND COMPLIANT. DENIES NEEDS AT THIS TIME. FREQUENT CHECKS; STILL BEING TRANSFUSED. WILL ENDORSE TO BOZENA JONES.
--- NOTE | 2020-01-24 18:43 | NUR ---
I AGREE WITH NURSING ASSESSMENT AND NURSING NOTE DONE BY KALIE/MARINE GEOLOGIST.
[2020-01-24 19:08] VITALS: BP 120/35
--- NOTE | 2020-01-24 20:48 | NUR ---
Assumed care on 01/24/20@ 19:15, completing one unit of PRBCs IV site R AC, No adverse effects noted from the blood infusion. Lung sounds auscultated bilat, HRRR, S1S2 noted, ABD Normoactive bowel sounds x4Q, reports BM on Sat 01/21. Requests meds for constipation. Denies pain. Will continue to monitor for patient safety and care.
[2020-01-25] VITALS (9 sets, daily range): BP systolic 107–137; BP diastolic 41–62
[2020-01-25 05:59] LABS: HEMATOCRIT 20.6 % (37.0-47.0); HEMOGLOBIN 6.8 gm/dL (12.0-15.0); MCH 31.9 pg (26.0-34.0); MCHC 32.8 g/dL (28.0-37.0); MCV 97.3 fL (80.0-100.0); RBC 2.12 mil/uL (4.20-5.00); RDW 19.4 % (10.5-14.5); WBC 7.3 thou/uL (4.0-11.0)
[2020-01-25 07:44] LABS: CALCIUM 8.6 mg/dL (8.5-10.1); POTASSIUM 4.8 mmol/L (3.5-5.1)
[2020-01-25 07:46] LABS: CREATININE 7.4 mg/dL (0.6-1.0)
--- NOTE | 2020-01-25 13:30 | NUR ---
CARE TEAM INDICATED THAT PT IS GETTING ANOTHER UNIT OF PRBC THIS AM. PT HAD DIALYSIS TODAY. PT WENT FOR EGD. NO PT OR OT ORDERED OF YET. PT HAD USED [facility] IN THE PAST AND A FWW. PT AND OT MIGHT BE APPROPRIATE TO DETERMINE NEEDS UPON DC. PHYSICIAN INDICATED THAT PT MAY BE MEDICALLY STABLE TO [facility] TOMORROW. CM TO FOLLOW INDICATED WITH DC PLANNING.
--- NOTE | 2020-01-25 15:53 | NUR ---
Alert and orientated X 4. Calm, cooperative and compliant. Dialsis done this AM with 1 unit PRBCs infused for Hgb of 6.8. Went for GI procedure after dialysis and returned around 1400. Breath sounds clear. Reg, even spontaneous resp on 2 L FIO2 per NC. Reg HR auscultated. On telemetry Color pale pink with brisk capillary refill and palpable peripheral pulses. No urine. Active bowel sounds over large, rounded abdomen. PIV per R antecubital, site soft and flat, flushed easily with NS. Currently resting in room without s/o distress.
[2020-01-25 16:19] LABS: HEMATOCRIT 25.1 % (37.0-47.0); HEMOGLOBIN 8.3 gm/dL (12.0-15.0)
--- NOTE | 2020-01-26 04:31 | NUR ---
ASSUMED CARE OF PT AT 1900HRS. PT AOX4 AND LETS NEEDS BE KNOWN. FALL PRECAUTION IN PLACE. PT DENIES PAIN, NAUSEA OR SOA. ASSESSMENT CHARTED. PT WAS ABLE TO GET COMFORTABLE AND SLEEP PART OF THE SHIFT. VSS AND NO S/S OF ACUTE DISTRESS. WILL CONTINUE TO MONITOR FOR CHANGES.
[2020-01-26 06:08] LABS: HEMATOCRIT 23.4 % (37.0-47.0); HEMOGLOBIN 7.8 gm/dL (12.0-15.0); MCH 32.5 pg (26.0-34.0); MCHC 33.2 g/dL (28.0-37.0); MCV 97.6 fL (80.0-100.0); RBC 2.4 mil/uL (4.20-5.00); RDW 18.4 % (10.5-14.5); WBC 6.9 thou/uL (4.0-11.0)
[2020-01-26 09:15] VITALS: BP 131/64
--- NOTE | 2020-01-26 14:35 | NUR ---
DENIES COMPLAINTS OF PAIN/DISCOMFORT. UP AND WALKING IN HALLWAY WITH PT. SALINE LOCK FLUSHED PER ORDER-SITE TO LEFT FOERARM CLEAN/NO DRAINAGE OR REDNESS NOTED
[2020-01-26 15:51] VITALS: BP 106/42
--- NOTE | 2020-01-26 16:37 | NUR ---
Case reviewed with the care team. No dc indicated today. Pt's h/h being monitored. Possible colonoscopy. EGD yesterday and hgb 7.8 today. Pt up in hallway walking with therapy this afternoon. She dialyzed this morning. Will continue to follow should the care team indicate HH referral at ok. The pt has used [facility] in the past and would use them again if needed. She has needed dme in place at home and plans to resume her normal - dialysis schedule at [facility] upon dc.
[2020-01-26 20:06] VITALS: BP 108/43
[2020-01-27 05:57] LABS: HEMATOCRIT 20.8 % (37.0-47.0); HEMOGLOBIN 6.9 gm/dL (12.0-15.0); MCHC 33.4 g/dL (28.0-37.0); WBC 5.8 thou/uL (4.0-11.0)
[2020-01-27 06:02] LABS: MCH 32.6 pg (26.0-34.0); MCV 97.7 fL (80.0-100.0); RBC 2.13 mil/uL (4.20-5.00); RDW 18.8 % (10.5-14.5)
--- NOTE | 2020-01-27 07:09 | NUR ---
ASSUMED PT CARE AROUND 1929. AXOX4. HBG 6.9 THIS AM. RECEIVED AN ORDER TO TRANSFUSE 1 UNIT. ENDORSED TO DAY RN. VSS. NO S/S ACUTE DISTRESS NOTED OR REPORTED AT THIS TIME. CARE TRANSFERRED TO DAY RN AT THIS TIME.
[2020-01-27 08:04] VITALS: BP 113/45
[2020-01-27 10:01] LABS: HEMOGLOBIN 6.7 gm/dL (12.0-15.0); WBC 5.6 thou/uL (4.0-11.0)
[2020-01-27 10:02] LABS: HEMATOCRIT 20.5 % (37.0-47.0); MCH 31.9 pg (26.0-34.0); MCHC 32.8 g/dL (28.0-37.0); MCV 97.3 fL (80.0-100.0); RBC 2.1 mil/uL (4.20-5.00)
[2020-01-27 11:00] VITALS: BP 112/48; BP 180/67
[2020-01-27 15:24] VITALS: BP 180/67
[2020-01-27 20:30] LABS: HEMATOCRIT 23.4 % (37.0-47.0); HEMOGLOBIN 7.9 gm/dL (12.0-15.0)
[2020-01-27 22:10] VITALS: BP 141/45
[2020-01-28 04:08] LABS: HEMOGLOBIN 7.3 gm/dL (12.0-15.0); MCH 31.9 pg (26.0-34.0); MCHC 33.3 g/dL (28.0-37.0); MCV 95.9 fL (80.0-100.0); RBC 2.3 mil/uL (4.20-5.00); RDW 17.9 % (10.5-14.5); WBC 6.7 thou/uL (4.0-11.0)
--- NOTE | 2020-01-28 07:27 | NUR ---
ASSUMED PT CARE AROUND 193. AXOX4. PLEASANT. NPO POST MN FOR COLONOSCOPY IN AM. HH CHECKED POST TRANSFUSION AND IN AM. NNO AT THIS TIME. NO S/S ACUTE DISTRESS NOTED OR REPORTED AT THIS TIME. CARE TRANSFERRED TO KAREN HARVEY
[2020-01-28 08:06] LABS: CALCIUM 8.3 mg/dL (8.5-10.1); CREATININE 6.8 mg/dL (0.6-1.0); POTASSIUM 4.3 mmol/L (3.5-5.1)
[2020-01-28 09:30] VITALS: BP 150/66
[2020-01-28 09:55] VITALS: BP 145/60
--- NOTE | 2020-01-28 12:24 | NUR ---
PT HAD COLONOSCOPY DONE THIS DAY. PT HAVING DIALYSIS ALSO. CARE TEAM INDICATED THAT CBC IS TO BE DONE THIS AFTERNOON. THEY ARE MONITORING HGB.. PT MAY BE MEDICALLY STABLE TO HOME LATER TODAY REFERAL SENT TO [facility] SERVICES UPON DC. PT IS TO RESUME HER T-H-S- DIALYSIS SCHEDULE AT [facility] UPON DISHCARGE. FAX ORDERS TO . CALL OFFICE AY .
--- NOTE | 2020-01-28 13:41 | NUR ---
ASSUMED CARES AT 0700. PT AWAKE, ALERT AND ORIENTED*4. DENIES PAIN. VITALS REMAIN STABLE. PT NPO THIS AM, HAD COLONOSCOPY, RECTUM ULCER CLIPPED, CBC ORDERED FOR THIS EVENING. PT RECEIVING DIALYSIS SINCE 1100 TOLERATING WELL. LEFT CHEST TESIO DRESSING DRY AND INTACT. PT ABLE TO EAT APPLESAUCE AND PUDDING AFTER TEST THIS AM, MEALS RESUMED TOLERATED. Q1H VISUAL CHECKS. CALL LIGHT WITHIN REACH. FALL PRECAUTIONS IN PLACE.
--- NOTE | 2020-01-28 13:53 | NUR ---
FAXED REFERRAL TO [facility] SPOKE WITH EMA IN INTAKE THEY CANNOT ACCEPT DUE TO STAFFING ISSUES.
[2020-01-28 14:38] VITALS: BP 145/60
--- NOTE | 2020-01-28 14:39 | NUR ---
FAXED REFERRAL TO [facility] SPOKE WITH SHANE IN INTAKE THEY CAN ACCEPT AT DISCHARGE. IF PT DISCHARGES FAX DC ORDERS/SUMMARY TO [phone] AND CALL [phone] NOTIFY OF DC.
[2020-01-28 15:11] LABS: HEMATOCRIT 21.8 % (37.0-47.0); HEMOGLOBIN 7.3 gm/dL (12.0-15.0); MCH 31.7 pg (26.0-34.0); MCHC 33.6 g/dL (28.0-37.0); MCV 94.4 fL (80.0-100.0); RBC 2.31 mil/uL (4.20-5.00); RDW 17.7 % (10.5-14.5); WBC 6.2 thou/uL (4.0-11.0)
[2020-01-28 16:24] VITALS: BP 137/64
[2020-01-28 19:17] VITALS: BP 116/36
--- NOTE | 2020-01-29 01:34 | NUR ---
patient aox4 makes needs known. patient is contient of bowels and bladder. patient had dialysis and torelated well. fall preacaution in place. patient in bed asleep at this time breathing regular and unlaboured.
[2020-01-29 07:00] VITALS: BP 120/41
[2020-01-29 08:35] LABS: HEMOGLOBIN 6.6 gm/dL (12.0-15.0)
[2020-01-29 08:36] LABS: HEMATOCRIT 20.1 % (37.0-47.0); MCH 31.3 pg (26.0-34.0); MCHC 32.6 g/dL (28.0-37.0); MCV 96.1 fL (80.0-100.0); RBC 2.1 mil/uL (4.20-5.00); WBC 5.7 thou/uL (4.0-11.0)
--- NOTE | 2020-01-29 12:46 | NUR ---
Received awake on bed. Due medications given as prescribed, able to swallow meds w/o difficulty. On room air. Vital signs stable. On telemetry; no complains and signs of chest pain, crushing sensation and heaviness. Assisted in ADLs. On room air during dayshift and O2 at 2lpm via nasal cannula at HS. On regular diet- tolerating well; no nausea, no vomiting and no abdominal pain noted. On blood sugar monitoring, taken and recorded accordingly. Dialysis schedule ; last dialysis was 01/27; with dialysis access at L upper arm and L chest; On Left limb alert. With SL at R FA. Pt very keen to go home today; a/w Hb result from this AM. Hb dropped from 7.3-6.6- Dr Olivares informed and aware; pt informed- no bleeding noted overnight. Pt requested to talk to supervisor counseling and guidance re: changing name on visitor's list to her sister who's visiting town this week- supervisor counseling and guidance informed and relayed information- cannot do changes as of this moment- explained to patient. Followed up with Dr Olivares re: blood transfusion at 11:50am- will be putting in orders- a/w- pt updated. To continue monitoring patient.
[2020-01-29 13:35] VITALS: BP 116/53
[2020-01-29 14:12] VITALS: BP 142/42; BP 153/52
[2020-01-29 15:23] VITALS: BP 128/32
[2020-01-29 19:18] VITALS: BP 122/39
--- NOTE | 2020-01-30 02:30 | NUR ---
PT CARE ASSUMED WITH PT IN BED WATCHING TV .PT IS A/O X4.PT IS UP TO BSC WITH X2 ASSIST.PT HAD BLOOD TRANSFUSION YESTERDAY AND TO MONITOR LAB THIS AM.PT ON ROOM AIR DURING THE DAY AND O2 2L NC AT NIGHT.PT IS ACCUCHECK .PT IS A DIALYSIS PT AND HAS DIALYSIS ON T//FRI.PT APPEARED TO BE IN NO DISTRESS .WILL CONTINUE TO MONITOR PER POC
[2020-01-30 05:21] LABS: WBC 5.7 thou/uL (4.0-11.0)
[2020-01-30 05:22] LABS: HEMOGLOBIN 6.6 gm/dL (12.0-15.0); MCH 32.2 pg (26.0-34.0); MCHC 33.8 g/dL (28.0-37.0); MCV 95.2 fL (80.0-100.0); RBC 2.04 mil/uL (4.20-5.00); RDW 17.5 % (10.5-14.5)
[2020-01-30 05:26] LABS: HEMATOCRIT 19.4 % (37.0-47.0)
[2020-01-30 08:10] VITALS: BP 138/58; BP 142/49
[2020-01-30 16:09] VITALS: BP 123/54
[2020-01-30 19:09] VITALS: BP 131/55
[2020-01-30 21:56] LABS: HEMATOCRIT 22.3 % (37.0-47.0); HEMOGLOBIN 7.4 gm/dL (12.0-15.0)
--- NOTE | 2020-01-31 03:59 | NUR ---
ASSUMED CARE OF PT AT 1900HRS. PT AOX4 AND LETS NEEDS BE KNOWN. FALL PRECAUTION IN PLACE. ASSESSMENT CHARTED. PT RUNS SR ON TELE. PT DENIES PAIN, NAUSEA OR SOA. PT PLACED NPO AT AK FOR PROCEDURE IN THE AM. PT WAS ABLE TO GET COMFORTABLE AND SLEEP PART OF THE SHIGT. VSS AND NO S/S OF AUTE DISTRESS. WILL CONTINUE TO MONITOR.
[2020-01-31 07:35] VITALS: BP 163/43
[2020-01-31 09:08] LABS: HEMATOCRIT 21.6 % (37.0-47.0); HEMOGLOBIN 7.2 gm/dL (12.0-15.0); MCH 31.8 pg (26.0-34.0); MCHC 33.5 g/dL (28.0-37.0); MCV 94.9 fL (80.0-100.0); RBC 2.28 mil/uL (4.20-5.00); RDW 16.9 % (10.5-14.5)
--- NOTE | 2020-01-31 09:13 | NUR ---
Followup: nonbleed AVM, rectal ulcer, blood loss anemia and has required transfusions. Has had alternating po/npo/liquid diet past week. When allowed to eat, takes oral intake 70-100%. Today, npo for EGD and flex sig to evaluate rectal ulcer and cauterization. Wts stable. Remains low nutrition risk at this time
[2020-01-31 11:17] LABS: CALCIUM 8.4 mg/dL (8.5-10.1)
--- NOTE | 2020-01-31 11:29 | NUR ---
Received awake on bed. Due medications given as prescribed, able to swallow meds w/o difficulty. On nothing per orem- pt informed and aware; mouth swabs ordered. A+Ox4. On telemetry; no complains and signs of chest pain, crushing sensation and heaviness. Assisted in ADLs. On room air during daytime and PRN O2 at 2lpm via nasal cannula at HS. On blood sugar monitoring, taken and recorded accordingly. Enema given at 8am as ordered- tolerated well; able to have bowel movement; verified with GI nurse, to do 2x Enema, 2nd enema given, tolerated well. Dialysis schedule T--Sat, as per Dr Rodriguez, pt to have dialysis today, coordinated with dialysis personnel that pt will be having EGD/Flexisig today around 11am, as per professional athletes coach- will do dialysis this PM- pt updated as well. With SL at R FA- intact and flushing well. Falls bundle in place. Able to turn on her sides. With dialysis access at L upper arm- no dressing in place, not being used; with Tesio at L chest- dressing C/D/I. To continue monitoring patient. No active bleeding noted on patient. A/w EGD and Flexisig to be done today.
--- NOTE | 2020-01-31 14:01 | NUR ---
CARE TEAM INDICATED THAT PT IS HAVING A FLEX SIG AND AN EGD THIS DAY. PT IS TO HAVE DIALYSIS TODAY. [facility] ACCEPT PT ONCE MEDICALLY STABLE. CM TO FOLLOW INDICATED WITH DC PLANNING.
[2020-01-31 16:17] VITALS: BP 148/71
[2020-01-31 19:39] VITALS: BP 144/54
--- NOTE | 2020-02-01 06:00 | NUR ---
Pt. rested quietly during the night when checked on during frequent rounds. She offers no c/o pain. No active bleeding noted. Bed alarm is on.
[2020-02-01 07:24] VITALS: BP 130/69
[2020-02-01 09:01] LABS: RDW 16.3 % (10.5-14.5)
[2020-02-01 09:03] LABS: MCH 31.7 pg (26.0-34.0); MCHC 33.3 g/dL (28.0-37.0); MCV 95.3 fL (80.0-100.0); RBC 2.02 mil/uL (4.20-5.00)
[2020-02-01 09:15] LABS: HEMATOCRIT 19.3 % (37.0-47.0); HEMOGLOBIN 6.4 gm/dL (12.0-15.0)
--- NOTE | 2020-02-01 11:09 | NUR ---
PATIENT CURRENTLY HAVING DIALYSIS. HGB 6.4, CRITICIAL RESULTS COMMUNICATED TO DR. BARNETT. ORDERS FOR 1 UNIT PRBC TO BE GIVEN. PATIENT RESTING IN BED, TALKING WITH FAMILY ON PHONE. VOICES NO NEEDS AT THIS TIME EXCEPT WOULD LIKE TO HAVE DIET ORDER. OBTAINED CLEARENCE FROM GI.
[2020-02-01 11:15] LABS: % SATURATION 12 % (20-39); IRON 25 ug/dL (50-170); TIBC 209 ug/dL (250-450)
[2020-02-01 11:24] VITALS: BP 152/60; BP 163/84
[2020-02-01 11:42] LABS: FOLIC ACID 11.3 ng/mL (8.6-58.9)
--- NOTE | 2020-02-01 12:18 | NUR ---
PATIENT GIVEN 1 UNIT OF BLOOD WITH DIALYSIS, ADMINISTERED BY OFFICE ADMINISTRATIVE ASSISTANT.
--- NOTE | 2020-02-01 14:23 | NUR ---
PT HAD FLEX SIG AND EGD YESTERDAY AND HAD PILL CAME ADMINISTERED. PILL CAME COLLECTED THIS AM. PT WAS HAVING DIALYSIS THIS DAY. PT'S HAD DROP IN HGB AND RECEIEVED BLOOD TODAY. CM HAD RECEIVED PC FROM PT'S INSURANCE SERG AT . CM CALLED AND LEFT . IT IS ANTICPATED THAT [facility] OP DIALYSIS AT [facility] ONCE MEDICALLY STABLE. CM TO FOLLOW INDICATED WITH DC PLANNING.
[2020-02-01 14:51] VITALS: BP 120/48
[2020-02-01 20:47] VITALS: BP 112/46
--- NOTE | 2020-02-02 03:50 | NUR ---
VSS. NPO POST MN FOR GI PROCEDURE IN AM, NO S/S ACUTE DISTRESS NOTED OR REPORTED AT THIS TIME.
[2020-02-02 05:51] LABS: HEMATOCRIT 21.6 % (37.0-47.0); HEMOGLOBIN 7.3 gm/dL (12.0-15.0); MCH 32.1 pg (26.0-34.0); MCV 94.5 fL (80.0-100.0); RBC 2.29 mil/uL (4.20-5.00); RDW 15.8 % (10.5-14.5); WBC 5.5 thou/uL (4.0-11.0)
--- NOTE | 2020-02-02 07:17 | NUR ---
PATIENT LEFT FLOOR AT 0715 FOR PROCEDURE. FSBG WAS 72. VOICED NO NEEDS AT TIME OF PROCEDURE, JUST WANTING TO "GET THIS OVER WITH"
--- NOTE | 2020-02-02 10:07 | NUR ---
ASSUMING CARE OF PATIENT NOW. ASSESSMENT CHARTED. MEDS ADMINISTERED PER MAY. VSS. A&OX4, C/O MILD ABDOMINAL PAIN BUT VOICES NOT WANTING PAIN MEDS. SUCCESSFUL PROCEDURE TODAY; WILL CONTINUE TO MONITOR LABS FOR IMPROVEMENT. MAKES NEEDS KNOWN; INCONTINENT OF BLADDER AT TIMES. REPOSITIONED NEEDED AND OFTEN THROUGHOUT DAY. STARTED BACK ON DIET AND TOLERATING WELL. FALL PRECAUTIONS IN PLACE. WILL CONTINUE TO MONITOR AND FOLLOW PLAN OF CARE
--- NOTE | 2020-02-02 10:40 | NUR ---
PT HAD EGD AND ENTROSCOPY DONE THIS AM. THEY WERE ABLE TO SUCCESSFULLY CAUTERIZE A BLEED. CARE TEAM INDICATED THAT CARE TEAM WILL WATCH TODAY AND LIKELY ANTICIAPTE DC HOME TOMORROW WITH [facility] AND RESUMPTION OF HER OP DIALYSIS TOMORROW. TOMORROW IS A DIALYSIS DAY POSSIBLE DC AFTER DIALYSIS TOMORROW. CM TO FOLLOW INDICATED WITH DC PLANNING.
[2020-02-02 15:31] VITALS: BP 125/43
--- NOTE | 2020-02-02 16:39 | NUR ---
I have reviewed the documentation by EUGENE KEATING from 02/02/20 to 02/02/20 and I concur with it. PALLAVI GONCALVES, PT, DPT
--- NOTE | 2020-02-02 17:27 | P ---
[facility] [place] [address] PROCEDURE REPORT Name: RAMIRO BROOKS Room #: 453-[facility] IN .R.#: [id number] Admission: 01/22/20 Attend Phys: Anthony Herr Discharge: Date of : 41 Report #: [id number] THIS REPORT FOR: cc: Rai Jarrett MD, Keninde A. MD McElhinney, Christian C. MD ~ CC: Rosalinda Jarrett DATE OF SERVICE: 01/31/2020 PROCEDURES PERFORMED: 1. Flexible sigmoidoscopy with cauterization. 2. Bleeding control. HISTORY OF PRESENT ILLNESS: The patient is a 74-year-old female with multiple medical problems including end-stage renal disease, on hemodialysis; anemia and continued GI blood loss. She has been transfused a total of 6 units of packed cells during this hospitalization. Hemoglobin today is 7.2, yesterday was 7.9. She has undergone upper endoscopy x 2. I just performed the second EGD in which 3 gastric AVMs were noted, nonbleeding. I treated these with 7-Cuban bipolar cautery today. No evidence of bleeding after cauterization. There was no evidence of blood or other abnormalities. The patient has a history of a rectal ulcer that Dr. Cueto put a clip on recently. Plan is to reevaluate this area. She just had a colonoscopy on Friday. The prep was fair in areas. She had multiple diverticula and polyps were also removed. DESCRIPTION OF PROCEDURE: The risks and benefits of the procedure were explained to the patient, those risks including but not limited to bleeding, perforation, the risk of sedation. She understood these risks and gave informed consent. Sedation was given using propofol per anesthesia. Next, a digital rectal exam was initially performed, which was normal. Next, using a standard Olympus upper endoscope, the scope was placed in the patient's anus and advanced under direct vision into the distal sigmoid colon. The overall prep in the rectum was good. In the distal sigmoid colon and sigmoid colon, a moderate amount of solid stool was encountered. The stool was somewhat dark in appearance. No obvious blood was noted. Multiple diverticula were noted. The scope was then slowly withdrawn. The rectosigmoid area was normal. In the rectum, a single 5 mm clean white based ulcer with a very tiny area of redness on the edge was noted. No evidence of active bleeding, no visible vessel. The ulcer was clipped recently, however, there was no clip on the ulcer today. I proceeded with a 7-Cuban bipolar cautery of the erythematous edge. No evidence of bleeding after cauterization. At this point, the scope was then withdrawn [address] [address] PROCEDURE REPORT Name: RAMIRO BROOKS Room #: 453-P [facility] IN M.R.#: [id number] Admission: 01/22/20 Attend Phys: Anthony Herr Discharge: Date of : 41 Report #: [id number] and the procedure terminated. The patient tolerated the procedure well. IMPRESSION: 1. Small rectal ulcer. No active bleeding at this time. 2. Diverticulosis. 3. Otherwise, normal flexible sigmoidoscopy. Visualization was significantly limited due to poor prep in areas. RECOMMENDATIONS: We discussed proceeding with possible M2 capsule next with the patient prior to the procedure. If no active bleeding was seen. We will likely proceed with this to rule out the possibility of small bowel AVMs. Thank you for allowing me to participate in her care. <ELECTRONICALLY SIGNED> By: Blair Steward MD 02/02/20 1727 1350 0023 Blair Steward MD /nt
--- NOTE | 2020-02-02 17:27 | P ---
[facility] [place] [address] PROCEDURE REPORT Name: RAMIRO BROOKS Room #: 453-P [facility] IN M.R.#: [id number] Admission: 01/22/20 Attend Phys: Anthony Herr Discharge: Date of : 41 Report #: [id number] THIS REPORT FOR: cc: Rai Jarrett MD, Keninde A. MD McElhinney, Christian C. MD ~ CC: Rosalinda Jarrett DATE OF SERVICE: 01/31/2020 PROCEDURE PERFORMED: Upper endoscopy with bleeding control. HISTORY OF PRESENT ILLNESS: The patient is a 74-year-old female with a history of anemia, continued drop in her hemoglobin. She has been transfused a total of 4 units of packed cells over the last week. Upper endoscopy initially was performed showing nonbleeding gastric AVMs. They were not cauterized at that time. She then underwent a colonoscopy, in which a rectal ulcer was seen and a clip was put in place. There was no active bleeding. Again, she has continued drop in her hemoglobin. Plan is for an EGD and flexible sigmoidoscopy today. DESCRIPTION OF PROCEDURE: The risks and benefits of the procedure were explained to the patient, those risks including but not limited to bleeding, perforation and the risk of sedation. She understood these risks and gave informed consent. Sedation was given using propofol per anesthesia. Next, using a standard Olympus upper endoscope, the scope was placed in the patient's mouth and advanced under direct vision through the esophagus, stomach and into the second portion of the duodenum. The esophagus was normal throughout. The GE junction was normal. There were 3 nonbleeding gastric AVMs 3 to 4 mm in size. All 3 were cauterized with a 7-Uzbek bipolar cautery. No evidence of bleeding after cauterization. There was no evidence of blood throughout the exam today. The pylorus was normal and patent. The duodenal bulb, first and second portions were all normal. I advanced the scope as far as possible into the third portion of the duodenum. No obvious abnormalities were noted. Again, no blood was noted in the duodenum. The scope was then withdrawn and the procedure terminated. The patient tolerated the procedure well. IMPRESSION: 1. Three nonbleeding gastric arteriovenous malformations, status post cautery. 2. Otherwise, normal upper endoscopy. RECOMMENDATIONS: We will proceed with flexible sigmoidoscopy next today. [address] [address] PROCEDURE REPORT Name: RAMIRO BROOKS Room #: 453-P [facility] IN [facility].#: [id number] Admission: 01/22/20 Attend Phys: Anthony Herr Discharge: Date of : 41 Report #: [id number] Thank you for allowing me to participate in her care. <ELECTRONICALLY SIGNED> By: Blair Steward MD 02/02/20 1727 1347 0020 Blair Steward, /enrico
--- NOTE | 2020-02-02 19:00 | NUR ---
I AGREE WITH NURSING ASSESSMENT AND NURSING NOTE DONE BY KALIE/LABORER CONSTRUCTION OR LEAK GANG.
[2020-02-02 19:19] VITALS: BP 112/41
--- NOTE | 2020-02-03 05:12 | NUR ---
PT IS A/O X4 AND UP WITH ASSISTANCE X1-2 TO THE CHAIR. PT IS ON ROOM AIR. SR ON THE MONITOR. LAST BOWEL MOVEMENT WAS 02/01. DENIES ANY C/O PAIN OR DISCOMFORT. VSS. BS WITHIN NORMAL LIMITS AND DID NOT REQUIRE COVERAGE. AT THIS TIME PT IS LYING IN HER BED AND APPEARS TO BE SLEEPING. WILL CONTINUE TO MONITOR.
[2020-02-03 06:03] LABS: HEMATOCRIT 21.4 % (37.0-47.0); HEMOGLOBIN 7.2 gm/dL (12.0-15.0); MCH 31.9 pg (26.0-34.0); MCHC 33.8 g/dL (28.0-37.0); MCV 94.4 fL (80.0-100.0); RBC 2.26 mil/uL (4.20-5.00); RDW 15.4 % (10.5-14.5)
[2020-02-03 06:47] LABS: CALCIUM 8.4 mg/dL (8.5-10.1); POTASSIUM 4.4 mmol/L (3.5-5.1)
[2020-02-03 06:48] LABS: CREATININE 4.6 mg/dL (0.6-1.0)
[2020-02-03 07:22] VITALS: BP 134/68
[2020-02-03 09:07] VITALS: BP 145/60
[2020-02-03 10:26] VITALS: BP 145/60
--- NOTE | 2020-02-03 13:25 | NUR ---
CARE TEAM INDICATED THAT PT IS MEDICALLY STABLE TO DISCHARGE HOME THIS DAY. PT IS TO HAVE [facility]. ORDERS FAXED. PT HAD DIALYSIS HERE THIS DAY AND IS TO RESUME HER OP HD AT [facility] FRIDAY 11:30-3:30 CHAIR/RUN TIME. FLOW SHEETS SENT TO [facility]. PT HAS ALL NEEDED DME. PT'S FAMILY TO PROVIDE TRNASPORT HOME THIS AFTERNOON. NO OTHER CM INTERVENTION INDICATED. CASE CLOSED.
--- NOTE | 2020-02-03 14:50 | NUR ---
PT DISCHARGING TODAY TO HOME WITH [facility] FAXED DC ORDERS/SUMMARY SPOKE WITH CARMINA IN INTAKE SHE RECEIVED ORDERS AND WILL NOTIFY PT TO ARRANGE VISITS.
--- NOTE | 2020-02-03 15:07 | PATH ---
[facility] [place] [address] PATHOLOGY RPT PROCEDURE Name: KIRSTIE BROWNAINE Room #: 453-P [facility] IN M.R.#: [id number] Admission: 01/22/20 Date of : 41 Discharge: Report #: [id number] Path Case #: [id number] [facility] Accession Number: [id number] . 01 Material submitted: . PART A: splenic flexure - POLYP AT SPLENIC FLEXURE PART B: sigmoid colon - POLYP AT SIGMOID COLON . 01 Clinical history: . ANEMIA . 02 Diagnosis: A. Large bowel "polyp at splenic flexure", endoscopic biopsy: - Tubular adenoma; negative for high-grade dysplasia and malignancy. . B. Large bowel "polyp at sigmoid colon", endoscopic biopsy: - Tubulovillous adenoma; negative for high-grade dysplasia and malignancy. (ROJELIO:ho; 02/01/2020) S 02/03/2020 1459 Local . 02 Electronically signed: . Didi Bledsoe MD, Pathologist NPI- [id number] . 01 Gross description: . A. Received in formalin labeled "Geri Brown, polyp at splenic flexure" are multiple reza-brown soft tissue fragments measuring in aggregate 0.7 x 0.7 x 0.1 cm. The specimen is submitted entirely in A1. . B. Received in formalin labeled "Geri Brown, polyp at sigmoid colon" is a reza-brown nodular mucosal polyp measuring 0.9 x 0.7 x 0.6 cm. The margin is inked and the specimen is sectioned and submitted entirely in B1. ([facility]; 01/30/2020) [facility] 01/30/2020 1148 Local . 02 Pathologist provided ICD-10: D12.3, D12.5 . 02 CPT . 376813, 594977 Specimen Comment: A courtesy copy of this report has been sent to [phone] Specimen Comment: [phone], Specimen Comment: Report sent to ,DR MORRIS / DR BARBOZA Performed at: 01 [place] [address] PATHOLOGY RPT PROCEDURE Name: GERI BROWN Room #: 453-P [facility] IN M.R.#: [id number] Admission: 01/22/20 Date of : 41 Discharge: Report #: [id number] Path Case #: [id number] [address] [facility] [address], [place] [id number] MD Morgan Tellez MD Phone: [phone] Performed at: [address] [id number] MD Homa Wong MD Phone: [phone]
--- NOTE | 2020-02-03 16:10 | NUR ---
ASSUMED CARE OF PATIENT AT APPROX. 0730. ASSESSMENT CHARTED. MEDICATIONS ADMINISTERED PER MAY. VSS; BP RUNS SOFT AFTER DIALYIS. POST DIALYISIS BP WAS 159/53. PATIENT IS STABLE AND "JUST WANTS TO GO HOME". WILL BE D/C W AFTER DAUGHTER COMES TO PICK HER UP AT AROUND 1700. FALL PRECAUTIONS IN PLACE BUT MAKES NEEDS KNOWN. FALL PRECAUTIONS IN PLACE. WILL CONTINUE TO MONITOR AND PREPARE FOR DISCHARGE
--- NOTE | 2020-02-03 17:26 | NUR ---
PATIENT LEFT UNIT WITH COMPUTER PROJECT MANAGER AND DAUGHTER AFTER BEING GIVEN DISCHARGE INSTRUCTIONS AND PACKET. IV WAS D/C'D AND PATIENT VOICED NO COMPLAINTS AT TIME OF DISCHRGE.
--- NOTE | 2020-02-03 18:18 | NUR ---
I AGREE WITH NURSING ASSESSMENT AND NURSING NOTE DONE BY KALIE/TELEVISION NEWSCAST DIRECTOR.
--- NOTE | 2020-02-04 11:56 | P ---
[facility] [place] [address] PROCEDURE REPORT Name: RAMIRO BROOKS Room #: 453-P [facility] IN M.R.#: [id number] Admission: 01/22/20 Attend Phys: Anthony Herr Discharge: 02/03/20 Date of : 41 Report #: [id number] THIS REPORT FOR: cc: Rai Jarrett MD, Keninde A. MD McElhinney, Christian C. MD ~ CC: Rosalinda Jarrett DATE OF SERVICE: 02/02/2020 PROCEDURE PERFORMED: Upper endoscopy with small bowel enteroscopy and bleeding control. HISTORY OF PRESENT ILLNESS: The patient is a 74-year-old female with recurrent GI bleed, who has undergone 2 upper endoscopies during this hospitalization as well as colonoscopy and flexible sigmoidoscopy. Three nonbleeding gastric AVMs were cauterized 2 days ago. The patient has continued drop in hemoglobin and has required multiple transfusions. Therefore, we proceeded with an M2 capsule. I read the M2 capsule yesterday. It showed obvious bright red blood, what appears to be in the distal duodenum and proximal jejunum, suspect due to an AVM bleed. Yesterday, she had lunch. Her hemoglobin has been stable. She was transfused yesterday. Hemoglobin was 7.4 this morning. Plan is for small bowel enteroscopy. DESCRIPTION OF PROCEDURE: The risks and benefits of the procedure were explained to the patient, those risks including but not limited to bleeding, perforation and the risk of sedation. She understood these risks and gave informed consent. Sedation was given using Propofol per anesthesia. Next, using an Olympus pediatric colonoscope initially, the scope was placed in the patient's mouth and advanced under direct vision through the esophagus, stomach through the duodenum well into the jejunum. I advanced the scope as far as possible at 160 cm. Close examination of the jejunum and duodenum was then performed. There was an AVM, no active bleeding noted in what appears to be the third portion of the duodenum. This was cauterized with 7-Mexican bipolar cautery. Another small nonbleeding AVM was noted in the proximal jejunum also cauterized with a 7-Mexican bipolar cautery. At this point, it was approximately 45 minutes into the procedure no other areas were noted, I withdrew the pediatric colonoscope and then used an Olympus small bowel enteroscope. This was also advanced as far as possible to 190 cm. One further small AVM was noted. No active bleeding, also this was treated with APC cautery. I then was back in the area of the previous third portion of the duodenum. There was a small amount of blood in this area. This was again treated with APC cautery. [facility] [address] [place] [address] PROCEDURE REPORT Name: RAMIRO BROOKS Room #: 453-P [facility] IN M.R.#: [id number] Admission: 01/22/20 Attend Phys: Anthony Herr Discharge: 02/03/20 Date of : 41 Report #: [id number] No further bleeding was noted. No other abnormalities were seen. The procedure lasted approximately 1 hour and 15 minutes. The scope was then withdrawn and the procedure terminated. The patient tolerated the procedure well. IMPRESSION: Three small bowel AVMs, nonbleeding, treated with APC cautery and a 7-Mexican bipolar cautery as described above. No evidence of bleeding after cauterization. No other abnormalities were noted. RECOMMENDATIONS: 1. Observe patient post-procedure. 2. If patient has recurrent bleeding in the future will need a double balloon enteroscopy at a different facility. Thank you for allowing me to participate in her care. <ELECTRONICALLY SIGNED> By: Blair Steward MD 02/04/20 1156 0908 1141 Blair Steward MD /nt
== END 2020-02-03 16:53 | disposition home health service (06) | DRG 377 ==
LOC: ER 16:03 → EROBS 17:58 → 4W 17:58
PROVIDERS: Anesthesiology; Emergency Medicine; Hospitalist; Internal Medicine; Nurse Practitioner Family; ADMIT Hospitalist; ATTEND Hospitalist
PROC: 05HY33Z Insertion of Infusion Device into Upper Vein, Percutaneous Approach (ICD-10-PCS; principal; 2020-01-22)
PROC: 30233N1 Transfusion of Nonautologous Red Blood Cells into Peripheral Vein, Percutaneous Approach (ICD-10-PCS; 2020-01-24)
PROC: 0DJ08ZZ Inspection of Upper Intestinal Tract, Via Natural or Artificial Opening Endoscopic (ICD-10-PCS; 2020-01-25)
PROC: 0W3P8ZZ Control Bleeding in Gastrointestinal Tract, Via Natural or Artificial Opening Endoscopic (ICD-10-PCS; 2020-01-28)
PROC: 5A1D70Z Performance of Urinary Filtration, Intermittent, Less than 6 Hours Per Day (ICD-10-PCS; 2020-01-28)
PROC: 0DBN8ZZ Excision of Sigmoid Colon, Via Natural or Artificial Opening Endoscopic (ICD-10-PCS; 2020-01-28)
PROC: 5A1D70Z Performance of Urinary Filtration, Intermittent, Less than 6 Hours Per Day (ICD-10-PCS; 2020-01-31)
PROC: 0W3P8ZZ Control Bleeding in Gastrointestinal Tract, Via Natural or Artificial Opening Endoscopic (ICD-10-PCS; 2020-01-31)
PROC: 0D5N8ZZ Destruction of Sigmoid Colon, Via Natural or Artificial Opening Endoscopic (ICD-10-PCS; 2020-01-31)
PROC: 0D568ZZ Destruction of Stomach, Via Natural or Artificial Opening Endoscopic (ICD-10-PCS; 2020-01-31)
PROC: 0D5A8ZZ Destruction of Jejunum, Via Natural or Artificial Opening Endoscopic (ICD-10-PCS; 2020-02-02)
PROC: 5A1D70Z Performance of Urinary Filtration, Intermittent, Less than 6 Hours Per Day (ICD-10-PCS; 2020-02-03)
DX: K31.811 Angiodysplasia of stomach and duodenum with bleeding (principal); N18.6 End stage renal disease; D62 Acute posthemorrhagic anemia; K62.6 Ulcer of anus and rectum; I13.2 Hypertensive heart and chronic kidney disease with heart failure and with stage 5 chronic kidney disease, or end stage renal disease; K57.31 Diverticulosis of large intestine without perforation or abscess with bleeding; E11.40 Type 2 diabetes mellitus with diabetic neuropathy, unspecified; I27.20 Pulmonary hypertension, unspecified; G47.33 Obstructive sleep apnea (adult) (pediatric); E11.22 Type 2 diabetes mellitus with diabetic chronic kidney disease; I25.5 Ischemic cardiomyopathy; I25.10 Atherosclerotic heart disease of native coronary artery without angina pectoris; G47.00 Insomnia, unspecified; K22.2 Esophageal obstruction; Z20.828 Contact with and (suspected) exposure to other viral communicable diseases; I48.91 Unspecified atrial fibrillation; K64.8 Other hemorrhoids; Z98.42 Cataract extraction status, left eye; Z90.13 Acquired absence of bilateral breasts and nipples; Z98.41 Cataract extraction status, right eye; Z88.6 Allergy status to analgesic agent; Z88.8 Allergy status to other drugs, medicaments and biological substances; Z87.891 Personal history of nicotine dependence; Z79.899 Other long term (current) drug therapy
CPT/HCPCS: 10040; 10045; 32100; 62110; 62900; 70005

== ENCOUNTER 2020-04-19 21:26 | Inpatient (IN) | payer OTHER ==
[~2020-04-19] VITALS: Ht 162.6 cm; Wt 120.7 kg
[2020-04-19 22:29] LABS: ABSOLUTE NEUTROPHILS 6.7 thou/uL (1.4-8.2); BASOPHILS 0.6 % (0.0-2.0); EOSINOPHILS 0.5 % (0.0-3.0); HEMATOCRIT 25.9 % (37.0-47.0); HEMOGLOBIN 8.2 gm/dL (12.0-15.0); LYMPHOCYTES 20.3 % (24.0-44.0); MCHC 31.6 g/dL (28.0-37.0); MCV 94.8 fL (80.0-100.0); MONOCYTES 7.5 % (1.0-8.0); PLATELET COUNT 235 thou/uL (150-400); POLYS 71.1 % (36.0-66.0); RBC 2.73 mil/uL (4.20-5.00); RDW 18.2 % (10.5-14.5); WBC 9.4 thou/uL (4.0-11.0)
[2020-04-19 22:31] LABS: CALCIUM 9.1 mg/dL (8.5-10.1); CREATININE 7.4 mg/dL (0.6-1.0); POTASSIUM 5.6 mmol/L (3.5-5.1)
[2020-04-19 22:37] LABS: ALBUMIN 2.8 g/dL (3.4-5.0); TOTAL BILIRUBIN 0.3 mg/dL (0.2-1.0); TOTAL PROTEIN 6.5 g/dL (6.4-8.2)
[2020-04-19] MEDS ORDERED: CHILDREN'S ASPI81 M1 PO (22:38)
[2020-04-19] MEDS ORDERED: ELIQUIS2.5 MG PO (22:38)
[2020-04-19] MEDS ORDERED: PLAVIX 75 MG TA75 MG PO (22:39)
[2020-04-19] MEDS ORDERED: ZANAFLEX4 M1 PO (22:40)
[2020-04-19] MEDS ORDERED: TORSEMIDE10 MG PO (22:40)
[2020-04-19] MEDS ORDERED: JANUVIA50 MG PO (22:40)
[2020-04-20] VITALS (68 sets, daily range): BP systolic 70–138; BP diastolic 22–48
[2020-04-20 02:30] LABS: CALCIUM 8.7 mg/dL (8.5-10.1); CREATININE 7.9 mg/dL (0.6-1.0); POTASSIUM 5.5 mmol/L (3.5-5.1)
[2020-04-20 02:33] LABS: PROTIME 11.3 Seconds (9.3-11.4)
--- NOTE | 2020-04-20 07:09 | EKG ---
[address] [place] [address] ELECTROCARDIOGRAM REPORT Name: RAMIRO BROOKS Room #: 249-P [facility] IN M.R.#: [id number] Admission: 04/19/20 Attend Phys: Dominic Olivares MD Discharge: Date of : 41 Report #: [id number] [facility] ED Test Date: 2020-04-19 Test Time: 21:56:25 Pat Name: RAMIRO BROOKS Department: Room: 249 Gender: F Lineworker: : 1945 Requested By: Le Guillen Order Number: [id number] MD: Joss Canchola Measurements Intervals [place] Rate: 84 P: -3 MS: 191 QRS: -57 QRSD: 114 T: 109 QT: 409 QTc: 484 Interpretive Statements Sinus rhythm Left anterior fascicular block Abnormal R-wave progression, late transition LVH with secondary repolarization abnormality Compared to ECG 01/22/2020 17:30:19 Left anterior fascicular block now present Intraventricular conduction delay no longer present Prolonged QT interval no longer present Electronically Signed On 04-20-2020 7:08:59 HEAD KNITTING MACHINE FIXER by Joss Canchola [email or web address] <ELECTRONICALLY SIGNED> By: Joss Canchola MD, [facility] 04/20/20 0708 55 55 Joss Canchola MD, [facility] /EPI
[2020-04-20 13:41] LABS: HEMATOCRIT 21.6 % (37.0-47.0)
[2020-04-20 18:00] LABS: HEMOGLOBIN 6.4 gm/dL (12.0-15.0)
[2020-04-20 18:01] LABS: HEMATOCRIT 19.6 % (37.0-47.0)
[2020-04-21] VITALS (86 sets, daily range): BP systolic 80–127; BP diastolic 18–58
[2020-04-21 02:40] LABS: HEMOGLOBIN 6.6 gm/dL (12.0-15.0)
[2020-04-21 02:51] LABS: HEMATOCRIT 19.5 % (37.0-47.0)
[2020-04-21 09:08] LABS: CALCIUM 7.8 mg/dL (8.5-10.1); POTASSIUM 4.2 mmol/L (3.5-5.1)
[2020-04-21 09:11] LABS: CREATININE 4.7 mg/dL (0.6-1.0)
[2020-04-21 09:45] LABS: HEMATOCRIT 20.3 % (37.0-47.0)
[2020-04-22] VITALS (78 sets, daily range): BP systolic 84–144; BP diastolic 17–54
[2020-04-22 00:06] LABS: HEP B SURFACE Ab(ANTI-HBS Non Reactive (()); HEPATITIS B SURFACE AG Negative (Negative)
[2020-04-22 00:22] LABS: HEMOGLOBIN 6.5 gm/dL (12.0-15.0)
[2020-04-22 00:24] LABS: HEMATOCRIT 19.4 % (37.0-47.0)
[2020-04-22 05:49] LABS: HEMATOCRIT 20.3 % (37.0-47.0); HEMOGLOBIN 6.8 gm/dL (12.0-15.0); RBC 2.26 mil/uL (4.20-5.00); WBC 10.8 thou/uL (4.0-11.0)
[2020-04-22 05:52] LABS: MCH 29.9 pg (26.0-34.0); MCHC 33.4 g/dL (28.0-37.0)
[2020-04-22 06:00] LABS: MCV 89.6 fL (80.0-100.0)
[2020-04-22 13:01] LABS: HEMATOCRIT 21.3 % (37.0-47.0); HEMOGLOBIN 7.1 gm/dL (12.0-15.0)
== END 2020-04-22 18:45 | disposition short-term general hospital (02) | DRG 377 ==
LOC: ER 21:26 → EROBS 22:50 → ICU 22:50 → EROBS 22:51 → ICU 04-20 01:31
PROVIDERS: Anesthesiology; Internal Medicine Gastroenterology; Internal Medicine Nephrology; Nurse Practitioner Family; Physician Assistant; Specialist; ADMIT Internal Medicine; ATTEND Internal Medicine
PROC: B548ZZA Ultrasonography of Superior Vena Cava, Guidance (ICD-10-PCS; principal; 2020-04-20)
PROC: 30233N1 Transfusion of Nonautologous Red Blood Cells into Peripheral Vein, Percutaneous Approach (ICD-10-PCS; principal; 2020-04-20)
PROC: 02HV33Z Insertion of Infusion Device into Superior Vena Cava, Percutaneous Approach (ICD-10-PCS; principal; 2020-04-20)
PROC: 5A1D70Z Performance of Urinary Filtration, Intermittent, Less than 6 Hours Per Day (ICD-10-PCS; principal; 2020-04-20)
PROC: 0W3P8ZZ Control Bleeding in Gastrointestinal Tract, Via Natural or Artificial Opening Endoscopic (ICD-10-PCS; 2020-04-21)
PROC: 5A1D70Z Performance of Urinary Filtration, Intermittent, Less than 6 Hours Per Day (ICD-10-PCS; 2020-04-22)
DX: K55.21 Angiodysplasia of colon with hemorrhage (principal); N18.6 End stage renal disease; D62 Acute posthemorrhagic anemia; J96.11 Chronic respiratory failure with hypoxia; Z68.42 Body mass index [BMI] 45.0-49.9, adult; I13.2 Hypertensive heart and chronic kidney disease with heart failure and with stage 5 chronic kidney disease, or end stage renal disease; I50.9 Heart failure, unspecified; E11.22 Type 2 diabetes mellitus with diabetic chronic kidney disease; G47.33 Obstructive sleep apnea (adult) (pediatric); I48.91 Unspecified atrial fibrillation; I27.20 Pulmonary hypertension, unspecified; E87.5 Hyperkalemia; E11.42 Type 2 diabetes mellitus with diabetic polyneuropathy; I95.9 Hypotension, unspecified; E78.5 Hyperlipidemia, unspecified; E11.51 Type 2 diabetes mellitus with diabetic peripheral angiopathy without gangrene; E66.9 Obesity, unspecified; I25.5 Ischemic cardiomyopathy; I25.10 Atherosclerotic heart disease of native coronary artery without angina pectoris; Z79.01 Long term (current) use of anticoagulants; Z20.822 Contact with and (suspected) exposure to COVID-19; Z79.82 Long term (current) use of aspirin; Z79.899 Other long term (current) drug therapy; Z98.42 Cataract extraction status, left eye; Z98.41 Cataract extraction status, right eye; Z90.13 Acquired absence of bilateral breasts and nipples; Z86.73 Personal history of transient ischemic attack (TIA), and cerebral infarction without residual deficits; Z87.891 Personal history of nicotine dependence; Z88.6 Allergy status to analgesic agent; Z88.8 Allergy status to other drugs, medicaments and biological substances; Z85.3 Personal history of malignant neoplasm of breast
CPT/HCPCS: 10078; 32100; 62110; 62900; 85076

== ENCOUNTER → 2020-05-12 | Outpatient (CLI) | payer OTHER ==
[~2020-05-12] MED LIST changes: +CHILDREN'S ASPI81 M1 PO; +JANUVIA50 MG PO; +PLAVIX 75 MG TA75 MG PO; +TORSEMIDE10 MG PO; +ZANAFLEX4 M1 PO
== END ==
LOC: SJCVC 11:45
PROVIDERS: ATTEND Internal Medicine Cardiovascular Disease
DX: R94.31 Abnormal electrocardiogram [ECG] [EKG] (principal); I44.4 Left anterior fascicular block; I25.10 Atherosclerotic heart disease of native coronary artery without angina pectoris; R60.9 Edema, unspecified; E78.00 Pure hypercholesterolemia, unspecified; E11.22 Type 2 diabetes mellitus with diabetic chronic kidney disease; I13.0 Hypertensive heart and chronic kidney disease with heart failure and stage 1 through stage 4 chronic kidney disease, or unspecified chronic kidney disease; I50.42 Chronic combined systolic (congestive) and diastolic (congestive) heart failure; N18.9 Chronic kidney disease, unspecified; Q27.30 Arteriovenous malformation, site unspecified; I48.92 Unspecified atrial flutter; I25.2 Old myocardial infarction; E78.5 Hyperlipidemia, unspecified; E66.9 Obesity, unspecified; G47.33 Obstructive sleep apnea (adult) (pediatric); Z98.890 Other specified postprocedural states; Z95.5 Presence of coronary angioplasty implant and graft; Z88.8 Allergy status to other drugs, medicaments and biological substances; Z79.899 Other long term (current) drug therapy; Z87.891 Personal history of nicotine dependence

== ENCOUNTER 2020-09-09 14:36 | Inpatient (IN) | payer OTHER ==
[~2020-09-09] VITALS: Ht 162.6 cm; Wt 117.2 kg
[2020-09-09 14:45] VITALS: BP 139/55
[2020-09-09 16:49] LABS: HEMATOCRIT 33.5 % (37.0-47.0); HEMOGLOBIN 10.9 gm/dL (12.0-15.0); MCH 33.4 pg (26.0-34.0); MCHC 32.7 g/dL (28.0-37.0); MCV 102.3 fL (80.0-100.0); PLATELET COUNT 120 thou/uL (150-400); RBC 3.27 mil/uL (4.20-5.00); WBC 6.2 thou/uL (4.0-11.0)
[2020-09-09 17:03] LABS: CALCIUM 8.5 mg/dL (8.5-10.1); CREATININE 7.8 mg/dL (0.6-1.0); POTASSIUM 5.5 mmol/L (3.5-5.1)
[2020-09-09 17:07] LABS: ALBUMIN 2.3 g/dL (3.4-5.0); TOTAL BILIRUBIN 0.7 mg/dL (0.2-1.0); TROPONIN-I 0.06 ng/mL (<0.06)
[2020-09-09 18:24] LABS: BE(vivo) 2.6 mmol/L (-2 to +3); HCO3 25.4 mmol/L (22.0-26.0); PCO2 33.7 mmHg (35.0-45.0); pH 7.495 (7.360-7.450); sO2 86.4 % (92.0-98.0)
[2020-09-09 18:26] LABS: PO2 46.5 mmHg (80.0-100.0)
[2020-09-09 18:43] LABS: ABSOLUTE NEUTROPHILS 5.2 thou/uL (1.4-8.2); METAMYELOCYTES 1 %
[2020-09-09 18:44] LABS: ANISOCYTOSIS 2+; MACROCYTES 1+; POLYCHROMASIA 1+
[2020-09-09 20:10] LABS: BE(vivo) 2.4 mmol/L (-2 to +3); HCO3 24.7 mmol/L (22.0-26.0); PCO2 30.6 mmHg (35.0-45.0); PO2 125.2 mmHg (80.0-100.0); pH 7.524 (7.360-7.450); sO2 98.8 % (92.0-98.0)
[2020-09-09 20:37] VITALS: BP 131/68
[2020-09-09 20:55] VITALS: BP 146/68
[2020-09-09 21:22] VITALS: BP 109/50
[2020-09-10] MEDS ORDERED: ZANAFLEX4 M1 PO (01:34)
[2020-09-10] MEDS ORDERED: PLAVIX 75 MG TA75 MG PO (01:36)
[2020-09-10] MEDS ORDERED: TORSEMIDE10 MG PO (01:39)
[2020-09-10] MEDS ORDERED: ZINC50 M2 PO (01:41)
[2020-09-10 04:01] LABS: HEMATOCRIT 32.1 % (37.0-47.0); HEMOGLOBIN 10.6 gm/dL (12.0-15.0); MCH 34.1 pg (26.0-34.0); MCV 103.1 fL (80.0-100.0); RBC 3.11 mil/uL (4.20-5.00); RDW 18.1 % (10.5-14.5)
[2020-09-10 04:07] LABS: ANION GAP 13 mmol/L (7-16); BUN 60 mg/dL (7-18); CALCIUM 8.1 mg/dL (8.5-10.1); CHLORIDE 96 mmol/L (98-107); CO2 27 mmol/L (21-32); CREATININE 8.4 mg/dL (0.6-1.0); GLUCOSE 85 mg/dL (74-106); SODIUM 136 mmol/L (136-145)
[2020-09-10 04:20] VITALS: BP 108/46
[2020-09-10 04:24] LABS: POTASSIUM 4.1 mmol/L (3.5-5.1)
--- NOTE | 2020-09-10 05:03 | NUR ---
Pt c/o pleurtic chest pain with coughing. Notified PLASTIC TILE LAYER.Troponin added to am labs. Er unable to get iv access on her.
[2020-09-10 05:16] LABS: TROPONIN-I <0.06 ng/mL (<0.06)
--- NOTE | 2020-09-10 07:34 | NUR ---
PT ADMITTED FRON HOME TO ER WITH C/O INCREASING SOA. D-DIMER ELEVAED. CTA ATTEMPTED HOWEVER IV PAINFUL UPON ATTEMPTED USE IN CT. PT REFUSED CTA. ER NS STATED LEFT FA SL FLUSHES . ATTEMPTED TO GET ANOTHER IV HERE ON FLOOR WITHOUT SUCCESS. CHARGE NS ATTEMPTED. ER NS ATTEMTED HERE ON FLOOR WITHOUT SUCCESS. ONLY 1/2 OF VANCOMYCIN INFUSED. ZOSYN LOADING DOSE NOT GIVEN DUE TO NO IV ACCESS. DAY SHIFT NS NOTIFIED REMAINDER OF VANCONYCIN AND LOADING DOSE OF ZOSYN STILL NEED TO BE GIVEN WHEN IV ACCESS IS OBTAINED. RENAL CONSULT PENDING.PT MISSED HER DIALYSIS YESTERDAY ON FRIDAY. DOPPLERS OF LES BEING DONE PRESENTLY. PT C/O NONCARDIAC CHEST PAIN LAST NIGHT. CHEST PAIN NOTED WITH COUGHING AND DEEP BREATHING. TAILER OUT SHEA NOTIFIED. TYLENOL GIVEN. SECOND TROPONIN CHECKED AND WAS NEGATIVE.
[2020-09-10 07:47] VITALS: BP 116/58
--- NOTE | 2020-09-10 11:00 | EKG ---
[address] [place] [address] ELECTROCARDIOGRAM REPORT Name: RAMIRO BROOKS Room #: 351-P ADM IN M.R.#: [id number] Admission: 09/09/20 Attend Phys: Anthony Herr Discharge: Date of : 41 Report #: [id number] [facility] ED Test Date: 2020-09-09 Test Time: 14:58:27 Pat Name: RAMIRO BROOKS Department: Room: 351 Gender: F Candlemaking Laborer: [place] : 1945 Requested By: Minerva Rios Order Number: [id number] MD: Pablo Arroyo Measurements Intervals [place] Rate: 80 P: 30 SD: 170 QRS: -51 QRSD: 120 T: 123 QT: 440 QTc: 508 Interpretive Statements Sinus rhythm Probable left atrial enlargement LVH with IVCD, LAD and secondary repol abnrm Prolonged QT interval Compared to ECG 04/19/2020 21:56:25 Intraventricular conduction delay now present Prolonged QT interval now present Left anterior fascicular block no longer present Electronically Signed On 09-10-2020 11:00:24 CDT by Pablo Arroyo [email or web address] <ELECTRONICALLY SIGNED> By: Pablo Arroyo MD 09/10/20 1100 1458 1458 Pablo Arroyo MD /[facility]
[2020-09-10 15:33] VITALS: BP 123/42
--- NOTE | 2020-09-10 16:09 | NUR ---
VAT CALLED FOR PIV. THERE ARE NO VESSELS VISIBLE WITH US EVEN SET AT 4.5CM ON VERY LARGE UPPER ARMS. VESSELS IN BILATERAL AC VERY SMALL AND CLOSE TO ARTERY aTTEMPTED X1 WITH LONG 20 UNSUCCESSFUL. RECOMMENDED TICC LINE BY IR TOMORROW.
[2020-09-10 19:27] VITALS: BP 95/50
--- NOTE | 2020-09-10 19:28 | NUR ---
ASSUMED PATIENT CARE AT 0700. A/O X4. HAD HD 2L FLUID MOVED. IV TEAM NOT ABLT TO PLACED 20G AC ABOVE IV. DR LILA MAYERS LET IR PLACE CENTRAL LINE. PATIENT TOLERATED ON 2L/NC. NO SOB NOTED. VSS. WILL KEEP MONITOR.
[2020-09-10 23:54] VITALS: BP 115/62
--- NOTE | 2020-09-10 23:56 | NUR ---
PT ALERT AND ORIENTED X4. BP MODERAELY LOW AFTER DIALYSIS. PT ASYMPTOMATIC. PT WATCHING TV . DENIED PAIN AT TIME OF ASSESMENT. PT REFUSED TO TURN ON SIDES. SHE STATED SHE CANNOT SLEEP OR BREATHE ON HER SIDES. REMINDED HER OF SORE ON R BUTTOCK. SHE STILL REFUSED TO TURN.MOISTURE BARRIER TO BOTTOM. NO C/O PAIN. NO S/S DISTRESS PRESENTLY. BED DOWN CALL LIGHT IN REACH. BED ALARMIS ON.
[2020-09-11 03:58] VITALS: BP 121/69
--- NOTE | 2020-09-11 06:01 | NUR ---
PT PROGRESSING TOWARDS D/C GOALS. VSS. NO S/S BLEEDING NOTED. UNLABORED ON 2LNC. NO C/O PAIN. INC URINE X1 IN SMALL AMTS. ZGARD APPLIED TO R BUTTOCK WOUND. NO CHANGES IN ASSESSMENT.
[2020-09-11 06:14] LABS: CALCIUM 8.1 mg/dL (8.5-10.1); PHOSPHORUS 4.1 mg/dL (2.6-4.7); POTASSIUM 4.9 mmol/L (3.5-5.1)
[2020-09-11 08:11] VITALS: BP 126/64
--- NOTE | 2020-09-11 11:18 | NUR ---
WOUND CONSULT; THE PATIENT IS IN COVID RESTRICTIONS AND I ASSESSED THE WOUND USING THE PICTURE AND THE RN'S VERABLIZED ASSESSMENT OF THE AREA. THE WOUND ETIOLOGY IS PRESSURE? VS FRICTION? NO S/S OF INFECTION AT THIS TIME. THE WOUND IS 0.3 X 0.3 PER THE RN. RECOMMENDATIONS; -APPLY ZGUARD BID/PRN -LOW AIRLOSS PUMP DISCUSSED WITH RN.
[2020-09-11 16:58] VITALS: BP 103/54
[2020-09-11 20:24] VITALS: BP 125/52
--- NOTE | 2020-09-12 00:13 | NUR ---
PT IS ALERT AND ORIENED X4 VSS. AFEBRILE. NO C/O PAIN. UNLABORED ON 2LNC. ZGARD APPLIED TO DECUB R BUTTOCK. PT REFUSES TO SLEEP ON HER SIDE. KIM MATTRESS, NO S/S DISTRESS.
[2020-09-12 04:08] VITALS: BP 143/70
--- NOTE | 2020-09-12 06:00 | NUR ---
PT PROGRESSING SLOWLY TOWARDS D/C GOALS. NO C/O PAIN THIS AM. ZOSYN INFUSIN. NO S/S BLEEDING NOTED. RESPIRATIONS UNLABORED.
[2020-09-12 07:35] VITALS: BP 119/67
--- NOTE | 2020-09-12 10:12 | NUR ---
Consulted for wounds and triggerd for BMI>40. Pt with UBWR 250-260#, wt stable. Admitted + for Covid-19 infection, acute erspiratory hypoxia. PMH: CHF, CAD, HTN, DM, A-Fib, pulmonary HTN, ESRD on HD TTS. On ABX, Vit C, Zinc, lasix, protonix, statin, SSI. Alb 2.0, BUN 30, Cr critical at 5.0. Last BM 09/12. Has tx to area on R buttock. Hx of good dietary intakes noted form past admissions, avg 50% over 6 meals this stay. Anticipate intake will improve when medically improved. Will add Nepro at lunch daily until untake >75% at meals. Low nutrition risk at this time.
--- NOTE | 2020-09-12 14:56 | NUR ---
INITIAL ASSESSMENT: Received consult for discharge planning. GABBIE reviewed chart and spoke with nursing and attending physician. Pt was admitted from home due to acute respiratory failure/COVID. Pt placed in Enhanced Isolation. Pt is afebrile and on 2L of O2. Pt is on IV abx and IV lasix. Pt with hx of ESRD and is on dialysis. PT/OT ordered today to evaluate pt for discharge needs. GABBIE spoke with pt briefly via phone. Pt on dialysis and requests pt contact her dtr, Silvia. GABBIE spoke with Silvia via phone. Introduced role of SW. Pt lives at home with her spouse and dtr. 2 steps to enter the home. Pt has a walker to assist with ambulation. Pt goes to [facility] for dialysis T-R-S at 1115. Pt's family provides transportation. Pt has used several HH agencies in the past. Most recently, pt has used [facility]. Pt has been to [facility]N in the past for inpt acute rehab. Pt's PCP is Dr. Rai Jarrett at [facility]. Pt has home O2 and cpap machine through [facility]. Pt is not normally on continuous O2 at home. ID consulted. SW is following to assist as needed with discharge planning.
[2020-09-12 15:45] VITALS: BP 118/56
--- NOTE | 2020-09-12 18:20 | NUR ---
ASSUMED PATIENT CARE AT 0700. A/O X4. HAD HD TODAY. 2L MOVED. SLOWLY TOWARDS POC GOALS.
[2020-09-12 19:08] VITALS: BP 103/61
--- NOTE | 2020-09-12 20:17 | NUR ---
PT RESTING IN BED, TALKING ON PHONE WITH . PT CONCERNED BECAUSE REPORTING INCREASE IN WEAKNESS AND NEEDING WALKER. PTS LUNGS DIMNISHED, CRACKLES ON LL. O2 PER NC. NO SOA NOTED WITH CONVERSATION. BLUNTED AFFECT. OBESE, WITH GENERALIZED EDEMA. ANURIC, CHEST TESIO INTACT L CHEST.
[2020-09-13 05:09] VITALS: BP 104/39
[2020-09-13 07:19] LABS: HEMATOCRIT 33.4 % (37.0-47.0); HEMOGLOBIN 10.9 gm/dL (12.0-15.0); MCH 33.5 pg (26.0-34.0); MCHC 32.5 g/dL (28.0-37.0); MCV 103.1 fL (80.0-100.0); RBC 3.24 mil/uL (4.20-5.00); RDW 17.8 % (10.5-14.5); WBC 5.1 thou/uL (4.0-11.0)
[2020-09-13 07:24] LABS: CREATININE 4.3 mg/dL (0.6-1.0); MAGNESIUM 1.7 mg/dL (1.8-2.4); POTASSIUM 4.4 mmol/L (3.5-5.1)
[2020-09-13 08:50] VITALS: BP 115/54
--- NOTE | 2020-09-13 11:08 | HC ---
[facility] [place] [address] CONSULTATION Name: RAMIRO BROOKS Room #: 351-P [facility] IN M.R.#: [id number] Admission: 09/09/20 Attend Phys: Anthony Herr Discharge: Date of : 41 Report #: [id number] THIS REPORT FOR: cc: Rai Jarrett MD, Keninde A. MD Barry, Joseph W. MD ~ DATE OF SERVICE: 09/12/2020 Infectious Disease Progress Note REASON FOR EVALUATION: COVID-19 infection, complicated by pneumonitis. The patient with chronic respiratory failure, chronic dialysis due to end-stage renal disease resultant from diabetes mellitus. HISTORY OF PRESENT ILLNESS: Chart reviewed and the patient examined. This is a 75-year-old woman, as noted above thrice weekly hemodialysis, also has underlying chronic obstructive lung disease, O2 requiring, supplemental oxygen 2 liters per nasal cannula, who presented with progressive dyspnea. Her notable family members diagnosed with COVID-19 infection. She was again tested roughly 2 weeks ago. She describes initially feeling poorly, however, seemed to have been improving only to worsen, had increasing cough that was productive of colored sputum. Initially, felt coming from her lungs and more recently is cleared to some degree and she notes perhaps sinus drainage posteriorly. She is expectorating. Her initial chest x-ray showed bilateral infiltrates. It describes diffuse heterogeneous question of pulmonary edema. She was hypoxemic with pO2's in the 40s. Having missed one of her dialysis, she did not undergo treatment. Oxygen saturations have improved now currently on her baseline 2 liters per nasal cannula. She has not had notable fevers since her admission. She notes she had some anorexia, poor p.o. intake prior to admission; however, this is improved as well. She was empirically started on piperacillin/tazobactam, corticosteroids, and supplemental vitamins. ALLERGIES: NONSTEROIDALS, IBUPROFEN. CURRENT MEDICATIONS: Pantoprazole, Zosyn, had previously been on vancomycin, but discontinue, atorvastatin, amlodipine, clopidogrel, furosemide, apixaban, ascorbic acid, dexamethasone, insulin lispro sliding scale, zinc, albuterol, acetaminophen, p.r.n. ondansetron. PAST MEDICAL HISTORY: As described above, diabetes mellitus type 2, insulin requiring, complicated by end-stage renal disease, on thrice weekly hemodialysis. Does have a cardiomyopathy with history of congestive heart failure, previous history of rheumatic fever, COPD, O2 requiring supplemental 2 liters, hypertension, previous double mastectomy, obstructive sleep apnea, requiring BiPAP complicated by pulmonary hypertension, chronic atrial fibrillation, and previous stroke. [address] [address] CONSULTATION Name: RAMIRO BROOKS Room #: 351-P [facility] IN M.R.#: [id number] Admission: 09/09/20 Attend Phys: Anthony Herr Discharge: Date of : 43 Report #: [id number] SOCIAL HISTORY: Former smoker. She used ethanol. No illicit drug use. FAMILY HISTORY: Noncontributory. REVIEW OF SYSTEMS: Otherwise, unremarkable with exception of the above. PHYSICAL EXAMINATION: GENERAL: She is alert, cooperative, appropriate. She has mild distress. She is lucid seen while on dialysis. VITAL SIGNS: Temperature 96.9, pulse 81, respirations 18, blood pressure 95/50. SKIN: Warm, dry, no rashes. HEENT: Nasal cannula in place. NECK: Supple. She has got normocephalic. Extraocular muscles intact. LUNGS: Generally clear to auscultation, somewhat diminished overall. HEART: Irregular. I do not appreciate a murmur. ABDOMEN: Obese, large pannus, somewhat firm, nontender. No peritoneal signs. GENITOURINARY AND RECTAL: Deferred. LABORATORY DATA: Screening for MRSA by PCR was negative. Most recent ABG from yesterday, pH 7.495, pCO2 of 33.7, pO2 of 46.5 on 2 liters oxygen that was from the 10th. Electrolytes: Sodium 137, potassium 4.9, chloride 99, bicarbonate is 30, anion gap of 8, BUN and creatinine 30 and 5.0, albumin of 2.0, total protein 7.0. Liver functions otherwise unremarkable on admission. Chest x-ray with bilateral diffuse pulmonary infiltrates. D-dimer elevated at 10.53. BNP 10,900. Sed rate of 113. Ferritin 4088. CBC: White count of 4.0, H and H 10.6 and 32.1, platelets of 93. Venous Dopplers: No evidence of deep venous thrombosis. ASSESSMENT AND PLAN: COVID-19 infection, complicated by pneumonitis, suspect multifactorial; however, including cardiomyopathy, also underlying obstructive disease in the airways. For tis reason, we will continue empiric therapy with Zosyn. I think she is out of the window, utilizing remdesivir seems to be improving. She is producing sputum. We will attempt to obtain sample for culture. At this point, she is not exhibiting severe immune response. I suspected did gain some partial benefit from the vaccine, may be more typical of a biphasic illness where she developed a secondary bacterial pneumonitis. At this point, I do not see a focus of pyogenic infection. In the event of any worsening, we could consider IL-6 monoclonal antibody and remdesivir dozed, although it is outside the general window. Continue supportive care. She remains tenuous. Monitor expectantly. <ELECTRONICALLY SIGNED> By: Will Tello MD 09/13/20 1108 [id number] Will Tello MD /nt
--- NOTE | 2020-09-13 13:24 | NUR ---
ALERT AND ORIENMTED X4, DENIES ANY CHEST PAIN, NASUEA AND VOMITTING. ON 2L OF OXYGEN, SOB WITH EXERTION. PT WEAR CPAP AT NIGHT AT HOME. ENHANCED PRECAUTION FOR COVID IN PLACE. DIALYSIS PT AND ANURIC. HAD BM TODAY. FALL PRECAUTION IN PLACE. WILL CONTINUE TO MONITOR.
--- NOTE | 2020-09-13 15:40 | NUR ---
SW reviewed chart and spoke with nursing and attending physician. Pt reamins in Enhanced Isolation due to COVID. Pt is afebrile and on 2L of O2. Pt is on IV abx and IV lasix. PT evaluated pt earlier today. O2 was increased to 3-4L with activity. GABBIE spoke with pt's dtr, Silvia, via phone to provide update and discuss discharge plan. Pt's dtr states that pt/family do not want pt to go to a SNF. They would be agreeable witha 5N consult. Silvia states she will discuss with her family this evening and let SW know if they would like a 5N consult. SW explained admission criteria and need for insurance auth for 5N. Pt's dtr verbalized understanding. SW notified 5N hospital liaison of possible 5N consult. GABBIE is following to assist as needed with discharge planning.
[2020-09-13 16:44] VITALS: BP 119/62
[2020-09-13 20:13] VITALS: BP 113/61
[2020-09-14 04:24] VITALS: BP 116/59
--- NOTE | 2020-09-14 06:38 | NUR ---
PT A/OX4. VSS WITH 02 IN MID S. PT HAS NO COMPLAINTS. ISOLATION PRECAUTIONS IN PLACE.
[2020-09-14 08:03] VITALS: BP 130/75
--- NOTE | 2020-09-14 14:17 | NUR ---
PT IS PROGRESSING TOWARDS CARE. CONTINUE TO BE ON 2L OF OXYGEN, TRIED TO TITRATE O2 DOWN, BUT PT DESAT DOWN TO TO 87-88%. HAD DIALYSIS TODAY, 3L WAS TAKEN OUT. FALL PRECAUTIONS IN PLACE. REPOSITION EVERY 2 HOURS. DENIES ANY NEEDS NOW.
[2020-09-14 14:46] VITALS: BP 99/57
--- NOTE | 2020-09-14 14:58 | NUR ---
SW reviewed chart and spoke with nursing and attending physician. Pt remains in Enhanced Isolation due to COVID. Pt is afebrile and on 2L of O2. Pt is on IV abx and IV Lasix. Pt to have dialysis today. PT/OT to work with pt later today to assist with recommendation for discharge. Pt/family to discuss possible 5N eval. Pt/family will not agree to SNF referral. SW is following to assist as needed with discharge planning.
[2020-09-14 19:56] VITALS: BP 105/46
--- NOTE | 2020-09-14 22:20 | NUR ---
PT RESTING IN BED. O2 PER NC. PT REMAINS OBESE. SNACK PROVIDED. PT NOT SOA WITH TALKING. PT HAD DIALYSIS TODAY REPORTED FEELING WEAK WITH PLANS UP TO CHAIR TOMORROW. R JETT INTACT.
[2020-09-15 04:35] VITALS: BP 103/55
[2020-09-15 08:17] VITALS: BP 104/41
--- NOTE | 2020-09-15 11:49 | NUR ---
GABBIE reviewed chart and spoke with nursing and attending physician. Pt remains in Enhanced Isolation due to COVID. Pt is afebrile and on 2L of O2. Pt is on IV abx and IV steroids. Pt is progressing towards goals for discharge. GABBIE left voice message for pt's dtr, Silvia, to discuss discharge plan: home with HH v. 5N eval. Will need insurance auth for 5N. GABBIE discussed with 5N animal rehabilitator, who states they are able to keep pt on 3W for acute rehab level of care if pt qualifies for 5N. Awaiting call back from pt's family at this time. GABBIE is following to assist as needed with discharge planning.
[2020-09-15 11:50] VITALS: BP 106/55
[2020-09-15 13:05] LABS: ALBUMIN 2.3 g/dL (3.4-5.0); CREATININE 5.1 mg/dL (0.6-1.0); POTASSIUM 4.1 mmol/L (3.5-5.1); TOTAL BILIRUBIN 0.4 mg/dL (0.2-1.0); TOTAL PROTEIN 6.3 g/dL (6.4-8.2)
[2020-09-15 16:23] VITALS: BP 106/55
[2020-09-15 16:42] VITALS: BP 114/44
--- NOTE | 2020-09-15 18:42 | NUR ---
PROGRESSING TOWARDS POC GOALS.
[2020-09-15 19:38] VITALS: BP 132/57
[2020-09-16 02:06] LABS: HEP B SURFACE Ab(ANTI-HBS Non Reactive (()); HEPATITIS B SURFACE AG Negative (Negative)
[2020-09-16 04:36] VITALS: BP 123/56
--- NOTE | 2020-09-16 05:04 | NUR ---
Patient progressing towards outcome goals. Vital signs and rhythm stable. High fall risks, fall precautions in place. Dialysis ordered for today. Patient states she does not feel ready to go home today.
[2020-09-16 07:34] VITALS: BP 132/83
[2020-09-16] MEDS ORDERED: VITAMIN D325 MC1 PO (12:50)
[2020-09-16] MEDS ORDERED: ACETAMINOPHEN325 M1 PO (12:50)
[2020-09-16] MEDS ORDERED: AUGMENTIN 500-1 EACH PO (12:50)
[2020-09-16] MEDS ORDERED: ACEROLA C500 MG PO (12:50)
[2020-09-16] MEDS ORDERED: DEXAMETHASONE 44 M1 PO (12:50)
[2020-09-16 15:36] VITALS: BP 106/53
== END 2020-09-16 19:02 | disposition home health service (06) | DRG 871 ==
LOC: ER 14:36 → EROBS 20:35 → 3W 20:35
PROVIDERS: Hospitalist; Internal Medicine; Nurse Practitioner Family; Specialist; ADMIT Hospitalist; ATTEND Hospitalist
PROC: XW033H5 Introduction of Tocilizumab into Peripheral Vein, Percutaneous Approach, New Technology Group 5 (ICD-10-PCS; principal; 2020-09-12)
PROC: 5A1D70Z Performance of Urinary Filtration, Intermittent, Less than 6 Hours Per Day (ICD-10-PCS; 2020-09-14)
PROC: 5A1D70Z Performance of Urinary Filtration, Intermittent, Less than 6 Hours Per Day (ICD-10-PCS; 2020-09-16)
DX: A41.89 Other specified sepsis (principal); U07.1 COVID-19; J12.82 Pneumonia due to coronavirus disease 2019; N18.6 End stage renal disease; J96.21 Acute and chronic respiratory failure with hypoxia; J15.9 Unspecified bacterial pneumonia; I13.2 Hypertensive heart and chronic kidney disease with heart failure and with stage 5 chronic kidney disease, or end stage renal disease; I48.20 Chronic atrial fibrillation, unspecified; I42.9 Cardiomyopathy, unspecified; I50.22 Chronic systolic (congestive) heart failure; Z68.41 Body mass index [BMI] 40.0-44.9, adult; I25.10 Atherosclerotic heart disease of native coronary artery without angina pectoris; E11.42 Type 2 diabetes mellitus with diabetic polyneuropathy; I27.20 Pulmonary hypertension, unspecified; E66.01 Morbid (severe) obesity due to excess calories; G47.33 Obstructive sleep apnea (adult) (pediatric); R53.81 Other malaise; E11.22 Type 2 diabetes mellitus with diabetic chronic kidney disease; E87.5 Hyperkalemia; Z96.1 Presence of intraocular lens; Z98.42 Cataract extraction status, left eye; Z98.41 Cataract extraction status, right eye; Z99.2 Dependence on renal dialysis; Z98.891 History of uterine scar from previous surgery; Z90.13 Acquired absence of bilateral breasts and nipples; Z87.891 Personal history of nicotine dependence; Z79.84 Long term (current) use of oral hypoglycemic drugs; Z79.899 Other long term (current) drug therapy; Z88.8 Allergy status to other drugs, medicaments and biological substances; Z86.73 Personal history of transient ischemic attack (TIA), and cerebral infarction without residual deficits
CPT/HCPCS: 10879; 32100

== ENCOUNTER 2020-10-01 19:32 | Inpatient (IN) | payer OTHER ==
[~2020-10-01] VITALS: Ht 162.6 cm; Wt 109.5 kg
[~2020-10-01 19:32] MED LIST changes: +ACEROLA C500 MG PO; +ACETAMINOPHEN325 M1 PO; +AUGMENTIN 500-1 EACH PO; +DEXAMETHASONE 44 M1 PO; +VITAMIN D325 MC1 PO; +ZINC50 M2 PO
[2020-10-01 20:00] VITALS: BP 154/63
[2020-10-01 20:46] LABS: ABSOLUTE NEUTROPHILS 7.3 thou/uL (1.4-8.2); BASOPHILS 0.7 % (0.0-2.0); EOSINOPHILS 1.6 % (0.0-3.0); HEMATOCRIT 30.4 % (37.0-47.0); HEMOGLOBIN 10.2 gm/dL (12.0-15.0); LYMPHOCYTES 5.2 % (24.0-44.0); MCH 35.6 pg (26.0-34.0); MCHC 33.4 g/dL (28.0-37.0); MCV 106.5 fL (80.0-100.0); MONOCYTES 9.1 % (1.0-8.0); PLATELET COUNT 129 thou/uL (150-400); POLYS 83.4 % (36.0-66.0); RBC 2.85 mil/uL (4.20-5.00); RDW 20.2 % (10.5-14.5); WBC 8.8 thou/uL (4.0-11.0)
[2020-10-01 21:01] LABS: ANION GAP 10 mmol/L (7-16); BUN 27 mg/dL (7-18); CHLORIDE 100 mmol/L (98-107); CO2 28 mmol/L (21-32); GLUCOSE 126 mg/dL (74-106); POTASSIUM 4.3 mmol/L (3.5-5.1); SODIUM 138 mmol/L (136-145)
[2020-10-01 21:11] LABS: ALBUMIN 2.7 g/dL (3.4-5.0); SGOT 29 U/L (15-37); SGPT 17 U/L (30-65); TOTAL BILIRUBIN 0.7 mg/dL (0.2-1.0); TOTAL PROTEIN 6.6 g/dL (6.4-8.2); TROPONIN-I <0.06 ng/mL (<0.06)
[2020-10-01 21:39] LABS: MACROCYTES 1+; POLYCHROMASIA SLIGHT
[2020-10-01 22:10] VITALS: BP 131/48
[2020-10-01 22:45] VITALS: BP 132/70
[2020-10-01 22:50] VITALS: BP 160/52
--- NOTE | 2020-10-02 01:12 | NUR ---
PT ADMITTED FROM ER FROM HOME WITH INCREASED SOA, DESATURATION,. PT ON BIPAP 50% FIO2. PT PREVIOUSLY COVID + IN AUGUST. ALERT AND ORIENTED X4. PT ATE DINNER BRIEFLY THE BACK ON BIPAP. SHE IS RESTING QUIETLY PRESENTLY. WILL CONTINUE TO MONITOR PT FOR CHANGES. INSTRUCTED PT ON FALL PRECAUTIONS. ORIENTED PT TO . BRIGHT CUTTER CAME UP TO SEE ADMIT PT.
[2020-10-02 04:01] VITALS: BP 107/49
[2020-10-02 05:19] LABS: HEMATOCRIT 28.8 % (37.0-47.0); HEMOGLOBIN 9.6 gm/dL (12.0-15.0); MCH 35.7 pg (26.0-34.0); MCHC 33.3 g/dL (28.0-37.0); MCV 107.3 fL (80.0-100.0); RBC 2.68 mil/uL (4.20-5.00); RDW 19.4 % (10.5-14.5); WBC 6.4 thou/uL (4.0-11.0)
[2020-10-02 05:42] LABS: CALCIUM 7.7 mg/dL (8.5-10.1); CREATININE 6.9 mg/dL (0.6-1.0); POTASSIUM 4.9 mmol/L (3.5-5.1)
--- NOTE | 2020-10-02 06:06 | NUR ---
HI PROGRESSING SLOWLY TOWARDS D/C GOALS. VSS AFEBRILE THIS AM. BIPAP ON 60% FIO2. SAT IS 95%. NO C/O SOA OR PAIN. IV ABX STARTED ORDERED.
--- NOTE | 2020-10-02 07:31 | EKG ---
[place] [address] 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: jesus : 1945 Requested By: Vishnu Stuart Order Number: [id number] MD: Joss Canchola Measurements Intervals [place] Rate: 89 P: 66 MD: 203 QRS: -49 QRSD: 119 T: 109 QT: 411 QTc: 501 Interpretive Statements Sinus rhythm Left atrial enlargement LVH with IVCD, LAD and secondary repol abnrm Prolonged QT interval Baseline wander in lead(s) V1 Compared to ECG 09/09/2020 14:58:27 No significant changes Electronically Signed On 10-02-2020 7:30:53 CDT by Joss Canchola [email or web address] <ELECTRONICALLY SIGNED> By: Joss Canchola MD, [facility] 10/02/2030 34 34 Joss Canchola MD, [facility] /[facility]
[2020-10-02 07:37] VITALS: BP 109/51
--- NOTE | 2020-10-02 09:15 | NUR ---
Assess due to high BMI/class III extreme obesity. admit with recurrent acute on chronic respiratory failure. Hx COVID+ last month. ESRD with need for dialysis. Generally eats adequate. No significant wt changes with usual wt trends 250-260 lb. Renal diet ordered, no carb controlled. BG currently adequate. Low nutrition risk
--- NOTE | 2020-10-02 11:05 | NUR ---
PATIENT IS CURRENTLY ON SERVICE WITH [facility]. SPOKE WITH DEMARCO AT [facility], 10/02/20 WITH VERBAL UPDATE. PLEASE CONTACT AT TIME OF DISCHARGE. [facility] P [phone]; FAX [phone]
[2020-10-02 11:46] VITALS: BP 101/43
[2020-10-02 15:11] VITALS: BP 111/52
--- NOTE | 2020-10-02 16:52 | NUR ---
CARE ASSUMED THIS AM, ALERT AND ORIENTED X4, DENIES CHEST PAIN, NAUSEA AND VOMITTING. PT ON BIPAP, FIO2 60%, SOB WITH EXERTION. DESAT WHEN ON OPTI-FLOW. BEDREST. HAVING DIALYSIS NOW. PT GAVE US HER PURSE AND SAID HER NEICE IS COMING FOR IT, MORIAH TOOK IT DOWN TO THE ER FOR PT GABRIELE. DENIES ANY NEEDS, FALL PRECAUTIONS IN PLACE. WILL CONTINUE TO MONITOR
[2020-10-02 20:50] VITALS: BP 110/67
--- NOTE | 2020-10-03 02:16 | NUR ---
PT ALERT AND ORIENTED. VSS AFEBRILE. RR 30 PT PLACED BACK ON BIPAP AFER SHE ATE HER DINNER AFTER DIALYSIS. SHE HAS BEEN RESTING QUIETLY. SAT PRESENTLY 98% ON BIPAP. NO C/O PAIN. NO S/S DISTRESS.
[2020-10-03 03:12] VITALS: BP 92/43
--- NOTE | 2020-10-03 05:35 | NUR ---
PT PROGRESSING SLOWLY TOWARDS D/C GOALS. VSS AFEBRILENO C/O SOA PRESENTLY ON BIPAP 60%. SAT 99%.
[2020-10-03 05:57] LABS: BASOPHILS 0.4 % (0.0-2.0); EOSINOPHILS 2.9 % (0.0-3.0); HEMATOCRIT 29.5 % (37.0-47.0); HEMOGLOBIN 9.8 gm/dL (12.0-15.0); MCH 35.4 pg (26.0-34.0); MCHC 33.1 g/dL (28.0-37.0); MCV 106.7 fL (80.0-100.0); MONOCYTES 6.8 % (1.0-8.0); PLATELET COUNT 101 thou/uL (150-400); POLYS 83.9 % (36.0-66.0); RBC 2.77 mil/uL (4.20-5.00); RDW 19.6 % (10.5-14.5); WBC 7.1 thou/uL (4.0-11.0)
[2020-10-03 06:03] LABS: ALBUMIN 2.3 g/dL (3.4-5.0); CALCIUM 7.8 mg/dL (8.5-10.1); MAGNESIUM 1.8 mg/dL (1.8-2.4); PHOSPHORUS 4.5 mg/dL (2.5-4.9); TOTAL BILIRUBIN 0.6 mg/dL (0.2-1.0)
[2020-10-03 06:06] LABS: CREATININE 4.5 mg/dL (0.6-1.0)
[2020-10-03 07:33] VITALS: BP 90/38
--- NOTE | 2020-10-03 09:05 | HC ---
[facility] [place] [address] CONSULTATION Name: RAMIRO BROOKS Room #: 359- ADM IN M.R.#: [id number] Admission: 10/01/20 Attend Phys: Maureen Roca MD Discharge: Date of : 41 Report #: [id number] THIS REPORT FOR: cc: Rai Jarrett MD, Keninde A. MD Barry, Joseph W. MD ~ DATE OF SERVICE: 10/01/2020 INFECTIOUS DISEASE CONSULTATION ATTENDING PHYSICIAN: Dr. Roca. REASON FOR EVALUATION: Pneumonitis, complicated by respiratory failure. HISTORY OF PRESENT ILLNESS: Chat was reviewed. The patient was examined. This is a 75-year-old woman well known to myself, discharged from this facility roughly 2 weeks ago, had been diagnosed with COVID-19 infection, complicated by pneumonitis; it is notable she has end-stage renal disease on dialysis and underlying chronic respiratory failure requiring supplemental oxygen 4 liters per nasal cannula. Over the course of last few days, had increasing oxygen requirements up to 6 liters and marginal saturations, described a cough that was nonproductive. It is not clear that she had any fevers, admit to chills, mild anorexia with diminished p.o. intake evaluation. Chest x-ray noted bilateral pulmonary infiltrates. Creatinine 6.0, consistent with her end-stage renal disease. ProBNP elevated at 3296. Procalcitonin of 1.01. She was empirically started on antibiotics including cefepime, Levaquin. She is scheduled to undergo dialysis as well. Currently, she is maintained on BiPAP at 60%. ALLERGIES: NONSTEROIDALS, IBUPROFEN. MEDICATIONS: Include Levaquin, cefepime, cholecalciferol, ascorbic acid, zinc, atorvastatin, amiodarone, clopidogrel, pantoprazole, tizanidine, ondansetron. PAST MEDICAL HISTORY: As noted above, diabetes mellitus complicated by end-stage renal disease on dialysis thrice weekly, chronic macrocytic anemia, hypertension, obstructive sleep apnea requiring BiPAP, pulmonary hypertension, cardiomyopathy, congestive heart failure, atrial fibrillation, and previous stroke. SOCIAL HISTORY: Former smoker. No illicit drug use. Past ethanol use. FAMILY HISTORY: Noncontributory. REVIEW OF SYSTEMS: As noted above, otherwise unremarkable. PHYSICAL EXAMINATION: [address] [address] CONSULTATION Name: RAMIRO BROOKS Room #: 359-P [facility] IN .R.#: [id number] Admission: 10/01/20 Attend Phys: Maureen Roca MD Discharge: Date of : 43 Report #: [id number] GENERAL: She appears chronically ill. She is alert, appears to be generally oriented, in moderate distress. VITAL SIGNS: Temperature 99.8, pulse 83, respirations 28, blood pressure 109/51. HEENT: BiPAP in place. Extraocular muscles intact. Normocephalic. NECK: Supple. LUNGS: Scattered coarse breath sounds. HEART: Irregular, do not appreciate a murmur. ABDOMEN: Obese, somewhat distended, firm, nontender. EXTREMITIES: No cyanosis. GENITOURINARY AND RECTAL: Deferred. LABORATORY DATA: Electrolytes: Sodium 139, potassium 4.9, chloride 101, bicarbonate 25, anion gap of 13, BUN and creatinine 32 and 6.9. CBC: White count of 6.4, H and H of 9.6 and 28.8, platelets 108, MCV of 107.3, procalcitonin is 1.01, proBNP of 3296. Chest x-ray as described above, bilateral infiltrates. ASSESSMENT AND PLAN: Pneumonitis, complicated by respiratory failure in a patient with underlying chronic lung dysfunction. Continue empiric combination therapy with Zosyn, discontinue Levaquin due to concern about adverse drug effects or drug interactions with amiodarone. Continue with aztreonam in addition to the cefepime. She remains quite tenuous at this point. Continue support with oxygen as clinical course dictates. Overall, prognosis is guarded. <ELECTRONICALLY SIGNED> By: Will Tello MD 10/03/20 0905 [id number] Will Tello MD /nt
[2020-10-03 11:39] VITALS: BP 115/51
--- NOTE | 2020-10-03 14:19 | NUR ---
INITIAL ASSESSMENT: Received consult for discharge planning. GABBIE reviewed chart and spoke with nursing and attending physician. Pt was admitted from home due to hypoxic respiratory failure. Pt placed in Enhanced Isolation. Pt had positive C OVID test on 10/02/2020. Pt is afebrile and currently requiring bipap support. Pt is on IV abx. Pt with hx of ESRD and is on dialysis. GABBIE spoke with Silvia via phone. Introduced role of SW. Pt lives at home with her spouse and dtr. 2 steps to enter the home. Pt has a walker to assist with ambulation. Pt goes to [facility] for dialysis T-R-S at 1115. Pt's family provides transportation. Pt was recently discharged home on 09/09 with [facility] and continuous O2 through [facility]. Pt also has a cpap machine through [facility]. Pt has been to [facility] in the past for inpt acute rehab. Pt's family does not want pt to be in a SNF/LTC facility. Pt's PCP is Dr. Rai Jarrett at [facility]. GABBIE spoke with Helga at [facility] to provide update. Therapy evals to be ordered when pt is able to participate. GABBIE is following to assist as needed with discharge planning.
[2020-10-03 15:46] VITALS: BP 115/53
--- NOTE | 2020-10-03 17:19 | NUR ---
assumed care of pt at 0700. pt aox4 mod resp distress. PRN bipap. otherwise tolerating optiflow spo2 > 90%. good appetite. encouraged not to talk on phone for too long due to current resp status. OK to d/c isolation precautions seeing that patient had hospitalized for covid pna in early august. currently being dialyzed. using bedpan PRN. wcm.
[2020-10-03 20:13] VITALS: BP 94/40
--- NOTE | 2020-10-04 05:12 | NUR ---
continues on bipap at night 80% fio2. cooperative and friendly. denies pain. clarified her covid/isolation status. she was confused at the begining of her shift about this. no discharge concerns voiced.
[2020-10-04 05:29] VITALS: BP 110/45
[2020-10-04 05:48] LABS: HEMATOCRIT 30.6 % (37.0-47.0); HEMOGLOBIN 10.2 gm/dL (12.0-15.0); MCH 35.4 pg (26.0-34.0); MCHC 33.2 g/dL (28.0-37.0); MCV 106.5 fL (80.0-100.0); RBC 2.87 mil/uL (4.20-5.00); RDW 19.5 % (10.5-14.5); WBC 5.9 thou/uL (4.0-11.0)
[2020-10-04 06:12] LABS: CALCIUM 8.5 mg/dL (8.5-10.1); CREATININE 3.6 mg/dL (0.6-1.0); POTASSIUM 4.5 mmol/L (3.5-5.1)
[2020-10-04 07:37] VITALS: BP 92/33
[2020-10-04 08:00] VITALS: BP 99/44
[2020-10-04 11:16] VITALS: BP 88/50
--- NOTE | 2020-10-04 14:48 | NUR ---
SW reviewed chart and spoke with nursing and attending physician. Enhanced Isolation precautions have been discontinued. Pt is requiring bipap support. Therapy evals to be ordered when pt is able to participate. SW is following to assist as needed with discharge planning.
[2020-10-04 15:10] VITALS: BP 105/46
[2020-10-04 19:38] VITALS: BP 112/48
--- NOTE | 2020-10-05 03:39 | NUR ---
continues on the bipap at night at 80 % fio2. keeping o2 sats above 92%. resting quietly. denies pain. no discahreg concerns voiced.
[2020-10-05 03:46] VITALS: BP 106/52
[2020-10-05 07:04] VITALS: BP 112/54
--- NOTE | 2020-10-05 08:12 | NUR ---
PT RECIEVING DIALYSIS THIS AM.
[2020-10-05 10:58] VITALS: BP 108/67
[2020-10-05 15:06] VITALS: BP 93/46
--- NOTE | 2020-10-05 17:42 | NUR ---
PT HAD DIALYSIS TODAY. PT TAKING IN GOOD PO AND DENIES PAIN. PT REMIAN ON HIFLO OXYGEN AND BIPAP WHILE SLEEPING. WILL CONTINUE TO ASSESS.
--- NOTE | 2020-10-05 18:10 | NUR ---
PLACE PT BACK ON BIPAP AT 80% FIO2 FOR THE EVENING.
[2020-10-05 19:56] VITALS: BP 100/56
[2020-10-05 22:00] VITALS: BP 115/47
--- NOTE | 2020-10-06 06:00 | NUR ---
Patient making some progress towards outcome goals. Continues to requires significant amount of oxygen. Hiflo at 85%. Tolerated BIPAP at 80%, desats with any activity.High fall risks, fall precautions in place. Viyal signs and rythm stable.
[2020-10-06 07:44] VITALS: BP 102/44
[2020-10-06 12:07] VITALS: BP 91/50
[2020-10-06 15:42] VITALS: BP 117/54
--- NOTE | 2020-10-06 16:10 | NUR ---
SW reviewed chart and spoke with nursing and attending physician. Pt is requiring bipap support continuously. No weekend discharge planned. PT/OT evals to be ordered when pt is able to participate. SW spoke with pt's dtr, Tiki, via phone to provide update. Questions answered. GABBIE is following to assist as needed with discharge planning.
[2020-10-06 19:40] VITALS: BP 101/47
[2020-10-07] VITALS (7 sets, daily range): BP systolic 84–106; BP diastolic 29–46
--- NOTE | 2020-10-07 04:45 | NUR ---
Received pt. on Optiflow 50L / 92% then BIPAP at 100% once she started sleeping. No respiratory distress. She has been afebrile. She is anuric and scheduled for dialysis today.
--- NOTE | 2020-10-07 10:36 | NUR ---
CARE ASSUMED THIS AM, PT ALERT AND OREINTED X4, DENIES ANY CHEST PAIN, NUMBNESS AND TINGLING. ON BIPAP, FIO2 100%, OPTIFLO 55L WHEN EATING. SOB WITH EXERTION. NON-PRODUCTIVE COUGH. PT IS GETTING DIALYSIS DANNY. FALL PRECAUTIONS IN PLACE. WILL CONTINUE TO MONITOR
[2020-10-08 05:18] VITALS: BP 102/49
--- NOTE | 2020-10-08 07:30 | NUR ---
Pt. on BIPAP with 80% FIO2 at shift change. She requested to be off BIPAP so she can eat at HS. RT put her on Optiflow.She stated she slept intermittently during the night.
[2020-10-08 09:10] VITALS: BP 90/52
[2020-10-08 09:27] VITALS: BP 104/40
[2020-10-08 16:00] VITALS: BP 94/28; BP 94/38
--- NOTE | 2020-10-08 16:33 | NUR ---
RN ASSUMED PT'S CARE AT 0700AM, PT IS A&OX4, PT IS CONTINUING OPTIFLOW O2 60L/NC, O2 87% TO KEEP O2SAT AT 92-96%, PT'S VS ARE STABLE, PT DENIES PAIN AT THIS TIME.
[2020-10-08 20:08] VITALS: BP 103/52
--- NOTE | 2020-10-09 03:05 | NUR ---
PT PROGRESSING SLOWLY TOWARDS D/C GOALS. VSS AFEBRILE. OPTIFLO ON. SATS WNL. NO C/O PAIN OR SOA TONIGHT SO FAR. SHE IS SLEEPING QUIETLY. NO S/S DISTRESS PRESENTLY.
[2020-10-09 04:38] VITALS: BP 149/77
[2020-10-09 05:21] VITALS: BP 110/60
--- NOTE | 2020-10-09 06:47 | NUR ---
PT IS PROGRESSING SLOWLY TOWARDS D/C GOALS VSS AFEBRILE. MIRALAX GIVEN FOR CONSTIPATION. RESPIRATIONS UNLABORED ON OPTIFLOW 55LF AND 87% FIO2. NO C/O PAIN TONIGHT .
[2020-10-09 07:15] VITALS: BP 95/42
--- NOTE | 2020-10-09 09:55 | NUR ---
Nutrition follow up: Pt on renal diet, ESRD, on HD. Renal following. Intakes fair with avg >60% last 2 days. Remains on ABT and vit pack. POC glucose range appropriate. BM 8/ s/p miralax adminstered for c/o constipation. Wt remains WNL for UBW. Remains low nutrition risk.
[2020-10-09 11:18] VITALS: BP 104/45
--- NOTE | 2020-10-09 14:53 | NUR ---
GABBIE reviewed chart and spoke with nursing and attending physician. Pt is off bipap and requiring optiflow. Pt is on IV abx. PT/OT evals ordered today to evaluate pt for discharge needs. 5N to follow to determine if she may be a candidate for 5N. GABBIE discussed with 5N rehabilitation worker. GABBIE spoke with pt's dtr, Tkii, via phone to provide update. Pt and family are not agreeable with SNF placement, but would be open to 5N/inpt acute rehab placement. GABBIE is following to assist as needed with discharge planning.
[2020-10-09 15:10] VITALS: BP 94/42
--- NOTE | 2020-10-09 15:55 | NUR ---
RN ASSUNED PT'S CARE AT 0700AM, PT IS A&OX4, PT IS CONTINUING IV ABX AND OPTIFLOW O2 55L/MIN/NC ,O2 84% , PT'S O2SAT STAYS AT 92-96%, BUT PT STILL HAS SOB WITH ACTIVITIES , PT NEEDS HELP HER MEALS AND HASKINS HER POSITIONS, PT DENIES PAIN AND N/V BY THIS TIME.PT WILL HAVE DIALYSIS TOMORROW.
[2020-10-09 19:18] VITALS: BP 101/46
--- NOTE | 2020-10-09 22:48 | NUR ---
PT ALERT AND ORIENTED X4. VSS AFEBRILE. NO C/O PAIN. C/O SOA ON OPTIFLOW. RT PLACED PT BACK ON BIPAP . MOISTURE BARRIER APPLIED TO BOTTOM. PT REPOSITIONED UP IN BED. NO S/S SOA NOTED PRESENTLY WHILE ON BIPAP FIO2 100%.
[2020-10-10 05:29] VITALS: BP 113/47
--- NOTE | 2020-10-10 05:34 | NUR ---
PT PROGRESSING VERY SLOWLY TOWARDS D/C GOALS. LUNGS ARE SLIGHTLY COARSE. BIPAP ON PRESENTLY 100%FIO2. NO C/O PAIN. NO C/O SOA. DIALYSIS TODAY.
[2020-10-10 07:17] VITALS: BP 91/45
[2020-10-10 12:00] VITALS: BP 111/61
--- NOTE | 2020-10-10 13:57 | NUR ---
SW reviewed chart and spoke with nursing and attending physician. Pt placed back on bipap. Pt had been on optiflow yesterday during the day. PT/OT unable to evaluate pt today due to being on bipap and having dialysis. Pt is on IV abx. Awaiting input from therapy at this time. GABBIE is following to assist as needed with discharge planning.
[2020-10-10 15:46] VITALS: BP 81/53
[2020-10-10 19:20] VITALS: BP 93/43
--- NOTE | 2020-10-10 21:13 | NUR ---
PROGRESS PT A/O X4 , LUNGS WITH COARSE BREATHE SOUNDS THROUGHOUT. ON BIPAP AT 55 LITERS MAINTAINING SATS AT 96 TO 97% FED DINNER WHILE HOLDING BIPAP MASK TO FACE IN BETWEEN BITES TOLERATED WELL. DIALYSIS CATH TO LEFT CHEST INTACT WITH C/D/I DRESSING. NO URINE OUT THIS SHIFT. ACCUCCHECK 104. BP STILL LOW AT 93/43, HEART RATE CONTINUES TO BE TACHYCARDIC IN THE 130'S RHYTHM IS AFIB. REPORT GIVEN TO ALMA JONES ON 2 N PT TO TRANSFER TO ROOM 217.
[2020-10-10 22:10] VITALS: BP 90/41
[2020-10-11 04:31] VITALS: BP 83/45
[2020-10-11 08:08] VITALS: BP 82/37
[2020-10-11 11:58] VITALS: BP 86/45
[2020-10-11 15:51] VITALS: BP 90/50
--- NOTE | 2020-10-11 19:28 | NUR ---
PT IS AXOX4, PLEASANT; PT ON BIPAP APPRENTICE EMBALMER. VSS, AFEBRILE, SA ON THE MONITOR. PT/OT/RT CONSULTED. DR TAYLOR CONSULTED. PT IS DIALYSIS PT, //SAT. POC IS TO CONTINUE TO MONITOR O2 SATS. PT DESATS QUICKLY WHEN OFF OF BIPAP. PT TO CONTINUE DIALYSIS ON NORMAL SCHEDULED DAYS. REHAB CONSULTED. HIGH FALL PRECAUTIONS IN PLACE. FREQUENT ROUNDING.
[2020-10-11 21:11] VITALS: BP 131/111
[2020-10-12 05:52] VITALS: BP 117/50
[2020-10-12 07:50] VITALS: BP 103/71
[2020-10-12 11:25] VITALS: BP 89/50
[2020-10-12 11:47] LABS: BE(vivo) -1.5 mmol/L (-2 to +3); HCO3 24.3 mmol/L (22.0-26.0); PCO2 45.1 mmHg (35.0-45.0); PO2 61.3 mmHg (80.0-100.0); pH 7.349 (7.360-7.450); sO2 90.3 % (92.0-98.0)
[2020-10-12 16:02] LABS: HEMATOCRIT 32.1 % (37.0-47.0); HEMOGLOBIN 10.7 gm/dL (12.0-15.0); MCH 35.2 pg (26.0-34.0); MCHC 33.3 g/dL (28.0-37.0); MCV 105.9 fL (80.0-100.0); RBC 3.03 mil/uL (4.20-5.00); RDW 18.3 % (10.5-14.5)
--- NOTE | 2020-10-12 16:08 | NUR ---
[facility] following along. They are not able to accept at this time as pt is needing bipap continuous to maintain her sats. PT/OT unable to work with her d/t this. Her po intake is limited at this time as well. The pt did dialyze today and is normally on a t-th-sat schedule. [facility] will reeval once the pt is able to participate in therapy. Pt/family not wanting to go to SNF. If pt were to go home with hh vs rehab she would need to be able to get in and out 3xwkly for dialysis. Case discussed with the care team.
[2020-10-12 16:11] LABS: CALCIUM 8.5 mg/dL (8.5-10.1); CREATININE 7.1 mg/dL (0.6-1.0); MAGNESIUM 1.9 mg/dL (1.8-2.4); POTASSIUM 4.6 mmol/L (3.5-5.1)
[2020-10-12 16:20] VITALS: BP 91/53
[2020-10-12 19:32] VITALS: BP 108/43
--- NOTE | 2020-10-12 22:07 | NUR ---
PT IS AXOX4, PLEASANT. VS BP SOFT, AFEBRILE, ST BBB ON THE MONITOR. PT HAD DIALYSIS TODAY. PT IS //FRI DIALYSIS. PT IS ON CONTINUOUS BIPAP AND CONTINUES TO DESAT WITHOUT IT ON. PT/OT CONSULTED, DR TAYLOR CONSULTED. POC TO CONTINUE TO MONITOR O2 SATS, ABX THERAPY, AND DIALYSIS. SLOW PROGRESSION TOWARDS GOALS. FALL PRECAUTIONS IN PLACE. FREQUENT ROUNDING.
[2020-10-13 04:45] VITALS: BP 99/58
[2020-10-13 08:35] VITALS: BP 93/52
[2020-10-13 11:35] VITALS: BP 116/74
[2020-10-13 16:00] VITALS: BP 101/53
[2020-10-13 20:50] VITALS: BP 103/53
[2020-10-14 04:45] VITALS: BP 100/61
--- NOTE | 2020-10-14 06:00 | NUR ---
ASSUMED CARE OF PT FROM DAY SHIFT NURSE, PT SITTING UP IN BED ON COMPUTER TABLET, CALM WITH BIPAP, TOLERATING WELL. VOICED NO CONCERNS, PT REUESTED THAT 0 SAT MONITOR BE TURN TO HER SO SHE MAY KNOW HOW HER OXYGEN LEVEL. PT RESTED WELL THROUGHOUT HOURLY ROUND.
[2020-10-14 07:45] VITALS: BP 94/52
[2020-10-14 11:55] VITALS: BP 100/56
[2020-10-14 16:05] VITALS: BP 100/42
--- NOTE | 2020-10-14 18:30 | NUR ---
PT ASSESSED AT START OF SHIFT. REQUIRING CONTINOUS BIPAP AT 70%. DESATS EASILY WHEN OFF BIPAP FOR BITES OF FOOD. DIALYZED THIS AFTERNOON AND WENT FOR CT CHEST AFTER W/ HER BIPAP. NO C/O PAIN. CONT TO HAVE ST ON MONITOR.
[2020-10-14 20:15] VITALS: BP 99/52
[2020-10-15 04:00] LABS: CALCIUM 8.4 mg/dL (8.5-10.1); CREATININE 4.1 mg/dL (0.6-1.0); MAGNESIUM 1.9 mg/dL (1.8-2.4); POTASSIUM 4.6 mmol/L (3.5-5.1)
[2020-10-15 04:19] LABS: HEMATOCRIT 31.5 % (37.0-47.0); HEMOGLOBIN 10.4 gm/dL (12.0-15.0); MCV 106.3 fL (80.0-100.0); RBC 2.96 mil/uL (4.20-5.00); WBC 6.6 thou/uL (4.0-11.0)
[2020-10-15 04:26] VITALS: BP 91/61
--- NOTE | 2020-10-15 05:05 | NUR ---
pt resting quietly with bipap thru the noc, did c/o npc prn cough syrup ordered, vss, no c/o pain, repositioned as needed, will con't to monitor per ppoc.
[2020-10-15 05:36] LABS: HEPATITIS B SURFACE AG Negative (Negative)
[2020-10-15 12:15] VITALS: BP 88/51
[2020-10-15 16:15] VITALS: BP 789/46
--- NOTE | 2020-10-15 19:34 | NUR ---
CONT ON BIPAP. TAKEN OFF INTERMITTENTLY WHEN SHE EATS. SHE IS NOW SLEEPING. WILL CONT WITH PLAN OF CARE.
[2020-10-15 22:36] VITALS: BP 92/56
[2020-10-16 04:03] VITALS: BP 94/46
[2020-10-16 08:10] VITALS: BP 129/67; BP 19/59
--- NOTE | 2020-10-16 08:19 | NUR ---
ASSESSMENTS CHARTED, VSS, SBP BELOW 100 STARTED ON MIDODRINE, NO C/O PAIN, ZOFRAN GIVEN DURING THE NIGHT FOR C/O NAUSEA THAT HAVE RESOLVED, DIALYSIS STARTED THIS AM WILL CON'T TO MONITOR PER PPOC
[2020-10-16 11:35] VITALS: BP 92/70
--- NOTE | 2020-10-16 15:05 | HC ---
[facility] [place] [address] CONSULTATION Name: RAMIRO BROOKS Room #: 217-P [facility] IN M.R.#: [id number] Admission: 10/01/20 Attend Phys: Annette Hogan MD Discharge: Date of : 41 Report #: [id number] THIS REPORT FOR: cc: Rai Jarrett MD, Keninde A. MD Smithson, David G. MD ~ DATE OF SERVICE: 10/11/2020 HISTORY OF PRESENT ILLNESS: The patient is a 75-year-old -German female, previously known to [place], who is on the acute inpatient rehabilitation [facility] with critical illness myopathy, acute on chronic respiratory failure, pulmonary hypertension in 09/2019. The patient was able to be discharged home at that time, ambulating 50 feet with a front-wheeled walker with mod assist sit to stand. Lower extremity dressing was max assist. Family was trained and she was able to get back to the home setting. She has now been readmitted with worsening shortness of breath. Since her rehab discharge, she had a hospitalization for COVID pneumonia, 09/09/2020 through 09/16/2020. She was discharged home at 4 liters, which is more for her than her baseline which had been 2 liters at night. While at home, she initially was doing better and then had worsening shortness of breath, increasing to 6 liters and it was recommended and she now has been readmitted with recurrent acute on chronic hypoxic respiratory failure. She has the prior COVID pneumonia, was noted to have bilateral multifactorial pneumonia. She has end-stage renal disease on hemodialysis, cardiomyopathy, chronic atrial fibrillation, exogenous obesity. She has pulmonary hypertension, diabetic peripheral neuropathy. We are seeing her in rehabilitation medicine consultation. PRIOR MEDICAL HISTORY: As delineated above. She has had a prior recent upper GI bleed, chronic atrial fibrillation, chronic systolic heart failure, end-stage renal disease on hemodialysis, morbid obesity, degenerative arthritis, and has had prior injections of her knees. MEDICATIONS: Please see the full medication listing. ALLERGIES: NONSTEROIDALS. SOCIAL HISTORY: She lives with her and daughter, house 2 steps in, used a walker. Family has been very supportive with her and the family has not desired a residential facility stay. REVIEW OF SYSTEMS: Somewhat difficult with her currently on the BiPAP. No specific increased shortness of breath. No chest pain or abdominal discomfort. PHYSICAL EXAMINATION: GENERAL: A 75-year-old pleasant, obese -German female, in no obvious distress. She is on the BiPAP, which [place] [address] CONSULTATION Name: RAMIRO BROOKS Room #: 217-P [facility] IN M.R.#: [id number] Admission: 10/01/20 Attend Phys: Annette Hogan MD Discharge: Date of : 43 Report #: [id number] She is able to follow basic commands without difficulty. VITAL SIGNS: Temperature 36.8, pulse 50, respirations 20, blood pressure 86/45. HEENT: Otherwise, appeared benign. Functional range of motion of both upper extremities, strength is probably a grade 3+ to 4-/5. Lower extremities: She has decreased distal sensation consistent with her premorbid diabetic peripheral neuropathy. Tone appeared to be intact. Strength is probably a grade 3+ to 4-/5. She was able to lift both of her legs off the bed. She was not able to have PT or OT today as she is on the BiPAP. They are also trying to work around her dialysis schedule. ASSESSMENT: A 75-year-old -German female with the following problem list: 1. Recurrent acute on chronic hypoxic respiratory failure. 2. Pulmonary rehabilitation. 3. Bilateral multifactorial pneumonia. 4. End-stage renal disease, on hemodialysis. 5. Diabetes mellitus type 2. 6. Congestive heart failure with cardiomyopathy. 7. Chronic atrial fibrillation. 8. Obstructive sleep apnea with pulmonary hypertension. She was on CPAP at night with O2 before. 9. Chronic obstructive pulmonary disease. 10. Morbid obesity. 11. Recent COVID-19 pneumonia, is out of isolation. 12. Bilateral knee degenerative arthritis. Has had prior injections in the past. PLAN: Therapies will be working with her as can be tolerated with the BiPAP. I encouraged her to try to work on upper and lower extremity strengthening exercises while in bed and we will try to get her up and move as far as her functional mobility and ADLs as she medically stabilizes. We will be glad to follow regarding rehab therapy issues. <ELECTRONICALLY SIGNED> By: Davion Choi MD 10/16/20 1505 [id number] [id number] Davion Choi MD /nt
[2020-10-16 16:20] VITALS: BP 81/60
--- NOTE | 2020-10-16 17:01 | NUR ---
PT RESTING IN BED. WORKED WITH PT/OT. DIALYSIS TODAY FROM [id number], 1.5L OFF PER HD NURSE. PLAN TO DO HD TOMORROW. PT ON BIPAP AT 80% FIO2, DESATS VERY QUICKLY WHEN BIPAP IS OFF. PT AFEBRILE, ANEURIC, BM X1, APPROPRIATE APPETITE. PT HAS BEEN THOUROUGHLY UPDATED AND EDUCATED ON PT CONDITION AND POC. PT SLOWLY PROGRESSING TOWARDS POC.
[2020-10-16 20:15] VITALS: BP 108/50
[2020-10-17 04:45] VITALS: BP 125/72
[2020-10-17 07:30] LABS: BE(vivo) 0.8 mmol/L (-2 to +3); HCO3 25.9 mmol/L (22.0-26.0); PCO2 43.1 mmHg (35.0-45.0); PO2 61.5 mmHg (80.0-100.0); pH 7.396 (7.360-7.450); sO2 91.5 % (92.0-98.0)
[2020-10-17 07:55] VITALS: BP 117/64
[2020-10-17 11:40] VITALS: BP 125/51
--- NOTE | 2020-10-17 14:08 | NUR ---
Nutrition followup: pt continues on CCU unit with SOA, post COVID pneumonitis. PMH: CHF, ESRD, obesity, DM, PNA. Hemodialysis today. pt is requiring the bipap and desats when off however managing to eat on average 50% of meals. Orders meals as desired. Pt agreeable to one Nepro daily to assist in fair intake. BM 10/16. Continues on vitamin pack. BG 96-140. Additional carb controlled restriction not indicated in light of fair intake and present BG values. Consider low nutrition risk with interventions in place.
[2020-10-17 15:52] VITALS: BP 94/55
--- NOTE | 2020-10-17 18:25 | NUR ---
ASSUMED PATIENT CARE AT 0700. A/O X4. RT SWITHED PATIENT ON OPTIFLOW AT 1530. 45L/100% PATIENT TOLERATED WELL. VSS. SLOWLY TOWARDS POC GOALS.
[2020-10-17 20:15] VITALS: BP 93/45
[2020-10-18] VITALS (7 sets, daily range): BP systolic 100–140; BP diastolic 51–85
--- NOTE | 2020-10-18 15:18 | NUR ---
Patinet cont with bipap and high flow nc. Oxygen needs cannot met at skilled or rehab. Casemgt cont to follow.
--- NOTE | 2020-10-18 16:37 | NUR ---
ASSUMED PATIENT CARE AT 0700. A/O X4. PATIENT LIKE BE ON OPTIFLOW. DESAT WITH ACTIVITY. CURRENTLY PATIENT ON OPTIFLOW 55L/100% NOT TOLERATED WELL. VSS. NOT TOWARDS POC GOALS.
[2020-10-19 05:29] VITALS: BP 120/80
--- NOTE | 2020-10-19 07:42 | NUR ---
ASSUME CARE 1900. PT/VITALS STABLE. NO DISTRESS NOTED THROUGH THE SHIFT. PT ON OPTIFLOW DURING THE DAY WITH SATS AT 93%, BIPAP AT NIGHT WITH SATS AT 94-95%. ASSESSMENT CHARTED. PROGRESSING MODERATELY WITH POC. PLAN IS TO CONTINUE TO MONITOR AND MANAGE RESP FUNCTION. WILL CONTINUE TO MONITOR AND FOLLOW WITH POC
[2020-10-19 09:13] VITALS: BP 136/64
--- NOTE | 2020-10-19 10:20 | NUR ---
FAXED REFERRAL TO [facility] AND [facility] WITH NOTATION OF READY FOR DISCHARGE TODAY, 10/19/20. WILL CONFIRM IF THEY CAN ACCEPT AND AVAILABILITY. [facility] P [phone]; FAX [phone]; ADMISSIONS [phone] [facility] P [phone]; FAX [phone]
[2020-10-19 11:07] LABS: ANA INTERPRETATION Negative (Negative)
[2020-10-19 11:33] VITALS: BP 129/79
[2020-10-19 15:55] VITALS: BP 129/68
--- NOTE | 2020-10-19 18:20 | NUR ---
Cm exploring ltac options as the pt is not a candidate for acute rehab or snf. [facility] is out of network with her ins, [facility] is full with long wait list, [facility] can accept and submit for auth but will need to put the pt on a wait list also for sometime next week. [facility] has spoken with the pt about her overall outlook and encouraged her to discuss her medical directive and wishes with her dtrs/spouse. Dtr Silvia called today requesting an update from cm. Update provided as well as possible LTAC/or palliative care options pending her progress. The pt is on continuous bipap and has dialysis which has limited her ability to participate in any therapy sessions. She has been trying to switch to high flow for meals and desats easily. She is very weak. Encouragement given for pt's dtrs to try and be here in the morning either tomorrow or over the weekend to visit with the physicians, ask questions and discuss options. Emotional support provided. Silvia notes she just lost her finace and his was last week. She is not able to take any more time off work but will try to be here Friday morning.
--- NOTE | 2020-10-19 18:45 | NUR ---
A/0 X4. 1.5L FLUID MOVED BY HD. TOLERATED ON OPTIFLOW. SOLWLY TOWARDS POC GOALS.
[2020-10-19 20:09] VITALS: BP 112/67
[2020-10-20 05:08] VITALS: BP 115/67
--- NOTE | 2020-10-20 07:53 | NUR ---
ASSUME CARE 1900. PT/VITALS STABLE. DENIES ANY PAIN. MODERATE TOLERANCE TO ACTIVITY. SOB WITH MILD ACTIVITY. ST/BBB ON MONITOR. ASSESSMENT CHARTED. PROGRESSING MODERATELY TOWARDS POC. PLAN IS TO CONITNUE TO MONITOR AND MANAGE RESPIRATORY FUNCTION. PT TOLERATING OPTIFLOW AT 45% . TITRATING O2 DOWN. NO DISTRESS NOTED THROUGH THE SHIFT. WILL CONTINUE TO MONITOR AND FOLLOW WITH POC
[2020-10-20 08:45] VITALS: BP 115/71
--- NOTE | 2020-10-20 10:52 | NUR ---
FAXED PROGRESS NOTES AND eMAR TO [facility] AT [phone] FOR [facility] PER [facility].
[2020-10-20 11:43] VITALS: BP 116/61
--- NOTE | 2020-10-20 13:56 | NUR ---
Assued pt care this am, pt is bedbound. Diet and medications are tolerated well. Assistance is needed for meals. On optiflow, would [place] with minimal exertion (45). Progressing slow towards goals. POC folloed with no signs or verbalizations of distress noted. DAughter at the bedside. Will monitor.
[2020-10-20 16:00] VITALS: BP 120/64
[2020-10-20 19:45] VITALS: BP 131/68
--- NOTE | 2020-10-21 02:16 | NUR ---
PT IS A/O X4 AND IS ON BEDREST. VSS AFEBRILE. DENIES C/O PAIN OR DISCOMFORT. HAD A BM THIS SHIFT. MEDICATIONS GIVEN PER MAY. BIPAP CURRENTLY IN PLACE SINCE HS.PT IS PLEASANT AND COOPERATIVE WITH CARES. DGHTR AT THE BEDSIDE AT CHANGE OF SHIFT AND STAYED TILL END OF VISITING HOURS. CURRENTLY PT IS LYING IN HER BED WITH EYES CLOSED AND APPEARS TO BE RESTING COMFORTABLY. FALL PRECAUTIONS IN PLACE, CALL LIGHT IS WITHIN REACH.
[2020-10-21 03:05] LABS: HEMATOCRIT 32.9 % (37.0-47.0); HEMOGLOBIN 10.7 gm/dL (12.0-15.0); MCH 34.2 pg (26.0-34.0); MCHC 32.6 g/dL (28.0-37.0); RBC 3.13 mil/uL (4.20-5.00); WBC 17.6 thou/uL (4.0-11.0)
[2020-10-21 03:15] LABS: CALCIUM 8.5 mg/dL (8.5-10.1); CREATININE 5.5 mg/dL (0.6-1.0)
[2020-10-21 03:28] LABS: POTASSIUM 6.1 mmol/L (3.5-5.1)
[2020-10-21 04:00] VITALS: BP 125/75
[2020-10-21 08:00] VITALS: BP 151/126
[2020-10-21 16:00] VITALS: BP 110/36
--- NOTE | 2020-10-21 16:05 | NUR ---
PT WAS ON CPAP MOST OF THE MORNING SHE DID NOT TOLERAT HIGH AP. AFTER LUNCH AND DIALYSIS, SHE TOLERATED HIGH AP. SHE IS ALERT ORIENTED X4. PLEASANT. ATE LUNCH WITH MINIMAL DIFFICULTY NOTED. PLEASANT WITH ARE. WILL CONT WITH PLAN OF CARE.
[2020-10-21 19:48] VITALS: BP 116/73
[2020-10-22 03:30] VITALS: BP 156/88
--- NOTE | 2020-10-22 04:06 | NUR ---
assumed pt care at 1900, pt is alert and oriented, denies concerns, meds given as per may, remains on bipap at hs, tolerating well, assessments as charted, resting well, will continue to monitor and follow poc
[2020-10-22 05:05] VITALS: BP 156/88
[2020-10-22 08:06] VITALS: BP 127/68
[2020-10-22 11:46] VITALS: BP 107/72
[2020-10-22 15:52] VITALS: BP 127/67
--- NOTE | 2020-10-22 18:05 | NUR ---
PT SIGNIFICANTLY IMPROVED TODAY. SHE HAS BEEN ON HIGH AP OXYGEN AND SATS HAVE REMAINED ABVOE 90% MOST OF THE DAY. SHE IS ALERT ORIENTED X4. DENIES PAIN. STAYED IN BED THROUGH THE DAY. WILL CONT WITH PLAN OF CARE.
[2020-10-22 20:29] VITALS: BP 139/80
[2020-10-23 04:37] VITALS: BP 140/88
--- NOTE | 2020-10-23 04:53 | NUR ---
RECEIVED PATIENT ON BED, ALERT AND ORIENTED X4.ON HIGH FLOW OXYGEN AND PLACED ON BIPAP AT BEDTIME.WITH DIALYSIS CATHETER INSITU.NOT IN PAIN OR DISTRESS.ASSESSMENT CHARTED.ALL NEEDS ATTENDED.FOR CONTINOUS MONITORING.
[2020-10-23 05:03] LABS: HEMATOCRIT 33.3 % (37.0-47.0); MCH 35.1 pg (26.0-34.0); MCHC 33.1 g/dL (28.0-37.0); MCV 105.9 fL (80.0-100.0); PLATELET COUNT 166 thou/uL (150-400); RBC 3.15 mil/uL (4.20-5.00); RDW 18.5 % (10.5-14.5)
[2020-10-23 05:09] LABS: ALBUMIN 3.4 g/dL (3.4-5.0); CALCIUM 8.3 mg/dL (8.5-10.1); CREATININE 5.6 mg/dL (0.6-1.0); MAGNESIUM 2.4 mg/dL (1.8-2.4); PHOSPHORUS 5.3 mg/dL (2.5-4.9); POTASSIUM 5.5 mmol/L (3.5-5.1); TOTAL BILIRUBIN 0.4 mg/dL (0.2-1.0); TOTAL PROTEIN 7.2 g/dL (6.4-8.2)
[2020-10-23 05:58] LABS: ABSOLUTE NEUTROPHILS 16.7 thou/uL (1.4-8.2); METAMYELOCYTES 3 %; MYELOCYTES 2 %; NUCLEATED RBCS 3 /100WBC
[2020-10-23 05:59] LABS: ANISOCYTOSIS 2+; MACROCYTES 1+; POLYCHROMASIA 1+
[2020-10-23 08:00] VITALS: BP 127/75; BP 130/73
[2020-10-23 12:07] VITALS: BP 131/70
--- NOTE | 2020-10-23 15:02 | NUR ---
Visited with patient regarding LTAC care. [facility] has wait list, [facility] also with no beds avail. Gave patient brochure on [facility]. Reviewed location and LTAC care. Sp with dtr Denise and alerted information in room. Also reviewed LTAC care with Denise.
[2020-10-23 15:30] VITALS: BP 113/66
--- NOTE | 2020-10-23 18:21 | NUR ---
RN ASSAUMED PT'S CARE AT 0700AM, PT IS A&OX4, PT IS ON OPTIFLOW O2 100% , O250L/MIN/NC AT MOST OF DAY, PT'S VS AND O2SAT ARE STABLE, PT DENIES PAIN AND SOB BY THIS TIME, PT IS ON BIPAP NOW.
[2020-10-23 21:48] VITALS: BP 122/78
--- NOTE | 2020-10-24 03:48 | NUR ---
Assumed pt care at 1900. Pt is alert and oriented. No sign of distress noted in pt. Bipap in place through the shift. Pt is stable. Assessment completed and documented. Denies any pain. Scheduled meds administered to pt. Tolerated PO intake. No acute event through the night. Continue to monitor. No further needs at this time.
[2020-10-24 05:31] VITALS: BP 138/78
--- NOTE | 2020-10-24 11:23 | NUR ---
FAXED CLINICAL UPDATES TO [facility]. WILL CONFIRM THEY RECEIVED. [facility] P [phone]; FAX [phone]
--- NOTE | 2020-10-24 14:25 | NUR ---
Nutrition followup: pt continues on CCU post COVID/SOA. Bipap at HS, Optiflow during the day. Tolerates meals, eats variable amounts, still averaging 50% of meals. Receives Nepro daily and although this is not documented by nsg, pt reports she always drinks it. Current weight showing a possible 14# decline in 3 weeks. Unsure of accuracy, Otherwise may be related to fluid/dialysis. Will follow trends. Current hyperkalemia-renal adjusting dialysis. BG 188-243. Pt not on carb controlled diet. Also on steroid. Additional restrictions not indicated due to % intake of meals. Awaiting LTAC bed. Consider low nutrition risk with interventions in place.
[2020-10-24 16:22] VITALS: BP 98/65
[2020-10-24 17:45] LABS: ALBUMIN 3.5 g/dL (3.4-5.0); CALCIUM 8.7 mg/dL (8.5-10.1); MAGNESIUM 2.2 mg/dL (1.8-2.4); PHOSPHORUS 5.2 mg/dL (2.6-4.7); TOTAL BILIRUBIN 0.5 mg/dL (0.2-1.0)
[2020-10-24 17:57] LABS: CREATININE 3.7 mg/dL (0.6-1.0)
[2020-10-24 18:39] LABS: HEMATOCRIT 35.5 % (37.0-47.0); HEMOGLOBIN 11.3 gm/dL (12.0-15.0); MCH 33.9 pg (26.0-34.0); MCV 106.1 fL (80.0-100.0); PLATELET COUNT 131 thou/uL (150-400); RBC 3.34 mil/uL (4.20-5.00); RDW 19.4 % (10.5-14.5); WBC 20.8 thou/uL (4.0-11.0)
[2020-10-24 19:58] VITALS: BP 114/70
[2020-10-24 20:08] LABS: ABSOLUTE NEUTROPHILS 19.3 thou/uL (1.4-8.2); METAMYELOCYTES 1 %; MYELOCYTES 1 %
[2020-10-24 20:09] LABS: ANISOCYTOSIS 1+; MACROCYTES SLIGHT; NUCLEATED RBCS 1 /100WBC
[2020-10-25 03:30] VITALS: BP 111/60
[2020-10-25 03:44] VITALS: BP 136/62
[2020-10-25 07:30] VITALS: BP 135/83
--- NOTE | 2020-10-25 10:34 | NUR ---
VAT SPOKE WITH NEPHROLOGY, UNABLE TO FIND PIV'S ON PT, VESSELS TOO SMALL, NONCOMPRESSABLE. DR LEE ORDERING TICC PLACEMENT FOR TODAY. PRIMARY RN NOTIFIED IR
[2020-10-25 11:00] VITALS: BP 116/56
--- NOTE | 2020-10-25 15:16 | NUR ---
Rec call from [employer] requesting a peer to peer #[phone] completed by 10/26 9 am. Notified phys who will insurance.
[2020-10-25 16:00] VITALS: BP 120/79
--- NOTE | 2020-10-25 16:28 | NUR ---
ASSESSED VESSELS WITH US AND NO VIABLE VEINS AVAILABLE FOR PIV ACCESS. 20G PLACED IN RT JUGULAR FOR OVERNIGHT ACCESS PRIOR TO TICC PLACEMENT IN THE AM.
[2020-10-25 20:42] LABS: HEMATOCRIT 36.9 % (37.0-47.0); HEMOGLOBIN 11.6 gm/dL (12.0-15.0); MCH 33.9 pg (26.0-34.0); MCHC 31.3 g/dL (28.0-37.0); MCV 108.5 fL (80.0-100.0); PLATELET COUNT 118 thou/uL (150-400); RBC 3.41 mil/uL (4.20-5.00); RDW 18.8 % (10.5-14.5)
[2020-10-25 20:45] VITALS: BP 127/95
[2020-10-25 20:57] LABS: ALBUMIN 3.3 g/dL (3.4-5.0); CALCIUM 8.4 mg/dL (8.5-10.1); MAGNESIUM 2.4 mg/dL (1.8-2.4); TOTAL BILIRUBIN 0.5 mg/dL (0.2-1.0); TOTAL PROTEIN 6.9 g/dL (6.4-8.2)
[2020-10-25 20:58] LABS: CREATININE 5.9 mg/dL (0.6-1.0)
[2020-10-25 21:01] LABS: POTASSIUM 6.2 mmol/L (3.5-5.1)
[2020-10-25 22:35] LABS: ABSOLUTE NEUTROPHILS 15.8 thou/uL (1.4-8.2)
[2020-10-25 22:36] LABS: ANISOCYTOSIS 2+; LARGE PLATELETS FEW; MACROCYTES 2+; PLATELET ESTIMATE DECREASED; POIKILOCYTOSIS 1+
[2020-10-26 04:45] VITALS: BP 138/72
--- NOTE | 2020-10-26 04:59 | NUR ---
PT IS SLEEPING AT THIS TIME BIPAP ON. REPORTED TO RENAL DOCTOR HER POTASSIUM LEVELS. PT GETS DIALYSIS THIS AM WITH CARE. LUNGS ARE DIMINISHED. ABDOMEN IS ROUND BOWEL SOUNDS ACTIVE X4. PO MEDS GIVEN PER RENAL ORDERED LAST NIGHT NO BM NOTED PER NURSING CARE. FAMILY AT BEDSIDE LAST NIGHT AND VISTED WITH PT. WILL CONTINUE TO ASSESS AND MONITOR PER NURSING. CALL LIGHT WITHIN REACH
[2020-10-26 08:20] VITALS: BP 103/75
--- NOTE | 2020-10-26 10:49 | NUR ---
PT UNDERGOING DIALYSIS THIS AM.
--- NOTE | 2020-10-26 11:19 | NUR ---
PT C/O RIGHT SIDED CHEST PAIN DURING DIALYSIS. DR. TAYLOR CALLED TO ROOM AND ORDER EKG AND TROPONIN. CARDIOLOGY CONSULTED WELL.
[2020-10-26 11:50] VITALS: BP 149/98
--- NOTE | 2020-10-26 12:36 | EKG ---
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1945 Requested By: Adan Montague Order Number: [id number] : Joss Canchola Measurements Intervals Kerrick Rate: 117 P: MD: QRS: -56 QRSD: 154 T: 173 QT: 415 QTc: 579 Interpretive Statements SINUS TACHYCARDIA LVH with IVCD, LAD and secondary repol abnrm Inferior infarct, acute (RCA) Prolonged QT interval Probable RV involvement, suggest recording right precordial leads Compared to ECG 10/01/2020 20:35:07 2:1 AV block now present Myocardial infarct finding now present Atrial abnormality no longer present Electronically Signed On 10-26-2020 12:36:32 CDT by Joss Canchola [email or web address] <ELECTRONICALLY SIGNED> By: Joss Canchola MD, FACC 10/26/20 1236 1111 1111 Joss Canchola MD, FAC /EPI
--- NOTE | 2020-10-26 13:50 | NUR ---
Pt. c/o of chest paint-FIRE TECHNOLOGY INSTRUCTOR activated-see flowsheet
--- NOTE | 2020-10-26 13:55 | 2DMMODE ---
[facility] [place] [address] 2 D/M-MODE ECHOCARDIOGRAM Name: RAMIRO BROOKS Room #: 217-P ADM IN M.R.#: [id number] Admission: 10/01/20 Attend Phys: Annette Hogan MD Discharge: Date of : 43 Report #: [id number] THIS REPORT FOR: cc: Rai Jarrett MD, Keninde A. MD Park, Jin S. MD ~ APPROVED REPORT Study performed: 10/26/2020 13:00:43 EXAM: Comprehensive 2D, Doppler, and color-flow Echocardiogram Patient Location: Bedside Room #: 217 Status: routine BSA: 2.12 HR: 120 bpm BP: 149/98 mmHg Rhythm: SVT Other Information Study Quality: Technically Limited Technically limited study due to inability to position patient, body habitus, SVT. Indications Arrhythmia Chest Pain Hypertension/HDD 2D Dimensions IVC: 13.00 mm Aortic Valve AoV Peak Russ.: 1.13 m/s AO Peak Gr.: 5.11 mmHg LVOT Max P.71 mmHg LVOT Max V: 0.82 m/s Pulmonary Valve PV Peak Russ.: 0.85 m/s PV Peak Gr.: 2.90 mmHg Tricuspid Valve TR Peak Russ.: 3.24 m/s TR Peak Gr.: 42.12 mmHg PA Pressure: 47.00 mmHg [facility] [address] [place] [address] 2 D/M-MODE ECHOCARDIOGRAM Name: RAMIRO BROOKS Room #: 217-P ADM IN M.R.#: [id number] Admission: 10/01/20 Attend Phys: Annette Hogan, Discharge: Date of : 41 Report #: [id number] Left Ventricle The left ventricle is normal size. There is hypokinesis of the inferior wall. Mild concentric left ventricular hypertrophy. Left ventricular systolic function is mildly decreased. LVEF is 45%. This study is not technically sufficient to allow evaluation of the LV diastolic function. Right Ventricle Right ventricle is at the upper limits of normal. The right ventricular systolic function is normal. Atria Left atrium is dilated. Right atrium is dilated. Aortic Valve The Aortic valve is sclerotic. No aortic regurgitation is present. There is no aortic valvular stenosis. Mitral Valve The mitral valve is normal in structure. Mild mitral regurgitation. No evidence of mitral valve stenosis. Tricuspid Valve The tricuspid valve is normal in structure. There is mild tricuspid regurgitation. Estimated PAP 47 mmHg. There is moderate pulmonary hypertension. Pulmonic Valve The pulmonary valve is normal in structure. Trace to mild pulmonic regurgitation. Great Vessels The aortic root is normal in size. IVC is normal in size and collapses >50% with inspiration. Pericardium There is no pericardial effusion. <Conclusion> The left ventricle is normal size. Mild concentric left ventricular hypertrophy. Left ventricular systolic function is mildly decreased. LVEF is 45%. Right ventricle is at the upper limits of normal. Left atrium is dilated. [facility] [address] [place] [address] 2 D/M-MODE ECHOCARDIOGRAM Name: RAMIRO BROOKS Room #: 217-P ADM IN M.R.#: [id number] Admission: 10/01/20 Attend Phys: Annette Hogan, Discharge: Date of : 41 Report #: [id number] The Aortic valve is sclerotic. Mild mitral regurgitation. There is mild tricuspid regurgitation. Estimated PAP 47 mmHg. There is moderate pulmonary hypertension. <ELECTRONICALLY SIGNED> By: Pablo Arroyo MD 10/26/20 1355 1355 1355 Pablo Arroyo MD /INF
--- NOTE | 2020-10-26 15:43 | NUR ---
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 FIO2 80% on 100% highflow with bipap at [facility]. Will reassess and submit clincial update to [facility] as FIO2 improves and they will resubmit the auth request with her ins plan.
[2020-10-26 16:25] VITALS: BP 90/60
--- NOTE | 2020-10-26 17:20 | NUR ---
FAXED CLINICAL UPDATES AND RECENT FLOW SHEETS TO [facility]. NOTED TO SUBMIT FOR INSURANCE AUTHORIZATION PER EMA/DERMATOLOGY TEACHER. WILL CONFIRM THEY RECEIVED. [facility] P [phone]; FAX [phone]
--- NOTE | 2020-10-26 17:33 | NUR ---
FAXED CLINICAL UPDATES AND RECENT FLOW SHEETS (8-26,25,24) TO [facility]. [facility] P [phone]; FAX [phone]
[2020-10-26 18:30] VITALS: BP 121/60
--- NOTE | 2020-10-26 18:33 | NUR ---
PT UP IN BED A AND O NO DISTRESS AT THIS TIME, PT TURNED AND CLEANED, NOTED SMALL AREA ON BOTTOM, COVERED WITH BANDAGE, WOUND NURSE CONSULTED, AIR BED PUMP ORDERED. CALL LIGHT WITH IN REACH, PT ON HIGH FLOW, L WRIST IV REMOVED, CATH INTACT, BANDAGE APPLIED.
[2020-10-26 19:56] VITALS: BP 107/56
--- NOTE | 2020-10-27 03:33 | NUR ---
ASSUMED CARE OF PT AT 1900, ASSESSMENT COMPLETED NOTED. PT REMAINS ON OPTIFLOW DURING THE DAY WITH BIPAP AT HS, TOLERATING WELL. PT DENIES CP, DIZZINESS OR HEADACHE. WILL CONTINUE TO WORK TOWARDS PT'S POC.
[2020-10-27 05:42] VITALS: BP 111/66
[2020-10-27 07:45] VITALS: BP 129/78
[2020-10-27 08:00] VITALS: BP 151/61
--- NOTE | 2020-10-27 10:19 | NUR ---
WOUND CONSULT; THE BUTTOCKS/SACRUM AREAS WERE ASSESSED. NO WOUNDS WERE IDENTIFIED. THE PICC LINE WAS BLEEDING WHICH WAS REPORTED TO THE RN. NO OTHER AREAS OF CONCERN. RECOMMENDATIONS; -BARRIER CREAM BID -Q2H TURNING. RN PRESENT.
[2020-10-27 11:35] VITALS: BP 139/56
--- NOTE | 2020-10-27 13:55 | NUR ---
Update provided to the [facility] liason and clinical faxed. They are attempting to resubmit for ins auth but pt's FIO2 is 80 on high flow. They will need updates faxed on Friday again.
[2020-10-27 15:55] VITALS: BP 103/60
[2020-10-27 20:45] VITALS: BP 120/76
[2020-10-28 04:45] VITALS: BP 127/73
[2020-10-28 07:50] VITALS: BP 111/69
--- NOTE | 2020-10-28 07:56 | NUR ---
ASSUMED CARE OF PT AT 1900, PT ON 60L OPTIFLOW WITH 100% NRB DURING THE DAY WITH SAT'S MAINTIANING 89-90 %. PT DESATS INTO THE LOW TO MID 80'S WITH THE REMOVAL OF THE NRB MASK. BIPAP IS WORN AT NOC. PT DENIES PAIN, SOA MORE THAN NORMAL OR DIZZINESS, WILL CONTINUE TO WORK TOWARDS PT'S POC.
[2020-10-28 15:00] VITALS: BP 95/76
[2020-10-28 19:11] VITALS: BP 61/19
[2020-10-28 19:24] VITALS: BP 95/34
--- NOTE | 2020-10-28 20:27 | NUR ---
[employer] CALLED FOR DECREASED LOC AND POOR RESPIRATORY STATUS, SEE [employer] FLOWSHEET. PT BECAME PULSELESS AT 1943, CODE CALLED AT THIS TIME.
--- NOTE | 2020-10-28 22:08 | NUR ---
PT WAS IN RESPIRATORY DISTRESS UPON THIS RN'S ARRIVAL. BP WAS LOW, WAS DOING DIALYSIS. PT FELT A BIT CLAMMY, AND FINGERS WERE COLD. QUITE DIFFICULT TO GET AN ACCURATE PULSE OX READING. UPON ENTERING THE ROOM FOR INITIAL ASSESSMENT, IT WAS FOUND THAT THE PULSE OX MACHINE WAS TURNED COMPLETELY OFF. AFTER DIALYSIS WAS COMPLETE, A NEW PROBE AND MACHINE WAS REPLACED WITH ATTEMPTS TO GET AN ACCURATE READING. DON RT WAS CALLED SEVERAL TIMES TO ASSIST IN GETTING A GOOD READ. THE MAX SAT WAS 93 AND THE LOWEST SAT WAS 67 WITH SLOW INCREASE TO 88%. PT'S CARDIAC RHYTHM CHANGED FROM SR TO SR WITH BBB AND CHB. A CODE WAS CALLED AND AFTER APPROXIMATELY 45 MINS, PT WAS PRONOUNCED AT [address] JORDAN. THE FAMILY WAS NOTIFIED AFTER REACHING THE HOSPITAL OF THEIR LOSS.
--- NOTE | 2020-11-02 13:27 | NUR ---
GABBIE received call from Helga at [facility] regarding summary. Pt on 10/28/2020. GABBIE faxed summary and received confirmation. Case closed.
== END 2020-10-28 20:06 | DRG 871 ==
LOC: ER 19:32 → EROBS 21:34 → 3W 21:34 → 2N 10-10 22:25
PROVIDERS: Hospitalist; Internal Medicine; Internal Medicine Nephrology; Internal Medicine Pulmonary Disease; Nurse Practitioner Family; Student in an Organized Health Care Education/Training Program; ADMIT Internal Medicine; ATTEND Internal Medicine
PROC: 5A09357 Assistance with Respiratory Ventilation, Less than 24 Consecutive Hours, Continuous Positive Airway Pressure (ICD-10-PCS; 2020-10-01)
PROC: 5A0935A Assistance with Respiratory Ventilation, Less than 24 Consecutive Hours, High Flow/Velocity Cannula (ICD-10-PCS; 2020-10-02)
PROC: 5A0935A Assistance with Respiratory Ventilation, Less than 24 Consecutive Hours, High Flow/Velocity Cannula (ICD-10-PCS; 2020-10-03)
PROC: 5A09357 Assistance with Respiratory Ventilation, Less than 24 Consecutive Hours, Continuous Positive Airway Pressure (ICD-10-PCS; 2020-10-03)
PROC: 5A09357 Assistance with Respiratory Ventilation, Less than 24 Consecutive Hours, Continuous Positive Airway Pressure (ICD-10-PCS; 2020-10-04)
PROC: 5A0935A Assistance with Respiratory Ventilation, Less than 24 Consecutive Hours, High Flow/Velocity Cannula (ICD-10-PCS; 2020-10-04)
PROC: 5A0935A Assistance with Respiratory Ventilation, Less than 24 Consecutive Hours, High Flow/Velocity Cannula (ICD-10-PCS; 2020-10-05)
PROC: 5A09357 Assistance with Respiratory Ventilation, Less than 24 Consecutive Hours, Continuous Positive Airway Pressure (ICD-10-PCS; 2020-10-05)
PROC: 5A09357 Assistance with Respiratory Ventilation, Less than 24 Consecutive Hours, Continuous Positive Airway Pressure (ICD-10-PCS; 2020-10-06)
PROC: 5A0935A Assistance with Respiratory Ventilation, Less than 24 Consecutive Hours, High Flow/Velocity Cannula (ICD-10-PCS; 2020-10-06)
PROC: 5A09357 Assistance with Respiratory Ventilation, Less than 24 Consecutive Hours, Continuous Positive Airway Pressure (ICD-10-PCS; 2020-10-07)
PROC: 5A0945A Assistance with Respiratory Ventilation, 24-96 Consecutive Hours, High Flow/Velocity Cannula (ICD-10-PCS; 2020-10-07)
PROC: 5A09357 Assistance with Respiratory Ventilation, Less than 24 Consecutive Hours, Continuous Positive Airway Pressure (ICD-10-PCS; 2020-10-08)
PROC: 5A09357 Assistance with Respiratory Ventilation, Less than 24 Consecutive Hours, Continuous Positive Airway Pressure (ICD-10-PCS; 2020-10-09)
PROC: 5A09557 Assistance with Respiratory Ventilation, Greater than 96 Consecutive Hours, Continuous Positive Airway Pressure (ICD-10-PCS; 2020-10-10)
PROC: 5A09357 Assistance with Respiratory Ventilation, Less than 24 Consecutive Hours, Continuous Positive Airway Pressure (ICD-10-PCS; 2020-10-17)
PROC: 5A0935A Assistance with Respiratory Ventilation, Less than 24 Consecutive Hours, High Flow/Velocity Cannula (ICD-10-PCS; 2020-10-17)
PROC: 5A09357 Assistance with Respiratory Ventilation, Less than 24 Consecutive Hours, Continuous Positive Airway Pressure (ICD-10-PCS; 2020-10-18)
PROC: 5A0935A Assistance with Respiratory Ventilation, Less than 24 Consecutive Hours, High Flow/Velocity Cannula (ICD-10-PCS; 2020-10-18)
PROC: 5A09357 Assistance with Respiratory Ventilation, Less than 24 Consecutive Hours, Continuous Positive Airway Pressure (ICD-10-PCS; 2020-10-19)
PROC: 5A0935A Assistance with Respiratory Ventilation, Less than 24 Consecutive Hours, High Flow/Velocity Cannula (ICD-10-PCS; 2020-10-19)
PROC: 5A09357 Assistance with Respiratory Ventilation, Less than 24 Consecutive Hours, Continuous Positive Airway Pressure (ICD-10-PCS; 2020-10-20)
PROC: 5A0935A Assistance with Respiratory Ventilation, Less than 24 Consecutive Hours, High Flow/Velocity Cannula (ICD-10-PCS; 2020-10-20)
PROC: 5A0935A Assistance with Respiratory Ventilation, Less than 24 Consecutive Hours, High Flow/Velocity Cannula (ICD-10-PCS; 2020-10-21)
PROC: 5A09357 Assistance with Respiratory Ventilation, Less than 24 Consecutive Hours, Continuous Positive Airway Pressure (ICD-10-PCS; 2020-10-21)
PROC: 5A09357 Assistance with Respiratory Ventilation, Less than 24 Consecutive Hours, Continuous Positive Airway Pressure (ICD-10-PCS; 2020-10-22)
PROC: 5A0935A Assistance with Respiratory Ventilation, Less than 24 Consecutive Hours, High Flow/Velocity Cannula (ICD-10-PCS; 2020-10-22)
PROC: 5A0935A Assistance with Respiratory Ventilation, Less than 24 Consecutive Hours, High Flow/Velocity Cannula (ICD-10-PCS; 2020-10-23)
PROC: 5A09357 Assistance with Respiratory Ventilation, Less than 24 Consecutive Hours, Continuous Positive Airway Pressure (ICD-10-PCS; 2020-10-23)
PROC: 5A0935A Assistance with Respiratory Ventilation, Less than 24 Consecutive Hours, High Flow/Velocity Cannula (ICD-10-PCS; 2020-10-24)
PROC: 5A09357 Assistance with Respiratory Ventilation, Less than 24 Consecutive Hours, Continuous Positive Airway Pressure (ICD-10-PCS; 2020-10-24)
PROC: 5A0935A Assistance with Respiratory Ventilation, Less than 24 Consecutive Hours, High Flow/Velocity Cannula (ICD-10-PCS; 2020-10-25)
PROC: 5A09357 Assistance with Respiratory Ventilation, Less than 24 Consecutive Hours, Continuous Positive Airway Pressure (ICD-10-PCS; 2020-10-25)
PROC: 0JH63XZ Insertion of Tunneled Vascular Access Device into Chest Subcutaneous Tissue and Fascia, Percutaneous Approach (ICD-10-PCS; 2020-10-26)
PROC: 5A09357 Assistance with Respiratory Ventilation, Less than 24 Consecutive Hours, Continuous Positive Airway Pressure (ICD-10-PCS; 2020-10-26)
PROC: 02H633Z Insertion of Infusion Device into Right Atrium, Percutaneous Approach (ICD-10-PCS; 2020-10-26)
PROC: 5A0935A Assistance with Respiratory Ventilation, Less than 24 Consecutive Hours, High Flow/Velocity Cannula (ICD-10-PCS; 2020-10-26)
PROC: B548ZZA Ultrasonography of Superior Vena Cava, Guidance (ICD-10-PCS; 2020-10-26)
PROC: 5A09357 Assistance with Respiratory Ventilation, Less than 24 Consecutive Hours, Continuous Positive Airway Pressure (ICD-10-PCS; 2020-10-27)
PROC: 5A0935A Assistance with Respiratory Ventilation, Less than 24 Consecutive Hours, High Flow/Velocity Cannula (ICD-10-PCS; 2020-10-27)
PROC: 5A12012 Performance of Cardiac Output, Single, Manual (ICD-10-PCS; principal; 2020-10-28)
PROC: 5A09357 Assistance with Respiratory Ventilation, Less than 24 Consecutive Hours, Continuous Positive Airway Pressure (ICD-10-PCS; principal; 2020-10-28)
PROC: 0BH18EZ Insertion of Endotracheal Airway into Trachea, Via Natural or Artificial Opening Endoscopic (ICD-10-PCS; principal; 2020-10-28)
PROC: 5A0935A Assistance with Respiratory Ventilation, Less than 24 Consecutive Hours, High Flow/Velocity Cannula (ICD-10-PCS; principal; 2020-10-28)
PROC: 5A1935Z Respiratory Ventilation, Less than 24 Consecutive Hours (ICD-10-PCS; principal; 2020-10-28)
DX: A41.89 Other specified sepsis (principal); J96.21 Acute and chronic respiratory failure with hypoxia; N18.6 End stage renal disease; G92 Toxic encephalopathy; U07.1 COVID-19; J12.82 Pneumonia due to coronavirus disease 2019; J15.9 Unspecified bacterial pneumonia; I50.43 Acute on chronic combined systolic (congestive) and diastolic (congestive) heart failure; I48.20 Chronic atrial fibrillation, unspecified; I42.9 Cardiomyopathy, unspecified; I13.2 Hypertensive heart and chronic kidney disease with heart failure and with stage 5 chronic kidney disease, or end stage renal disease; Z68.41 Body mass index [BMI] 40.0-44.9, adult; E44.0 Moderate protein-calorie malnutrition; E66.2 Morbid (severe) obesity with alveolar hypoventilation; I48.92 Unspecified atrial flutter; I44.2 Atrioventricular block, complete; M17.0 Bilateral primary osteoarthritis of knee; E11.42 Type 2 diabetes mellitus with diabetic polyneuropathy; E11.22 Type 2 diabetes mellitus with diabetic chronic kidney disease; E11.51 Type 2 diabetes mellitus with diabetic peripheral angiopathy without gangrene; E87.5 Hyperkalemia; I25.10 Atherosclerotic heart disease of native coronary artery without angina pectoris; I27.20 Pulmonary hypertension, unspecified; Z96.1 Presence of intraocular lens; Z79.01 Long term (current) use of anticoagulants; Z98.42 Cataract extraction status, left eye; Z98.41 Cataract extraction status, right eye; Z98.891 History of uterine scar from previous surgery; Z86.73 Personal history of transient ischemic attack (TIA), and cerebral infarction without residual deficits; Z87.891 Personal history of nicotine dependence; Z79.899 Other long term (current) drug therapy; Z88.8 Allergy status to other drugs, medicaments and biological substances; Z91.19 Patient's noncompliance with other medical treatment and regimen
CPT/HCPCS: 10081; 10879; 32100